=== PATIENT | male | born 1980 | race Caucasian/White ===

== ENCOUNTER 2019-06-22 16:14 | Inpatient (IN) | payer BC ==
[~2019-06-22] VITALS: Ht 185.4 cm; Wt 98.7 kg
[2019-06-22 16:56] LABS: BASO # 0.1 10^3/uL (0.0-0.2); BASO % 0.6 % (0.0-1.0); EOS % 0.1 % (0.0-3.0); HEMATOCRIT 48.5 % (42.0-52.0); HEMOGLOBIN 16.2 g/dl (13.5-17.5); LYMPH # 1.2 10^3/uL (1.5-5.0); MEAN CORPUSCULAR HEMOGLOBIN 33.7 pg (27.0-33.0); MEAN CORPUSCULAR HGB CONC 33.4 g/dl (32.0-36.5); MEAN CORPUSCULAR VOLUME 100.8 fl (80.0-96.0); MONO % 12.3 % (0.0-5.0); NEUTROPHILS # 5.6 10^3/uL (1.5-8.5); NEUTROPHILS % 71.2 % (36.0-66.0); PLATELET COUNT, AUTOMATED 115 10^3/uL (150-450); RED BLOOD COUNT 4.81 10^6/uL (4.30-6.10); WHITE BLOOD COUNT 7.9 10^3/uL (4.0-10.0)
[2019-06-22 17:06] LABS: INR 1.64; PROTHROMBIN TIME 19.2 SECONDS (11.8-14.0)
[2019-06-22 17:29] LABS: ALBUMIN 3.4 GM/DL (3.2-5.2); BILIRUBIN,DIRECT 2.4 MG/DL (0.0-0.2); BILIRUBIN,TOTAL 4.7 MG/DL (0.2-1.0); CALCIUM LEVEL 9.3 MG/DL (8.5-10.1); CK-MB VALUE MASS 3.2 NG/ML (<3.6); CREATININE FOR GFR 1.55 MG/DL (0.70-1.30); GLOMERULAR FILTRATION RATE 53.7 (>60); MB/CK RELATIVE INDEX 0.79 (< OR =4); POTASSIUM SERUM 4.2 MEQ/L (3.5-5.1); THYROID STIMULATING HORMONE 7.22 uIU/ML (0.358-3.740); TOTAL PROTEIN 7.2 GM/DL (6.4-8.2); TROPONIN I 0.36 NG/ML (< 0.10)
[2019-06-22] MEDS ORDERED: FUROSEMIDE 40 MG/4 ML VIAL (J1940) IV ONE (17:45)
[2019-06-22] MEDS ORDERED: LORazepam 2 MG TAB PO PRN (18:45)
--- NOTE | 2019-06-22 19:00 | HPEPDOC ---
General Date of Admission 06/22/18 Date of Service: Jun 22, 2019 Chief Complaint The patient is a 39-year-old male admitted with a reason for visit of Chest Pain. Source: Patient, Family, RN/MD History of Present Illness 39 year old male with no PMH , a heavy alcohol drinker at least a 6 pack of beer daily has been having increased SOB , cough and swelling of his legs for the past 3 weeks. Today he saw some blood in his cough so jigar to the urgent care in [place]. There a CXR was done which was read as cardiomegaly and bibasilar atelectasis so was sent to the ED. He has been having more and more cough when he has been laying down in bed. He denied any abdominal swelling. His last beer was 2 days ago. He quit smoking 3 months ago. Work [place] [address], elevated creatinine to 1.5, elevated AST , ALT, direct hyperbilirubinemia with elevated INR. Patient was admitted for acute CHF and alcoholic liver disease. Home Medications No Active Prescriptions or Reported Meds Allergies Coded Allergies: No Known Allergies (Verified Allergy, Unknown, 06/22/19) Past Medical History Medical History none Surgical History wisdom tooth removal Family History Father alive had stroke Mother alive healthy Social History * Smoker: former Smoker Alcohol: heavy Drugs: denies A-FIB/CHADSVASC A-FIB History Current/History of A-Fib/PAF?: No Review of Systems Constitutional: Reports: Fatigue; Denies: Chills, Fever, Night Sweats Eyes: Denies: Pain, Vision change ENT: Denies: Head Aches, Ear Pain, Dysphagia Skin: Denies: Rash, Lesions, Breakdown Pulmonary: Reports: Dyspnea, Cough Cardiovascular: Reports: Edema; Denies: Chest Pain, Palpitations, Paroxysmal Noc. Dyspnea, Lt Headedness Gastrointestinal: Reports: Diarrhea; Denies: Nausea, Vomiting, Abdominal Pain Genitourinary: Denies: Dysuria, Frequency, Incontinence, Retention Hematologic: Denies: Bruising, Bleeding Excessively Musculoskeletal: Denies: Neck Pain, Back Pain, Joint Pain, Muscle Pain, Spasms Neurological: Denies: Weakness, Numbness, Change in speech, Confusion Physical Examination General Exam: Positive: Alert, Cooperative, No Acute Distress Eye Exam: Positive: PERRLA, Conjunctiva & lids normal, EOMI, Sclera icteric ENT Exam: Positive: Atraumatic, Mucous membr. moist/pink, Pharynx Normal Neck Exam: Positive: Supple, JVD (in sitting position elevated. ) Chest Exam: Positive: Normal air movement, Other (basal crackles) Heart Exam: Positive: Tachycardic, Regular Rhythm, Normal S1, Normal S2, Gallops; Negative: Murmurs, Rubs Telemetry: Positive: Sinus, Tachycardia Abdomen Exam: Positive: Normal bowel sounds, Soft; Negative: Tenderness, Hepatospenomegaly Extremity Exam: Positive: Edema (4+ edema), Normal pulses; Negative: Clubbing, Cyanosis Skin Exam: Positive: Nl turgor and temperature; Negative: Breakdown, Lesion Neuro Exam: Positive: Normal Speech, Strength at 5/5 X4 ext, Normal Tone Psych Exam: Positive: Memory Intact, Oriented x 3 Vital Signs Vital Signs Date Time Temp Pulse Resp B/P (MAP) Pulse Ox O2 Delivery O2 Flow Rate FiO2 06/22/19 16:23 98.7 114 16 141/96 (111) 100 Room Air Laboratory Data Labs 24H Laboratory Tests 2 06/22/19 16:45: Immature Granulocyte % (Auto) 0.8, Neutrophils (%) (Auto) 71.2H, Lymphocytes (%) (Auto) 15.0L, Monocytes (%) (Auto) 12.3H, Eosinophils (%) (Auto) 0.1, Basophils (%) (Auto) 0.6, Neutrophils # (Auto) 5.6, Lymphocytes # (Auto) 1.2L, Monocytes # (Auto) 1.0H, Eosinophils # (Auto) 0.0, Basophils # (Auto) 0.1, Nucleated Red Blood Cells % (auto) 0.0, Prothrombin Time 19.2H, Prothromb Time International Ratio 1.64, Anion Gap 15, Glomerular Filtration Rate 53.7L, Calcium Level 9.3, Magnesium Level 2.0, Total Bilirubin 4.7H, Direct Bilirubin 2.4H, Aspartate Amino Transf (AST/SGOT) 387H, Alanine Aminotransferase (ALT/SGPT) 299H, Alkaline Phosphatase 120H, Total Creatine Kinase 406H, Creatine Kinase MB 3.2, Creatine K inase MB Relative Index 0.79, Troponin I 0.36H, KV-Oet-S-Type Natriuretic Peptide 65884E, Total Protein 7.2, Albumin 3.4, Albumin/Globulin Ratio 0.89L, Thyroid Stimulating Hormone (TSH) 7.220H CBC/BMP Laboratory Tests 06/22/19 16:45 Assessment/Plan 39 year old male with no PMH , a heavy alcohol drinker at least a 6 pack of beer daily has been having increased SOB , cough and swelling of his legs for the past 3 weeks. Today he saw some blood in his cough so jigar to the urgent care in [place]. There a CXR was done which was read as cardiomegaly and bibasilar atel ectasis so was sent to the ED. He has been having more and more cough when he has been laying down in bed. He denied any abdominal swelling. His last beer was 2 days ago. He quit smoking 3 months ago.Work [place] [address], elevated creatinine to 1.5, elevated AST , ALT, direct hyperbilirubinemia with elevated INR. Patient was admitted for acute CHF and alcoholic liver disease. Acute CHF unknown type. 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 Alcohol abuse with probable underlying Chronic Alcoholic liver disease has low platelets and elevated INR elevated bilirubin. MELD score in 25. will get CT abdomen and pelvis to look for any ascites, liver architexture will place on CIWA protocol will give Vitamin K. KRISTIN probably due to CHF will treat with lasix. Mildly Elevated TSH this is sick euthyroid syn will have to be recheched as outpateint. Transaminitis this is probably due to congestive hepatopathy rather than alcoholic hepatitis as pateint does not have any abdominal pain or abdominal complaints. CT abd pelvis ordered. Plan / VTE VTE Prophylaxis Ordered?: Yes JORGE L SHERMAN MD Jun 22, 2019 19:00
[2019-06-22 19:51] VITALS: BP 124/86
[2019-06-22 20:04] VITALS: BP 128/86
--- NOTE | 2019-06-22 20:13 | REPVR ---
PROCEDURE INFORMATION: Exam: CT Abdomen And Pelvis Without Contrast Exam date and time: 06/22/2019 6:49 PM Age: 39 years old Clinical indication: Abnormal findings; Abnormal lab test; Abnormal function test of other organs/systems; Additional info: Abnormal liver functions, alcoholic TECHNIQUE: Imaging protocol: Computed tomography of the abdomen and pelvis without contrast. Radiation optimization: All CT scans at this facility use at least one of these dose optimization techniques: automated exposure control; mA and/or kV adjustment per patient size (includes targeted exams where dose is matched to clinical indication); or iterative reconstruction. COMPARISON: No relevant prior studies available. FINDINGS: Heart: Cardiomegaly. Liver: There are no focal liver lesions present. Gallbladder and bile ducts: The gallbladder is unremarkable. Pancreas: The pancreas is unremarkable. Spleen: The spleen is unremarkable Adrenals: The adrenal glands are unremarkable. Kidneys and ureters: The kidneys are unremarkable. Stomach and bowel: There is no evidence of intestinal obstruction. Appendix: No evidence of appendicitis. Intraperitoneal space: Small volume of ascites. Vasculature: The aorta is unremarkable. Lymph nodes: Unremarkable. No enlarged lymph nodes. Mild anasarca. Bladder: The bladder is unremarkable. Reproductive: The prostate gland and seminal vesicles are unremarkable. Bones/joints: Skeletal degeneration. Soft tissues: Unremarkable. IMPRESSION: 1. Mild ascites and anasarca. 2. Cardiomegaly. 3. Solid organs are poorly evaluated on this noncontrast study. Electronically signed by: Cher Dey On 06/22/2019 20:13:13 PM
--- NOTE | 2019-06-22 20:20 | REPVR ---
PROCEDURE INFORMATION: Exam: CT Chest Without Contrast Exam date and time: 06/22/2019 6:49 PM Age: 39 years old Clinical indication: Shortness of breath; Additional info: SOB, hemoptysis TECHNIQUE: Imaging protocol: Computed tomography of the chest without contrast. Radiation optimization: All CT scans at this facility use at least one of these dose optimization techniques: automated exposure control; mA and/or kV adjustment per patient size (includes targeted exams where dose is matched to clinical indication); or iterative reconstruction. COMPARISON: DX CHEST 2 VIEW 06/22/2019 2:43 PM FINDINGS: Lungs: Groundglass attenuation is seen anteriorly at base of right middle lobe. Pleural space: No pneumothorax. No pleural effusion. Heart: Cardiomegaly with small pericardial effusion. Mediastinum: There is stranding throughout the anterior mediastinal fat. Aorta: No aortic aneurysm. Lymph nodes: No significant mediastinal lymphadenopathy. Lucia are not well assessed. Bones/joints: Prior fractures of the posterior margins of the upper thoracic spinous processes. Schmorl's nodes are seen in vertebral body endplates. Soft tissues: Unremarkable. IMPRESSION: 1. Cardiomegaly without pleural effusions. 2. Mild groundglass attenuation anteriorly at base of right middle lobe most likely due to subsegmental atelectasis. No evidence of pneumonia or congestive heart failure. Electronically signed by: Cher Dey On 06/22/2019 20:20:00 PM
[2019-06-22] MEDS: FUROSEMIDE 40 MG/4 ML VIAL (J1940) IV SCH (21:09)
[2019-06-22] MEDS: THIAMINE 100 MG TAB PO SCH (21:09)
[2019-06-22 22:00] VITALS: BP 124/86
[2019-06-23] VITALS (7 sets, daily range): BP systolic 117–139; BP diastolic 68–94
[2019-06-23] MEDS ORDERED: ACETAMINOPHEN TAB 650MG DOSE (2X325MG) PO ONE (06:30)
[2019-06-23] MEDS: FUROSEMIDE 40 MG/4 ML VIAL (J1940) IV SCH ×3 (06:32→21:22)
[2019-06-23] MEDS: MULTIVITAMINS/MINERALS THERAP 1 TAB PO SCH (08:32)
[2019-06-23] MEDS: FOLIC ACID 1 MG TAB PO SCH (08:32)
[2019-06-23] MEDS: THIAMINE 100 MG TAB PO SCH ×2 (08:32→21:22)
[2019-06-23] MEDS ORDERED: INFLUENZA QUADRIVALENT PF VACCINE 0.5ML SYRINGE (90686) IM ONE (09:00)
--- NOTE | 2019-06-23 11:14 | IPNPDOC ---
Subjective Date Seen The patient was seen on 06/23/19. Subjective Chief Complaint/HPI Mr. Roche is a 39 year old male admitted to the hospital with diagnoses of Alcohol abuse, acute CHF, and ALD. He is seen sitting up in the room this morning. Pt denied any pain or dyspnea. He continues to have a dry cough, there is no longer blood being expectorated. Per nursing TEDs will not fit over the pt legs as they are so edematous; requested sequentials instead. General: Reports: Normal Appetite; Denies: Chills, Night Sweats, Malaise Constitutional: Denies: Chills, Fever Eyes: Denies: Pain ENT: Denies: Head Aches Skin: Denies: Rash Pulmonary: Reports: Cough; Denies: Dyspnea Cardiovascular: Reports: Edema; Denies: Chest Pain, Palpitations, Paroxysmal Noc. Dyspnea, Lt Headedness Gastrointestinal: Denies: Nausea, Vomiting, Abdominal Pain Genitourinary: Denies: Dysuria Musculoskeletal: Denies: Neck Pain, Back Pain, Joint Pain, Muscle Pain, Spasms Neurological: Denies: Change in speech, Confusion Psych: Reports: Mood Normal Objective Physical Examination General Exam: Positive: Alert, Cooperative, No Acute Distress Eye Exam: Positive: PERRLA, Conjunctiva & lids normal, EOMI, Sclera icteric ENT Exam: Positive: Atraumatic, Mucous membr. moist/pink, Pharynx Normal Neck Exam: Positive: Supple; Negative: thyromegaly Chest Exam: Positive: Normal air movement, Other (basal crackles) Heart Exam: Positive: Tachycardic, Regular Rhythm, Normal S1, Normal S2, Gallops (S4); Negative: Murmurs, Rubs Telemetry: Positive: Sinus, Tachycardia Abdomen Exam: Positive: Normal bowel sounds, Soft; Negative: Tenderness, Hepatospenomegaly Extremity Exam: Positive: Edema (4+ edema b/l), Normal pulses; Negative: Clubbing, Cyanosis Skin Exam: Positive: Nl turgor and temperature; Negative: Breakdown, Lesion Neuro Exam: Positive: Normal Speech, Strength at 5/5 X4 ext, Normal Tone Psych Exam: Positive: Mood NL, Memory Intact, Oriented x 3 Assessment /Plan Assessment Mr. Roche is a 39 year old male with no PMH , a heavy alcohol drinker at least a 6 pack of beer daily has been having increased SOB , cough and swelling of his legs for the past 3 weeks. Today he saw some blood in his cough so went to the urgent care in [place]. There a CXR was done which was read as cardiomegaly and bibasilar atelectasis so was sent to the ED. He has been having more and more cough when he has been laying down in bed. He denied any abdominal swelling. His last beer was 2 days ago. He quit smoking 3 months ago. Work [place] [address], elevated creatinine to 1.5, elevated AST , ALT, direct hyperbilirubinemia with elevated INR. Patient was admitted for acute CHF and alcoholic liver disease. Acute CHF unknown type. 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 Chest CT Impression: "1. Cardiomegaly without pleural effusions. 2. Mild ground glass attenuation anteriorly at base of right middle lobe most likely due to subsegmental atelectasis. No evidence of pneumonia or congestive heart failure." Alcohol abuse with probable underlying Chronic Alcoholic liver disease has low platelets and elevated INR elevated bilirubin. MELD score in 25. CT Abd/pelvis Impression: "1. Mild ascites and anasarca. 2. Cardiomegaly. 3. Solid organs are poorly evaluated on this noncontrast study." will place on CIWA protocol - negative per nursing Vitamin K - given KRISTIN probably due to CHF will treat with Lasix Mildly Elevated TSH this is sick euthyroid syn will have to be followed as outpatient Transaminitis this is probably due to congestive hepatopathy rather than alcoholic hepatitis as patient does not have any abdominal pain or abdominal complaints CT abd pelvis done (see above) Dyspnea, chronic cough Strongly encouraged to use spirometer hourly Plan/VTE VTE Prophylaxis Ordered?: Yes VS, I&O, 24H, Fishbone Vital Signs/I&O Vital Signs Date Time Temp Pulse Resp B/P (MAP) Pulse Ox O2 Delivery O2 Flow Rate FiO2 06/23/19 06:00 98.0 106 24 120/94 (103) 98 Room Air I&O- Last 24 Hours up to 6 AM 06/23/19 05:59 Intake Total 180 ml Output Total 3475 ml Balance -3295 ml Laboratory Data 24H LABS Laboratory Tests 2 06/22/19 16:45: Immature Granulocyte % (Auto) 0.8, Neutrophils (%) (Auto) 71.2H, Lymphocytes (%) (Auto) 15.0L, Monocytes (%) (Auto) 12.3H, Eosinophils (%) (Auto) 0.1, Basophils (%) (Auto) 0.6, Neutrophils # (Auto) 5.6, Lymphocytes # (Auto) 1.2L, Monocytes # (Auto) 1.0H, Eosinophils # (Auto) 0.0, Basophils # (Auto) 0.1, Nucleated Red Blood Cells % (auto) 0.0, Prothrombin Time 19.2H, Prothromb Time International Ratio 1.64, Anion Gap 15, Glomerular Filtration Rate 53.7L, Calcium Level 9.3, Magnesium Level 2.0, Total Bilirubin 4.7H, Direct Bilirubin 2.4H, Aspartate Amino Transf (AST/SGOT) 387H, Alanine Aminotransferase (ALT/SGPT) 299H, Alkaline Phosphatase 120H, Total Creatine Kinase 406H, Creatine Kinase MB 3.2, Creatine Kinase MB Relative Index 0.79, Troponin I 0.36H, WK-Qgx-T-Type Natriuretic Peptide 92302D, Total Protein 7.2, Albumin 3.4, Albumin/Globulin Ratio 0.89L, Thyroid Stimulating Hormone (TSH) 7.220H 06/22/19 18:03: Ammonia 28 CBC/BMP Laboratory Tests 06/22/19 16:45 ROMA BETTS PA-C Jun 23, 2019 11:14
[2019-06-23 14:08] LABS: BASO % 0.3 % (0.0-1.0); EOS % 0.3 % (0.0-3.0); HEMATOCRIT 43.9 % (42.0-52.0); HEMOGLOBIN 14.9 g/dl (13.5-17.5); LYMPH # 1.1 10^3/uL (1.5-5.0); LYMPH % 12.3 % (24.0-44.0); MEAN CORPUSCULAR HEMOGLOBIN 33.6 pg (27.0-33.0); MEAN CORPUSCULAR HGB CONC 33.9 g/dl (32.0-36.5); MEAN CORPUSCULAR VOLUME 98.9 fl (80.0-96.0); MONO # 1.1 10^3/uL (0.0-0.8); MONO % 12.6 % (0.0-5.0); NEUTROPHILS # 6.7 10^3/uL (1.5-8.5); NEUTROPHILS % 73.8 % (36.0-66.0); RED BLOOD COUNT 4.44 10^6/uL (4.30-6.10); WHITE BLOOD COUNT 9.1 10^3/uL (4.0-10.0)
[2019-06-23 14:10] LABS: PLATELET COUNT, AUTOMATED 95 10^3/uL (150-450)
[2019-06-23 14:31] LABS: ALT/SGPT 249 U/L (12-78); BILIRUBIN,TOTAL 4.6 MG/DL (0.2-1.0); BLOOD UREA NITROGEN 23 MG/DL (7-18); CALCIUM LEVEL 8.6 MG/DL (8.5-10.1); CARBON DIOXIDE LEVEL 24 MEQ/L (21-32); CHLORIDE LEVEL 99 MEQ/L (98-107); CREATININE FOR GFR 1.39 MG/DL (0.70-1.30); GLOMERULAR FILTRATION RATE > 60.0 (>60); GLUCOSE, FASTING 111 MG/DL (70-100); MAGNESIUM LEVEL 1.6 MG/DL (1.8-2.4); PHOSPHORUS LEVEL 3.2 MG/DL (2.5-4.9); POTASSIUM SERUM 3.4 MEQ/L (3.5-5.1); SODIUM LEVEL 135 MEQ/L (136-145); TOTAL PROTEIN 6.3 GM/DL (6.4-8.2)
--- NOTE | 2019-06-23 14:53 | ECGEPIP ---
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
--- NOTE | 2019-06-23 20:34 | ECHO ---
DATE OF PROCEDURE: 06/23/2019 REFERRING PHYSICIAN: Maria Elena Darnell MD PATIENT LOCATION: Room 4227 REASON FOR ECHOCARDIOGRAM: Heart failure. 2D MEASUREMENTS: IVS: 0.9 cm LV: 6.8 cm LVPW: 1.3 cm LA: 5.0 cm Aorta: 3.3 cm RV: 4.7 cm IVC: 3.5 cm DOPPLER MEASUREMENTS: Peak velocity across the aortic valve: 0.81 m/s Peak velocity across the LVOT: 0.41 m/s Mitral E: 0.7 Maximum tricuspid valve velocity: 2.2 m/s 2D COMMENTS: 1. Moderately increased left ventricular size with normal left ventricular wall thickness but a markedly depressed global left ventricular systolic function. There was severe global hypokinesis. The estimated left ventricular systolic ejection fraction is 20%. 2. Mild to moderately enlarged left atrium. The right atrium appeared to be mildly enlarged. The right ventricle may be minimally enlarged in limited views. The right ventricular free wall seems to be hypokinetic. 3. The atrial septum appeared to be normal without evidence of defect or shunt. 4. Normal aortic root. 5. Trace pericardial effusion noted, no evidence of cardiac tamponade. 6. Normal aortic valve. Normal mitral valve, tricuspid valve, and pulmonic valves. 7. The inferior vena cava is dilated, central venous pressure is most likely elevated. DOPPLER: Doppler detects moderate eccentric mitral regurgitation and moderate eccentric tricuspid regurgitation. The calculated pulmonary artery systolic pressure was normal, but most likely underestimated. Assessment of the left ventricular diastolic function appeared to be restrictive in nature. IMPRESSION 1. Severe global left ventricular systolic dysfunction with a moderately enlarged left ventricle and severe diffuse hypokinesis. There are some features of left ventricular diastolic dysfunction, a restrictive mitral inflow pattern was noted. 2. Mildly to moderately enlarged left atrium with moderate eccentric mitral regurgitation. 3. Moderate tricuspid regurgitation with dilated right heart chambers. The calculated pulmonary artery systolic pressure was normal, most likely underestimated. 4. There are features of elevated central venous pressure, the inferior vena cava was dilated. 5. Trace pericardial effusion,, no evidence of cardiac tamponade. MTDD
[2019-06-23] MEDS ORDERED: MAG SULF 1GM/100ML (MAG RUN) 1 GM in IV 1 EA IV ONE (21:00)
[2019-06-23] MEDS ORDERED: POTASSIUM CHLORIDE 10 MEQ SR TABLET PO ONE (21:00)
[2019-06-24 04:00] VITALS: BP 106/64
[2019-06-24] MEDS: FUROSEMIDE 40 MG/4 ML VIAL (J1940) IV SCH ×3 (05:29→21:48)
[2019-06-24 06:00] VITALS: BP 128/76
[2019-06-24 06:13] LABS: HEMATOCRIT 41.9 % (42.0-52.0); HEMOGLOBIN 14.9 g/dl (13.5-17.5); MEAN CORPUSCULAR HEMOGLOBIN 34.4 pg (27.0-33.0); MEAN CORPUSCULAR HGB CONC 35.6 g/dl (32.0-36.5); MEAN CORPUSCULAR VOLUME 96.8 fl (80.0-96.0); RED BLOOD COUNT 4.33 10^6/uL (4.30-6.10); WHITE BLOOD COUNT 7.9 10^3/uL (4.0-10.0)
[2019-06-24 06:18] LABS: PLATELET COUNT, AUTOMATED 96 10^3/uL (150-450)
[2019-06-24 06:36] LABS: ALBUMIN 2.8 GM/DL (3.2-5.2); ALT/SGPT 214 U/L (12-78); BILIRUBIN,TOTAL 4.3 MG/DL (0.2-1.0); BLOOD UREA NITROGEN 18 MG/DL (7-18); CALCIUM LEVEL 8.2 MG/DL (8.5-10.1); CARBON DIOXIDE LEVEL 26 MEQ/L (21-32); CHLORIDE LEVEL 96 MEQ/L (98-107); GLOMERULAR FILTRATION RATE > 60.0 (>60); GLUCOSE, FASTING 102 MG/DL (70-100); MAGNESIUM LEVEL 1.6 MG/DL (1.8-2.4); PHOSPHORUS LEVEL 2.9 MG/DL (2.5-4.9); POTASSIUM SERUM 2.7 MEQ/L (3.5-5.1); SODIUM LEVEL 135 MEQ/L (136-145); TOTAL PROTEIN 6.6 GM/DL (6.4-8.2)
[2019-06-24] MEDS ORDERED: MAG SULF 1GM/100ML (MAG RUN) 1 GM in IV 1 EA IV ONE (07:00)
[2019-06-24] MEDS ORDERED: KCL 10MEQ/100ML SWI (KRUN) 10 MEQ in IV 1 EA IV SCH (07:00)
[2019-06-24 08:00] VITALS: BP 116/70
[2019-06-24] MEDS ORDERED: POTASSIUM CHLORIDE 10 MEQ SR TABLET PO ONE ×2 (09:00→14:00)
[2019-06-24] MEDS ORDERED: POTASSIUM CHLORIDE 10 MEQ SR TABLET PO SCH (09:00)
[2019-06-24] MEDS: KCL 10MEQ/100ML SWI (KRUN) 10 MEQ in IV 1 EA IV SCH ×2 (09:10→09:17)
[2019-06-24] MEDS: THIAMINE 100 MG TAB PO SCH ×2 (09:28→20:48)
[2019-06-24] MEDS: MAGNESIUM OXIDE 400 MG TAB (MAG-OX) PO SCH ×2 (09:28→20:48)
[2019-06-24] MEDS: FOLIC ACID 1 MG TAB PO SCH (09:28)
[2019-06-24] MEDS: POTASSIUM CHLORIDE 10 MEQ SR TABLET PO SCH ×2 (09:28→20:47)
[2019-06-24] MEDS: MULTIVITAMINS/MINERALS THERAP 1 TAB PO SCH (09:28)
[2019-06-24] MEDS ORDERED: KCL 10MEQ/100ML SWI (KRUN) 10 MEQ in IV 1 EA IV ONE (11:00)
--- NOTE | 2019-06-24 12:38 | IPNPDOC ---
Subjective Date Seen The patient was seen on 06/24/19. Subjective Chief Complaint/HPI Continues to complain of cough, no hemoptysis, No improvement in leg swelling noted yet. Says he is having very good urine output. No signs of alcohol withdrawal. Complains of some right sided chest pain when he lays down possibly due to congestive hepatopathy Objective Physical Examination General Exam: Positive: Alert, Cooperative, No Acute Distress Eye Exam: Positive: PERRLA, Conjunctiva & lids normal, EOMI, Sclera icteric ENT Exam: Positive: Atraumatic, Mucous membr. moist/pink, Pharynx Normal Neck Exam: Positive: Supple, JVD; Negative: thyromegaly Chest Exam: Positive: Normal air movement, Other (basal crackles) Heart Exam: Positive: Tachycardic, Regular Rhythm, Normal S1, Normal S2, Gallops (S4); Negative: Murmurs, Rubs Telemetry: Positive: Sinus, Tachycardia Abdomen Exam: Positive: Normal bowel sounds, Soft; Negative: Tenderness, Hepatospenomegaly Extremity Exam: Positive: Edema (4+ edema b/l), Normal pulses; Negative: Clubbing, Cyanosis Skin Exam: Positive: Nl turgor and temperature; Negative: Breakdown, Lesion Neuro Exam: Positive: Normal Speech, Strength at 5/5 X4 ext, Normal Tone Psych Exam: Positive: Mood NL, Memory Intact, Oriented x 3 Assessment /Plan Assessment Mr. Roche is a 39 year old male with no PMH , a heavy alcohol drinker at least a 6 pack of beer daily has been having increased SOB , cough and swelling of his legs for the past 3 weeks. Today he saw some blood in his cough so went to the urgent care in [place]. There a CXR was done which was read as cardiomegaly and bibasilar atelectasis so was sent to the ED. He has been having more and more cough when he has been laying down in bed. He denied any abdominal swelling. His last beer was 2 days ago. He quit smoking 3 months ago. Work [place] [address], elevated creatinine to 1.5, elevated AST , ALT, direct hyperbilirubinemia with elevated INR. Patient was admitted for acute CHF and alcoholic liver disease. Acute Systolic and diastolic CHF and acute right heart failure Echo shows dialated cardiomyopathy with EF of 20%. Etiology could be viral/ alcohol 1. Severe global left ventricular systolic dysfunction with a moderately enlarged left ventricle and severe diffuse hypokinesis. There are some features of left ventricular diastolic dysfunction, a restrictive mitral inflow pattern was noted. 2. Mildly to moderately enlarged left atrium with moderate eccentric mitral regurgitation. 3. Moderate tricuspid regurgitation with dilated right heart chambers. The calculated pulmonary artery systolic pressure was normal, most likely underestimated. 4. There are features of elevated central venous pressure, the inferior vena cava was dilated. 5. Trace pericardial effusion,, no evidence of cardiac tamponade. NSVTs on tele, electrolyte imbalance being replaced aggressively continue IV lasix. Cardiology consult Hypokalemia and hypomagnesemia replaced aggressively. will recheck in the afternoon. Cardiomegaly in CXR Chest CT Impression: "1. Cardiomegaly without pleural effusions. 2. Mild ground glass attenuation anteriorly at base of right middle lobe most likely due to subsegmental atelectasis. No evidence of pneumonia or congestive heart failure." Alcohol abuse with probable underlying Chronic Alcoholic liver disease has low platelets and elevated INR elevated bilirubin. MELD score in 25. CT Abd/pelvis Impression: "1. Mild ascites and anasarca. 2. Cardiomegaly. 3. Solid organs are poorly evaluated on this noncontrast study." will place on CIWA protocol - negative per nursing Vitamin K - given KRISTIN improving with diuresis. probably due to CHF will treat with Lasix Mildly Elevated TSH this is sick euthyroid syn will have to be followed as outpatient Transaminitis this is probably due to congestive hepatopathy rather than alcoholic hepatitis as patient does not have any abdominal pain or abdominal complaints CT abd pelvis done (see above) will get hepatitis profile. Dyspnea, chronic cough Strongly encouraged to use spirometer hourly Plan/VTE VTE Prophylaxis Ordered?: Yes VS, I&O, 24H, Fishbone Vital Signs/I&O Vital Signs Date Time Temp Pulse Resp B/P (MAP) Pulse Ox O2 Delivery O2 Flow Rate FiO2 06/24/19 08:00 68 116/70 06/24/19 06:00 97.8 19 97 Room Air I&O- Last 24 Hours up to 6 AM 06/24/19 06:00 Intake Total 1275 ml Output Total 3900 ml Balance -2625 ml Laboratory Data 24H LABS Laboratory Tests 2 06/23/19 13:38: 06/23/19 13:43: Immature Granulocyte % (Auto) 0.7, Neutrophils (%) (Auto) 73.8H, Lymphocytes (%) (Auto) 12.3L, Monocytes (%) (Auto) 12.6H, Eosinophils (%) (Auto) 0.3, Basophils (%) (Auto) 0.3, Neutrophils # (Auto) 6.7, Lymphocytes # (Auto) 1.1L, Monocytes # (Auto) 1.1H, Eosinophils # (Auto) 0.0, Basophils # (Auto) 0.0, Nucleated Red Blood Cells % (auto) 0.0, Immature Platelet Fraction 6.8, Anion Gap 12, Glomerular Filtration Rate > 60.0, Calcium Level 8.6, Phosphorus Level 3.2, Magnesium Level 1.6L, Total Bilirubin 4.6H, Aspartate Amino Transf (AST/SGOT) 286H, Alanine Aminotransferase (ALT/SGPT) 249H, Alkaline Phosphatase 108, Total Protein 6.3L, Albumin 3.0L, Albumin/Globulin Ratio 0.91L 06/24/19 05:48: Nucleated Red Blood Cells % (auto) 0.0, Anion Gap 13, Glomerular Filtration Rate > 60.0, Calcium Level 8.2L, Phosphorus Level 2.9, Magnesium Level 1.6L, Total Bilirubin 4.3H, Aspartate Amino Transf (AST/SGOT) 212H, Alanine Aminotransferase (ALT/SGPT) 214H, Alkaline Phosphatase 111, Total Protein 6.6, Albumin 2.8L, Albumin/Globulin Ratio 0.74L CBC/BMP Laboratory Tests 06/23/19 13:43 06/24/19 05:48 JORGE L SHERMAN MD Jun 24, 2019 12:23
[2019-06-24 14:00] VITALS: BP 120/79
[2019-06-24] MEDS ORDERED: SPIRONOLACTONE 12.5MG PER 1/2 TABLET PO SCH (15:00)
[2019-06-24 16:34] LABS: BLOOD UREA NITROGEN 17 MG/DL (7-18); CALCIUM LEVEL 7.9 MG/DL (8.5-10.1); CARBON DIOXIDE LEVEL 27 MEQ/L (21-32); CHLORIDE LEVEL 95 MEQ/L (98-107); CREATININE FOR GFR 1.27 MG/DL (0.70-1.30); GLOMERULAR FILTRATION RATE > 60.0 (>60); GLUCOSE, FASTING 134 MG/DL (70-100); POTASSIUM SERUM 3.4 MEQ/L (3.5-5.1); SODIUM LEVEL 133 MEQ/L (136-145)
[2019-06-24] MEDS: ramipriL 1.25 MG CAP PO SCH (16:46)
[2019-06-24] MEDS: CARVedilol 3.125 MG TAB PO SCH (20:49)
[2019-06-24 22:00] VITALS: BP 135/79
[2019-06-25 00:06] LABS: EBV VIRAL CAPSID AG IgG >600.0 U/mL (0.0-17.9); EBV VIRAL CAPSID AG IgM <36.0 U/mL (0.0-35.9)
[2019-06-25] MEDS ORDERED: ONDANSETRON 4 MG TAB (S0181) PO PRN (00:15)
[2019-06-25] MEDS: RAMELTEON 8 MG TAB (ROZEREM) PO SCH ×2 (00:21→21:03)
[2019-06-25 06:00] LABS: HEMATOCRIT 48.9 % (42.0-52.0); HEMOGLOBIN 16.3 g/dl (13.5-17.5); MEAN CORPUSCULAR HEMOGLOBIN 33.5 pg (27.0-33.0); MEAN CORPUSCULAR HGB CONC 33.3 g/dl (32.0-36.5); MEAN CORPUSCULAR VOLUME 100.6 fl (80.0-96.0); RED BLOOD COUNT 4.86 10^6/uL (4.30-6.10); WHITE BLOOD COUNT 8.8 10^3/uL (4.0-10.0)
[2019-06-25 06:01] LABS: PLATELET COUNT, AUTOMATED 91 10^3/uL (150-450)
[2019-06-25] MEDS: FUROSEMIDE 40 MG/4 ML VIAL (J1940) IV SCH (06:01)
[2019-06-25 06:29] LABS: ALBUMIN 3.1 GM/DL (3.2-5.2); BILIRUBIN,TOTAL 6.9 MG/DL (0.2-1.0); CALCIUM LEVEL 8.2 MG/DL (8.5-10.1); CREATININE FOR GFR 1.69 MG/DL (0.70-1.30); GLOMERULAR FILTRATION RATE 48.6 (>60); MAGNESIUM LEVEL 1.9 MG/DL (1.8-2.4); POTASSIUM SERUM 3.8 MEQ/L (3.5-5.1); TOTAL PROTEIN 7.4 GM/DL (6.4-8.2)
--- NOTE | 2019-06-25 08:21 | CR ---
DATE OF CONSULTATION: 06/24/2019 REFERRING PROVIDER: Dr. Maria Elena Darnell. REASON FOR CONSULTATION: Heart failure. HISTORY OF PRESENT ILLNESS: 39-year-old man with no previous past medical history currently not seeing any physicians prior to his hospitalization. Has been having increasing shortness of breath, pedal edema, orthopnea, cough, which he thinks for about 3 weeks. Because he was not feeling well, he went to the urgent care center in [place], [place] and had a chest x-ray that revealed cardiomegaly and atelectasis. He was sent to the emergency room (ER) for further evaluation and was admitted for further management and monitoring. His labs revealed a markedly elevated serum troponin on admission up to 14,000 with hyponatremia, chronic kidney disease, abnormal LFTs, abnormal TSH and macrocytosis. He had an echocardiogram done yesterday and it revealed a severely depressed left ventricular ejection fraction (LVEF) estimated at 20%. There was moderate eccentric mitral regurgitation as well as moderate tricuspid regurgitation. The inferior vena cava was dilated but only trace pericardial effusion. Cardiology consult was called. When I saw Mr. Michael Roche, he was sitting in chair in no acute distress and family members were at bedside. He denies any chest pain or palpitations. He denies any recent pneumonia or upper respiratory tract infection. He denies any history of hypertension, hyperlipidemia, coronary disease, valvular heart disease, cardiomyopathy, atrial fibrillation/flutter. He stated he had stopped smoking earlier this year and has been drinking; he usually drinks a lot until 2 days prior to his hospitalization. The drinks beers but they are all with high concentration of alcohol about 8%. He denies any bleeding. He was told earlier today by his hospitalist about his underlying cardiac condition and he is concerned. PAST SURGICAL HISTORY: [place] tooth removal, otherwise of markable. MEDICATIONS: Prior coming to the hospital, none. FAMILY HISTORY: Positive for cerebrovascular accident (CVA) his father otherwise unremarkable. SOCIAL HISTORY: The patient is a former smoker, stopped earlier this year. He drinks heavily until this hospitalization. He denies any illicit drugs. CURRENT MEDICATIONS: - potassium supplement 40 mg by mouth twice a day - magnesium oxide 48 mg by mouth twice a day - folic acid 1 mg by mouth daily - multivitamin one tablet by mouth daily - Lasix 40 mg IV every 8 hours - thiamine 100 mg by mouth twice a day. PHYSICAL EXAMINATION: The patient is alert and oriented, in no acute distress at rest and his blood pressure when I saw him was 116/70 with a pulse reported to be 68, respiration 19 and his maximum temperature was 97.8 degrees Fahrenheit with oxygen saturation of 97% on room air. He had a negative fluid balance since hospitalization. It was reported to be 12 liters but I would doubt that. Examination of the head: Atraumatic. Neck is supple and no jugular venous distention (JVD) appreciated while sitting up in the chair. The lungs revealed minimal crackles at the bases. The heart examination revealed a regular heart sound without gallops. The point of maximum impulse (PMI) is displaced inferiorly and laterally. There is no rub. There is systolic murmur grade 1 to 2 over 6 at the lower sternal border and at the apex without any significant radiation. Abdomen is soft. Extremities reveal +1 to +2 bilateral lower leg and ankle edema. Neurological examination is negative for focal deficit. LABS: BMP done this afternoon revealed a sodium of 133, potassium 3.4, chloride 95, CO2 27, BUN 17, creatinine 1.27, GFR more than 60, fasting glucose 134, calcium 7.9 and serum magnesium was 2.0. Liver enzymes done earlier today revealed a total bilirubin of 4.3, AST 212, ALT 249 alkaline phosphatase, total protein 6.6, albumin 2.8. On admission, AST and ALT was 387 and 299 respectively. CBC done today revealed a WBC of 7.9, hemoglobin 14.9, hematocrit 41.9 and platelet 96,000. Chest CT on admission revealed cardiomegaly without pleural effusion. There was a ground-glass appearance mainly on the right middle lobe. Abdomen and pelvis CT revealed mild ascites and anasarca, cardiomegaly. 39-year-old male with history of heavy alcoholism was admitted with heart failure and was found by echocardiogram to be a severely depressed global left ventricular systolic function. He also has abnormal LFTs, thrombocytopenia, macrocytosis. His kidney function seems to have improved since in the hospital. His LFTs are also slightly improving. His diagnosis was discussed with him and he was strongly recommended to stop drinking alcohol and this also was discussed with his family present in the room. He was started on the spirolactone, the angiotensin converting enzyme inhibitors (TOMÁS)/ramipril and the carvedilol. He will be monitored. I doubt he has underlying coronary artery disease. When he is ready for discharge, he will need a LifeVest. He is well aware if he does not stop drinking alcohol, his LVEF most likely will not improved. I will monitor him along with you while in the hospital and he will be seen as outpatient at the office for followup. Case was discussed with his hospitalist. PATRICIA
[2019-06-25] MEDS: MAGNESIUM OXIDE 400 MG TAB (MAG-OX) PO SCH ×2 (08:33→21:03)
[2019-06-25] MEDS: FOLIC ACID 1 MG TAB PO SCH (08:34)
[2019-06-25] MEDS: MULTIVITAMINS/MINERALS THERAP 1 TAB PO SCH (08:34)
[2019-06-25] MEDS: THIAMINE 100 MG TAB PO SCH (08:34)
[2019-06-25] MEDS: POTASSIUM CHLORIDE 10 MEQ SR TABLET PO SCH (08:34)
[2019-06-25] MEDS: ramipriL 1.25 MG CAP PO SCH (08:35)
[2019-06-25] MEDS: CARVedilol 3.125 MG TAB PO SCH ×2 (08:35→21:53)
[2019-06-25] MEDS ORDERED: OXAZEPAM 10 MG CAP PO PRN (09:30)
[2019-06-25 09:39] LABS: BILIRUBIN,DIRECT 3.8 MG/DL (0.0-0.2)
--- NOTE | 2019-06-25 10:57 | IPNPDOC ---
Subjective Date Seen The patient was seen on 06/25/19. Subjective Chief Complaint/HPI As per staff very anxious overnight did not sleep tachycardic, not keeping the telemetry on. He seems to be starting to go into alcohol withdrawal. No fever or chills, denies any SOB, no abdominal pain nausea or vomiting. Objective Physical Examination General Exam: Positive: Alert, Cooperative, No Acute Distress Eye Exam: Positive: PERRLA, Conjunctiva & lids normal, EOMI, Sclera icteric ENT Exam: Positive: Atraumatic, Mucous membr. moist/pink, Pharynx Normal Neck Exam: Positive: Supple, JVD (present in sitting position); Negative: thyromegaly Chest Exam: Positive: Normal air movement, Other (basal crackles) Heart Exam: Positive: Tachycardic, Regular Rhythm, Normal S1, Normal S2, Gallops (S4); Negative: Murmurs, Rubs Telemetry: Positive: Sinus, Tachycardia Abdomen Exam: Positive: Normal bowel sounds, Soft; Negative: Tenderness, Hepatospenomegaly Extremity Exam: Positive: Edema (4+ edema b/l), Normal pulses; Negative: Clubbing, Cyanosis Skin Exam: Positive: Nl turgor and temperature; Negative: Breakdown, Lesion Neuro Exam: Positive: Normal Speech, Strength at 5/5 X4 ext, Normal Tone Psych Exam: Positive: Mood NL, Memory Intact, Oriented x 3 Assessment /Plan Assessment Mr. Roche is a 39 year old male with no PMH , a heavy alcohol drinker at least a 6 pack of beer daily has been having increased SOB , cough and swelling of his legs for the past 3 weeks. Today he saw some blood in his cough so went to the urgent care in [place]. There a CXR was done which was read as cardiomegaly and bibasilar atelectasis so was sent to the ED. He has been having more and more cough when he has been laying down in bed. He denied any abdominal swelling. His last beer was 2 days ago. He quit smoking 3 months ago. [place] [address], elevated creatinine to 1.5, elevated AST , ALT, direct hyperbilirubinemia with elevated INR. Patient was admitted for acute CHF and alcoholic liver disease. Acute Systolic and diastolic CHF and acute right heart failure shows dilated cardiomyopathy with EF of 20%. Etiology could be alcohol or others. strongly urged to refrain from drinking after discharge. need to be evaluated for CAD after discharge. Seen by cardiology, continue lasix iv but will lower dosage as creatinine is on corine rise started on ramipril and spironolactone. Not much urine output overnight. Echo : 1. Severe global left ventricular systolic dysfunction with a moderately enlarged left ventricle and severe diffuse hypokinesis. There are some features of left ventricular diastolic dysfunction, a restrictive mitral inflow pattern was noted. 2. Mildly to moderately enlarged left atrium with moderate eccentric mitral regurgitation. 3. Moderate tricuspid regurgitation with dilated right heart chambers. The calculated pulmonary artery systolic pressure was normal, most likely underestimated. 4. There are features of elevated central venous pressure, the inferior vena cava was dilated. 5. Trace pericardial effusion,, no evidence of cardiac tamponade. Hypokalemia and hypomagnesemia replaced aggressively. better now. Anxiety and tachycardia Patient is probably starting to withdraw from the alcohol will give him serax Alcohol abuse with probable underlying Chronic Alcoholic liver disease has low platelets and elevated INR elevated bilirubin. MELD score in 25. CT Abd/pelvis Impression: "1. Mild ascites and anasarca. 2. Cardiomegaly. 3. Solid organs are poorly evaluated on this noncontrast study." Vitamin K - given thiamine and folate. KRISTIN due to CHF and now due to aggressive diuresis. Will slow down on the diuresis. lasix dosa decreased. Mildly Elevated TSH this is sick euthyroid syn will have to be followed as outpatient Transaminitis this is probably due to congestive hepatopathy rather than alcoholic hepatitis as patient does not have any abdominal pain or abdominal complaints It could be due to chonic liver disease also. CT abd pelvis done (see above) will get hepatitis profile. Plan/VTE VTE Prophylaxis Ordered?: Yes VS, I&O, 24H, Fishbone Vital Signs/I&O Vital Signs Date Time Temp Pulse Resp B/P (MAP) Pulse Ox O2 Delivery O2 Flow Rate FiO2 06/25/19 08:35 126/75 06/25/19 08:35 102 06/24/19 22:00 97.4 19 99 Room Air I&O- Last 24 Hours up to 6 AM 06/25/19 06:00 Intake Total 1410 ml Output Total 2975 ml Balance -1565 ml Laboratory Data 24H LABS Laboratory Tests 2 06/24/19 15:45: Anion Gap 11, Glomerular Filtration Rate > 60.0, Calcium Level 7.9L, Magnesium Level 2.0 06/25/19 05:37: Anion Gap 15, Glomerular Filtration Rate 48.6L, Calcium Level 8.2L, Magnesium Level 1.9, Nucleated Red Blood Cells % (auto) 0.0, Immature Platelet Fraction 8.9, Total Bilirubin 6.9#H, Direct Bilirubin 3.8H, Aspartate Amino Transf (AST/SGOT) 158H, Alanine Aminotransferase (ALT/SGPT) 184H, Alkaline Phosphatase 118H, Total Protein 7.4, Albumin 3.1L, Albumin/Globulin Ratio 0.72L CBC/BMP Laboratory Tests 06/24/19 15:45 06/25/19 05:37 JORGE L SHERMAN MD Jun 25, 2019 10:57
[2019-06-25] MEDS ORDERED: SPIRONOLACTONE 12.5MG PER 1/2 TABLET PO SCH (12:00)
[2019-06-25 14:00] VITALS: BP 114/70
[2019-06-25] MEDS: LORazepam 2 MG TAB PO PRN (15:18)
[2019-06-25 16:30] VITALS: BP 112/68
[2019-06-25] MEDS ORDERED: FUROSEMIDE 40 MG/4 ML VIAL (J1940) IV SCH (17:00)
[2019-06-25 19:11] LABS: CALCIUM LEVEL 7.9 MG/DL (8.5-10.1); CREATININE FOR GFR 2.82 MG/DL (0.70-1.30); GLOMERULAR FILTRATION RATE 26.9 (>60); POTASSIUM SERUM 5.5 MEQ/L (3.5-5.1)
[2019-06-25] MEDS ORDERED: SODIUM CHLORIDE 0.9% 1000ML IV ONE (19:30)
[2019-06-25 20:00] VITALS: BP 108/72
[2019-06-25 21:25] VITALS: BP 108/72
[2019-06-26] VITALS (11 sets, daily range): BP systolic 98–110; BP diastolic 58–73
[2019-06-26 06:56] LABS: HEMATOCRIT 42.5 % (42.0-52.0); HEMOGLOBIN 14.3 g/dl (13.5-17.5); MEAN CORPUSCULAR HGB CONC 33.6 g/dl (32.0-36.5); MEAN CORPUSCULAR VOLUME 98.2 fl (80.0-96.0); RED BLOOD COUNT 4.33 10^6/uL (4.30-6.10); WHITE BLOOD COUNT 8.9 10^3/uL (4.0-10.0)
[2019-06-26 06:59] LABS: PLATELET COUNT, AUTOMATED 91 10^3/uL (150-450)
[2019-06-26 07:07] LABS: INR 1.95
[2019-06-26 07:08] LABS: PARTIAL THROMBOPLASTIN TIME 32.2 SECONDS (25.0-38.4)
[2019-06-26 07:14] LABS: ALBUMIN 2.4 GM/DL (3.2-5.2); BILIRUBIN,TOTAL 7.7 MG/DL (0.2-1.0); CALCIUM LEVEL 7.5 MG/DL (8.5-10.1); CREATININE FOR GFR 2.76 MG/DL (0.70-1.30); GLOMERULAR FILTRATION RATE 27.6 (>60); POTASSIUM SERUM 4.5 MEQ/L (3.5-5.1); TOTAL PROTEIN 5.8 GM/DL (6.4-8.2)
[2019-06-26] MEDS ORDERED: SODIUM CHLORIDE 0.9% 1000ML IV ONE ×2 (07:45→17:30)
[2019-06-26] MEDS: MULTIVITAMINS/MINERALS THERAP 1 TAB PO SCH (08:45)
[2019-06-26] MEDS: MAGNESIUM OXIDE 400 MG TAB (MAG-OX) PO SCH ×2 (08:45→20:21)
[2019-06-26] MEDS: FOLIC ACID 1 MG TAB PO SCH (08:45)
[2019-06-26] MEDS: CARVedilol 3.125 MG TAB PO SCH ×2 (08:51→20:22)
--- NOTE | 2019-06-26 08:53 | IPN ---
DATE: 06/25/2019 Mr. Roche was seen earlier today, he was in supine in bed in no acute distress at rest and a family member was at bedside. He was seen yesterday after his echocardiogram that revealed a severely depressed global left ventricular systolic function. He was started on Levaquin, as well as spirolactone and the beta [place]. He denies any chest pain and when I walk in the room he was laying supine in bed in no acute distress at rest. He denies any palpitations but rapid heart rate. He has been on IV Lasix and had a negative fluid balance of 3.5 liters on 06/24/2019. He does complain of shortness of breath with activities. His cough has improved. He thinks his pedal edema has been stable. His weight today was not entered. PHYSICAL EXAMINATION: The patient is alert and oriented, in no acute distress at rest and his vital signs when I saw him earlier today revealed a blood pressure of 126/75 with pulse of 102, respiration 18-20 and his maximum temperature is 97.4 degrees Fahrenheit with an oxygen saturation of 99% on room air. He had a negative fluid balance of 3.5 liters. HEAD: Atraumatic. NECK: Supple with extended jugular. LUNGS: Revealed no wheezing or crackles. HEART: Revealed regular heart sounds without gallops. The PMI is displaced inferiorly. There is no rub. There is a systolic murmur grade 1-2/6 at the apex with minimal radiation to the axilla. ABDOMEN: Soft. EXTREMITIES: Revealed +2 bilateral lower leg / ankle, and pedal edema. NEUROLOGIC: Negative for focal deficit. LABORATORY DATA: CBC done today revealed a WBC of 8.8, hemoglobin 16.3, hematocrit 48.9 and platelet 91,000. BMP revealed a sodium of 130, potassium 3.8, chloride 90 and CO2 25, BUN 24, creatinine 1.69, GFR of 48.6 and fasting glucose 123 with a calcium of 8.2. Serum magnesium is 1.9. Liver enzymes done today revealed total bilirubin of 6.9, direct bilirubin 3.8, AST 158, ALT 184, total protein is 7.4, albumin 3.1. IMPRESSION: 1. Status post decompensated congestive heart failure (CHF), systolic in nature and most likely related to his history of alcoholism. He was recently started on current cardiac medications and we will continue the same for now. This was discussed with him. We will need to monitor closely his BUN and creatinine and serum potassium. I have noticed some deterioration in his underlying kidney function. We have discussed about a Live Vest upon discharge. I have noticed that his telemetry was discontinued and he will be placed back on telemetry. He will be put back on telemetry in view of his history. His prognosis is guarded if he does not quit using alcohol. This was discussed with him. 2. Probably alcoholic liver disease and his liver function tests are improving. He continues to be thrombocytopenic. His abdominal CT, as mentioned, revealed mild ascites. 3. Electrolyte abnormalities are being addressed. His hypokalemia is now corrected. His serum magnesium is normal. He has hyponatremia, probably related to his underlying history. 4. Acute kidney injury, probably related to the diuretics and he will be monitored. This was decreased today by his hospitalist, the furosemide. It will be reassessed later today and also tomorrow. 5. History of alcoholism, he is being monitored for delirium tremens. This morning he complained of anxiety and he was started on Serax. 6. Abnormal liver function tests, he is being monitored. It was a pleasure to participate in the care of Mr. Roche for his underlying cardiac condition. We will continue to monitor him in the hospital and upon discharge he will be seen in the office. This will be discussed Dr. Lentz, who will be seeing him tomorrow, 06/26/2019. PATRICIA
[2019-06-26] MEDS ORDERED: POTASSIUM CHLORIDE 10 MEQ SR TABLET PO SCH (09:00)
[2019-06-26 10:02] LABS: HEPATITIS B CORE ANTIBODY IGM NEGATIVE (NEGATIVE); HEPATITIS B SURFACE ANTIGEN NEGATIVE (NEGATIVE); HEPATITIS C VIRUS ABY INDEX 0.2 INDEX (<0.8)
--- NOTE | 2019-06-26 10:11 | IPN ---
CARDIOLOGY PROGRESS NOTE DATE: 06/26/2019 Mr. Roche is examined at bedside and reports he feels much improved since his initial admission. Reports feeling less short of breath, and edema is improving. He feels less fatigued overall. Unfortunately, his renal function is still significantly abnormal from his baseline and he is no longer making much urine output, with reported 400 mL overnight, and fluid retention despite aggressive diuresis since admission, with a reported weight of 131 kilograms this morning, up from 123.5 on admission. He was given a 500 mL bolus overnight due to a blood pressure of 108/67. Denies any chest pain, lightheadedness, dizziness. He does admit to feeling tremulous, however states this is normal for him and also his father. PHYSICAL EXAMINATION: Vitals: Temperature 96.5, pulse 85, respirations 18, blood pressure 98/63, mean arterial pressure (MAP) of 75, pulse oximetry 97% on room air. Per his chart, he had an input of 1660 yesterday, output 700 with a net positive of 960. From overnight into this morning, he has only 100 mL input and 200 mL output, net negative 100. Weight up to 131.2 kilograms. He is lying comfortably in bed, no acute distress, fully conversant without any accessory muscle use or respiratory distress. Neck is supple without any jugular venous distention (JVD). Moist mucous membranes. Distant cardiac sounds likely due to his large body habitus. Regular rate and rhythm. Difficult to assess for murmurs or clicks. Lungs are clear throughout without any wheezing, rhonchi or rales. Bilateral chest rise is equal. Abdomen is soft, nontender, nondistended. 2+ lower extremity edema. No focal deficits. LABORATORIES: WBC 8.9, hemoglobin and hematocrit 14.3 and 42.5, platelets 91. Sodium and potassium 129 and 4.5, BUN and creatinine 52 and 2.76. Up from his creatinine of 1.2, which is the best he has had on this admission. Total bilirubin 7.7, AST/ALT 157 and 148, alkaline phosphatase 89, total protein 5.8, albumin 2.4. He has a prolonged prothrombin at 22, INR 1.95, APTT 32. Hepatic panel is pending. ASSESSMENT/PLAN: Mr. Roche is a 39-year-old gentleman with heavy alcohol abuse with recently found decompensated congestive heart failure with a low ejection fraction of 20% and diastolic dysfunction, likely secondary to his chronic alcoholism, and moderate mitral regurgitation and tricuspid regurgitation on echo, and trace pericardial effusion without cardiac tamponade. He had initially come in for orthopnea, paroxysmal nocturnal dyspnea (PND), and gradually worsening dyspnea and edema over the past two months, found in decompensated CHF, has diuresed overall pretty well initially. However, it appears his renal function has significantly worsened with the worst creatinine being 2.82, down to 2.76 today. There is suspicion for possible over diuresis. Would recommend holding off on diuretics today, continue Coreg at the current dose with hold parameters in place. Consider nephrologic imaging to further assess for any renal abnormalities that may be contributing to this. Mr. Roche is overall very ill and can rapidly deteriorate. There is suspicion for alcoholic hepatitis, as well as likely cirrhosis given his abnormal labs and significantly elevated bilirubin and jaundice on exam. He will require close monitoring especially given he is tremulous and showing signs of alcohol withdrawal. Monitor for delirium tremens and continue Ativan and Serax on board. It was discussed in depth with Mr. Roche that his alcoholism if continued will lead to his early and that he is gravely ill currently. He has expressed motivation to completely quit all alcohol and reports that he has family support with parents living close by. He will need close monitoring at this point, especially in light of his worsening renal and hepatic function with a concern for possible hepatorenal syndrome versus cardiorenal. We will continue to followup. Patient seen and examined with , management was discussed. I agree with the plan discussed above. PATRICIA
--- NOTE | 2019-06-26 11:21 | IPNPDOC ---
Subjective Date Seen The patient was seen on 06/26/19. Subjective Chief Complaint/HPI Mr. Roche is a 39 year old male admitted to the hospital with diagnoses of Alcohol abuse, acute CHF and ALD. Pt had been experiencing worsening shortness of breath and pedal edema for several weeks prior to presenting to the hospital. He is seen sitting up in bed this morning. He stated he feels his chronic cough is getting much better than it was prior to admission. The pain on his right side has almost resolved; now he only notes it when he has lay on his R side for too long and move a certain way. Pt stated his legs are also less sw ollen than they were. He has been walking around his room a little bit. Again encouraged to elevate the legs above the level of the heart - as high as he can for as long as he can tolerate it to help with pedal edema. per nursing: pt has done much better overnight with treatment for withdrawal and he is being monitored closely by them today. General: Reports: Normal Appetite; Denies: Chills, Night Sweats, Malaise Constitutional: Denies: Chills, Fever, Night Sweats Eyes: Denies: Pain ENT: Denies: Head Aches Skin: Denies: Rash Pulmonary: Reports: Cough; Denies: Dyspnea Cardiovascular: Reports: Edema; Denies: Chest Pain, Palpitations, Orthopnea, Paroxysmal Noc. Dyspnea, Lt Headedness Gastrointestinal: Denies: Abdominal Pain Genitourinary: Denies: Dysuria Musculoskeletal: Denies: Neck Pain, Back Pain, Joint Pain, Muscle Pain, Spasms Neurological: Denies: Weakness, Numbness Psych: Reports: Mood Normal Objective Physical Examination General Exam: Positive: Alert, Cooperative, No Acute Distress Eye Exam: Positive: PERRLA, Conjunctiva & lids normal, EOMI, Sclera icteric ENT Exam: Positive: Atraumatic, Mucous membr. moist/pink, Pharynx Normal Neck Exam: Positive: Supple, JVD (in sitting position elevated. ); Negative: thyromegaly Chest Exam: Positive: Clear to auscultation, Normal air movement, Other Heart Exam: Positive: Tachycardic, Regular Rhythm, Normal S1, Normal S2, Gallops; Negative: Murmurs, Rubs Telemetry: Positive: Sinus, Tachycardia Abdomen Exam: Positive: Normal bowel sounds, Soft; Negative: Tenderness, Hepatospenomegaly Extremity Exam: Positive: Edema (2+ edema ); Negative: Clubbing, Cyanosis Skin Exam: Positive: Nl turgor and temperature; Negative: Breakdown, Lesion Neuro Exam: Positive: Normal Speech, Strength at 5/5 X4 ext, Cranial Nerves 3- 12 NL Psych Exam: Positive: Mood NL, Oriented x 3 Assessment /Plan Assessment Mr. Roche is a 39 year old male with no PMH , a heavy alcohol drinker at least a 6 pack of beer daily has been having increased SOB , cough and swelling of his legs for the past 3 weeks. Today he saw some blood in his cough so went to the urgent care in [place]. There a CXR was done which was read as cardiomegaly and bibasilar atelectasis so was sent to the ED. He has been having more and more cough when he has been laying down in bed. He denied any abdominal swelling. His last beer was 2 days ago. He quit smoking 3 months ago. [place] [address], elevated creatinine to 1.5, elevated AST , ALT, direct hyperbilirubinemia with elevated INR. Patient was admitted for acute CHF and alcoholic liver disease. Acute Systolic and diastolic CHF and acute right heart failure dilated cardiomyopathy with EF of 20%. Etiology could be alcoholic, viral etc. strongly urged to refrain from drinking after discharge. need to be evaluated for CAD after discharge. Cardiology following Ramipril, Spironolactone (started inpatient) on hold 2/2 KRISTIN and hypotension Carvedilol continued had good urine output overnight Echo : 1. Severe global left ventricular systolic dysfunction with a moderately enlarged left ventricle and severe diffuse hypokinesis. There are some features of left ventricular diastolic dysfunction, a restrictive mitral inflow pattern was noted. 2. Mildly to moderately enlarged left atrium with moderate eccentric mitral regurgitation. 3. Moderate tricuspid regurgitation with dilated right heart chambers. The calculated pulmonary artery systolic pressure was normal, most likely underestimated. 4. There are features of elevated central venous pressure, the inferior vena cava was dilated. 5. Trace pericardial effusion,, no evidence of cardiac tamponade. Cardiomegaly in CXR Chest CT Impression: "1. Cardiomegaly without pleural effusions. 2. Mild ground glass attenuation anteriorly at base of right middle lobe most likely due to subsegmental atelectasis. No evidence of pneumonia or congestive heart failure." Alcohol abuse with probable underlying Chronic Alcoholic liver disease has low platelets and elevated INR, elevated bilirubin. MELD score in 25. CT Abd/pelvis Impression: "1. Mild ascites and anasarca. 2. Cardiomegaly. 3. Solid organs are poorly evaluated on this noncontrast study." will place on [facility] protocol - 4 per nursing Vitamin K, Thiamine, Folic acid supplements given. Started on Lorazepam and Serax per protocol for w/d KRISTIN probably due to CHF and aggressive diuresis Lasix on hold; IV fluid resuscitation started Electrolyte abnormalities monitor daily and replace prn Mildly Elevated TSH this is sick euthyroid syn will have to be followed as outpatient Transaminitis this is probably due to congestive hepatopathy rather than alcoholic hepatitis as patient does not have any abdominal pain or abdominal complaints possibly due to chronic liver disease CT abd pelvis done (see above) Hep - technically negative but due to alcoholic liver dz, alcoholism would advise oupt repeat testing in 2 weeks EBV - past or reactivated infection. supportive Tx prn Dyspnea, chronic cough encouraged to use spirometer hourly Plan/VTE VTE Prophylaxis Ordered?: Yes VS, I&O, 24H, [facility] Vital Signs/I&O Vital Signs Date Time Temp Pulse Resp B/P (MAP) Pulse Ox O2 Delivery O2 Flow Rate FiO2 06/26/19 08:53 85 98/63 06/25/19 21:25 96.5 18 97 Room Air I&O- Last 24 Hours up to 6 AM 06/26/19 06:00 Intake Total 1310 ml Output Total 700 ml Balance 610 ml Laboratory Data 24H LABS Laboratory Tests 2 06/25/19 18:15: Anion Gap 27H, Glomerular Filtration Rate 26.9L, Calcium Level 7.9L 06/26/19 06:19: Anion Gap 15, Glomerular Filtration Rate 27.6L, Calcium Level 7.5L, Nucleated Red Blood Cells % (auto) 0.0, Immature Platelet Fraction 10.5, Prothrombin Time 22.0H, Prothromb Time International Ratio 1.95, Activated Partial Thromboplast Time 32.2, Total Bilirubin 7.7H, Aspartate Amino Transf (AST/SGOT) 157H, Alanine Aminotransferase (ALT/SGPT) 148H, Alkaline Phosphatase 89, Total Protein 5.8#L, Albumin 2.4#L, Albumin/Globulin Ratio 0.71L CBC/BMP Laboratory Tests 06/25/19 18:15 06/26/19 06:19 Attending Note I have personally performed a face to face diagnostic evaluation on this patient. I have reviewed and agree with the care plan documented above. ROMA BETTS PA-C Jun 26, 2019 11:21 JORGE L SHERMAN MD Jul 05, 2019 06:00
[2019-06-26] MEDS ORDERED: NS 250 ML IV ONE (13:00)
[2019-06-26] MEDS: LORazepam 2 MG TAB PO PRN (13:21)
[2019-06-26 18:42] LABS: ALBUMIN 2.6 GM/DL (3.2-5.2); BILIRUBIN,TOTAL 6.1 MG/DL (0.2-1.0); CALCIUM LEVEL 7.5 MG/DL (8.5-10.1); CREATININE FOR GFR 3.09 MG/DL (0.70-1.30); GLOMERULAR FILTRATION RATE 24.2 (>60); POTASSIUM SERUM 4.3 MEQ/L (3.5-5.1); TOTAL PROTEIN 6.2 GM/DL (6.4-8.2)
[2019-06-26] MEDS ORDERED: ONDANSETRON 4 MG TAB (S0181) PO PRN (18:45)
--- NOTE | 2019-06-26 19:11 | IPNPDOC ---
Text Note Date of Service The patient was seen on 06/26/19. NOTE Patient with increasing SOB, decreasing urine output, ongoing alcohol withdraw al, worsening labs , worsening renal failure, with low normal bps will transfer to PCU for closure monitoring. will consult nephrology also. VS,Fishbone, I+O VS, Fishbone, I+O Laboratory Tests 06/26/19 06:19 06/26/19 17:54 Vital Signs Date Time Temp Pulse Resp B/P (MAP) Pulse Ox O2 Delivery O2 Flow Rate FiO2 06/26/19 17:03 94 103/71 06/26/19 14:00 96.8 17 96 Room Air I&O- Last 24 Hours up to 6 AM 06/26/19 06:00 Intake Total 1310 ml Output Total 700 ml Balance 610 ml JORGE L SHERMAN MD Jun 26, 2019 19:11
[2019-06-26] MEDS ORDERED: PHYTONADIONE 5 MG TAB PO ONE (19:15)
[2019-06-26] MEDS: OXAZEPAM 10 MG CAP PO SCH (20:21)
[2019-06-26] MEDS ORDERED: OXAZEPAM 10 MG CAP PO SCH (21:00)
[2019-06-27] VITALS (8 sets, daily range): BP systolic 93–132; BP diastolic 50–94
[2019-06-27 05:21] LABS: HEMATOCRIT 43.4 % (42.0-52.0); HEMOGLOBIN 14.8 g/dl (13.5-17.5); MEAN CORPUSCULAR HEMOGLOBIN 33.3 pg (27.0-33.0); MEAN CORPUSCULAR HGB CONC 34.1 g/dl (32.0-36.5); MEAN CORPUSCULAR VOLUME 97.5 fl (80.0-96.0); PLATELET COUNT, AUTOMATED 102 10^3/uL (150-450); RED BLOOD COUNT 4.45 10^6/uL (4.30-6.10); WHITE BLOOD COUNT 8.1 10^3/uL (4.0-10.0)
[2019-06-27 06:00] LABS: ALBUMIN 2.6 GM/DL (3.2-5.2); BILIRUBIN,TOTAL 5.9 MG/DL (0.2-1.0); CALCIUM LEVEL 7.7 MG/DL (8.5-10.1); CREATININE FOR GFR 3.04 MG/DL (0.70-1.30); GLOMERULAR FILTRATION RATE 24.7 (>60); POTASSIUM SERUM 4.3 MEQ/L (3.5-5.1); TOTAL PROTEIN 6.2 GM/DL (6.4-8.2)
[2019-06-27 08:00] LABS: TROPONIN I 0.14 NG/ML (< 0.10)
[2019-06-27] MEDS: CARVedilol 3.125 MG TAB PO SCH ×2 (09:52→21:13)
[2019-06-27] MEDS: FOLIC ACID 1 MG TAB PO SCH (09:52)
--- NOTE | 2019-06-27 09:52 | IPN ---
CARDIOLOGY PROGRESS NOTE DATE OF SERVICE: 06/27/2019 Mr. Roche is examined at bedside. He was transferred over from [facility] to progressive care unit (PCU) given his multiorgan failure. He has worsening renal function and mildly improved liver function this morning. He reports his shortness of breath and lower extremity edema is improving, and he is experiencing less orthopnea and paroxysmal nocturnal dyspnea but is still requiring at times to sit up to help his breathing. His stepmother is in the room, and the severity of his illness is discussed with both Mr. Roche and the stepmother. He continues to have poor urine output and had episodes of hypotension requiring 750 mL of fluids yesterday. He continues to be mildly tremulous but no other issues overnight as he is being weaned off of Serax and continues on Clinical [place] Withdrawal Assessment (CIWA) protocol and Ativan. He had a very brief episode of atrial fibrillation (AFib) this morning around 7 a.m. He was asymptomatic and has been in normal sinus rhythm otherwise. PHYSICAL EXAMINATION: Vital signs: Temperature 96.1, pulse 83, respirations 18, blood pressure (BP) 93/55, mean arterial pressure (MAP) 68, pulse oximetry 93% on room air. He is resting comfortably in bed, no acute distress, fully alert and oriented, and appropriately conversant. Head is normocephalic, atraumatic with moist mucous membranes and scleral icterus and jaundiced skin. Heart is regular rate and rhythm and distant-sounding without any appreciable murmurs or clicks. Abdomen is soft, nontender, nondistended. He still has 2-3+ lower extremity edema. Lungs are clear throughout without any wheezing, crackles, or rales. No appreciable jugular venous distention (JVD). LABORATORIES: WBC 8.1, hemoglobin and hematocrit 14 and 43, platelets 102. Sodium and potassium 127 and 4.3, BUN and creatinine 69 and 3.04 up from 2.76 yesterday and his best creatinine being 1.2 which was on 06/24/2019, total bilirubin (T Bili) is improved from 7.7 yesterday to 5.9 today, AST and ALT 129 and 138, with alkaline phosphatase 89 also improving, repeat troponin is 0.14 which is down from 0.36 from admission. ASSESSMENT AND PLAN: Mr. Roche is a 39-year-old heavy alcoholic with newly-diagnosed decompensated systolic and diastolic congestive heart failure (CHF) with an ejection fraction (EF) 20%, likely secondary to his chronic alcoholism. Also found to have moderate mitral regurgitation and tricuspid regurgitation and trace pericardial effusion without tamponade. 1. Alcohol-induced cardiomyopathy. Diuretics continue to be on hold, given his worsening renal function. He still has significant lower extremity edema. However, his lungs are clear, and there is no appreciable JVD. Dobutamine remains an option. However, at this point, given his brief episode of AFib this morning, as well as no signs of pulmonary congestion, we will hold off on dobutamine. Unfortunately, he is making very little urine, and we are unable to further diurese. It appears the primary team has consulted nephrology, as well, to further assist with his renal function. Continue avoiding nephrotoxins. He is otherwise tolerating Coreg well, which should be continued. 2. Very brief episode of atrial fibrillation this morning. He is asymptomatic and at this point will hold off on any anticoagulation. His brief arrhythmia is likely secondary to his severely ill state and decompensated CHF. At this point, will hold off on any antiarrhythmics that may further provoke additional arrhythmias. 3. Hypertroponinemia. It was 0.36 on admission down to 0.14 on recheck today. He does not have any cardiac complaints, and this troponin leak is likely secondary to his very ill state and decompensated CHF and alcoholism. 4. Severe alcoholism. He has been drinking heavily for nearly over a decade and is motivated to now quit. However, he has done significant damage to his heart, liver, and kidneys at this point. He is less tremulous today and continues on CIWA protocol and Ativan and Serax taper. It was again emphasized with Mr. Roche and his stepmother that he needs to quit all alcohol and that he is gravely ill due to his alcoholism. 5. Multiorgan failure. Given his decompensated CHF and worsening chronic kidney disease (CKD) and mildly improved hepatic function, this all predicts poor long-term outcome. He may likely also have some underlying cirrhosis given his imaging and laboratories. The primary team has consulted GI and nephrology, and Mr. Roche will likely be in the hospital for quite some time. There is a possibility of hepatorenal syndrome versus cardiorenal. Will continue close monitoring. Patient seen and examined with , management was discussed. I agree with the plan discussed above. MTDD
[2019-06-27] MEDS: MULTIVITAMINS/MINERALS THERAP 1 TAB PO SCH (09:53)
[2019-06-27] MEDS: MAGNESIUM OXIDE 400 MG TAB (MAG-OX) PO SCH ×2 (09:53→21:13)
[2019-06-27] MEDS: OXAZEPAM 10 MG CAP PO SCH ×2 (09:53→21:13)
[2019-06-27] MEDS ORDERED: SLF 3 ML SYR IV PRN (10:00)
--- NOTE | 2019-06-27 11:45 | REP ---
Four-quadrant abdominal sonographic survey. History: Evaluate for ascites. Findings: Four-quadrant scanning demonstrates minimal ascitic fluid inferior to the liver and along the right paracolic gutter. Trace of fluid is seen in the paracolic gutter on the left and at the inferior edge of the spleen. Impression: Trace to minimal ascites. Electronically Signed by Monty Preciado MD 06/27/2019 11:36 A
--- NOTE | 2019-06-27 12:01 | REP ---
URINARY TRACT SONOGRAPHY: HISTORY: Acute kidney injury. Comparison CT study June 22, 2019. SONOGRAPHIC FINDINGS: Scanning at the level of the urinary bladder demonstrates that it is essentially empty. Renal cortical echogenicity pattern is isoechoic with liver consistent with some degree of medical renal disease. No hydronephrosis seen on either side. No cyst or mass is observed. Right renal dimensions are 10.9 x 6.5 x 4.8 cm. Left kidney measures 13.3 x 6.4 x 6.2 cm. IMPRESSION: Slightly increased renal cortical echogenicity pattern. No hydronephrosis seen. Otherwise negative. Electronically Signed by Monty Preciado MD 06/27/2019 01:10 P
[2019-06-27] MEDS: SLF 3 ML SYR IV SCH ×2 (12:03→21:13)
[2019-06-27 14:55] LABS: MAGNESIUM LEVEL 2.4 MG/DL (1.8-2.4)
--- NOTE | 2019-06-27 15:04 | IPNPDOC ---
Text Note Date of Service The patient was seen on 06/27/19. NOTE Subjective: -Feels ok this morning, no abdominal pain, nausea, emesis Brief hospital course: -Was admitted with "alcoholic liver disease", HFrEF 2/2 alcoholic dilated cardiomyopathy, and mild KRISTIN and initiallly treatment focused on volume overload with diuresis -Cardiology was consulted and started cardiac optimization with addition of BB, ACEi and aldactone, in addition to ongoing diuresis -Initially responded to diuresis, then KRISTIN worsened, so diuresis was held -Was given back some IV fluids, nephrology and GI were consulted -Nephrology ordered abdominal US and renal US that showed mild ascites and no hydronephrosis respectively Objective: General: Well nourished, ill appearing, obese, jaundiced young man Skin: Diffuse jaundice, no spider nevi, has some nail onychomycoses HEENT: NCAT, icteric sclerae, clear oropharnyx Pulm: CTAB Cardiac: RRR, no murmurs or rubs Abd: Obese, no caput or distended veins, no palpable hepatosplenomegaly, no shifting dullness, non tender to palpation Ext: 2+ LE edema to midshins, WWP Neuro: AOx3, CN2-12 grossly intact, 5/5 strength in all extremities, no asterixis, not tremulous this morning Psych: Aox3 Labs: Cr 3.04, Hgb 14.8, Hct 43.4, WBC 8.1, K 4.3, AST 129, ALT 138, Total bili 5.9, Alk phos 89 Imaging: TTE: 1. Severe global left ventricular systolic dysfunction with a moderately enlarged left ventricle and severe diffuse hypokinesis. There are some features of left ventricular diastolic dysfunction, a restrictive mitral inflow pattern was noted. 2. Mildly to moderately enlarged left atrium with moderate eccentric mitral regurgitation. 3. Moderate tricuspid regurgitation with dilated right heart chambers. The calculated pulmonary artery systolic pressure was normal, most likely underestimated. 4. There are features of elevated central venous pressure, the inferior vena cava was dilated. 5. Trace pericardial effusion,, no evidence of cardiac tamponade. CXR: Cardiomegaly Chest CT: 1. Cardiomegaly without pleural effusions. 2. Mild ground glass attenuation anteriorly at base of right middle lobe most likely due to subsegmental atelectasis. No evidence of pneumonia or congestive heart failure." CT A/P: Liver: There are no focal liver lesions present. Gallbladder and bile ducts: The gallbladder is unremarkable. Pancreas: The pancreas is unremarkable. Spleen: The spleen is unremarkable Adrenals: The adrenal glands are unremarkable. Kidneys and ureters: The kidneys are unremarkable. Stomach and bowel: There is no evidence of intestinal obstruction. Appendix: No evidence of appendicitis. Intraperitoneal space: Small volume of ascites. Vasculature: The aorta is unremarkable. Lymph nodes: Unremarkable. No enlarged lymph nodes. Mild anasarca. Bladder: The bladder is unremarkable. Reproductive: The prostate gland and seminal vesicles are unremarkable. Bones/joints: Skeletal degeneration. Soft tissues: Unremarkable. IMPRESSION: 1. Mild ascites and anasarca. 2. Cardiomegaly. 3. Solid organs are poorly evaluated on this noncontrast study. Abdominal US: Trace to minimal ascited. No comments on liver. Renal US: Scanning at the level of the urinary bladder demonstrates that it is essentially empty. Renal cortical echogenicity pattern is isoechoic with liver consistent with some degree of medical renal disease. No hydronephrosis seen on either side. No cyst or mass is observed. Right renal dimensions are 10.9 x 6.5 x 4.8 cm. Left kidney measures 13.3 x 6.4 x 6.2 cm. IMPRESSION: Slightly increased renal cortical echogenicity pattern. No hydronephrosis seen.Otherwise negative. Assessment: 39 yo M with a history of heavy alcohol consumption who presented with worsening SOB , cough and swelling of his legs for 3 weeks and found to have decompensated dilated HFrEF with an EF of 20%, what appears to be acute liver injury most c/w probable alcoholic hepatitis, s/p trial of aggressive diuresis and cardiac optimization c/b worsening KRISTIN c/f hepatorenal physiology now with cardiology, GI and nephrology on board. Acute systolic and diastolic CHF : dilated cardiomyopathy with EF of 20%. Etiology most likely 2/2 alcohol vs. viral -Counselled on refraining from alcohol going forward -need to be evaluated for CAD after discharge. -Cardiology following, appreciate recs --> Ramipril, Spironolactone and lasix on hold 2/2 KRISTIN and hypotension -continue coreg -monitor urine output KRISTIN: Initially presumed to be congestive cardiorenal KRISTIN that improved with diuresis but then shortly after improvement, worsened likely in the setting of intravascular depletion. Was given some IV fluids back without much improvement and diuresis held. At this point there is likely some element of prerenal vs. hepatorenal syndrome. Will consider albumin for volume repletion instead of IV fluids. -Nephrology consulted --> Renal US without evidence of postobstructive nephropathy without hydronephrosis, urine lytes and protein pending, pending recs. -GI consulted, pending recs -Continue hold lasix, ACEi and aldactone -replete lytes PRN Acute liver injury: Frankly acuity is unclear given no history of consistent medical care prior, but given sudden onset jaundice and edema there is an acuity to this presentation on likely chronic alcoholic liver injury. -With transaminitis, elevated INR, hypoalbuminemia and hyperbilirubinemia -Imaging with unremarkable liver with noted mild ascites and volume overload on exam -MELD score 34, 52.6% 3 month mortality -s/p Vit K -Hep A, B, C were negative -EBV IgG was positive for past infection, unlikely re-activation -GI consulted, pending recs Thrombocytopenia: -Likely 2/2 to alcoholic liver disease, monitor Alcohol use disorder with ongoing withdrawal: -CIWA protocol with serax and PRN ativan -Thiamine, Folic acid supplementation Mildly Elevated TSH -sick euthyroid, to follow outpatient Dispo: PCU with worsening KRISTIN, ongoing liver injury and decompensated HFrEF VS,Fishbone, I+O VS, Fishbone, I+O Laboratory Tests 06/26/19 17:54 06/27/19 04:58 Vital Signs Date Time Temp Pulse Resp B/P (MAP) Pulse Ox O2 Delivery O2 Flow Rate FiO2 06/27/19 09:52 85 121/89 06/27/19 08:00 96.2 16 98 Room Air I&O- Last 24 Hours up to 6 AM 06/27/19 06:00 Intake Total 1350 ml Output Total 675 ml Balance 675 ml CASIMIRO GREWAL MD Jun 27, 2019 14:27
[2019-06-27 15:18] LABS: INR 1.92; PROTHROMBIN TIME 21.7 SECONDS (11.8-14.0)
[2019-06-27 16:35] LABS: APPEARANCE, URINE HAZY (CLEAR); BACTERIA, URINE AUTO 1+ (NEGATIVE); BILIRUBIN, URINE AUTO NEGATIVE (NEGATIVE); BLOOD, URINE BLOOD NEGATIVE (NEGATIVE); COLOR, URINE AMBER (YELLOW); GLUCOSE, URINE (UA) AUTO NEGATIVE (NEGATIVE); KETONE, URINE AUTO NEGATIVE (NEGATIVE); LEUKOCYTE ESTERASE, URINE AUTO NEGATIVE (NEGATIVE); MUCUS, URINE SMALL (NEGATIVE); NITRITE, URINE AUTO NEGATIVE (NEGATIVE); PROTEIN, URINE AUTO 1+ mg/dL (NEGATIVE); RBC, URINE AUTO 1 /HPF (0-3); SPECIFIC GRAVITY URINE AUTO 1.015 (1.002-1.035); SQUAMOUS EPITHELIAL CELL UR AU 0 /HPF (0-6); WBC, URINE AUTO 2 /HPF (0-3)
[2019-06-27 16:53] LABS: CHLORIDE,RANDOM URINE < 10 MEQ/L; SODIUM,RANDOM URINE < 10 MEQ/L
--- NOTE | 2019-06-27 22:54 | CR ---
DATE OF CONSULTATION: 06/27/2019 REQUESTING PHYSICIAN: Dr. Maria Elena Darnell CONSULTING PHYSICIAN: Dr. Elizabeth REASON FOR CONSULTATION: Nonoliguric acute renal failure on chronic kidney disease stage III. HISTORY OF PRESENT ILLNESS: Mr. Roche is a 39-year-old male with no previous past medical history as he reports that he had not seen any physicians for at least a decade prior to this hospitalization. He does have a history of heavy alcohol use and also significant smoking history. He states that over the past 3 weeks, he was noticing increasing and progressive dyspnea on exertion and orthopnea, cough and lower extremity edema. He went to the urgent care center and had a chest x-ray, which revealed cardiomegaly and atelectasis. He was subsequently sent to the emergency room for further evaluation. He was found to have thrombocytopenia, admission creatinine of 1.5, coagulopathy, transaminitis. Subsequent echocardiogram revealed combined systolic and diastolic heart failure with a left ventricular ejection fraction of 20%, along with right heart failure. Abdominal imaging revealed mild ascites, anasarca, and the patient was found to have an elevated Model for End-Stage Liver Disease (MELD) score as well. He was admitted for newly diagnosed decompensated heart failure and alcoholic liver disease. He was started on IV Lasix, beta-savannah and angiotensin-converting enzyme (TOMÁS) inhibitor, and he subsequently had worsening of his renal function over the course of this admission. Today his creatinine is up to 3.0 from 1.5 on admission and nephrology evaluation was requested. The patient denies a history of nonsteroidal anti-inflammatory drug (NSAID) use or nephrolithiasis. His family tells me that he used Coricidin heavily, but they are not aware of any other alternatives, herbal or supplemental use. The patient is seen and examined this morning at the bedside. He complains of dyspnea on exertion and reports that his leg edema is considerably better since he was admitted. PAST MEDICAL HISTORY: Previously no past medical history, but the patient was not seeing a physician for at least the past decade. HOME MEDICATIONS: Coricidin. ALLERGIES: No known drug allergies. PAST SURGICAL HISTORY: [place] tooth removal. FAMILY HISTORY: Father with a history of stroke. SOCIAL HISTORY: Quit smoking 3 months ago. Has heavy alcohol use. No reported illicit drug use. REVIEW OF SYSTEMS: Constitutional: He denies fevers or chills. Eyes: Denies visual changes or blurring. Ear, Nose and Throat (ENT): Denies rhinorrhea or odynophagia. Skin: Denies rash or ulcers. Pulmonary: Reports dyspnea with exertion and cough. Cardiac: Newly diagnosed heart failure and reports edema. Denies chest pain. Gastrointestinal: Denies nausea or vomiting. Genitourinary: Denies dysuria or hematuria or foamy urine. Hematologic: Has thrombocytopenia. Denies easy bruising or bleeding. Musculoskeletal: Denies any new arthralgias or myalgias. Endocrine: Denies history of diabetes or thyroid disorders. Neurologic: Denies syncope or seizure. Remainder review of systems is negative or as per history of the present illness. PHYSICAL EXAMINATION Vital signs: Temperature 96.8, pulse 89, respiratory rate 18, blood pressure 127/57, saturating 97% on room air. Intake yesterday was 1450, urine output yesterday was 750, net positive 700. Weight in bed scale today is 117.8 kg. General: The patient is seen sitting up in bed, middle-aged, obese male, awake, alert, oriented, in no distress, conversational and interactive. Extraocular muscles are intact. Pupils are round and reactive to light. The oral mucosa is moist. Neck is supple. Jugular veins do not appear elevated. Heart sounds are regular without any appreciable murmur. There is 2+ edema present in the legs. Lungs show symmetric air entry without wheeze or rhonchi. Abdomen is soft and nontender. There is no appreciable ascites. Extremities are negative for clubbing or cyanosis. There is 2+ edema. Neurologic: He is oriented, interactive and conversational. No focal deficit. LABORATORY: Sodium 127, potassium 4.3, BUN 69, creatinine 3.0, AST 129, ALT 138, BNP 4700 down from 14,000 on admission, hemoglobin 14.8, platelets 102. Urinalysis: Negative for blood. There is 1+ protein, urine sodium less than 10, urine chloride less than 10 IMAGING: Renal ultrasound shows increased renal cortical echogenicity. Abdominal ultrasound showed trace ascites. INPATIENT MEDICATIONS: His ramipril and Lasix were discontinued. He is receiving carvedilol 3.125 mg twice daily, folic acid 1 mg by mouth daily, magnesium 400 mg by mouth daily, midodrine 5 mg by mouth three times a day. PROBLEMS: 1. Nonoliguric acute on chronic renal failure, suspect underlying chronic kidney disease, probably stage III given admission creatinine of 1.5 and also increased renal cortical echogenicity on renal ultrasound. The patient had worsening renal function on the course of this admission with diuresis for his decompensated heart failure (IV Lasix plus spironolactone), TOMÁS inhibitor dysautoregulation (ramipril), tight control of his blood pressure (renal hypoperfusion), decompensated cirrhosis. His urinalysis is fairly unremarkable; negative for blood and only 1+ protein. His urine electrolytes show severely low urine sodium and urine chloride, both less than 10, which shows that his acute kidney injury is secondary to renal hypoperfusion. This could be either due to hepatorenal or cardiorenal syndrome. I agree with withdrawal of diuretics at present time. He needs augmented renal perfusion. I am starting him on albumin and midodrine. Given that there is no significant ascites, I do not see any need for octreotide. Please keep him off of TOMÁS/ARB. 2. Newly diagnosed decompensated systolic/diastolic congestive heart failure with ejection fraction of 20% and also dilated right heart chambers (right heart failure). 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 His daily weights have decreased. He has had worsening renal function with initiation of combination diuretics and TOMÁS inhibitor. There is renal hypoperfusion as evidenced by urine electrolytes. Please keep him off of diuretic at present due to risk of further worsening of his renal function. 3. Alcoholic liver disease. MELD score is up 31 today. He has low platelets, elevated INR, elevated bilirubin, transaminitis and renal failure. Typically in patient's with hepatorenal syndrome, there is decompensated cirrhosis with ascites. However, Mr. Roche has trace to minimal ascites; hence, we are not using octreotide. 4. Hypomagnesemia. His magnesium level has risen significantly. I cut the magnesium dose down to once daily. 5. Hyponatremia. It is secondary to renal failure, decompensated heart failure and also alcoholic liver disease. There is no need for IV fluid administration. I would expect his sodium level should improve as his renal function improves. 6. Ectopic activity likely related to his comorbid conditions. He is on a low-dose beta savannah. I have not discontinued that. Although he does have low blood pressures the past day with systolic mostly in the 90s to 100, which is not helping his renal function. I note cardiology input regarding holding off inotropic support in view of ectopy. Thank you for involving me in the care of Mr. Roche. I will be happy to follow him along with you. PATRICIA
--- NOTE | 2019-06-27 23:28 | CR ---
DATE OF CONSULTATION: 06/26/2019 This is a 39-year-old white male who was admitted with a longstanding history of heavy alcohol intake, at least a six-pack of beer day or more. The patient has increasing shortness of breath, peripheral edema, and chronic cough with hemoptysis and swelling of his legs for approximately 3 weeks prior to admission. The patient had a chest x-ray, which showed severe cardiomegaly. 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 The patient has an ejection fraction of 20%. The patient presents with liver function elevations and a BNP of 14,000. The patient is being seen by gastroenterology for abnormal liver functions. MEDICATIONS: Above. ALLERGIES: No known declared allergies. PAST MEDICAL HISTORY: As above. FAMILY HISTORY: Noncontributory. SOCIAL HISTORY: Positive for heavy alcohol abuse and a former smoker. 12-point review of systems is noncontributory to the history of the present illness. General: He is a well-developed, well-nourished white male, in no obvious acute distress. Appears stated age. Chest: Clear to auscultation. Cardiovascular Exam: Shows a regular rhythm, 2/6 systolic ejection murmur left lower sternal border. Abdomen: Soft, nontender. No masses, guarding, rebound, hepatosplenomegaly. Bowel sounds positive. IMAGING STUDIES: On this admission include an ultrasound of the abdomen, which showed minimal ascites. The patient had an abdominal CT on 06/22/2019 with an impression of mild ascites and anasarca, cardiomegaly, and no other significant pathology was seen. CT of the chest shows cardiomegaly without pleural effusions, mild ground-glass attenuation at the right middle lobe, probable subsegmental atelectasis. No evidence of pneumonia or heart failure. LABORATORY STUDIES: Showed a white count on admission of 7900, hemoglobin and hematocrit was 16.2 and 48.5, platelets were, on admission, a little bit low at 115. CBC on 06/26/2019, was 8900, hemoglobin and hematocrit was 14.3 and 42.5, platelets have fallen to 91,000 on 06/26/2019. The patient's INR on 06/26/2019 was 1.95. Other laboratory parameters, including the patient's chemistry profile on admission, show a total bilirubin of 4.7, AST of 387, ALT 299, alkaline phosphatase 120. TSH was high at 7.2. BNP was 14,821. Laboratory studies on 06/26/2019, showed a total bilirubin of 7.7, AST was 157, ALT was 148, which is somewhat lower, albumin was 2.4. ANALYSIS: 1. Abnormal liver functions of unknown etiology, at present time, the patient has multiple factors. He has cardiomegaly, probably secondary to alcohol abuse or alcoholic cardiomyopathy. 2. Congestive heart failure (CHF). There is peripheral edema and anasarca. The patient's CHF has to be optimized with diuretics. The patient also probably has some component of passive congestion. 3. I cannot rule out alcoholic hepatitis since the patient has a strong history of alcohol abuse. At this point in time, this is of academic interest. PLAN: 1. Recommend optimization of his failure. 2. The patient has been advised to stop alcohol abuse. If he stops his alcohol, there is a small possibility that he could have some reversal of his cardiomyopathy. However, if the patient continues as he is doing, then the alcoholic hepatitis is not going to cause any major problems before his heart gives out. But strongly recommended to the patient to stop, again, alcohol intake and see what kind of improvement we can get from his heart.
[2019-06-28] VITALS (33 sets, daily range): BP systolic 105–139; BP diastolic 60–94; O2SAT 83–100
[2019-06-28 01:33] LABS: ABG BASE EXCESS -3.4 (-2.0-2.0); ABG HCO3 19.1 MEQ/L (22.0-26.0); ABG O2 SATURATION 98.9 % (95.0-99.0); ABG PARTIAL PRESSURE CO2 28.8 mmHg (35.0-45.0); ABG PARTIAL PRESSURE O2 139.8 mmHg (75.0-100.0); ABG STANDARD HCO3 21.7 MEQ/L (22.0-26.0)
[2019-06-28] MEDS: SLF 3 ML SYR IV SCH ×3 (05:03→21:03)
[2019-06-28 05:58] LABS: HEMATOCRIT 43.2 % (42.0-52.0); HEMOGLOBIN 14.9 g/dl (13.5-17.5); MEAN CORPUSCULAR HEMOGLOBIN 33.1 pg (27.0-33.0); MEAN CORPUSCULAR HGB CONC 34.5 g/dl (32.0-36.5); WHITE BLOOD COUNT 6.8 10^3/uL (4.0-10.0)
[2019-06-28 05:59] LABS: PLATELET COUNT, AUTOMATED 84 10^3/uL (150-450)
[2019-06-28] MEDS ORDERED: **hydrALAZINE** 10 MG TAB PO SCH (06:00)
[2019-06-28 06:25] LABS: ALBUMIN 2.4 GM/DL (3.2-5.2); BILIRUBIN,TOTAL 5.3 MG/DL (0.2-1.0); CALCIUM LEVEL 7.9 MG/DL (8.5-10.1); CREATININE FOR GFR 2.47 MG/DL (0.70-1.30); GLOMERULAR FILTRATION RATE 31.4 (>60); POTASSIUM SERUM 4.2 MEQ/L (3.5-5.1); TOTAL PROTEIN 5.9 GM/DL (6.4-8.2)
[2019-06-28] MEDS: MIDODRINE 5 MG TAB PO SCH ×3 (09:09→16:31)
[2019-06-28] MEDS: CARVedilol 3.125 MG TAB PO SCH ×2 (09:09→20:38)
[2019-06-28] MEDS: MULTIVITAMINS/MINERALS THERAP 1 TAB PO SCH (09:09)
[2019-06-28] MEDS: FOLIC ACID 1 MG TAB PO SCH (09:09)
[2019-06-28] MEDS: MAGNESIUM OXIDE 400 MG TAB (MAG-OX) PO SCH (09:10)
[2019-06-28] MEDS: OXAZEPAM 10 MG CAP PO SCH ×2 (09:10→20:38)
--- NOTE | 2019-06-28 11:23 | IPNPDOC ---
Text Note Date of Service The patient was seen on 06/28/19. NOTE Subjective: -Feels ok this morning, however does subjective feel SOB. -Was hypoxemic overnight after albumin to mid 70s, so was started on supplemental O2 -had a brief run of Afib on tele -No abdominal pain, nausea, emesis Objective: General: Well nourished, ill appearing, obese, jaundiced young man Skin: Diffuse jaundice, no spider nevi, has some nail onychomycoses HEENT: NCAT, icteric sclerae, clear oropharnyx Pulm: remains CTAB, however now on 2L NC Cardiac: RRR, no murmurs or rubs Abd: Obese, no caput or distended veins, no palpable hepatosplenomegaly, no shifting dullness, non tender to palpation Ext: 2+ LE edema to midshins, WWP Neuro: AOx3, CN2-12 grossly intact, 5/5 strength in all extremities, no asterixis, not tremulous this morning Psych: Aox3 Labs: Cr downtrended to 2.47, Hgb 14.9, Hct 43.2, WBC 6.8, K 4.2, AST 112, ALT 120, Total bili 5.3, INR 1.92 Imaging: TTE: 1. Severe global left ventricular systolic dysfunction with a moderately enlarged left ventricle and severe diffuse hypokinesis. There are some features of left ventricular diastolic dysfunction, a restrictive mitral inflow pattern was noted. 2. Mildly to moderately enlarged left atrium with moderate eccentric mitral regurgitation. 3. Moderate tricuspid regurgitation with dilated right heart chambers. The calculated pulmonary artery systolic pressure was normal, most likely underestimated. 4. There are features of elevated central venous pressure, the inferior vena cava was dilated. 5. Trace pericardial effusion,, no evidence of cardiac tamponade. CXR: Cardiomegaly Chest CT: 1. Cardiomegaly without pleural effusions. 2. Mild ground glass attenuation anteriorly at base of right middle lobe most likely due to subsegmental atelectasis. No evidence of pneumonia or congestive heart failure." CT A/P: Liver: There are no focal liver lesions present. Gallbladder and bile ducts: The gallbladder is unremarkable. Pancreas: The pancreas is unremarkable. Spleen: The spleen is unremarkable Adrenals: The adrenal glands are unremarkable. Kidneys and ureters: The kidneys are unremarkable. Stomach and bowel: There is no evidence of intestinal obstruction. Appendix: No evidence of appendicitis. Intraperitoneal space: Small volume of ascites. Vasculature: The aorta is unremarkable. Lymph nodes: Unremarkable. No enlarged lymph nodes. Mild anasarca. Bladder: The bladder is unremarkable. Reproductive: The prostate gland and seminal vesicles are unremarkable. Bones/joints: Skeletal degeneration. Soft tissues: Unremarkable. IMPRESSION: 1. Mild ascites and anasarca. 2. Cardiomegaly. 3. Solid organs are poorly evaluated on this noncontrast study. Abdominal US: Trace to minimal ascited. No comments on liver. Renal US: Scanning at the level of the urinary bladder demonstrates that it is essentially empty. Renal cortical echogenicity pattern is isoechoic with liver consistent with some degree of medical renal disease. No hydronephrosis seen on either side. No cyst or mass is observed. Right renal dimensions are 10.9 x 6.5 x 4.8 cm. Left kidney measures 13.3 x 6.4 x 6.2 cm. IMPRESSION: Slightly increased renal cortical echogenicity pattern. No hydronephrosis seen.Otherwise negative. Assessment: 39 yo M with a history of heavy alcohol consumption who presented with worsening SOB , cough and swelling of his legs for 3 weeks and found to have decompensated dilated HFrEF with an EF of 20%, what appears to be acute liver injury most c/w probable alcoholic hepatitis, s/p trial of aggressive diuresis and cardiac optimization c/b worsening KRISTIN c/f hepatorenal physiology now with cardiology, GI and nephrology on board. Hypoxemic respiratory failure: 2/2 decompensated HFrEF with volume overload -Clearly overloaded on exam but diuresis was c/b by worsening KRISTIN with development of HRS physiology -supplemental O2 Acute systolic and diastolic CHF : dilated cardiomyopathy with EF of 20%. Etiology most likely 2/2 alcohol vs. viral -Counselled on refraining from alcohol going forward -need to be evaluated for CAD after discharge. -Cardiology following, appreciate recs --> Ramipril, Spironolactone and lasix on hold 2/2 KRISTIN and hypotension -continue coreg -monitor urine output -Cardiology had started hydral and isordil this AM, presume for afterload reduction, but given brief run of Afib and potential reflex tach and concurrent midodrine per nephrology will hold off until we discuss overall plan. KRISTIN: Initially presumed to be congestive cardiorenal KRISTIN that improved with diuresis but then shortly after improvement, worsened likely in the setting of intravascular depletion. Was given some IV fluids back without much improvement and diuresis held. At this point there is likely some element of prerenal 2/2 intravascular depletion given urine Na<10, and possible hepatorenal syndrome though he has no courtney ascites. Nephrology was consulted and agreed with albumin and also added midodrine and held off octreotide without significant ascites. -Nephrology consulted --> Renal US without evidence of postobstructive nephrop athy without hydronephrosis, given albumin yesterday c/b hypoxemia, however with improvement in Cr this AM. Was also started on midodrine TID. -GI consulted, recommending alcohol cessation at this time -Continue hold lasix, ACEi and aldactone -replete lytes PRN Acute liver injury: Frankly acuity is unclear given no history of consistent medical care prior, but given sudden onset jaundice and edema there is an acuity to this presentation on likely chronic alcoholic liver injury and cannot rule o ut alcoholic hepatitis, -With transaminitis, elevated INR, hypoalbuminemia and hyperbilirubinemia -Imaging with unremarkable liver with noted mild ascites and volume overload on exam -MELD score 34, 52.6% 3 month mortality -s/p Vit K -Hep A, B, C were negative -EBV IgG was positive for past infection, unlikely re-activation -GI consulted, recommending stopping alcohol consumption Thrombocytopenia: -Likely 2/2 to alcoholic liver disease, monitor Alcohol use disorder with ongoing withdrawal: -CIWA protocol with serax and PRN ativan -Thiamine, Folic acid supplementation Mildly Elevated TSH -sick euthyroid, to follow outpatient Dispo: PCU with ongoing KRISTIN, ongoing liver injury and decompensated HFrEF VS,Fishbone, I+O VS, Fishbone, I+O Laboratory Tests 06/28/19 05:15 Vital Signs Date Time Temp Pulse Resp B/P (MAP) Pulse Ox O2 Delivery O2 Flow Rate FiO2 06/28/19 08:00 96.4 81 18 108/67 (81) 94 Nasal Cannula 2.0 I&O- Last 24 Hours up to 6 AM 06/28/19 06:00 Intake Total 1130.0 ml Output Total 1000 ml Balance 130.0 ml CASIMIRO GREWAL MD Jun 28, 2019 09:20
--- NOTE | 2019-06-28 11:45 | IPN ---
CARDIOLOGY PROGRESS NOTE DATE OF SERVICE: 06/28/2019 Mr. Roche is seen and examined at bedside in progressive care unit (PCU). States he is gradually improving and has no complaints today. Overnight noted to have continued intermittent beats of ventricular tachycardia (V-tach) on telemetry asymptomatic, otherwise is remaining normal sinus. Fortunately he is making slightly more urine now, and renal and hepatic function are improving. He admits to some anxiety due to not drinking alcohol currently but no other signs of withdrawal. Denies chest pain or palpitations. States his cough and dyspnea and lower extremity edema are improving. Denies lightheadedness, dizziness, nausea or vomiting. PHYSICAL EXAM: Vital Signs: Temperature 96.4, pulse 81, respirations 18, blood pressure (BP) 108/67, mean arterial pressure (MAP) 81, pulse oximetry 94% 2 liters nasal cannula. Intake and Output: 780 in, 1075 out with net negative 295. He has had 400 mL out as of this morning. His weight is down to 117.9 kg from 124.5 on admission. He is resting comfortably in bed, no acute distress, sitting up, fully conversant, alert and oriented times three. Neck is supple without any appreciable jugular venous distention (JVD). Moist mucous membranes. Cardiac: Regular rate and rhythm. Distant heart sounds. Unable to appreciable any murmur, clicks or gallops. Lungs are clear throughout without any wheezing, rhonchi or rales or accessory muscle use. Abdomen: Soft, nontender, nondistended. No hepatomegaly. Lower extremity edema is much improved from prior days, 1-2+ today. Neurologically intact without any focal deficits. LABS: WBC 6.8, hemoglobin/hematocrit (H/H) 14.9 and 42.2, platelets 84. Sodium and potassium 129 and 4.2. BUN and creatinine 70 and 2.47. Total bilirubin (T Bili) down from 5.9 yesterday to 5.3 today. AST, ALT 112 and 120, also improved. Alkaline phosphatase 102. Total protein 5.9. Albumin 2.4. ABG today pH 7.4, pCO2 28, and bicarbonate 19. Renal and abdominal ultrasound noted no significant abnormality. There is trace to minimal ascites. ASSESSMENT AND PLAN: Mr. Roche is a 39-year-old heavy alcoholic with newly-diagnosed systolic and diastolic congestive heart failure (CHF) with an ejection fraction (EF) of 20% likely induced by his heavy long-term alcoholism. Diuresis limited due to his worsening renal function, also with worsening hepatic function. 1. Alcohol-induced cardiomyopathy. Continuing with holding diuretics given his kidney injury. Fortunately his renal function is improving compared to prior days, and he is making slightly more urine currently. His lower extremity edema is also improving. At this point, we will continue Coreg at the current dose and will have to avoid any nephrotoxins, but he will require vasodilators. We will add on hydralazine and isosorbide dinitrate three times a day with hold parameters if his blood pressure allows. Continue monitoring on telemetry. 2. Brief episodes of ventricular tachycardia and atrial fibrillation (AFib). During his hospitalization is asymptomatic. He is likely going to continue to have these short bursts of arrhythmias given his decompensated CHF and heavy alcoholism. Continue avoiding antiarrhythmics. 3. Severe alcoholism. He appears to look better today and with minimal signs of withdrawal. He is on clinical institute withdrawal assessment for alcohol (CIWA) protocol and Serax taper and will require continued close monitoring. 4. Likely cardiorenal syndrome. Fortunately, his renal function is improving. Currently will have to continue avoiding any further diuretics given his creatinine of 2.47. His volume status is improved currently from admission but he still has quite a good amount of extra fluid that will need to be removed. He will require a repeat echo and outpatient followup currently given his significantly reduced EF of 20%. Dobutamine does remain an option, which we will hold off on especially in light of his arrhythmias. Hopefully the addition of vasodilators will further assist with this. Addendum MD Lyndon: Patient seen and examined. Management plan was discussed with . Agree with the note above. [facility]
[2019-06-28] MEDS ORDERED: ISOSORBIDE DIN. (ISORDIL) 5 MG TAB PO SCH (12:00)
--- NOTE | 2019-06-28 15:15 | IPN ---
DATE: 06/28/2019 Mr. Roche is seen and examined this morning at the bedside. He complains of episodic sensation of shortness of breath, might be related to anxiety. He had a satisfactory blood gas today. Continues to have intermittent ectopy on telemetry. Denies shortness of breath at rest. Laboratories show mild improvement in renal function. His blood pressures this morning are less than systolic 110. Vital signs: Temperature 96.4, pulse 81, respiratory rate 18, blood pressure 108/67, saturating 94% on 2 liters nasal cannula. Intake yesterday was 780, urine output yesterday was 1075. Weight on the bed scale today is 117.9 kg. General: The patient is seen sitting up in bed. Head of the bed is elevated. Young man appears somewhat anxious but in no distress. Oriented times three, interactive and conversational. Neck is supple. Jugular veins are not elevated. Mucous membranes are moist. Cardiac: Regular rate and rhythm. 1+ leg edema. Lungs show symmetric air entry. No crackles, rales or rhonchus. He is on nasal cannula. Abdomen is soft and nontender. There are bowel sounds. Extremities are negative for clubbing, cyanosis. There is 1+ edema, which is all distal to the knee. Neurologic: No focal deficit. Interactive and conversational. LABORATORIES: White count 6.8, hemoglobin 14.9, platelet 84, sodium 129, potassium 4.2, BUN 70, creatinine 2.4. IMAGING STUDIES: No new imaging. INPATIENT MEDICATIONS: Medications reviewed by myself and as compared to yesterday there are no changes. PROBLEMS: 1. Nonoliguric acute on chronic renal failure, suspect acute component is secondary to type 1 cardiorenal syndrome (less likely to be hepatorenal given absence of significant ascites). The patient likely has underlying chronic kidney disease, suspect stage III given increased renal cortical echogenicity on ultrasound and admission creatinine of 1.5. He had worsening renal function with optimization of his heart failure with diuresis and initiation of TOMÁS inhibitors and tight blood pressure control. His urine electrolytes were indicative of renal hypoperfusion with urine sodium and urine chloride both less than 10 and I feel that we need to augment renal perfusion to help with urine output and management of his volume status. Please avoid tight blood pressure control. I do think that he would benefit from inotropic support. However, given that he is already having some arrhythmias, we are instead opting to midodrine and albumin for augmented renal perfusion. 2. Alcohol induced cardiomyopathy, decompensated systolic / diastolic heart failure with ejection fraction 20% and dilated right heart chambers / right heart failure. He is significantly negative on this admission. His BNP has trended considerably. His renal function worsened with combination of diuresis, relative hypotension and TOMÁS inhibitor initiation. There is renal hypoperfusion as evidenced by urine electrolytes. Please keep him off of TOMÁS and ARB and hold off on further diuretics for now as well. There is absolutely no need for IV fluids. Continue with midodrine and albumin and if renal function does not continue to improve, then he would need ionotropic therapy. 3. Alcoholic liver disease, MELD score of around 30 but no significant ascites. His AST, ALT and bilirubin are all slowly improving. There is no new INR today. 4. Hyponatremia, hypervolemic. It is secondary to renal failure, decompensated heart failure and alcoholic liver disease, sodium level should improve as renal function improves. Continue fluid restriction. No need for IV fluids. 5. Arrhythmia. The patient is having NSVT and brief episodes of atrial fibrillation. He is on beta savannah. His potassium and magnesium levels are optimized. If his function does not improve with current treatment then we may need to consider ionotropic therapy. We will see how he fares.
[2019-06-29] VITALS (27 sets, daily range): BP systolic 107–135; BP diastolic 65–99; O2SAT 86–100
[2019-06-29] MEDS: SLF 3 ML SYR IV SCH ×3 (06:00→20:49)
[2019-06-29 06:21] LABS: HEMATOCRIT 43.1 % (42.0-52.0); MEAN CORPUSCULAR HEMOGLOBIN 33.1 pg (27.0-33.0); MEAN CORPUSCULAR HGB CONC 34.8 g/dl (32.0-36.5); MEAN CORPUSCULAR VOLUME 95.1 fl (80.0-96.0); RED BLOOD COUNT 4.53 10^6/uL (4.30-6.10); WHITE BLOOD COUNT 8.1 10^3/uL (4.0-10.0)
[2019-06-29 06:29] LABS: PLATELET COUNT, AUTOMATED 83 10^3/uL (150-450)
[2019-06-29 06:55] LABS: ALBUMIN 2.7 GM/DL (3.2-5.2); BILIRUBIN,TOTAL 5.5 MG/DL (0.2-1.0); CALCIUM LEVEL 8.4 MG/DL (8.5-10.1); CREATININE FOR GFR 2.14 MG/DL (0.70-1.30); POTASSIUM SERUM 4.3 MEQ/L (3.5-5.1); TOTAL PROTEIN 6.2 GM/DL (6.4-8.2)
[2019-06-29] MEDS: MIDODRINE 5 MG TAB PO SCH ×2 (08:00→12:23)
--- NOTE | 2019-06-29 08:53 | IPN ---
DATE OF SERVICE: 06/29/2019 Mr. Roche is feeling about the same as yesterday. He feels tired and he had at times feels a little short of breath but did not have any courtney paroxysmal nocturnal dyspnea (PND). He does not have any chest pain, abdominal pain, nausea, or vomiting. His oral intake has been acceptable. Vital signs this morning: Blood pressure 127/57, and systolic blood pressure has been consistently in 100 and teens and 120s, and heart rate has been in 80s, sinus rhythm. He has occasional ventricular ectopy with single run of nonsustained ventricular tachycardia last night, and he had also single run of brief nonsustained VT the night before. Saturation is 97% on room air. His fluid balance yesterday was recorded as about 900 mL positive. The weight is recorded as 119.7 kg. Urine output yesterday was recorded as about 900 mL, but he already put out 700 mL today. He is alert and oriented, somewhat somnolent because we just woke him up, but he is appropriate. His jugular venous pressure (JVP) does not look high or if so only mildly elevated. Lungs are reasonably clear. No wheezing, no apparent crackles, or rhonchi. His heart examination is somewhat muffled due to his body habitus, but I do not appreciate any distinct rub or murmur or gallop. Abdomen is soft. No obvious hepatosplenomegaly. No shifting dullness. Extremities: Still about 2+ edema. Neurologically, he is somewhat delayed in his responses but otherwise intact. LABORATORY WORK: His complete blood count (CBC) is normal with the exception of platelet count 83,000, and basic metabolic panel reveals sodium 129, potassium 4.3, BUN 72, creatinine 2.1, and glucose 117, bilirubin is 5.5, AST 108, ALT 114, and albumin 2.7 ASSESSMENT AND PLAN: Mr. Roche is a 39-year-old man who presented with congestive heart failure. He does have a simultaneous probably acute alcoholic hepatitis with quite significant bilirubin elevation and transaminase elevation. He initially was very aggressively diuresed and started on angiotensin-converting enzyme (TOMÁS) inhibitors but then developed progressively worsening renal function, and both diuretics as well as TOMÁS inhibitors were discontinued. His blood pressure was relatively soft but has not been a problem since. The last documented systolic blood pressure below 100 was on 06/27/2019. At this point, I believe that it is likely that there will be further recovery of renal function. I am also hoping that there will be a recovery of hepatic function, even though there has not been appreciable improvement since yesterday. It is very likely that the both conditions are due to alcohol, meaning both alcoholic hepatitis and cardiomyopathy. I am unhappy that our orders for vasodilators were discontinued. I am also not keen on administration of midodrine. It is an alpha-1 agonist that increases peripheral vascular resistance, which certainly is not desirable in the setting of cardiomyopathy and heart failure. The patient has never been symptomatic from his relative hypotension, and the decision to increase cardiac output is certainly a difficult one. I think that it is possible to give him dobutamine, but because he already has runs of nonsustained ventricular tachycardia, it has been my judgment that it is more likely to cause harm than good; and consequently, I would prefer just to wait until there is recovery of renal function. I think it is likely that as he continues to abstain from alcohol that the cardiac function will gradually recover. At this point, I am going to sign off his care, as our recommendations have been neglected and even opposed, but if further assistance is desired, we are certainly available. I will still be happy to see him on outpatient basis if so desired.
[2019-06-29] MEDS: TORSEMIDE 20 MG TAB PO SCH ×2 (09:13→17:10)
[2019-06-29] MEDS: MAGNESIUM OXIDE 400 MG TAB (MAG-OX) PO SCH (09:13)
[2019-06-29] MEDS: OXAZEPAM 10 MG CAP PO SCH ×2 (09:13→20:48)
[2019-06-29] MEDS: MULTIVITAMINS/MINERALS THERAP 1 TAB PO SCH (09:13)
[2019-06-29] MEDS: FOLIC ACID 1 MG TAB PO SCH (09:13)
[2019-06-29] MEDS: CARVedilol 3.125 MG TAB PO SCH ×2 (09:13→20:49)
[2019-06-29 11:03] LABS: INR 1.62
--- NOTE | 2019-06-29 11:45 | IPNPDOC ---
Text Note Date of Service The patient was seen on 06/29/19. NOTE Subjective: -Feels ok this morning, remains on 2L NC. -No abdominal pain, nausea, emesis Interim events: -Cardiology wanted to start him on isordil and hydralazine yesterday morning, while nephrology was suggesting midodrine for relative hypotension with albumin. In the end, he received 5mg of midodrine per nephrology, who wanted to wait on vasodilating agents yesterday though she agreed that he would eventually benefit from agents that reduce peripheral vascular resistance for this gentleman with an EF of 20%. -Cr did improve, and this morning nephrology ordered more albumin with 20 torsemide BID -In the meantime cardiology signed off for now, but stressed that he will require cardiac optimization for his DCM and HFrEF. Objective: General: Well nourished, ill appearing, obese, jaundiced young man Skin: Diffuse jaundice, no spider nevi, has some nail onychomycoses HEENT: NCAT, icteric sclerae, clear oropharnyx Pulm: remains CTAB, however now on 2L NC Cardiac: RRR, no murmurs or rubs Abd: Obese, no caput or distended veins, no palpable hepatosplenomegaly, no s hifting dullness, non tender to palpation Ext: Improving LE edema to midshins, WWP Neuro: AOx3, CN2-12 grossly intact, 5/5 strength in all extremities, no asterixis, not tremulous this morning Psych: Aox3 Labs: Cr downtrended to 2.14, Hgb 15, Hct 43.1, WBC 8.1, K 4.3, AST 108, ALT 114, Total bili 5.5, INR pending Imaging: TTE: 1. Severe global left ventricular systolic dysfunction with a moderately enlarged left ventricle and severe diffuse hypokinesis. There are some features of left ventricular diastolic dysfunction, a restrictive mitral inflow pattern was noted. 2. Mildly to moderately enlarged left atrium with moderate eccentric mitral regurgitation. 3. Moderate tricuspid regurgitation with dilated right heart chambers. The calculated pulmonary artery systolic pressure was normal, most likely underestimated. 4. There are features of elevated central venous pressure, the inferior vena cava was dilated. 5. Trace pericardial effusion,, no evidence of cardiac tamponade. CXR: Cardiomegaly Chest CT: 1. Cardiomegaly without pleural effusions. 2. Mild ground glass attenuation anteriorly at base of right middle lobe most likely due to subsegmental atelectasis. No evidence of pneumonia or congestive heart failure." CT A/P: Liver: There are no focal liver lesions present. Gallbladder and bile ducts: The gallbladder is unremarkable. Pancreas: The pancreas is unremarkable. Spleen: The spleen is unremarkable Adrenals: The adrenal glands are unremarkable. Kidneys and ureters: The kidneys are unremarkable. Stomach and bowel: There is no evidence of intestinal obstruction. Appendix: No evidence of appendicitis. Intraperitoneal space: Small volume of ascites. Vasculature: The aorta is unremarkable. Lymph nodes: Unremarkable. No enlarged lymph nodes. Mild anasarca. Bladder: The bladder is unremarkable. Reproductive: The prostate gland and seminal vesicles are unremarkable. Bones/joints: Skeletal degeneration. Soft tissues: Unremarkable. IMPRESSION: 1. Mild ascites and anasarca. 2. Cardiomegaly. 3. Solid organs are poorly evaluated on this noncontrast study. Abdominal US: Trace to minimal ascited. No comments on liver. Renal US: Scanning at the level of the urinary bladder demonstrates that it is essentially empty. Renal cortical echogenicity pattern is isoechoic with liver consistent with some degree of medical renal disease. No hydronephrosis seen on either side. No cyst or mass is observed. Right renal dimensions are 10.9 x 6.5 x 4.8 cm. Left kidney measures 13.3 x 6.4 x 6.2 cm. IMPRESSION: Slightly increased renal cortical echogenicity pattern. No hydronephrosis seen.Otherwise negative. Assessment: 39 yo M with a history of heavy alcohol consumption who presented with worsening SOB , cough and swelling of his legs for 3 weeks and found to have decompensated dilated HFrEF with an EF of 20%, what appears to be acute liver injury c/w probable alcoholic hepatitis, s/p trial of aggressive diuresis and cardiac optimization c/b worsening KRISTIN. Hypoxemic respiratory failure: 2/2 decompensated HFrEF with volume overload -Clearly overloaded on exam but diuresis was c/b by worsening KRISTIN with urine lytes suggesting a prerenal picture with likely intravascular depletion -supplemental O2 -getting torsemide 20 BID today per nephrology Acute systolic and diastolic CHF : dilated cardiomyopathy with EF of 20%. Etiology most likely 2/2 alcohol vs. viral -Counseled on refraining from alcohol going forward -need to be evaluated for CAD after discharge. -Cardiology was following, appreciate recs --> Ramipril, Spironolactone on hold 2/2 worsening KRISTIN. Had recommended hydral and isordil yesterday that were delayed due to nephrology suggesting midodrine/albumin at this time. -continue coreg -monitor urine output -Will call Dr. Smith today to discuss the way forward from a cardiac optimization standpoint (called his office, pending call back, otherwise Dr. Hewitt takes over today) KRISTIN: Initially presumed to be congestive cardiorenal KRISTIN that improved with diuresis but then shortly after improvement, worsened likely in the setting of intravascular depletion. Was given some IV fluids back without much improvement and diuresis held. At this point there is likely some element of prerenal 2/2 intravascular depletion given urine Na<10, and possible hepatorenal syndrome though he has no courtney ascites. Nephrology was consulted and agreed with albumin and also added midodrine yesterday and held off octreotide without significant ascites. -Nephrology consulted --> Renal US without evidence of postobstructive nephropathy without hydronephrosis, given albumin yesterday c/b hypoxemia, however with improvement in Cr this AM. Was also given midodrine yesterday. This morning, getting albumin and torsemide. -Continue holding ACEi and aldactone -replete lytes PRN Acute liver injury: Frankly acuity is unclear given no history of consistent medical care prior, but given sudden onset jaundice and edema there is an acuity to this presentation on likely chronic alcoholic liver injury and cannot rule out alcoholic hepatitis, -With transaminitis, elevated INR, hypoalbuminemia and hyperbilirubinemia -Imaging with unremarkable liver with noted mild ascites and volume overload on exam -s/p Vit K -Hep A, B, C were negative -EBV IgG was positive for past infection, unlikely re-activation -GI consulted, recommending stopping alcohol consumption Thrombocytopenia: -Likely 2/2 to alcoholic liver disease, monitor Alcohol use disorder with ongoing withdrawal: -CIWA protocol with serax and PRN ativan -Thiamine, Folic acid supplementation Mildly Elevated TSH -sick euthyroid, to follow outpatient Dispo: PCU with ongoing KRISTIN, ongoing liver injury and decompensated HFrEF VS,Fishbone, I+O VS, Fishbone, I+O Laboratory Tests 06/29/19 05:57 Vital Signs Date Time Temp Pulse Resp B/P (MAP) Pulse Ox O2 Delivery O2 Flow Rate FiO2 06/29/19 09:13 75 122/80 06/29/19 07:29 96.1 20 99 Nasal Cannula 2.0 I&O- Last 24 Hours up to 6 AM 06/29/19 06:00 Intake Total 1520.0 ml Output Total 1525 ml Balance -5.0 ml CASIMIRO GREWAL MD Jun 29, 2019 09:56
[2019-06-29] MEDS: LORazepam 2 MG TAB PO PRN (16:00)
--- NOTE | 2019-06-29 20:46 | IPN ---
DATE: 06/29/2019 SUBJECTIVE: Michael is seen and examined this morning at the bedside. He denies any acute overnight events or complaints. Patient reports his leg edema is improving. He denies shortness of breath or dyspnea with exertion but has not really been up or moving around all too much. He is saturating well on nasal cannula, and I feel that this can likely start to be weaned. Vital signs: Temperature 97.8, pulse 83, respiratory rate 18, blood pressure 110/65, saturating 99% on two liters nasal cannula. Intake yesterday was 1820, urine output yesterday was 875. Urine output thus far today is 1300. Weight in the bed scale today is 119.7 kg. General: The patient is seen awake, alert, oriented, lying in bed, head of bed elevated, in no distress. Extraocular muscles are intact. Tongue is moist. Neck is supple. Jugular veins do not appear elevated. Heart sounds are regular, S1, S2. I would say there is at most 1+ edema in his legs now. Respiratory sounds are clear to auscultation. No rales or rhonchus. Abdomen is obese, soft and nontender. There is no fluid wave. Extremities are negative for clubbing or cyanosis, show only ankle edema and now. He is oriented, interactive and conversational. No asterixis. LABS: Sodium 129, potassium 4.3, bicarbonate 26, BUN 72, creatinine 2.1, AST 108, ALT 114, albumin 2.7, hemoglobin 16. INPATIENT MEDICATIONS: I started the patient on torsemide 20 mg by mouth twice daily, and I discontinued his midodrine. Remainder of medications are unchanged from prior. PROBLEMS: 1. Nonoliguric acute kidney injury superimposed on chronic kidney disease. Suspect acute component is secondary to type 1 cardiorenal syndrome (less likely to be hepatorenal given absence of significant ascites). The patient likely has underlying chronic kidney disease, suspect stage II to stage III given increased renal cortical echogenicity on ultrasound. Had worsening renal function with optimization of heart failure with diuresis and initiation of angiotensin-converting enzyme (TOMÁS) inhibitor and aldactone and tight blood pressure control. Ideally, would have benefited from inotropic therapy; however was felt to be a poor candidate given nonsustained ventricular tachycardia (V-tach). Thus, was treated instead with albumin and midodrine for augmentation of renal perfusion, given urine sodium and chloride were both less than 10. His renal function is improving. He has been off of diuretics for a couple of days and already his volume status is much better as compared to admission. I am starting him now on oral torsemide, and I am continuing him on Lasix but I have stopped the midodrine given his improving renal function. 2. Alcohol-induced cardiomyopathy, decompensated systolic/diastolic heart failure, ejection fraction 20%, dilated right heart chambers/right heart failure. Volume status has significantly improved over the course of this admission, down trended daily weights, down trended BNP. Not suitable for TOMÁS, ARB/Entresto due to acute on chronic renal failure, now started on oral diuretic torsemide 20 mg twice a day, and I am continuing him on albumin right now as it would help with his intravascular volume and renal perfusion. If his renal function does not continue to improve, then I feel he is going to need inotropic therapy. 3. Alcoholic liver disease, Model for End-Stage Liver Disease (MELD) score of around 30, but now improving with improvement in bilirubin, creatinine and liver function enzymes. 4. Hypervolemic hyponatremia secondary to renal failure, decompensated heart failure, and alcoholic liver disease. Sodium level should improve as renal function improves. Continue fluid restriction. 5. Arrhythmia. He is having some ectopy. He is on beta savannah. His potassium and magnesium levels are optimized. If renal function does not continue to improve with the current management, then he will probably need inotropic therapy. We will see how he fares.
[2019-06-30] VITALS (32 sets, daily range): BP systolic 98–166; BP diastolic 58–98; O2SAT 86–99
[2019-06-30 05:39] LABS: HEMATOCRIT 45.7 % (42.0-52.0); HEMOGLOBIN 15.8 g/dl (13.5-17.5); MEAN CORPUSCULAR HEMOGLOBIN 33.1 pg (27.0-33.0); MEAN CORPUSCULAR HGB CONC 34.6 g/dl (32.0-36.5); MEAN CORPUSCULAR VOLUME 95.6 fl (80.0-96.0); RED BLOOD COUNT 4.78 10^6/uL (4.30-6.10); WHITE BLOOD COUNT 10.1 10^3/uL (4.0-10.0)
[2019-06-30 05:50] LABS: PLATELET COUNT, AUTOMATED 97 10^3/uL (150-450)
[2019-06-30] MEDS: SLF 3 ML SYR IV SCH ×3 (05:54→21:15)
[2019-06-30 06:00] LABS: ALBUMIN 3.7 GM/DL (3.2-5.2); BILIRUBIN,TOTAL 6.9 MG/DL (0.2-1.0); CALCIUM LEVEL 8.6 MG/DL (8.5-10.1); CREATININE FOR GFR 2.35 MG/DL (0.70-1.30); GLOMERULAR FILTRATION RATE 33.2 (>60); POTASSIUM SERUM 4.5 MEQ/L (3.5-5.1); TOTAL PROTEIN 7.5 GM/DL (6.4-8.2)
[2019-06-30] MEDS: ISOSORBIDE DIN. (ISORDIL) 5 MG TAB PO SCH ×3 (07:00→16:48)
[2019-06-30] MEDS: MAGNESIUM OXIDE 400 MG TAB (MAG-OX) PO SCH (08:56)
[2019-06-30] MEDS: OXAZEPAM 10 MG CAP PO SCH (08:56)
[2019-06-30] MEDS: CARVedilol 3.125 MG TAB PO SCH (08:56)
[2019-06-30] MEDS: FOLIC ACID 1 MG TAB PO SCH (08:56)
[2019-06-30] MEDS: MULTIVITAMINS/MINERALS THERAP 1 TAB PO SCH (08:56)
[2019-06-30] MEDS: **hydrALAZINE** 10 MG TAB PO SCH ×3 (08:57→21:16)
--- NOTE | 2019-06-30 11:20 | IPN ---
CARDIOLOGY PROGRESS NOTE DATE OF SERVICE: 06/30/2019 Mr. Roche is seen and examined at bedside. He appears to be lethargic, however he was awoken this morning for the exam and answers appropriated. Continues to have mild shortness of breath, but no orthopnea or paroxysmal nocturnal dyspnea (PND). Still requiring supplemental oxygen mostly throughout the night. Continues to have brief episodes of nonsustained ventricular tachycardia (V- tach) on telemetry, this being his third night. Unfortunately, his renal and hepatic function are now worsening again, although otherwise he is hemodynamically stable. Continues to have poor by mouth intake. PHYSICAL EXAM: Vital Signs: Temperature 97, pulse 75, respirations 22, blood pressure 119/77, mean arterial pressure (MAP) 91, 98% 02 on 2 liters nasal cannula. Intake and Output: Intake 560, output 1300, net negative 740 with a documented weight this morning of 119 kilograms, down from 124 on admission. He has put out 650 mL this morning. He is resting comfortably in bed, in no acute distress, appears lethargic and fatigued, but does awaken on command and answers appropriately. Neck is supple. No appreciable jugular venous distention (JVD). Moist mucous membranes. Cardiac: Distant sounds due to his body habitus. No appreciable murmur, clicks or gallops. Regular rate and rhythm. Lungs distant sounds, however clear without any wheezing, rhonchi or rales. Abdomen: Soft, nontender. 2+ radial pulses bilaterally. 2-3+ lower extremity edema. LABS: WBC 10.1, hemoglobin/hematocrit 15.8/45.7, platelets 97. Sodium and potassium 128 and 4.5. BUN and creatinine 71 and 2.35. Creatinine up from 2.14 yesterday. GFR down from 37 yesterday to 33.2 today. Total bilirubin up from 5.5 yesterday to 6.9 today. Transaminases all have increased slightly. Albumin is up to 3.7 after receiving a total of 10 units of albumin thus far. ASSESSMENT/PLAN: Mr. Roche is a 39-year-old heavy alcoholic found to be in newly-diagnosed decompensated congestive heart failure (CHF) on admission with ejection fraction (EF) significantly reduced, likely secondary to long-term alcoholism. Also noted to have multiorgan failure with severely injured renal and hepatic functions. Initially he was improving with aggressive diuresis on admission, however had worsening renal function and decreased urine output. Diuretics have been hold thus far. 1. Alcohol-induced cardiomyopathy. Upon reassessment of his echo, his EF actually appears to be even worse than suspected, roughly 10-15%. Given his worsening renal and hepatic failure, he is at risk for this leading to a catastrophic event. We will touch base with heart failure specialists in [place] given his ill state, likely requiring further intervention. Will discontinue his Coreg given his severely low EF and also reintroduce Isordil and hydralazine with hold parameters in place. Recommend holding off on diuretics currently and avoid midodrine. Dobutamine remains an option as well, however he continues to have ventricular ectopy with nonsustained runs of V-tach three nights in a row. 2. Severe alcoholism. He seems to be doing well without any signs of withdrawal. Continues on CIWA protocol and scheduled Serax, which can hopefully be tapered down. 3. Multiorgan failure. He has not shown significant improvement in his heart, kidneys or liver. The question remains why his bilirubin and transaminitis is worsening. CT of the abdomen and pelvis and abdominal ultrasound did not reveal any clear source for this and he has been now 8 days out since his last drink, so there may be another cause for this. At this point, hepatitis testing has been negative. Consider full cirrhosis workup. 4. Acute respiratory hypoxia He initially required supplemental oxygen only throughout the night, however now is desaturating, even during the day, requiring 2-3 liters of nasal cannula. This may very well be from his decompensated state, along with some underlying undiagnosed sleep apnea, however, need to rule out other causes, for which a chest x-ray is ordered. Addendum MD Lyndon: Patient seen and examined. Management plan was discussed with . Agree with the note above. PATRICIA
--- NOTE | 2019-06-30 11:45 | REP ---
CHEST, TWO VIEWS: Two views of the chest are performed. There is mild cardiomegaly. Patchy infiltrate and/or atelectasis are seen in the right lung base apparently involving the right middle and lower lobes. Mild elevation of the right hemidiaphragm. Left lung appears clear. Mediastinal silhouette appears unremarkable. IMPRESSION: Mild cardiomegaly. Patchy infiltrates and/or atelectasis right middle and lower lobes. Electronically Signed by Benjamín Gale MD 07/01/2019 03:14 P
[2019-06-30 15:39] LABS: ABG BASE EXCESS -3.7 (-2.0-2.0); ABG HCO3 18.8 MEQ/L (22.0-26.0); ABG O2 SATURATION 98.1 % (95.0-99.0); ABG STANDARD HCO3 21.4 MEQ/L (22.0-26.0); ABG TOTAL CO2 19.6 MEQ/L (22.0-29.0); ABG pH (ARTERIAL) 7.444 UNITS (7.350-7.450)
[2019-06-30 15:49] LABS: INR 1.64; PROTHROMBIN TIME 19.1 SECONDS (11.8-14.0)
--- NOTE | 2019-06-30 16:58 | IPNPDOC ---
Text Note Date of Service The patient was seen on 06/30/19. NOTE Subjective: -Feels poorly today, tired, lethargic, remains on 2L NC. -No abdominal pain, nausea, emesis Objective: Telemetry: a few episodes of NSVT, otherwise sinus rhythm General: Ill appearing, lethargic, obese, jaundiced young man Skin: Diffuse jaundice, no spider nevi, has some nail onychomycoses HEENT: NCAT, icteric sclerae, clear oropharnyx Pulm: remains CTAB but visibly tachypneic and SOB, however now on 2L NC Cardiac: RRR, no murmurs or rubs Abd: Obese, no caput or distended veins, no palpable hepatosplenomegaly, no shifting dullness, non tender to palpation Ext: LE edema to midshins, WWP Neuro: AOx3, CN2-12 grossly intact, unsteady gait today reporting feeling weak, lethargic Psych: AOx3, lethargic Labs: Cr uptrended to 2.35, Hgb 15.8, Hct 45.7, WBC 10.1, K 4.5, AST 114, ALT 117, Total bili 6.9, Albumin now 3.7, NH3 <10, ABG 7.44/28/106, INR 1.64 Imaging: TTE: 1. Severe global left ventricular systolic dysfunction with a moderately enlarged left ventricle and severe diffuse hypokinesis. There are some features of left ventricular diastolic dysfunction, a restrictive mitral inflow pattern was noted. 2. Mildly to moderately enlarged left atrium with moderate eccentric mitral regurgitation. 3. Moderate tricuspid regurgitation with dilated right heart chambers. The calculated pulmonary artery systolic pressure was normal, most likely underestimated. 4. There are features of elevated central venous pressure, the inferior vena cava was dilated. 5. Trace pericardial effusion,, no evidence of cardiac tamponade. CXR: Cardiomegaly Chest CT: 1. Cardiomegaly without pleural effusions. 2. Mild ground glass attenuation anteriorly at base of right middle lobe most likely due to subsegmental atelectasis. No evidence of pneumonia or congestive heart failure." CT A/P: Liver: There are no focal liver lesions present. Gallbladder and bile ducts: The gallbladder is unremarkable. Pancreas: The pancreas is unremarkable. Spleen: The spleen is unremarkable Adrenals: The adrenal glands are unremarkable. Kidneys and ureters: The kidneys are unremarkable. Stomach and bowel: There is no evidence of intestinal obstruction. Appendix: No evidence of appendicitis. Intraperitoneal space: Small volume of ascites. Vasculature: The aorta is unremarkable. Lymph nodes: Unremarkable. No enlarged lymph nodes. Mild anasarca. Bladder: The bladder is unremarkable. Reproductive: The prostate gland and seminal vesicles are unremarkable. Bones/joints: Skeletal degeneration. Soft tissues: Unremarkable. IMPRESSION: 1. Mild ascites and anasarca. 2. Cardiomegaly. 3. Solid organs are poorly evaluated on this noncontrast study. Abdominal US: Trace to minimal ascited. No comments on liver. Renal US: Scanning at the level of the urinary bladder demonstrates that it is essentially empty. Renal cortical echogenicity pattern is isoechoic with liver consistent with some degree of medical renal disease. No hydronephrosis seen on either side. No cyst or mass is observed. Right renal dimensions are 10.9 x 6.5 x 4.8 cm. Left kidney measures 13.3 x 6.4 x 6.2 cm. IMPRESSION: Slightly increased renal cortical echogenicity pattern. No hydronephrosis seen.Otherwise negative. Assessment: 39 yo M with a history of heavy alcohol consumption who presented jaundiced, with worsening SOB , cough and swelling of his legs for 3 weeks and found to have decompensated dilated HFrEF with an EF of 20%, what appears to be acute liver injury c/w probable alcoholic hepatitis, s/p trial of aggressive diuresis and cardiac optimization c/b worsening KRISTIN and now AMS. AMS: Lethargic, but remains AOx3 at this time -ammonia level is normal -ABG did not reveal hypercarbia or severe hypoxemia -Neuro exam is grossly nonfocal without noted new deficits -Monitor for now Hypoxemic respiratory failure: 2/2 decompensated HFrEF -Diuresis was c/b by worsening KRISTIN with urine lytes suggesting a prerenal picture with likely intravascular depletion in the setting of hypoalbuminemia -supplemental O2 -reassuring ABG, without hypercarbia and adequate oxygenation on 2L NC that he remains on Acute systolic and diastolic CHF : dilated cardiomyopathy with EF of 10-15%, per cardiology reassessment of his TTE. Etiology most likely 2/2 alcohol. -Counseled on refraining from alcohol going forward -need to be evaluated for CAD after discharge. -Cardiology following, initially placed on lasix, ACEi, BB and aldactone that were c/b worsening KRISTIN and thus held. BB was discontinued today given being in decompensated HFrEF with significant cardiorenal failure. -Today was started on hydral and isordil with hold parameters in place -Cardiology contemplating inotropic assistance but cautious given recent ectopy with NSVT noted, discussing his case with [facility] heart failure specialists? KRISTIN: Initially improved with diuresis but then shortly after improvement, worsened likely in the setting of intravascular depletion, while ACEi and aldactone were added. Diuresis, ACEi and aldactone were subsequently held and IV fluids were given without much improvement in the setting of hypoalbuminemic state with third spacing. Nephrology was consulted and gave albumin, brief midodrine and low dose diuretic with slight nonsustained improvement in Cr with improvement in LE edema. Urine lytes showed Yohana < 10 and was c/w cardiorenal and unlikely hepatorenal syndrome without courtney ascites. The approach at this time, is therefore to treat the decompensated HFrEF starting with peripheral vascular resistance reduction and considering inotropy to improve his hypoperfusion. -Cardiology onboard, appreciate recs -Nephrology onboard, renal US was without evidence of postobstructive nephropathy without hydronephrosis, albumin repleted. -Continue holding ACEi and aldactone -replete lytes PRN Acute liver injury: Frankly acuity is unclear given no history of consistent medical care prior, but given sudden onset jaundice and edema there is an acute process to this presentation and cannot rule out alcoholic hepatitis. -Persistent transaminitis, coagulopathy and hyperbilirubinemia -MELD score on 06/30/2019 - 31 points, 52.6% estimated 3 month mortality -Imaging with unremarkable liver with noted mild ascites and volume overload on exam -s/p Vit K, INR 1.64 -Hep A, B, C were negative -EBV IgG was positive for past infection, unlikely re-activation -GI consulted, recommending stopping alcohol consumption Thrombocytopenia: -Likely 2/2 to alcoholic liver disease, monitor Alcohol use disorder with ongoing withdrawal: -DC/ Serax, DC CIWA protocol, will maintain PRN ativan -Thiamine, Folic acid supplementation Mildly Elevated TSH -sick euthyroid, to follow outpatient Dispo: PCU with ongoing multiorgan failure at this time. VS,Fishbone, I+O VS, Fishbone, I+O Laboratory Tests 06/30/19 05:12 Vital Signs Date Time Temp Pulse Resp B/P (MAP) Pulse Ox O2 Delivery O2 Flow Rate FiO2 06/30/19 14:00 102/60 06/30/19 12:00 96 Nasal Cannula 3.0 06/30/19 12:00 97.9 75 24 I&O- Last 24 Hours up to 6 AM 06/30/19 06:00 Intake Total 1360.0 ml Output Total 1250 ml Balance 110.0 ml CASIMIRO GREWAL MD Jun 30, 2019 16:58
[2019-06-30] MEDS ORDERED: LIDOCAINE 1% MDV 20ML VIAL As Ordered ONE (17:24)
[2019-07-01] VITALS (29 sets, daily range): BP systolic 80–139; BP diastolic 88–92; O2SAT 92–100
[2019-07-01 00:15] LABS: ABG BASE EXCESS -0.5 (-2.0-2.0); ABG HCO3 20.9 MEQ/L (22.0-26.0); ABG O2 SATURATION 99.7 % (95.0-99.0); ABG PARTIAL PRESSURE CO2 26.8 mmHg (35.0-45.0); ABG STANDARD HCO3 24.1 MEQ/L (22.0-26.0); ABG TOTAL CO2 21.7 MEQ/L (22.0-29.0)
[2019-07-01] MEDS ORDERED: HYDROCORTISONE 100 MG/2 ML VIAL (J1720 PER 1) IV ONE (03:00)
[2019-07-01 05:43] LABS: HEMATOCRIT 41.1 % (42.0-52.0); HEMOGLOBIN 14.2 g/dl (13.5-17.5); MEAN CORPUSCULAR HEMOGLOBIN 32.9 pg (27.0-33.0); MEAN CORPUSCULAR HGB CONC 34.5 g/dl (32.0-36.5); MEAN CORPUSCULAR VOLUME 95.1 fl (80.0-96.0); RED BLOOD COUNT 4.32 10^6/uL (4.30-6.10); WHITE BLOOD COUNT 10.8 10^3/uL (4.0-10.0)
[2019-07-01 05:48] LABS: PLATELET COUNT, AUTOMATED 86 10^3/uL (150-450)
[2019-07-01] MEDS: **hydrALAZINE** 10 MG TAB PO SCH ×3 (06:00→21:01)
[2019-07-01] MEDS: SLF 3 ML SYR IV SCH (06:00)
[2019-07-01 06:06] LABS: ALBUMIN 3.4 GM/DL (3.2-5.2); BILIRUBIN,TOTAL 7.6 MG/DL (0.2-1.0); CALCIUM LEVEL 8.7 MG/DL (8.5-10.1); CREATININE FOR GFR 1.98 MG/DL (0.70-1.30); GLOMERULAR FILTRATION RATE 40.5 (>60); MAGNESIUM LEVEL 2.6 MG/DL (1.8-2.4); PHOSPHORUS LEVEL 3.2 MG/DL (2.5-4.9); POTASSIUM SERUM 4.3 MEQ/L (3.5-5.1); TOTAL PROTEIN 6.6 GM/DL (6.4-8.2)
[2019-07-01] MEDS: SODIUM CHLORIDE 0.9% INJ 10 ML SYR IV SCH ×2 (06:11→17:19)
[2019-07-01] MEDS: ISOSORBIDE DIN. (ISORDIL) 5 MG TAB PO SCH ×3 (06:18→17:19)
[2019-07-01] MEDS: MAGNESIUM OXIDE 400 MG TAB (MAG-OX) PO SCH (09:00)
[2019-07-01] MEDS: FOLIC ACID 1 MG TAB PO SCH (09:22)
[2019-07-01] MEDS: MULTIVITAMINS/MINERALS THERAP 1 TAB PO SCH (09:22)
[2019-07-01] MEDS: DOBUTamine HCL 500,000 MCG in IV 1 EA IV SCH (11:54)
--- NOTE | 2019-07-01 12:49 | IPN ---
DATE: 07/01/2019 Mr. Roche's condition did not change appreciably since yesterday. He continues to be very somnolent and sleeps most of the day, even though he has not received any sedation for approximately 48 hours. There are certainly no signs of alcohol withdrawal. He denies any chest pain. He denies any shortness of breath. There are no palpitations. Besides feeling tired and exhausted, he has no additional complaints. Blood pressure this morning was recorded 127/92, but that is the exception. The majority of his readings yesterday where in the 80s and 90s. His heart rate is in the 70s to 90s, sinus rhythm. He did not have any ectopy yesterday. He is afebrile. Saturation is 97% on 4 liters of oxygen. Fluid balance yesterday was recorded about positive 180. He made about 600 mL of urine today so far. Weight has not been recorded this morning as yet. He is alert and oriented when awoken, but is somnolent to start with. Jugular venous pulse (JVP) is difficult to assess with his body habitus, but appears high. Lungs are clear. Good air movement. I do not appreciate any evidence for effusions. His heart rate reveals a regular rhythm. I do not appreciate any S3, but there are somewhat diminished heart sounds corresponding to his body habitus. Abdomen is soft. No tenderness. I do not appreciate any obvious hepatosplenomegaly. Extremities still have about 3+ edema. Neurologically, he appears sedated but when awoken he is appropriate. I do not appreciate any focal deficit. He has multiple ecchymosis on his skin throughout his extremities and torso. Laboratory: CBC revealed WBC count 10.8, hemoglobin 14.2, hematocrit 41, platelet count 86,000. Basic metabolic panel - sodium 132, potassium 4.3, BUN 64, creatinine 2.0, GFR 40, glucose 118, bilirubin is 7.6, AST 89, ALT 95, alkaline phosphatase 145, ammonia level yesterday was normal, albumin is 3.4 ASSESSMENT/PLAN: Mr. Roche is a 39-year-old man who had no prior history of medical problems and reports a longstanding history of heavy beer consumption who presented with congestive heart failure. He was found to have severe cardiomyopathy with really low ejection fraction. I reviewed the echocardiogram yesterday and indeed there is not only severely dilated hypokinetic left ventricle, but also right ventricle. My estimate of ejection fraction would be between 10 and 15% and I think that the reported 20% is slightly optimistic. He initially responded well to diuretics, but then developed renal failure, possibly due to too rapid of a diuresis and introduction of TOMÁS inhibitor in the setting of low cardiac output. What is more perplexing to me is the etiology of his hepatic dysfunction. To my astonishment, he continues to have rising bilirubin even though he has not had any alcohol for over 10 days. Fortunately, the rest of his liver function tests tend to improve, but I am not sure how to explain this situation. Also, his renal function is improving. Unfortunately, his blood pressure now starts to be quite hypotensive and consequently the vasodilator therapies are being held most of the time. He did not have any arrhythmias on telemetry now for over 24 hours. Consequently, I decided to proceed with dobutamine infusion even though it is somewhat controversial. But in low concentration, it can help improve cardiac output. I will first see how he tolerates it and if the tolerance is acceptable will give him diuretics on top of it. I am hoping that it will lead to improvement of renal function and hopefully also hepatic function should the liver function test abnormalities in part be related to hepatic congestion. Unfortunately, considering his longstanding alcohol use he is not a candidate for advanced heart failure therapies. Specifically, to be a candidate for LVAD or even heart transplantation, he would have to be sober for a minimum of 6 months, but I am still hopeful that we will be able to stabilize him and he will gradually improve, even though there is certainly a long way ahead of him and he remains severely ill. PATRICIA
--- NOTE | 2019-07-01 14:20 | IPNPDOC ---
Text Note Date of Service The patient was seen on 07/01/19. NOTE Subjective: -Continues to feel poorly, lethargic, on 4L NC. -No abdominal pain, nausea, emesis Objective: Vitals: Mild hypotension to SBP 90s over the last 24h, otherwise afebrile, see below Telemetry:Sinus rhythm, no noted NSVT General: Ill appearing, lethargic, obese, jaundiced young man Skin: Diffuse jaundice, no spider nevi, has some nail onychomycoses HEENT: NCAT, icteric sclerae, clear oropharnyx Pulm: remains CTAB but visibly tachypneic and SOB, on 4L NC Cardiac: RRR, no murmurs or rubs Abd: Obese, no caput or distended veins, no palpable hepatosplenomegaly, no shifting dullness, non tender to palpation Ext: LE edema to midshins, WWP Neuro: AOx3, CN2-12 grossly intact, lethargic, otherwise 5/5 strength on exam throughout Psych: AOx3, lethargic Labs: Cr downtrended to 1.98, Hgb 14.2, Hct 41.1, WBC 10.8, Na 132, K 4.3, AST 89, ALT 95, Total bili 7.6, Albumin now 3.4 Imaging: TTE: 1. Severe global left ventricular systolic dysfunction with a moderately enlarged left ventricle and severe diffuse hypokinesis. There are some features of left ventricular diastolic dysfunction, a restrictive mitral inflow pattern was noted. 2. Mildly to moderately enlarged left atrium with moderate eccentric mitral regurgitation. 3. Moderate tricuspid regurgitation with dilated right heart chambers. The calculated pulmonary artery systolic pressure was normal, most likely underestimated. 4. There are features of elevated central venous pressure, the inferior vena cava was dilated. 5. Trace pericardial effusion,, no evidence of cardiac tamponade. CXR: Cardiomegaly Chest CT: 1. Cardiomegaly without pleural effusions. 2. Mild ground glass attenuation ante riorly at base of right middle lobe most likely due to subsegmental atelectasis. No evidence of pneumonia or congestive heart failure." CT A/P: Liver: There are no focal liver lesions present. Gallbladder and bile ducts: The gallbladder is unremarkable. Pancreas: The pancreas is unremarkable. Spleen: The spleen is unremarkable Adrenals: The adrenal glands are unremarkable. Kidneys and ureters: The kidneys are unremarkable. Stomach and bowel: There is no evidence of intestinal obstruction. Appendix: No evidence of appendicitis. Intraperitoneal space: Small volume of ascites. Vasculature: The aorta is unremarkable. Lymph nodes: Unremarkable. No enlarged lymph nodes. Mild anasarca. Bladder: The bladder is unremarkable. Reproductive: The prostate gland and seminal vesicles are unremarkable. Bones/joints: Skeletal degeneration. Soft tissues: Unremarkable. IMPRESSION: 1. Mild ascites and anasarca. 2. Cardiomegaly. 3. Solid organs are poorly evaluated on this noncontrast study. Abdominal US: Trace to minimal ascited. No comments on liver. Renal US: Scanning at the level of the urinary bladder demonstrates that it is essentially empty. Renal cortical echogenicity pattern is isoechoic with liver consistent with some degree of medical renal disease. No hydronephrosis seen on either side. No cyst or mass is observed. Right renal dimensions are 10.9 x 6.5 x 4.8 cm. Left kidney measures 13.3 x 6.4 x 6.2 cm. IMPRESSION: Slightly increased renal cortical echogenicity pattern. No hydronephrosis seen.Otherwise negative. Assessment: 39 yo M with a history of heavy alcohol consumption who presented jaundiced, with worsening SOB , cough and swelling of his legs for 3 weeks and found to have decompensated dilated HFrEF with an EF of 20%, what appears to be acute l iver injury c/w probable alcoholic hepatitis without evidence of cirrhosis, s/p trial of aggressive diuresis and cardiac optimization c/b worsening KRISTIN and now AMS. AMS: Lethargic, but remains AOx3 at this time -ammonia level was normal -ABG did not reveal hypercarbia or severe hypoxemia -Neuro exam is grossly nonfocal without noted new deficits -Monitor for now Hypoxemic respiratory failure: 2/2 decompensated HFrEF -Diuresis was c/b by worsening KRISTIN with urine lytes suggesting a prerenal pict ure with likely intravascular depletion in the setting of hypoalbuminemia -supplemental O2 -reassuring ABG, without hypercarbia and adequate oxygenation on 4L NC that he remains on Acute systolic and diastolic CHF : dilated cardiomyopathy with EF of 10-15%, per cardiology reassessment of his TTE. Etiology most likely 2/2 alcohol. -Counseled on refraining from alcohol going forward -need to be evaluated for CAD after discharge. -Cardiology following, initially placed on lasix, ACEi, BB and aldactone that were c/b worsening KRISTIN and thus held with significant cardiorenal failure. -Was placed on hydral and isordil with hold parameters in place and unfortunately has had borderline hypotension and thus not received the therapies -Cardiology started low dose inotropic assistance with dobutamine this AM, and unfortunately per is not a candidate for advanced therapies given recent alcohol and would have to be sober for 6m, as noted in Dr. Carlos's note. KRISTIN: Initially improved with diuresis but then shortly after improvement, worsened likely in the setting of intravascular depletion, while ACEi and aldactone were added. Diuresis, ACEi and aldactone were subsequently held and IV fluids were given without much improvement in the setting of hypoalbuminemic state with third spacing. Nephrology was consulted and gave albumin, brief midodrine and low dose diuretic with slight nonsustained improvement in Cr with improvement in LE edema. Urine lytes showed Yohana < 10 and was c/w cardiorenal and unlikely hepatorenal syndrome without courtney ascites. -Consensus has been to treat the decompensated HFrEF starting with peripheral vascular resistance reduction that was c/b hypotension such that he did not tolerate the afterload reduction, and this morning was started on low dose inotropic assistance with dobutamine by cardiology. -Cardiology onboard, appreciate recs -Nephrology onboard, appreciate recs, renal US was without evidence of postobstructive nephropathy without hydronephrosis, albumin repleted. -Continue holding ACEi and aldactone -replete lytes PRN Acute liver injury: Frankly acuity is unclear given no history of consistent medical care prior, but given sudden onset jaundice and edema there is an acute process to this presentation and cannot rule out alcoholic hepatitis and imaging does not suggest cirrhosis. -Persistent transaminitis, coagulopathy and hyperbilirubinemia -MELD score on 06/30/2019 - 31 points, 52.6% estimated 3 month mortality -Imaging with unremarkable liver with noted mild ascites and volume overload on exam -s/p Vit K, INR 1.64 on 06/30 -Hep A, B, C were negative -EBV IgG was positive for past infection, unlikely re-activation -GI consulted, recommending stopping alcohol consumption Thrombocytopenia: -Likely 2/2 to alcoholic liver disease, monitor Alcohol use disorder with ongoing withdrawal: -DC/ Serax, DC CIWA protocol, will maintain PRN ativan -Thiamine, Folic acid supplementation Mildly Elevated TSH -sick euthyroid, to follow outpatient Dispo: PCU with ongoing multiorgan failure at this time. VS,[place], I+O VS, Fishbone, I+O Laboratory Tests 07/01/19 05:12 Vital Signs Date Time Temp Pulse Resp B/P (MAP) Pulse Ox O2 Delivery O2 Flow Rate FiO2 07/01/19 12:49 139/92 07/01/19 12:32 96.9 81 22 97 Nasal Cannula 4.0 I&O- Last 24 Hours up to 6 AM 07/01/19 06:00 Intake Total 630.0 ml Output Total 600 ml Balance 30.0 ml CASIMIRO GREWAL MD Jul 01, 2019 14:20
--- NOTE | 2019-07-01 20:26 | IPN ---
DATE: 07/01/2019 Mr. Roche is seen this morning on his bedside. Nursing staff reports that he was quite confused this morning. He was sleeping at the time of my visit and why I woke him up. He was able to tell me the day and month correctly and was also able to tell me about his medical problems. He did not seem to be significantly confused. The patient remains weak and short of breath. He denies any fever or chills. He has noticed to have cardiorenal syndrome and cardiology is following him. His blood pressure remains low. PHYSICAL EXAMINATION: Temperature 97.2 degrees Fahrenheit, heart rate 86 per minute and respiratory rate 20 per minute. Blood pressure 130/89 mmHg and oxygen saturation 99% on 4 liters oxygen. Intake and output records from yesterday showed total intake 1430 and output 1250 mL. His head is atraumatic. Neck is supple and jugular venous distension (JVD) difficult to be assessed. Heart sounds are without a pericardial friction rub. Lungs have diminished breath sounds bilaterally. Abdomen: Soft and nontender. Bowel sounds normal. Extremities: Without any cyanosis or clubbing. Neurologically, he seems to be able to answer questions appropriately and reasonably well oriented. Today's labs show sodium level 132, potassium 4.3, CO2 26, BUN 64 and creatinine 1.98. Calcium level is 8.7 and total bilirubin is 7.6. AST 89, ALT 95 and alkaline phosphatase 145. Yesterday his ammonia level was less than 10. PROBLEMS: 1. Acute renal failure. Kidney function is slightly improved. The patient has no uremic symptoms and no significant electrolyte or metabolic problems. There is no emergent indication for dialysis. 2. Congestive heart failure. He has severe cardiomyopathy and cardiorenal syndrome. The patient is being followed by cardiology. We will hold off on any intervention from a renal standpoint. As his kidney function is improvin, I am optimistic that he will not require dialysis. 3. Hyponatremia. Sodium level is slightly improved. We will need to monitor his electrolytes on daily basis.
[2019-07-02] VITALS (25 sets, daily range): BP systolic 111–133; BP diastolic 71–98; O2SAT 90–100
[2019-07-02] MEDS: **hydrALAZINE** 10 MG TAB PO SCH ×3 (05:46→21:04)
[2019-07-02] MEDS: SODIUM CHLORIDE 0.9% INJ 10 ML SYR IV SCH ×2 (05:47→17:43)
[2019-07-02] MEDS: ISOSORBIDE DIN. (ISORDIL) 5 MG TAB PO SCH ×3 (06:22→17:43)
[2019-07-02 06:34] LABS: HEMOGLOBIN 14.2 g/dl (13.5-17.5); MEAN CORPUSCULAR HEMOGLOBIN 32.9 pg (27.0-33.0); MEAN CORPUSCULAR HGB CONC 34.6 g/dl (32.0-36.5); MEAN CORPUSCULAR VOLUME 94.9 fl (80.0-96.0); RED BLOOD COUNT 4.32 10^6/uL (4.30-6.10)
[2019-07-02 06:35] LABS: PLATELET COUNT, AUTOMATED 87 10^3/uL (150-450)
[2019-07-02 07:02] LABS: ALBUMIN 3.1 GM/DL (3.2-5.2); BILIRUBIN,TOTAL 8.4 MG/DL (0.2-1.0); CALCIUM LEVEL 8.7 MG/DL (8.5-10.1); CREATININE FOR GFR 1.69 MG/DL (0.70-1.30); GLOMERULAR FILTRATION RATE 48.6 (>60); POTASSIUM SERUM 4.6 MEQ/L (3.5-5.1); TOTAL PROTEIN 6.6 GM/DL (6.4-8.2)
[2019-07-02 09:36] LABS: INR 1.45; PROTHROMBIN TIME 17.4 SECONDS (11.8-14.0)
[2019-07-02] MEDS: MAGNESIUM OXIDE 400 MG TAB (MAG-OX) PO SCH (09:46)
[2019-07-02] MEDS: FOLIC ACID 1 MG TAB PO SCH (09:46)
[2019-07-02] MEDS: MULTIVITAMINS/MINERALS THERAP 1 TAB PO SCH (09:46)
--- NOTE | 2019-07-02 10:40 | IPNPDOC ---
Text Note Date of Service The patient was seen on 07/02/19. NOTE Subjective: -Looks and feels better today -Overnight he had an episode of confusion and looked lethargic that resolved after some sleep -Ate all his breakfast this morning Interim events: -Was started on dobutamine Objective: Vitals: see below, hemodynamically stable, afebrile Telemetry:Sinus rhythm, no significant ectopy, a few PACs and 1 PVC General: Ill appearing, lethargic, obese, jaundiced young man Skin: Diffuse jaundice, no spider nevi, has some nail onychomycoses HEENT: NCAT, icteric sclerae, clear oropharnyx Pulm: remains CTAB but visibly tachypneic and SOB, on 2L NC Cardiac: RRR, no murmurs or rubs Abd: Obese, no caput or distended veins, no palpable hepatosplenomegaly, no shifting dullness, non tender to palpation Ext: LE edema to midshins, WWP Neuro: AOx3, CN2-12 grossly intact, lethargic, otherwise 5/5 strength on exam throughout Psych: AOx3, lethargic Labs: Cr downtrended to 1.69, Hgb 14.2, Hct 41, WBC 1uptrended to 12, Na 133, K 4.6, AST 96, ALT 83, Total bili 8.4, Albumin now 3.1 Imaging: TTE: 1. Severe global left ventricular systolic dysfunction with a moderately enlarged left ventricle and severe diffuse hypokinesis. There are some features of left ventricular diastolic dysfunction, a restrictive mitral inflow pattern was noted. 2. Mildly to moderately enlarged left atrium with moderate eccentric mitral regurgitation. 3. Moderate tricuspid regurgitation with dilated right heart chambers. The calculated pulmonary artery systolic pressure was normal, most likely underestimated. 4. There are features of elevated central venous pressure, the inferior vena cava was dilated. 5. Trace pericardial effusion,, no evidence of cardiac tamponade. CXR: Cardiomegaly Chest CT: 1. Cardiomegaly without pleural effusions. 2. Mild ground glass attenuation anteriorly at base of right middle lobe most likely due to subsegmental atel ectasis. No evidence of pneumonia or congestive heart failure." CT A/P: Liver: There are no focal liver lesions present. Gallbladder and bile ducts: The gallbladder is unremarkable. Pancreas: The pancreas is unremarkable. Spleen: The spleen is unremarkable Adrenals: The adrenal glands are unremarkable. Kidneys and ureters: The kidneys are unremarkable. Stomach and bowel: There is no evidence of intestinal obstruction. Appendix: No evidence of appendicitis. Intraperitoneal space: Small volume of ascites. Vasculature: The aorta is unremarkable. Lymph nodes: Unremarkable. No enlarged lymph nodes. Mild anasarca. Bladder: The bladder is unremarkable. Reproductive: The prostate gland and seminal vesicles are unremarkable. Bones/joints: Skeletal degeneration. Soft tissues: Unremarkable. IMPRESSION: 1. Mild ascites and anasarca. 2. Cardiomegaly. 3. Solid organs are poorly evaluated on this noncontrast study. Abdominal US: Trace to minimal ascited. No comments on liver. Renal US: Scanning at the level of the urinary bladder demonstrates that it is essentially empty. Renal cortical echogenicity pattern is isoechoic with liver consistent with some degree of medical renal disease. No hydronephrosis seen on either side. No cyst or mass is observed. Right renal dimensions are 10.9 x 6.5 x 4.8 cm. Left kidney measures 13.3 x 6.4 x 6.2 cm. IMPRESSION: Slightly increased renal cortical echogenicity pattern. No hydronephrosis seen.Otherwise negative. Assessment: 39 yo M with a history of heavy alcohol consumption who presented jaundiced, with worsening SOB , cough and swelling of his legs for 3 weeks and found to have decompensated dilated HFrEF with an EF of 20%, what appears to be acute liver injury c/w probable alcoholic hepatitis without evidence of cirrhosis, s/p trial of aggressive diuresis and cardiac optimization c/b worsening KRISTIN, now on dobutamine. Lethargy: Feels poorly but remains AOx3 at this time -ammonia level was normal -ABG did not reveal hypercarbia or severe hypoxemia -Neuro exam is grossly nonfocal without noted new deficits -Monitor for now Hypoxemic respiratory failure: 2/2 decompensated HFrEF -Diuresis was c/b by worsening KRISTIN with urine lytes suggesting a prerenal picture with likely intravascular depletion in the setting of hypoalbuminemia -supplemental O2 -reassuring ABG, without hypercarbia and adequate oxygenation on 2L NC Acute systolic and diastolic CHF : dilated cardiomyopathy with EF of 10-15%, per cardiology reassessment of his TTE. Etiology most likely 2/2 alcohol. -Counseled on refraining from alcohol going forward -need to be evaluated for CAD after discharge. -Cardiology following, initially placed on lasix, ACEi, BB and aldactone that were c/b worsening KRISTIN and thus held with significant cardiorenal failure. -Was placed on hydral and isordil with hold parameters in place and unfortunately c/b borderline hypotension and thus not received the therapies and now started on low dose inotropic assistance with dobutamine with improvement in renal function. -Unfortunately per cardiology is not a candidate for advanced therapies given recent alcohol and would have to be sober for 6m, as noted in Dr. Carlos's note. KRISTIN: Initially improved with diuresis but then shortly after improvement, worsen ed likely in the setting of intravascular depletion, while ACEi and aldactone were added. Diuresis, ACEi and aldactone were subsequently held and IV fluids were given without much improvement in the setting of hypoalbuminemic state. Nephrology was consulted and gave albumin, brief midodrine and low dose diuretic with some improvement in Cr and LE edema. Urine lytes showed Yohana < 10 c/w cardiorenal and unlikely hepatorenal syndrome without courtney ascites. -Consensus has been to treat the decompensated HFrEF starting with peripheral vascular resistance reduction that was c/b hypotension such that he did not tolerate the afterload reduction, and yesterday AM was started on low dose inotropic assistance with dobutamine by cardiology that he is tolerating at this time. -Cardiology onboard, appreciate recs -Nephrology onboard, appreciate recs, renal US was without evidence of postobstructive nephropathy without hydronephrosis, albumin repleted. -Continue holding ACEi and aldactone -replete lytes PRN Acute liver injury: Frankly acuity is unclear given no history of consistent medical care prior, but given sudden onset jaundice and edema there is an acute process to this presentation and cannot rule out alcoholic hepatitis and imaging does not suggest cirrhosis. -Persistent transaminitis, coagulopathy and hyperbilirubinemia -MELD score on 06/30/2019 - 31 points, 52.6% estimated 3 month mortality -Imaging with unremarkable liver with noted mild ascites and volume overload on exam -s/p Vit K, INR 1.64 on 06/30 -Hep A, B, C were negative -EBV IgG was positive for past infection, unlikely re-activation -GI consulted, recommending stopping alcohol consumption Thrombocytopenia: -Likely 2/2 to alcoholic liver disease, monitor Alcohol use disorder with ongoing withdrawal: -DC/ Serax, DC CIWA protocol, will maintain PRN ativan -Thiamine, Folic acid supplementation Mildly Elevated TSH -sick euthyroid, to follow outpatient Dispo: PCU with ongoing multiorgan failure at this time. VS,Fishbone, I+O VS, Fishbone, I+O Laboratory Tests 07/02/19 06:10 Vital Signs Date Time Temp Pulse Resp B/P (MAP) Pulse Ox O2 Delivery O2 Flow Rate FiO2 07/02/19 06:22 112/80 07/02/19 05:00 99 Nasal Cannula 2.0 07/02/19 04:00 97.0 97 18 I&O- Last 24 Hours up to 6 AM 07/02/19 06:00 Intake Total 975 ml Output Total 2025 ml Balance -1050 ml CASIMIRO GREWAL MD Jul 02, 2019 09:01
--- NOTE | 2019-07-02 12:24 | IPN ---
DATE: 07/02/2019 Mr. Roche looks a little better today. He is certainly more alert. He seemed to be more oriented and also claims to feel a little bit better, not as tired and also denies significant dyspnea, but he still admits that it is difficult for him to get out of bed and even walking to the bathroom he will get short of breath. PHYSICAL EXAMINATION: Vital signs reveal blood pressure 131/98, heart rate has been in 90s and 100. He is afebrile. Saturation 98% on room air. Fluid balance yesterday was recorded about negative 650. He made about 1600 mL of urine if the recording is accurate. Weight is 117 kg. He is alert, oriented and appropriate. 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 Lungs are clear though with good air movement. Heart exam reveals regular rhythm. I could do not appreciate distinct gallop, murmur or rub. Somewhat muffled consistent with his body habitus. Abdomen is soft, I do not appreciate any hepatosplenomegaly. Extremities still have prominent edema. Neurologically, there is generalized weakness but no focal signs. There are still signs of ecchymosis on his torso and extremities. LABORATORY: CBC reveals hemoglobin of 14.2, hematocrit 41, platelet count 87,000, which is similar to yesterday. Basic metabolic panel: Sodium 133, potassium 4.6, BUN 48, creatinine 1.7 for calculated GFR 50 and glucose 111, bilirubin is 8.4, AST 96, ALT 83, alkaline phosphatase 135 and albumin is 3.1. ASSESSMENT/PLAN: Mr. 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 His echocardiogram reveals severely reduced left ventricular and right ventricular systolic function. He initially was treated aggressively with diuresis and TOMÁS inhibitors but developed acute on chronic renal failure. It is now slowly improving. I eventually decided to give him low-dose dobutamine yesterday, which seemed to have had some benefit. I am going to add furosemide 40 twice a day in an attempt to accomplish some diuresis. He is getting some of his isosorbide and vasodilators but often they are held on account of low blood pressure, but I am slightly more optimistic, he seems to be little bit better today than he was yesterday. The only major concern at this point is the fact that the bilirubin is still climbing. I am not quite sure how to explain that, I wonder whether that could be a component of hemolysis, but in absence of anemia it seems rather unlikely. I will leave further evaluation of hepatic dysfunction to his primary team. PATRICIA
[2019-07-02] MEDS: FUROSEMIDE 40 MG/4 ML VIAL (J1940) IV SCH (12:41)
[2019-07-02] MEDS: DOBUTamine HCL 500,000 MCG in IV 1 EA IV SCH (14:14)
[2019-07-02] MEDS: SODIUM CHLORIDE 0.9% INJ 10 ML SYR IV PRN (22:36)
[2019-07-03] VITALS (15 sets, daily range): BP systolic 131–144; BP diastolic 88–93; O2SAT 94–98
[2019-07-03] MEDS: FUROSEMIDE 40 MG/4 ML VIAL (J1940) IV SCH ×2 (00:13→11:59)
[2019-07-03] MEDS: SODIUM CHLORIDE 0.9% INJ 10 ML SYR IV PRN (00:14)
[2019-07-03] MEDS: SODIUM CHLORIDE 0.9% INJ 10 ML SYR IV SCH ×2 (05:57→17:30)
[2019-07-03] MEDS: **hydrALAZINE** 10 MG TAB PO SCH ×3 (05:58→20:46)
[2019-07-03] MEDS: ISOSORBIDE DIN. (ISORDIL) 5 MG TAB PO SCH (06:00)
[2019-07-03 06:12] LABS: BILIRUBIN,DIRECT 6.3 MG/DL (0.0-0.2); CALCIUM LEVEL 8.4 MG/DL (8.5-10.1); CREATININE FOR GFR 1.63 MG/DL (0.70-1.30); GLOMERULAR FILTRATION RATE 50.7 (>60); POTASSIUM SERUM 3.4 MEQ/L (3.5-5.1)
--- NOTE | 2019-07-03 06:39 | IPN ---
DATE OF VISIT: 07/02/2019 Mr. Roche is seen this morning on his bedside. He is sitting at the edge of bed eating breakfast. He seems very well oriented today. He denies any nausea or vomiting and feels that his dyspnea is improving. He still has significant peripheral edema. He is now on dobutamine drip. PHYSICAL EXAMINATION: Temperature 97.8 degrees Fahrenheit, heart rate 98 per minute and respiratory rate 18 per minute. Blood pressure 133/90 mmHg and oxygen saturation 100% on room air. Intake and output records from last 24 hours show total intake 970 and output 1625 with a negative fluid balance of 654 mL. His head is atraumatic. There is no oral thrush or ulcers. Neck is supple and JVD is elevated. Heart sounds are tachycardic, but without a pericardial friction rub. Lungs with diminished breath sounds at bases. Abdomen soft and nontender and bowel sounds are normal. Extremities without any cyanosis or clubbing. Edema of his right upper and bilateral lower extremities is at least two to 3+. Neurologically, he seems more oriented and alert today. Today's labs show WBC count 12.0, hemoglobin 14.2 and hematocrit 41. Platelets 87,000. Sodium 133, potassium 4.6, CO2 27, BUN 48 and creatinine 1.69. Calcium level is 8.7 and total bilirubin up to 8.4. Albumin is 3.1 and total protein 6.6. AST 96, ALT 83 and alkaline phosphatase 135. PROBLEMS: 1. Acute renal failure. Kidney function is gradually improving and the patient seems to have good urine output now as he is on dobutamine drip. 2. Congestive heart failure. The patient is now on dobutamine drip and seems to be tolerating with good urine output. He is being followed by cardiology. He also remains on low-dose hydralazine and isosorbide. 3. Altered mentation. Seems to be much improved and he seems very well oriented now.
--- NOTE | 2019-07-03 07:24 | IPN ---
DATE: 07/03/2019 Mr. Roche looks a lot better today. He was sitting playing a video game when I entered the room. He said he was able to sleep reasonably well. Denies any paroxysmal nocturnal dyspnea (PND) or orthopnea, but obviously gets quite short of breath with minimal activity. No abdominal pain. No nausea. No vomiting. He does complain about swelling of the right upper extremity when he woke up this morning, but acknowledges that he was probably laying on it. Vital Signs: Blood pressure 130/80. Heart rate has been in the 90s and low 100s. He had episodes of nonsustained ventricular tachycardia (VT) yesterday evening which prompted discontinuation of dobutamine. Saturation is 97% on room air. Fluid balance yesterday was recorded about negative 800. Weight is 115.5 kg and he already made about 1100 mL of urine today. He is alert, oriented and appropriate. There is no tremor or other signs of alcohol withdrawal. Jugular venous pulse (JVP) continues to be difficult to assess with his body habitus, but still appears high. Lungs are reasonably clear though. Heart exam reveals somewhat muffled heart sounds, but regular rhythm without obvious murmur. I do not appreciate gallop either. Abdomen is soft without tenderness. I cannot appreciate signs of hepatosplenomegaly. Extremities have prominent edema. There are multiple ecchymoses on his skin. Laboratories: No CBC was drawn this morning. Basic metabolic panel - sodium 133, potassium 3.4, BUN 37 and creatinine 1.6 for a calculated of GFR 51, and glucose 126. Bilirubin total is 9 and direct bilirubin is 6.3. LDH 294. ASSESSMENT/PLAN: Mr. Roche is a 39-year-old man who presented with congestive heart failure and developed acute on chronic renal failure and also has evidence for very strong abnormalities of transaminases and bilirubin. It is probable that alcohol is behind both liver and heart issues, but I am still somewhat perplexed why his bilirubin continues to climb even though he has been alcohol free now for close to 12 or 13 days. As far as the heart is concerned, I had to discontinue even low-dose dobutamine due to very frequent ventricular ectopy, including runs of nonsustained VT. I do not believe that use of amiodarone is appropriate in this setting and consequently I discontinued the dobutamine. His blood pressure seems to be actually better, so I will continue diuretics and I will try to advance the dose of isosorbide and hydralazine. Overall, I am starting to feel slightly more optimistic. He seems to be improving, but there is still a long way to go.
[2019-07-03] MEDS ORDERED: POTASSIUM CHLORIDE 10 MEQ SR TABLET PO ONE ×2 (08:00→14:00)
[2019-07-03] MEDS: MAGNESIUM OXIDE 400 MG TAB (MAG-OX) PO SCH ×2 (09:00→14:36)
[2019-07-03] MEDS: MULTIVITAMINS/MINERALS THERAP 1 TAB PO SCH (09:13)
[2019-07-03] MEDS: FOLIC ACID 1 MG TAB PO SCH (09:13)
[2019-07-03 09:37] LABS: MAGNESIUM LEVEL 1.9 MG/DL (1.8-2.4)
--- NOTE | 2019-07-03 10:39 | IPNPDOC ---
Text Note Date of Service The patient was seen on 07/03/19. NOTE Subjective: -Continues to feel ok today, however has generalized aches and was lying down before he tries to take a shower Interim events: -Dobutamine was dc'd due to increased ectopy on telemetry -BP improved so started on hydral, isordil and also started on lasix 40 IV BID Objective: Vitals: see below, hemodynamically stable, afebrile Telemetry: Sinus rhythm General: Ill appearing, lethargic, obese, jaundiced young man Skin: Diffuse jaundice, no spider nevi, has some nail onychomycoses HEENT: NCAT, icteric sclerae, clear oropharnyx Pulm: remains CTAB but visibly tachypneic and SOB, on 2L NC Cardiac: RRR, no murmurs or rubs Abd: Obese, no caput or distended veins, no palpable hepatosplenomegaly, no shifting dullness, non tender to palpation Ext: LE edema to midshins, WWP Neuro: AOx3, CN2-12 grossly intact, lethargic, otherwise 5/5 strength on exam throughout Psych: AOx3, lethargic Labs: Cr downtrended to 1.63, CBC pending, Na 133, K 3.4 (repleted), Total bili now 9 Imaging: TTE: 1. Severe global left ventricular systolic dysfunction with a moderately en larged left ventricle and severe diffuse hypokinesis. There are some features of left ventricular diastolic dysfunction, a restrictive mitral inflow pattern was noted. 2. Mildly to moderately enlarged left atrium with moderate eccentric mitral regurgitation. 3. Moderate tricuspid regurgitation with dilated right heart chambers. The calculated pulmonary artery systolic pressure was normal, most likely underestimated. 4. There are features of elevated central venous pressure, the inferior vena cava was dilated. 5. Trace pericardial effusion,, no evidence of cardiac tamponade. CXR: Cardiomegaly Chest CT: 1. Cardiomegaly without pleural effusions. 2. Mild ground glass attenuation anteriorly at base of right middle lobe most likely due to subsegmental atelectasis. No evidence of pneumonia or congestive heart failure." CT A/P: Liver: There are no focal liver lesions present. Gallbladder and bile ducts: The gallbladder is unremarkable. Pancreas: The pancreas is unremarkable. Spleen: The spleen is unremarkable Adrenals: The adrenal glands are unremarkable. Kidneys and ureters: The kidneys are unremarkable. Stomach and bowel: There is no evidence of intestinal obstruction. Appendix: No evidence of appendicitis. Intraperitoneal space: Small volume of ascites. Vasculature: The aorta is unremarkable. Lymph nodes: Unremarkable. No enlarged lymph nodes. Mild anasarca. Bladder: The bladder is unremarkable. Reproductive: The prostate gland and seminal vesicles are unremarkable. Bones/joints: Skeletal degeneration. Soft tissues: Unremarkable. IMPRESSION: 1. Mild ascites and anasarca. 2. Cardiomegaly. 3. Solid organs are poorly evaluated on this noncontrast study. Abdominal US: Trace to minimal ascited. No comments on liver. Renal US: Scanning at the level of the urinary bladder demonstrates that it is essentially empty. Renal cortical echogenicity pattern is isoechoic with liver consistent with some degree of medical renal disease. No hydronephrosis seen on either side. No cyst or mass is observed. Right renal dimensions are 10.9 x 6.5 x 4.8 cm. Left kidney measures 13.3 x 6.4 x 6.2 cm. IMPRESSION: Slightly increased renal cortical echogenicity pattern. No hydronephrosis seen.Otherwise negative. Assessment: 39 yo M with a history of heavy alcohol consumption who presented jaundiced, with worsening SOB , cough and swelling of his legs for 3 weeks and found to have decompensated dilated HFrEF with an EF of 20%, what appears to be acute qasim er injury c/w probable alcoholic hepatitis without evidence of cirrhosis, s/p trial of aggressive diuresis and cardiac optimization c/b worsening KRISTIN, s/p dobutamine trial c/b NSVT however with improved BP and slowly improving Cr, now placed on afterload reduction with isordil and hydral as well as loop diuretic 40 IV BID. Hypoxemic respiratory failure: resolved, now back on room air. 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 Etiology most likely 2/2 alcohol. -Counseled on refraining from alcohol going forward -need to be evaluated for CAD after discharge. -Cardiology following, initially placed on lasix, ACEi, BB and aldactone that were c/b worsening KRISTIN and thus held with significant cardiorenal failure. -Was placed on hydral and isordil with hold parameters in place and unfortunately c/b borderline hypotension and thus not received the therapies was briefly started on low dose inotropic assistance with dobutamine with improvement in renal function but increased ectopy so dobutamine was stopped. -BP improved however, so was started on isordil/hydral thus far given isordil 5, hydral 10 and doses now scheduled to be increased to isordil 10 and hydral 20. Was also started on lasix 40 IV BID, thus far received 1 dose. -Unfortunately per cardiology, he is not a candidate for advanced therapies given recent alcohol and would have to be sober for 6m, as noted in Dr. Carlos's note. KRISTIN: Initially improved with diuresis but then shortly after improvement, worsened likely in the setting of intravascular depletion, while ACEi and aldactone were added. Diuresis, ACEi and aldactone were subsequently held and IV fluids were given without much improvement in the setting of hypoalbuminemic state. Nephrology was consulted and gave albumin, brief midodrine and low dose diuretic with some improvement in Cr and LE edema. Urine lytes showed Yohana < 10 c/w cardiorenal and unlikely hepatorenal syndrome without courtney ascites. -Consensus has been to treat the decompensated HFrEF starting with peripheral vascular resistance reduction that was c/b hypotension such that he did not tolerate the afterload reduction, and was briefly placed on inotropic assistance with dobutamine c/b increased ectopy and thus stopped, however with BP improvement, so now back on isordil/hydral and started on lasix as noted above -Cardiology onboard, appreciate recs -Nephrology onboard, appreciate recs, renal US was without evidence of postobstructive nephropathy without hydronephrosis, albumin repleted. -Continue holding ACEi and aldactone -replete lytes PRN Acute liver injury: Frankly acuity is unclear given no history of consistent medical care prior, but given sudden onset jaundice and edema there is an acute process to this presentation and cannot rule out alcoholic hepatitis and imaging does not suggest cirrhosis. -Persistent transaminitis, coagulopathy and hyperbilirubinemia. Recent labs show improving transaminitis and coagulopathy, with bilis still rising, as would be expected as bilis tend to lag. -MELD score on 06/30/2019 - 31 points, 52.6% estimated 3 month mortality -Imaging with unremarkable liver with noted mild ascites and volume overload on exam -s/p Vit K, INR 1.64 on 06/30 -Hep A, B, C were negative -EBV IgG was positive for past infection, unlikely re-activation -GI consulted, recommending stopping alcohol consumption Thrombocytopenia: -Likely 2/2 to alcoholic liver disease, monitor Alcohol use disorder with ongoing withdrawal: -s/p CIWA protocol -Thiamine, Folic acid supplementation Lethargy: Much improved. Remains AOx3 -ammonia level was normal -ABG did not reveal hypercarbia or severe hypoxemia -Neuro exam is grossly nonfocal without noted new deficits -Monitor for now Mildly Elevated TSH -sick euthyroid, to follow outpatient Dispo: PCU with ongoing multiorgan failure at this time. VS,Fishbone, I+O VS, Fishbone, I+O Laboratory Tests 07/03/19 05:13 Vital Signs Date Time Temp Pulse Resp B/P (MAP) Pulse Ox O2 Delivery O2 Flow Rate FiO2 07/03/19 08:25 97.9 106 22 144/90 (108) 97 Nasal Cannula 2.0 I&O- Last 24 Hours up to 6 AM 07/03/19 06:00 Intake Total 1774 ml Output Total 3375 ml Balance -1601 ml CASIMIRO GREWAL MD Jul 03, 2019 09:06
[2019-07-03] MEDS: ISOSORBIDE DIN (ISORDIL) 10 MG TAB PO SCH ×2 (12:00→17:30)
--- NOTE | 2019-07-03 19:52 | IPN ---
DATE: 07/03/2019 Mr. Roche is seen this morning on his bedside. He is feeling about the same and denies any chest pain or fever. He does get short of breath on exertion. His dobutamine was stopped due to nonsustained ventricular tachycardia and he continues to be followed by Dr. Lentz. He has been on hydralazine and isosorbide and now Lasix has also been started at 40 mg twice a day. The patient has been in a negative fluid balance over the last couple of days. PHYSICAL EXAMINATION: Temperature 98.2 degrees Fahrenheit, heart rate 107 per minute and respiratory rate 20 per minute. Blood pressure 137/90 mmHg and oxygen saturation 98% on two liters of oxygen. His head is atraumatic. No oral thrush or ulcers noted. Neck is supple and jugular venous distention (JVD) is probably elevated but not very clear. Heart sounds are tachycardiac and somewhat distant. No pericardial friction rub audible. Lungs with slightly diminished breath sounds at the bases but no rales or wheezing noted. Abdomen is soft and nontender and bowel sounds are normal. Extremities without any cyanosis or clubbing. Edema of right upper and bilateral lower extremities is unchanged. Neurologically, he seems to be grossly intact. LABORATORY DATA: Today's laboratories show sodium 133, potassium 3.4, CO2 28, BUN 37 and creatinine 1.63. Magnesium is 1.9, bilirubin 9.0 and LDH is 294. PROBLEMS: 1. Acute renal failure superimposed on chronic kidney disease. Slight improvement in kidney function is noticed despite a negative fluid balance for the last couple of days. His kidney dysfunction is most likely related to cardiac dysfunction and improving as his cardiac output is now slightly improved. 2. Hypokalemia, most likely related to diuresis and the patient has already received one dose of potassium chloride 40 mEq this morning. I will give him another dose of potassium chloride 40 mEq this afternoon and recheck his electrolytes tomorrow morning. 3. Hyponatremia. Mild hyponatremia remains unchanged and no urgent intervention is indicated. This is most likely related to congestive heart failure, hepatic dysfunction and acute renal failure. 4. Congestive heart failure and cardiac arrhythmias. The patient was tried on dobutamine. However, he developed nonsustained ventricular tachycardia due to which it has been stopped. He remains on hydralazine and isosorbide along with diuretic now and is being followed by cardiology.
[2019-07-04] VITALS (24 sets, daily range): BP systolic 125–138; BP diastolic 72–93; O2SAT 92–98
[2019-07-04] MEDS: FUROSEMIDE 40 MG/4 ML VIAL (J1940) IV SCH ×3 (00:01→23:53)
[2019-07-04] MEDS: SODIUM CHLORIDE 0.9% INJ 10 ML SYR IV SCH ×2 (06:31→17:56)
[2019-07-04] MEDS: ISOSORBIDE DIN (ISORDIL) 10 MG TAB PO SCH ×3 (06:31→16:41)
[2019-07-04 06:49] LABS: HEMATOCRIT 37.6 % (42.0-52.0); HEMOGLOBIN 13.1 g/dl (13.5-17.5); MEAN CORPUSCULAR HEMOGLOBIN 32.9 pg (27.0-33.0); MEAN CORPUSCULAR HGB CONC 34.8 g/dl (32.0-36.5); MEAN CORPUSCULAR VOLUME 94.5 fl (80.0-96.0); RED BLOOD COUNT 3.98 10^6/uL (4.30-6.10); WHITE BLOOD COUNT 11.4 10^3/uL (4.0-10.0)
[2019-07-04 06:50] LABS: PLATELET COUNT, AUTOMATED 92 10^3/uL (150-450)
[2019-07-04 07:24] LABS: ALBUMIN 2.7 GM/DL (3.2-5.2); BILIRUBIN,TOTAL 10.2 MG/DL (0.2-1.0); CALCIUM LEVEL 8.4 MG/DL (8.5-10.1); CREATININE FOR GFR 1.48 MG/DL (0.70-1.30); GLOMERULAR FILTRATION RATE 56.6 (>60); POTASSIUM SERUM 3.6 MEQ/L (3.5-5.1); TOTAL PROTEIN 6.1 GM/DL (6.4-8.2)
--- NOTE | 2019-07-04 08:44 | IPN ---
DATE OF SERVICE: 07/04/2019 Mr. Roche is feeling better. He is a little more energetic. He was able to walk around his room a little yesterday. He has been eating. There has been no paroxysmal nocturnal dyspnea (PND). Telemetry monitoring had one ventricular triplet but no other arrhythmias. Overall, though, clinically he seems to be clearly improving. On the physical examination, blood pressure 135/89, heart rate has been in low 100s, saturation 95% on room air. His fluid balance yesterday was recorded about negative 1500. Weight is 114.6 kg. He is alert and oriented and appropriate. His jugular venous pressure (JVP) is still difficult to patient access associate with his body habitus, but I still believe it is elevated. Lungs are reasonably clear without crackles, wheezing, or rhonchi. Heart examination: Reveals somewhat muffled heart sound but I do not appreciate gallop, rub, or murmur. Abdomen is soft without tenderness. There is still at least 2-3+ edema to his knees, and there is also swelling on his upper extremities, and there are multiple ecchymoses corresponding to his low platelet count an elevated international normalized ratio (INR). LABORATORIES: Basic metabolic panel: Sodium 134, potassium 3.6, BUN 31, creatinine 1.5, glucose 91, bilirubin is 10.2, AST 79, ALT 71, and alkaline phosphatase 121, albumin is 2.7. Complete blood count (CBC): Hemoglobin 13.1, hematocrit 37, platelet count 92,000. ASSESSMENT AND PLAN: Mr. Roche is a 39-year-old man who presented with heart failure who was found to have severe cardiomyopathy with left ventricle ejection fraction less than 20%. He has been treated accordingly, but initially it was hampered by development of acute on chronic renal failure and also hepatic failure. His renal function is steadily improving, and he is making good results with diuresis. I am going to advance the dose of hydralazine and will add a very small dose of spironolactone. I do not believe that it is yet time to introduce beta blockers, even though within day or two, I think it should be possible. As far as renal function is concerned, I see good progress, and I believe his initial renal failure was probably consequence of low cardiac output; and finally, as far as the liver function tests are concerned, I am still not sure why his bilirubin continues to climb. I spoke with Dr. Darnell. I suspect that we should get another opinion from GI. I do not expect that they will do anything, but I would like to know whether this is to be expected or whether this is out of what would be expected for this clinical situation. He is still not ready to go home, and I do not think he will be for several more days. MTDD
[2019-07-04] MEDS: MULTIVITAMINS/MINERALS THERAP 1 TAB PO SCH (09:23)
[2019-07-04] MEDS: MAGNESIUM OXIDE 400 MG TAB (MAG-OX) PO SCH (09:23)
[2019-07-04] MEDS: FOLIC ACID 1 MG TAB PO SCH (09:23)
[2019-07-04] MEDS: **hydrALAZINE** 10 MG TAB PO SCH ×3 (09:23→20:57)
[2019-07-04] MEDS: SPIRONOLACTONE 12.5MG PER 1/2 TABLET PO SCH (09:24)
--- NOTE | 2019-07-04 12:03 | IPNPDOC ---
Text Note Date of Service The patient was seen on 07/04/19. NOTE Subjective: Continues to feel ok today,Said walked a little around the room and not getting as sob or fatigued as he was getting before. Objective: Vitals: see below, hemodynamically stable, afebrile Telemetry: Sinus rhythm General: Ill appearing, obese, jaundiced young man Skin: Diffuse jaundice, no spider nevi, has some nail onychomycoses HEENT: NCAT, icteric sclerae, clear oropharnyx Pulm: right lasal crackles otherwise clear to auscultation with bilateral vesicular breath sounds. Cardiac: RRR, no murmurs or rubs or gallop Abd: Obese, no caput or distended veins, no palpable hepatosplenomegaly, no shifting dullness, non tender to palpation Ext: LE edema to midshins, WWP Neuro: AOx3, CN2-12 grossly intact, lethargic, otherwise 5/5 strength on exam throughout Psych: AOx3 Labs: Reviewed as below. Imaging: TTE: 1. Severe global left ventricular systolic dysfunction with a moderately enlarged left ventricle and severe diffuse hypokinesis. There are some features of left ventricular diastolic dysfunction, a restrictive mitral inflow pattern was noted. EF 20%. Second look by Dr Lentz. estimated to 10% to 15% 2. Mildly to moderately enlarged left atrium with moderate eccentric mitral regurgitation. 3. Moderate tricuspid regurgitation with dilated right heart chambers. The calculated pulmonary artery systolic pressure was normal, most likely underestimated. 4. There are features of elevated central venous pressure, the inferior vena cava was dilated. 5. Trace pericardial effusion,, no evidence of cardiac tamponade. CXR: Cardiomegaly Chest CT: 1. Cardiomegaly without pleural effusions. 2. Mild ground glass attenuation anteriorly at base of right middle lobe most likely due to subsegmental atelectasis. No evidence of pneumonia or congestive heart failure." CT A/P: Liver: There are no focal liver lesions present. Gallbladder and bile ducts: The gallbladder is unremarkable. Pancreas: The pancreas is unremarkable. Spleen: The spleen is unremarkable Adrenals: The adrenal glands are unremarkable. Kidneys and ureters: The kidneys are unremarkable. Stomach and bowel: There is no evidence of intestinal obstruction. Appendix: No evidence of appendicitis. Intraperitoneal space: Small volume of ascites. Vasculature: The aorta is unremarkable. Lymph nodes: Unremarkable. No enlarged lymph nodes. Mild anasarca. Bladder: The bladder is unremarkable. Reproductive: The prostate gland and seminal vesicles are unremarkable. Bones/joints: Skeletal degeneration. Soft tissues: Unremarkable. IMPRESSION: 1. Mild ascites and anasarca. 2. Cardiomegaly. 3. Solid organs are poorly evaluated on this noncontrast study. Abdominal US: Trace to minimal ascited. No comments on liver. Renal US: Scanning at the level of the urinary bladder demonstrates that it is essentially empty. Renal cortical echogenicity pattern is isoechoic with liver consistent with some degree of medical renal disease. No hydronephrosis seen on either side. No cyst or mass is observed. Right renal dimensions are 10.9 x 6.5 x 4.8 cm. Left kidney measures 13.3 x 6.4 x 6.2 cm. IMPRESSION: Slightly increased renal cortical echogenicity pattern. No hydronephrosis seen.Otherwise negative. Assessment: 39 yo M with a history of heavy alcohol consumption who presented jaundiced, with worsening SOB , cough and swelling of his legs for 3 weeks and found to have dilated cardiomyopathy wit decompensated HFrEF with an EF of 20%, what appears to be acute liver injury c/w probable alcoholic hepatitis without evidence of cirrhosis, s/p trial of aggressive diuresis and cardiac optimization c/b worsening KRISTIN, s/p dobutamine trial c/b NSVT however with improved BP and slowly improving Cr, now placed on afterload reduction with isordil and hydral as well as loop diuretic 40 IV BID. Hypoxemic respiratory failure: resolved, now back on room air. -2/2 decompensated Systolic and diastolic CHF. -reassuring ABG, without hypercarbia -Now resolved Acute systolic and diastolic CHF : dilated cardiomyopathy with EF of 10-15%, per cardiology reassessment of his TTE. Etiology most likely 2/2 alcohol. -need to be evaluated for CAD after discharge. -Cardiology following, initially placed on lasix, ACEi, BB and aldactone thatworsened renal function so ACEI , aldactone and lasix was stopped. KRISTIN improved with albumin and midodrine. -Was placed on hydral and isordil with hold parameters in place , blood pressure improved -Restarted on IV lasix. -Unfortunately per cardiology, he is not a candidate for advanced therapies given recent alcohol and would have to be sober for 6m, as noted in Dr. Carlos's note. KRISTIN -May have some underlying CKD too from cardiorenal. -Initially improved a little with diuresis but then shortly after improvement, worsened likely in the setting of intravascular depletion, while ACEi and aldactone were added. Diuresis, ACEi and aldactone were subsequently held and IV fluids were given without much improvement in the setting of hypoalbuminemic state. Nephrology was consulted and gave albumin, brief midodrine and low dose diuretic with improvement in Cr and LE edema. Urine lytes showed Yohana < 10 c/w cardiorenal with intravascular volume depletion and unlikely hepatorenal syndrome without courtney ascites. -Consensus has been to treat the decompensated HFrEF starting with peripheral vascular resistance reduction that was c/b hypotension such that he did not tolerate the afterload reduction, and was briefly placed on inotropic assistance with dobutamine c/b increased ectopy and thus stopped, however with BP improvement, so now back on isordil/hydral and started on lasix as noted above -Cardiology onboard, appreciate recs -Nephrology onboard, appreciate recs, renal US was without evidence of postobstructive nephropathy without hydronephrosis, albumin repleted. -Continue holding ACEi and aldactone -replete lytes PRN Acute liver injury: Frankly acuity is unclear given no history of consistent medical care prior, but given sudden onset jaundice and edema there is an acute process to this presentation - Possibly alcoholic hepatitis, fatty liver and congestive hepatopathy . Imaging does not suggest cirrhosis. -Persistent transaminitis, coagulopathy and hyperbilirubinemia. Recent labs show improving transaminitis and coagulopathy, with bilis still rising, as would be expected as bilis tend to lag. -MELD score on 06/30/2019 - 31 points, 52.6% estimated 3 month mortality -Imaging with unremarkable liver with noted mild ascites and volume overload on exam -s/p Vit K, INR 1.64 on 06/30 -Hep A, B, C were negative -EBV IgG was positive for past infection, unlikely re-activation -GI consulted, recommended stopping alcohol consumption Thrombocytopenia: -Likely 2/2 to alcoholic liver disease, monitor Alcohol use disorder s/p withdrawal -s/p CIWA protocol -Thiamine, Folic acid supplementation Mildly Elevated TSH -sick euthyroid, to follow outpatient Dispo: PCU with ongoing multiorgan failure at this time. VS,Fishbone, I+O VS, Fishbone, I+O Laboratory Tests 07/04/19 06:06 Vital Signs Date Time Temp Pulse Resp B/P (MAP) Pulse Ox O2 Delivery O2 Flow Rate FiO2 07/04/19 11:28 118/82 07/04/19 08:00 98.7 101 16 94 Room Air 07/04/19 04:00 2.0 I&O- Last 24 Hours up to 6 AM 07/04/19 06:00 Intake Total 1680 ml Output Total 2450 ml Balance -770 ml JORGE L SHERMAN MD Jul 04, 2019 12:03
--- NOTE | 2019-07-04 13:14 | REP ---
Procedure: PICC line insertion with Renato The procedure was performed under the direct supervision of Dr. Preciado. The risks and benefits of the procedure were explained to the patient and informed consent was obtained. The right basilic vein was localized using ultrasound guidance. The skin was prepped and draped in a sterile fashion. 2% lidocaine was used as a local anesthetic. Using ultrasound guidance the basilic vein was cannulated and a 0.018 guidewire was inserted and advanced to the SVC using fluoroscopic guidance. The needle was removed and a 5.5 Israeli dilator and peel-away sheath was inserted over the guide wire. A 5.5 Israeli dual lumen catheter was cut to length of 46 cm. The dilator was removed and the catheter was inserted over the guide wire with the tip ending in the SVC. The peel-away sheath was removed and the catheter was flushed with heparinized saline as per Hospital protocol. The catheter was affixed to the skin and a sterile dressing was applied. The patient tolerated the procedure well and there were no immediate complications. 0.2 minutes of fluoro time was utilized for this procedure. Electronically Signed by ROSA Szymanski 06/30/2019 05:58 P Electronically Signed by Monty Preciado MD 07/04/2019 01:05 P
--- NOTE | 2019-07-04 17:55 | IPN ---
DATE: 07/04/2019 Mr. Rohce is seen this morning on his bedside. He remains short of breath. He did not tolerate dobutamine due to runs of ventricular tachycardia. The patient is still quite weak and mostly he is just laying in the bed. He denies any nausea or vomiting. PHYSICAL EXAMINATION: Temperature 98.7 degrees Fahrenheit, heart rate about 100 per minute and respiratory rate 16 per minute. Blood pressure 128/84 mmHg and oxygen saturation 94% on room air. His head is atraumatic. Neck is supple and jugular venous distention (JVD) at least 12-13 cm above sternal angle. There is no oral thrush or ulcers. Heart sounds are tachycardiac but without a pericardial friction rub. Lungs have diminished breath sounds at the bases with a few basilar rales. Abdomen is soft and nontender and bowel sounds are normal. Extremities without cyanosis or clubbing. Lower extremity edema is still 3+. Right upper extremity edema is only slightly improved. LABORATORY DATA: Today's laboratories show WBC count 11.4, hemoglobin 13.1 and hematocrit 37.6. Sodium 134, potassium 3.6, CO2 28, BUN 31 and creatinine 1.48. Bilirubin is up to 10.2 while AST is slightly better at 79, ALT 71 and alkaline phosphatase 121. PROBLEMS: 1. Acute renal failure. Kidney function gradually improving as his congestive heart failure is improving. He is making good urine at this point and we will continue to watch closely. 2. Congestive heart failure. Volume status remains decompensated but he is diuresing and responding to current treatment. There is no emergent indication for dialysis at present. 3. Hypokalemia, slightly improved and the patient should continue with potassium supplement as he is being diuresed. I am going to put him on twice a day potassium chloride 20 mEq and he is also on spironolactone 12.5 mg daily.
[2019-07-04] MEDS: POTASSIUM CHLORIDE 10 MEQ SR TABLET PO SCH (20:57)
[2019-07-05] VITALS (21 sets, daily range): BP systolic 116–134; BP diastolic 71–88; O2SAT 92–96
[2019-07-05 06:06] LABS: HEMOGLOBIN 12.5 g/dl (13.5-17.5); MEAN CORPUSCULAR HEMOGLOBIN 32.5 pg (27.0-33.0); MEAN CORPUSCULAR HGB CONC 34.7 g/dl (32.0-36.5); MEAN CORPUSCULAR VOLUME 93.5 fl (80.0-96.0); RED BLOOD COUNT 3.85 10^6/uL (4.30-6.10); WHITE BLOOD COUNT 11.8 10^3/uL (4.0-10.0)
[2019-07-05 06:11] LABS: PLATELET COUNT, AUTOMATED 95 10^3/uL (150-450)
[2019-07-05] MEDS: ISOSORBIDE DIN (ISORDIL) 10 MG TAB PO SCH (06:19)
[2019-07-05] MEDS: SODIUM CHLORIDE 0.9% INJ 10 ML SYR IV SCH ×2 (06:20→17:06)
[2019-07-05 06:27] LABS: ALBUMIN 2.7 GM/DL (3.2-5.2); BILIRUBIN,TOTAL 10.8 MG/DL (0.2-1.0); CALCIUM LEVEL 8.1 MG/DL (8.5-10.1); CREATININE FOR GFR 1.48 MG/DL (0.70-1.30); GLOMERULAR FILTRATION RATE 56.6 (>60); POTASSIUM SERUM 3.4 MEQ/L (3.5-5.1); TOTAL PROTEIN 6.1 GM/DL (6.4-8.2)
[2019-07-05] MEDS: ACETAMINOPHEN TAB 650MG DOSE (2X325MG) PO PRN (06:41)
--- NOTE | 2019-07-05 08:14 | IPN ---
DATE: 07/05/2019 Mr. Roche continues to improve. He feels a little more energetic. He did not have any paroxysmal nocturnal dyspnea (PND), orthopnea yesterday even though he was not able to sleep. Denies any chest pain. Telemetry monitoring reveals single run of nonsustained VT that was only three beats in a row. Vital signs: Blood pressure 137/88, heart rate has been around 100-118 in sinus rhythm. He is afebrile. Saturation 96% on room air. Fluid balance yesterday was recorded negative 1200. He october 2699 mL of urine. Weight is 113.5 kg, which he is a modest weight loss since yesterday. 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 Lungs are clear especially on the left. Slightly diminished breath sounds over right, especially over the lower third. Heart exam reveals regular rhythm. I do not appreciate distinct S3 or murmur. It is difficult to auscultate with his body habitus. Abdomen is soft. There is still diffuse edema apparent on both lower and upper extremities. The swelling of right upper extremity is improving. LABORATORY: Hemoglobin 12.5, hematocrit 36, platelet count 95,000. Basic metabolic panel: Sodium 135, potassium 3.4, BUN 29, creatinine 1.5 and glucose 97. Total bilirubin is 10.8, AST 78, ALT 65 alkaline phosphatase 112. Haptoglobin level of 07/03/2019 is within normal range. ASSESSMENT/PLAN: Mr. 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 He presented with heart failure and rapidly developed acute on chronic renal failure and he also has indices of hepatic dysfunction. Over last few days, we have been seeing fairly consistent improvement because he initially developed rapidly rising creatinine when he received angiotensin converting enzyme inhibitors (TOMÁS) I am going to stick with vasodilators at this point. He is on combination of hydralazine and isosorbide. I am going to advance the dose again a little today. I will keep him on the same dose of furosemide and will provide potassium replacement. Unfortunately, he is still very volume overloaded and I foresee that it is going to be several more days that he will have to stay in the hospital. I still think it is a little too early to introduce beta blockers, but hopefully tomorrow will start giving a tiny dose of Coreg. I am starting to be more optimistic about his prognosis.
[2019-07-05] MEDS: POTASSIUM CHLORIDE 10 MEQ SR TABLET PO SCH ×2 (08:23→20:54)
[2019-07-05] MEDS: MAGNESIUM OXIDE 400 MG TAB (MAG-OX) PO SCH (08:25)
[2019-07-05] MEDS: MULTIVITAMINS/MINERALS THERAP 1 TAB PO SCH (08:25)
[2019-07-05] MEDS: FOLIC ACID 1 MG TAB PO SCH (08:25)
[2019-07-05] MEDS: **hydrALAZINE** 10 MG TAB PO SCH ×3 (08:25→20:54)
[2019-07-05] MEDS: SPIRONOLACTONE 12.5MG PER 1/2 TABLET PO SCH (08:26)
[2019-07-05] MEDS ORDERED: POTASSIUM CHLORIDE 10 MEQ SR TABLET PO ONE (11:00)
[2019-07-05] MEDS: FUROSEMIDE 40 MG/4 ML VIAL (J1940) IV SCH (11:45)
[2019-07-05] MEDS: ISOSORBIDE DIN. (ISORDIL) 20 MG TAB PO SCH ×2 (11:46→16:31)
--- NOTE | 2019-07-05 13:16 | IPNPDOC ---
Text Note Date of Service The patient was seen on 07/05/19. NOTE Subjective: Says feels better daily. Said walked in the corridor twice half [place] and did well without needing to stop and did not get winded which he says really surprised him because before admission he had to stop and take deep breaths after walking 15 to 20 ft. Good diuresis with negative balance. Loosing weight appropriately Objective: Vitals: see below, hemodynamically stable, afebrile Telemetry: Sinus rhythm General: Ill appearing, obese, jaundiced young man Skin: Diffuse jaundice, no spider nevi, has some nail onychomycoses HEENT: NCAT, icteric sclerae, clear oropharnyx Pulm: right lasal crackles otherwise clear to auscultation with bilateral vesicular breath sounds. Cardiac: RRR, no murmurs or rubs or gallop Abd: Obese, no caput or distended veins, no palpable hepatosplenomegaly, no shifting dullness, non tender to palpation Ext: LE edema to midshins, WWP Neuro: AOx3, CN2-12 grossly intact, lethargic, otherwise 5/5 strength on exam throughout Psych: AOx3 Labs: Reviewed as below. Imaging: TTE: 1. Severe global left ventricular systolic dysfunction with a moderately enlarged left ventricle and severe diffuse hypokinesis. There are some features of left ventricular diastolic dysfunction, a restrictive mitral inflow pattern was noted. EF 20%. Second look by Dr Lentz. estimated to 10% to 15% 2. Mildly to moderately enlarged left atrium with moderate eccentric mitral regurgitation. 3. Moderate tricuspid regurgitation with dilated right heart chambers. The calculated pulmonary artery systolic pressure was normal, most likely underestimated. 4. There are features of elevated central venous pressure, the inferior vena cava was dilated. 5. Trace pericardial effusion,, no evidence of cardiac tamponade. CXR: Cardiomegaly Chest CT: 1. Cardiomegaly without pleural effusions. 2. Mild ground glass attenuation anteriorly at base of right middle lobe most likely due to subsegmental atelectasis. No evidence of pneumonia or congestive heart failure." CT A/P: Liver: There are no focal liver lesions present. Gallbladder and bile ducts: The gallbladder is unremarkable. Pancreas: The pancreas is unremarkable. Spleen: The spleen is unremarkable Adrenals: The adrenal glands are unremarkable. Kidneys and ureters: The kidneys are unremarkable. Stomach and bowel: There is no evidence of intestinal obstruction. Appendix: No evidence of appendicitis. Intraperitoneal space: Small volume of ascites. Vasculature: The aorta is unremarkable. Lymph nodes: Unremarkable. No enlarged lymph nodes. Mild anasarca. Bladder: The bladder is unremarkable. Reproductive: The prostate gland and seminal vesicles are unremarkable. Bones/joints: Skeletal degeneration. Soft tissues: Unremarkable. IMPRESSION: 1. Mild ascites and anasarca. 2. Cardiomegaly. 3. Solid organs are poorly evaluated on this noncontrast study. Abdominal US: Trace to minimal ascited. No comments on liver. Renal US: Scanning at the level of the urinary bladder demonstrates that it is essentially empty. Renal cortical echogenicity pattern is isoechoic with liver consistent with some degree of medical renal disease. No hydronephrosis seen on either side. No cyst or mass is observed. Right renal dimensions are 10.9 x 6.5 x 4.8 cm. Left kidney measures 13.3 x 6.4 x 6.2 cm. IMPRESSION: Slightly increased renal cortical echogenicity pattern. No hydronephrosis seen.Otherwise negative. Assessment: 39 yo M with a history of heavy alcohol consumption who presented jaundiced, with worsening SOB , cough and swelling of his legs for 3 weeks and found to have dilated cardiomyopathy wit decompensated HFrEF with an EF of 20%, what appears to be acute liver injury c/w probable alcoholic hepatitis without evidence of cirrhosis, s/p trial of aggressive diuresis and cardiac optimization c/b worsening KRISTIN, s/p dobutamine trial c/b NSVT however with improved BP and slowly improving Cr, now placed on afterload reduction with isordil and hydral as well as loop diuretic 40 IV BID. Hypoxemic respiratory failure: resolved, now back on room air. 2/2 decompensated Systolic and diastolic CHF. Acute systolic and diastolic CHF : dilated cardiomyopathy with EF of 10-15%, per cardiology reassessment of his TTE. Etiology most likely 2/2 alcohol. need to be evaluated for CAD after discharge. Cardiology following, on hydral and isordil with hold parameters in place , blood pressure improved Could not tolerate ACEI and spironolactone earlier went into KRISTIN. Will probably need to be retried after he reaches euvolemic status to see if he can tolerate it. Restarted on IV lasix which he is tolerating with improvement of renal functions and good negative balance and loss of weight. Unfortunately per cardiology, he is not a candidate for advanced therapies given recent alcohol and would have to be sober for 6m, as noted in Dr. Carlos's note. Will need Life vest on discharge. KRISTIN May have some underlying CKD too from cardiorenal. Initially improved a little with diuresis but then shortly after improvement, worsened likely in the setting of intravascular depletion, while ACEi and aldactone were added with aggressive diuresis. Diuretics, ACEi and aldactone were subsequently held and IV fluids were given without much improvement in the setting of hypoalbuminemic state. Nephrology was consulted and gave albumin, brief midodrine and low dose diuretic with improvement in Cr and LE edema. Urine lytes showed Yohana < 10 c/w cardiorenal with intravascular volume depletion and unlikely hepatorenal syndrome without courtney ascites. Consensus has been to treat the decompensated HFrEF starting with peripheral vascular resistance reduction that was c/b hypotension such that he did not tolerate the afterload reduction, and was briefly placed on inotropic assistance with dobutamine c/b increased ectopy and thus stopped, however with BP improve ment, so now back on isordil/hydral and started on lasix as noted above Cardiology onboard, appreciate recs Nephrology onboard, appreciate recs, renal US was without evidence of postobstructive nephropathy without hydronephrosis, albumin repleted. Continue holding ACEi and aldactone replete lytes PRN Acute liver injury: Frankly acuity is unclear given no history of consistent medical care prior, but given sudden onset jaundice and edema there is an acute process to this presentation Possibly alcoholic hepatitis, fatty liver and congestive hepatopathy . Imaging does not suggest cirrhosis. Persistent transaminitis, coagulopathy and hyperbilirubinemia. Recent labs show improving transaminitis and coagulopathy, with bilis still rising, as would be expected as bilis tend to lag. It seems o be plateauing now. MELD score on 06/30/2019 - 31 points, 52.6% estimated 3 month mortality Imaging with unremarkable liver with noted mild ascites and volume overload on exam s/p Vit K, INR improved Hep A, B, C were negative EBV IgG was positive for past infection, unlikely re-activation GI consulted, recommended stopping alcohol consumption Thrombocytopenia: Likely 2/2 to alcoholic liver disease, monitor Alcohol use disorder s/p withdrawal s/p CIWA protocol Thiamine, Folic acid supplementation Mildly Elevated TSH sick euthyroid, to follow outpatient Dispo: Home when medically improved. VS,[place], I+O VS, Fishbone, I+O Laboratory Tests 07/05/19 05:49 Vital Signs Date Time Temp Pulse Resp B/P (MAP) Pulse Ox O2 Delivery O2 Flow Rate FiO2 07/05/19 08:25 137/88 07/05/19 08:00 98.6 110 18 94 Room Air 07/04/19 04:00 2.0 I&O- Last 24 Hours up to 6 AM 07/05/19 06:00 Intake Total 1200 ml Output Total 2850 ml Balance -1650 ml JORGE L SHERMAN MD Jul 05, 2019 10:54
--- NOTE | 2019-07-05 15:49 | IPN ---
DATE OF VISIT: 07/05/2019 Mr. Cox is seen this morning on his bedside. He is lying in the bed supine without any discomfort. He denies any dyspnea or chest pain at rest. He has been diuresing and peripheral edema is also improving. The patient denies any nausea, vomiting, fever or chills. His temperature is 98.6 degrees Fahrenheit, heart rate 110 per minute and respiratory rate 18 per minute. Blood pressure 116/88 mmHg and oxygen saturation 94% on room air. Intake and output records show a negative fluid balance of 1200 yesterday. His weight is down to 113.5 kg. Head is atraumatic. Neck veins are still markedly distended. Heart sounds are tachycardiac and lungs clear to auscultation. Abdomen soft and nontender and bowel sounds are normal. Extremities without any cyanosis or clubbing. Peripheral edema is improving. Today's labs show sodium 135, potassium 3.4, BUN 29 and creatinine 1.48. Calcium level is 8.1 and bilirubin is up to 10.8. PROBLEMS: 1. Acute kidney injury superimposed on chronic kidney disease. No change in kidney function over last 24 hours. He continues to diurese nicely. No emergent need for dialysis at present. 2. Hypokalemia related to diuresis and the patient has already been started on potassium chloride 20 mEq twice a day. He is also receiving low-dose spironolactone. Electrolytes will be checked again tomorrow. 3. Congestive heart failure. Patient has severe systolic congestive heart failure and volume status remains decompensated, but he is responding to diuretic which is very encouraging. 4. Hepatic dysfunction. His bilirubin continues to increase though his transaminases have improved.
[2019-07-06] VITALS (18 sets, daily range): BP systolic 110–140; BP diastolic 80–94; O2SAT 95–98
[2019-07-06] MEDS: SODIUM CHLORIDE 0.9% INJ 10 ML SYR IV PRN (00:24)
[2019-07-06] MEDS: FUROSEMIDE 40 MG/4 ML VIAL (J1940) IV SCH ×3 (00:24→23:50)
[2019-07-06] MEDS: ACETAMINOPHEN TAB 650MG DOSE (2X325MG) PO PRN (04:17)
[2019-07-06 05:52] LABS: HEMATOCRIT 35.6 % (42.0-52.0); HEMOGLOBIN 12.4 g/dl (13.5-17.5); MEAN CORPUSCULAR HEMOGLOBIN 32.5 pg (27.0-33.0); MEAN CORPUSCULAR HGB CONC 34.8 g/dl (32.0-36.5); MEAN CORPUSCULAR VOLUME 93.4 fl (80.0-96.0); PLATELET COUNT, AUTOMATED 101 10^3/uL (150-450); RED BLOOD COUNT 3.81 10^6/uL (4.30-6.10); WHITE BLOOD COUNT 11.7 10^3/uL (4.0-10.0)
[2019-07-06] MEDS: SODIUM CHLORIDE 0.9% INJ 10 ML SYR IV SCH ×2 (05:53→16:59)
[2019-07-06] MEDS: ISOSORBIDE DIN. (ISORDIL) 20 MG TAB PO SCH ×3 (05:53→16:59)
[2019-07-06 06:02] LABS: INR 1.43; PROTHROMBIN TIME 17.2 SECONDS (11.8-14.0)
[2019-07-06 06:03] LABS: PARTIAL THROMBOPLASTIN TIME 32.5 SECONDS (25.0-38.4)
[2019-07-06 06:30] LABS: ALBUMIN 2.8 GM/DL (3.2-5.2); BILIRUBIN,TOTAL 12.3 MG/DL (0.2-1.0); CREATININE FOR GFR 1.59 MG/DL (0.70-1.30); GLOMERULAR FILTRATION RATE 52.1 (>60); POTASSIUM SERUM 3.7 MEQ/L (3.5-5.1); TOTAL PROTEIN 6.1 GM/DL (6.4-8.2)
--- NOTE | 2019-07-06 09:07 | IPN ---
DATE: 07/06/2019 Mr. Roche continues to improve on his own account. He believes that he is more energetic, less short of breath. He was able to ambulate around progressive care unit (PCU) yesterday. He got easily short of breath but he said he would have never been able to do anything like that before his admission. Telemetry monitoring reveals mostly sinus rhythm but he has brief episodes of nonsustained ventricular tachycardia. Vital signs: Blood pressure is from 110-140, heart rate in 110s, afebrile. Saturation 96% on room air. Fluid balance yesterday was recorded negative 1600. He made about 2400 mL of urine. Weight is 112.7 kg. He is alert and oriented, appropriate. The jugular venous pulse (JVP) is still high though. Lungs are clear. Heart exam reveals regular tachycardia with positive S3. Positive S4. This is first time I can appreciate a fine gallop even though his heart sounds remain quite muffled. Abdomen is soft, not tender. Extremities have prominent edema but it is improving. Neurologically, he is intact. LABORATORY: CBC: Hemoglobin 12.4, hematocrit 35, platelet count 101,000. Basic metabolic panel: Sodium 135, potassium 3.7, BUN 26, creatinine 1.6 for GFR 52, and glucose 96. Total bilirubin continues to climb, it is now 12. AST 87, ALT 72. Alkaline phosphatase 110. End-terminal proBNP is extremely high at 27,000. Albumin is 2.8. INR is 1.4. ASSESSMENT AND PLAN: Mr. 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 He developed as a complication acute renal failure and also hepatic failure that had been improving. His cardiac function also continues to improve even though he is still remains in heart failure. He is on hydralazine and isosorbide dinitrate because administration of angiotensin-converting enzyme (TOMÁS) inhibitors led to acute renal failure initially. He is also on low-dose spironolactone and continued diuretics. I will try to restart a very low-dose carvedilol as a trial. We will give him the first dose tonight, but if he does not tolerate that well I will remove the medication again. Again, my hope is that if this is indeed alcohol-induced cardiomyopathy that if we remove the offending toxin that there will be potential for gradual improvement, but he remains quite ill. I had a long discussion with the patient today about his lifestyle and the dangers of alcohol that absolutely has to be completely stopped. I also talked to him about defibrillators and LifeVest. He is nowhere ready to go home but hopefully early next week we will be able to get him close.
[2019-07-06] MEDS: FOLIC ACID 1 MG TAB PO SCH (09:27)
[2019-07-06] MEDS: MAGNESIUM OXIDE 400 MG TAB (MAG-OX) PO SCH (09:27)
[2019-07-06] MEDS: MULTIVITAMINS/MINERALS THERAP 1 TAB PO SCH (09:27)
[2019-07-06] MEDS: SPIRONOLACTONE 12.5MG PER 1/2 TABLET PO SCH (09:27)
[2019-07-06] MEDS: **hydrALAZINE** 10 MG TAB PO SCH ×3 (09:28→20:03)
[2019-07-06] MEDS: POTASSIUM CHLORIDE 10 MEQ SR TABLET PO SCH ×2 (09:28→20:03)
--- NOTE | 2019-07-06 11:58 | IPNPDOC ---
Text Note Date of Service The patient was seen on 07/06/19. NOTE Subjective: Says feels better daily. Said walked in the corridor twice half [place] and did well without needing to stop and did not get winded which he says really surprised him because before admission he had to stop and take deep breaths after walking 15 to 20 ft. Good diuresis with negative balance. Loosing weight appropriately Objective: Vitals: see below, hemodynamically stable, afebrile Telemetry: Sinus rhythm General: Ill appearing, obese, jaundiced young man Skin: Diffuse jaundice, no spider nevi, has some nail onychomycoses HEENT: NCAT, icteric sclerae, clear oropharnyx Pulm: right lasal crackles otherwise clear to auscultation with bilateral vesicular breath sounds. Cardiac: RRR, no murmurs or rubs or gallop Abd: Obese, no caput or distended veins, no palpable hepatosplenomegaly, no shifting dullness, non tender to palpation Ext: LE edema to mid shins, WWP Neuro: AOx3, CN2-12 grossly intact, lethargic, otherwise 5/5 strength on exam throughout Psych: AOx3 Labs: Reviewed as below. Imaging: TTE: 1. Severe global left ventricular systolic dysfunction with a moderately enlarged left ventricle and severe diffuse hypokinesis. There are some features of left ventricular diastolic dysfunction, a restrictive mitral inflow pattern was noted. EF 20%. Second look by Dr Lentz. estimated to 10% to 15% 2. Mildly to moderately enlarged left atrium with moderate eccentric mitral regurgitation. 3. Moderate tricuspid regurgitation with dilated right heart chambers. The calculated pulmonary artery systolic pressure was normal, most likely underestimated. 4. There are features of elevated central venous pressure, the inferior vena cava was dilated. 5. Trace pericardial effusion,, no evidence of cardiac tamponade. CXR: Cardiomegaly Chest CT: 1. Cardiomegaly without pleural effusions. 2. Mild ground glass attenuation anteriorly at base of right middle lobe most likely due to subsegmental atelectasis. No evidence of pneumonia or congestive heart failure." CT A/P: Liver: There are no focal liver lesions present. Gallbladder and bile ducts: The gallbladder is unremarkable. Pancreas: The pancreas is unremarkable. Spleen: The spleen is unremarkable Adrenals: The adrenal glands are unremarkable. Kidneys and ureters: The kidneys are unremarkable. Stomach and bowel: There is no evidence of intestinal obstruction. Appendix: No evidence of appendicitis. Intraperitoneal space: Small volume of ascites. Vasculature: The aorta is unremarkable. Lymph nodes: Unremarkable. No enlarged lymph nodes. Mild anasarca. Bladder: The bladder is unremarkable. Reproductive: The prostate gland and seminal vesicles are unremarkable. Bones/joints: Skeletal degeneration. Soft tissues: Unremarkable. IMPRESSION: 1. Mild ascites and anasarca. 2. Cardiomegaly. 3. Solid organs are poorly evaluated on this noncontrast study. Abdominal US: Trace to minimal ascited. No comments on liver. Renal US: Scanning at the level of the urinary bladder demonstrates that it is essentially empty. Renal cortical echogenicity pattern is isoechoic with liver consistent with some degree of medical renal disease. No hydronephrosis seen on either side. No cyst or mass is observed. Right renal dimensions are 10.9 x 6.5 x 4.8 cm. Left kidney measures 13.3 x 6.4 x 6.2 cm. IMPRESSION: Slightly increased renal cortical echogenicity pattern. No hydronephrosis seen.Otherwise negative. Assessment: 39 yo M with a history of heavy alcohol consumption who presented jaundiced, with worsening SOB , cough and swelling of his legs for 3 weeks and found to have dilated cardiomyopathy wit decompensated HFrEF with an EF of 20%, what appears to be acute liver injury c/w probable alcoholic hepatitis without evidence of cirrhosis, s/p trial of aggressive diuresis and cardiac optimization c/b worsening KRISTIN, s/p dobutamine trial c/b NSVT however with improved BP and slowly improving Cr, now placed on afterload reduction with isordil and hydral as well as loop diuretic 40 IV BID. Hypoxemic respiratory failure: resolved, now back on room air. 2/2 decompensated Systolic and diastolic CHF. Acute systolic and diastolic CHF : dilated cardiomyopathy with EF of 10-15%, per cardiology reassessment of his TTE. Etiology most likely 2/2 alcohol. need to be evaluated for CAD after discharge. Cardiology following, on hydralazine and isordil with hold parameters in place , blood pressure improved Could not tolerate ACEI and spironolactone earlier went into KRISTIN. Will probably need to be retried after he reaches euvolemic status to see if he can tolerate it. Restarted on IV lasix which he is tolerating with improvement of renal functions and good negative balance and loss of weight. Unfortunately per cardiology, he is not a candidate for advanced therapies given recent alcohol and would have to be sober for 6m, as noted in Dr. Carlos's note. Will need Life vest on discharge. KRISTIN May have some underlying CKD too from cardiorenal. Initially improved a little with diuresis but then shortly after improvement, worsened likely in the setting of intravascular depletion, while ACEi and aldactone were added with aggressive diuresis. Diuretics, ACEI and aldactone were subsequently held and IV fluids were given without much improvement in the setting of hypoalbuminemic state. Nephrology was consulted and gave albumin, brief midodrine and low dose diuretic with improvement in Cr and LE edema. Urine lytes showed Yohana < 10 c/w cardiorenal with intravascular volume depletion and unlikely hepatorenal syndrome without courtney ascites. Consensus has been to treat the decompensated HFrEF starting with peripheral vascular resistance reduction that was c/b hypotension such that he did not tolerate the afterload reduction, and was briefly placed on inotropic assistance with dobutamine c/b increased ectopy and thus stopped, however with BP i mprovement, so now back on isordil/hydralazine and started on lasix as noted above Cardiology onboard, appreciate recs Nephrology onboard, appreciate recs, renal US was without evidence of postobstru ctive nephropathy without hydronephrosis, albumin repleted. Continue holding ACEI and aldactone replete lytes PRN Acute liver injury Bilirubin continues to rise. Frankly acuity is unclear given no history of consistent medical care prior, but given sudden onset jaundice and edema there is an acute process to this presentation Possibly alcoholic hepatitis, fatty liver and congestive hepatopathy . Imaging does not suggest cirrhosis. Persistent transaminitis, coagulopathy and hyperbilirubinemia. Recent labs show improving transaminitis and coagulopathy, with bilis still rising, as would be expected as bilis tend to lag. Imaging with unremarkable liver with noted mild ascites and volume overload on exam s/p Vit K, INR improved Hep A, B, C were negative EBV IgG was positive for past infection, unlikely re-activation GI consulted, recommended stopping alcohol consumption Thrombocytopenia: Likely 2/2 to alcoholic liver disease, monitor Alcohol use disorder s/p withdrawal s/p CIWA protocol Thiamine, Folic acid supplementation Mildly Elevated TSH sick euthyroid, to follow outpatient Dispo: Home when medically improved. VS,Fishbone, I+O VS, Fishbone, I+O Laboratory Tests 07/06/19 05:14 Vital Signs Date Time Temp Pulse Resp B/P (MAP) Pulse Ox O2 Delivery O2 Flow Rate FiO2 07/06/19 09:28 124/82 07/06/19 08:00 97.6 110 19 98 Room Air 07/04/19 04:00 2.0 I&O- Last 24 Hours up to 6 AM 07/06/19 06:00 Intake Total 480 ml Output Total 2050 ml Balance -1570 ml JORGE L SHERMAN MD Jul 06, 2019 11:57
--- NOTE | 2019-07-06 14:38 | IPN ---
DATE: 07/06/2019 Mr. Roche was seen this morning on his bedside. He is sitting in the chair after taking a shower. He is feeling better but still has dyspnea on exertion and lower extremity edema. His right upper extremity edema has improved. He denies any nausea or vomiting. He has been diuresing very well. PHYSICAL EXAMINATION: Temperature 97.6 degrees Fahrenheit, heart rate 110 per minute and respiratory rate 18 per minute. Blood pressure 124/82 mmHg and oxygen saturation 98% on room air. Intake and output records from yesterday show a negative fluid balance of 1.6 liters. His weight is down to 112.7 kg. His head is atraumatic. Neck is supple and jugular venous distention (JVD) is moderately elevated, at least up to the angle of jaw while he is sitting upright. There is no oral thrush or ulcers. Heart sounds are tachycardiac and lungs with slightly diminished breath sounds at bases. Abdomen is soft and nontender and bowel sounds are normal. Extremities are without any cyanosis or clubbing. Lower extremity edema is gradually improving. Today's labs show WBC count 11.7, hemoglobin 12.4 and hematocrit 35.6. Platelets 101. Sodium 135, potassium 3.7, BUN 26 and creatinine 1.59. Bilirubin is up to 12.3. His pro BNP level is 26,963. PROBLEMS: 1. Acute congestive heart failure. Volume status remains decompensated though he is diuresing very well. Cardiology is managing and would recommend to continue with diuresis at this point even though he has an increase in the serum creatinine level. Cardiology also plans to start low-dose beta [place]. 2. Hypokalemia, slightly improved and normal now. The patient will continue with oral potassium supplement, and he is also on low-dose potassium-sparing diuretic. 3. Acute on chronic kidney disease. I am not sure what his baseline kidney function is. He has slight increase in the serum creatinine today compared with yesterday and this could be related to negative fluid balance. We will need to continue monitoring his kidney function while he is being diuresed. 4. Hepatic dysfunction. The patient continues with gradual increase in bilirubin, however, his transaminases are stable at present and he remains alcohol-free.
[2019-07-06] MEDS: CARVedilol 3.125 MG TAB PO SCH (20:03)
[2019-07-07] VITALS (23 sets, daily range): BP systolic 118–141; BP diastolic 68–88; O2SAT 92–98
[2019-07-07 05:30] LABS: HEMATOCRIT 35.2 % (42.0-52.0); HEMOGLOBIN 12.2 g/dl (13.5-17.5); MEAN CORPUSCULAR HEMOGLOBIN 32.3 pg (27.0-33.0); MEAN CORPUSCULAR HGB CONC 34.7 g/dl (32.0-36.5); MEAN CORPUSCULAR VOLUME 93.1 fl (80.0-96.0); PLATELET COUNT, AUTOMATED 114 10^3/uL (150-450); RED BLOOD COUNT 3.78 10^6/uL (4.30-6.10); WHITE BLOOD COUNT 10.8 10^3/uL (4.0-10.0)
[2019-07-07 05:59] LABS: ALBUMIN 2.7 GM/DL (3.2-5.2); BILIRUBIN,TOTAL 11.6 MG/DL (0.2-1.0); CALCIUM LEVEL 8.3 MG/DL (8.5-10.1); CREATININE FOR GFR 1.59 MG/DL (0.70-1.30); GLOMERULAR FILTRATION RATE 52.1 (>60); POTASSIUM SERUM 3.7 MEQ/L (3.5-5.1); TOTAL PROTEIN 6.6 GM/DL (6.4-8.2)
[2019-07-07] MEDS: ISOSORBIDE DIN. (ISORDIL) 20 MG TAB PO SCH ×3 (06:12→16:24)
[2019-07-07] MEDS: SODIUM CHLORIDE 0.9% INJ 10 ML SYR IV SCH ×2 (06:12→17:47)
[2019-07-07] MEDS: **hydrALAZINE** 10 MG TAB PO SCH ×3 (08:49→21:18)
[2019-07-07] MEDS: POTASSIUM CHLORIDE 10 MEQ SR TABLET PO SCH ×2 (08:49→21:19)
[2019-07-07] MEDS: MAGNESIUM OXIDE 400 MG TAB (MAG-OX) PO SCH (08:49)
[2019-07-07] MEDS: FOLIC ACID 1 MG TAB PO SCH (08:49)
[2019-07-07] MEDS: CARVedilol 3.125 MG TAB PO SCH ×2 (08:50→21:18)
[2019-07-07] MEDS: MULTIVITAMINS/MINERALS THERAP 1 TAB PO SCH (08:50)
[2019-07-07] MEDS: SPIRONOLACTONE 12.5MG PER 1/2 TABLET PO SCH (08:51)
--- NOTE | 2019-07-07 09:13 | IPN ---
DATE: 07/07/2019 Mr. Roche has been feeling relatively well. He did not have any paroxysmal nocturnal dyspnea (PND) or orthopnea, but again with fairly minimal activity gets rapidly short of breath and he feels profoundly exhausted. No chest pain. Vital signs this morning, blood pressure 120/84. Heart rate has been around 100. Telemetry monitoring did not reveal any episodes of ventricular tachycardia yesterday. He is afebrile. Saturation is 95% on room air. Fluid balance yesterday was recorded about negative 400. He made about 1700 mL of urine, but weight was recorded as 113, which is slightly up from yesterday. He is alert, oriented and appropriate. 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 Lungs without crackles. He has some diminished breath sounds more in the right base than left. Heart exam reveals regular tachycardia with positive gallop, I do not appreciate any murmurs. His heart sounds remain fairly muffled, likely due to body habitus. Abdomen is soft without obvious tenderness. Extremities still have 2+ edema to above the knees. Neurologically, he is grossly intact. Laboratories: CBC - hemoglobin 12.2, hematocrit 35 and platelet count 114,000, which is slowly going up. Basic metabolic panel - sodium 132, potassium 3.7, BUN 30, creatinine 1.6, glucose 95. Bilirubin is 11.6 which is the first day when it is actually lower than the day before. Albumin 2.7. ASSESSMENT/PLAN: Mr. 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 He also had acute renal and hepatic failure, both of which have stabilized and improved. As far as the management of heart failure is concerned, he initially developed worsening renal function after administration of TOMÁS inhibitors and consequently he is managed with principally vasodilators, a combination of isosorbide and hydralazine. He is also being diuresed and a small dose of spironolactone is on board. He still needs to diurese considerably more before he can be discharged home. His renal function holds approximately steady and I started him on tiny dose of Coreg last night. So far, he seems to be tolerating it well. I am going to increase the dose of loop diuretics a little so we can accomplish a little more dramatic diuresis. I am hoping that he will be able to go home sometimes early next week. I will sign him off to cardiology coverage for the weekend.
--- NOTE | 2019-07-07 11:20 | IPNPDOC ---
Text Note Date of Service The patient was seen on 07/07/19. NOTE Subjective: Says feels better daily. Said walked in the corridor twice half [place] and did well without needing to stop and did not get winded which he says really surprised him because before admission he had to stop and take deep breaths after walking 15 to 20 ft. Good diuresis with negative balance. Loosing weight appropriately Objective: Vitals: see below, hemodynamically stable, afebrile Telemetry: Sinus rhythm General: Ill appearing, obese, jaundiced young man Skin: Diffuse jaundice, no spider nevi, has some nail onychomycoses HEENT: NCAT, icteric sclerae, clear oropharnyx Pulm: right lasal crackles otherwise clear to auscultation with bilateral vesicular breath sounds. Cardiac: RRR, no murmurs or rubs or gallop Abd: Obese, no caput or distended veins, no palpable hepatosplenomegaly, no shifting dullness, non tender to palpation Ext: LE edema to mid shins, WWP Neuro: AOx3, CN2-12 grossly intact, lethargic, otherwise 5/5 strength on exam throughout Psych: AOx3 Labs: Reviewed as below. Imaging: TTE: 1. Severe global left ventricular systolic dysfunction with a moderately enlarged left ventricle and severe diffuse hypokinesis. There are some features of left ventricular diastolic dysfunction, a restrictive mitral inflow pattern was noted. EF 20%. Second look by Dr Lentz. estimated to 10% to 15% 2. Mildly to moderately enlarged left atrium with moderate eccentric mitral regurgitation. 3. Moderate tricuspid regurgitation with dilated right heart chambers. The calculated pulmonary artery systolic pressure was normal, most likely underestimated. 4. There are features of elevated central venous pressure, the inferior vena cava was dilated. 5. Trace pericardial effusion,, no evidence of cardiac tamponade. CXR: Cardiomegaly Chest CT: 1. Cardiomegaly without pleural effusions. 2. Mild ground glass attenuation anteriorly at base of right middle lobe most likely due to subsegmental atelectasis. No evidence of pneumonia or congestive heart failure." CT A/P: Liver: There are no focal liver lesions present. Gallbladder and bile ducts: The gallbladder is unremarkable. Pancreas: The pancreas is unremarkable. Spleen: The spleen is unremarkable Adrenals: The adrenal glands are unremarkable. Kidneys and ureters: The kidneys are unremarkable. Stomach and bowel: There is no evidence of intestinal obstruction. Appendix: No evidence of appendicitis. Intraperitoneal space: Small volume of ascites. Vasculature: The aorta is unremarkable. Lymph nodes: Unremarkable. No enlarged lymph nodes. Mild anasarca. Bladder: The bladder is unremarkable. Reproductive: The prostate gland and seminal vesicles are unremarkable. Bones/joints: Skeletal degeneration. Soft tissues: Unremarkable. IMPRESSION: 1. Mild ascites and anasarca. 2. Cardiomegaly. 3. Solid organs are poorly evaluated on this noncontrast study. Abdominal US: Trace to minimal ascited. No comments on liver. Renal US: Scanning at the level of the urinary bladder demonstrates that it is essentially empty. Renal cortical echogenicity pattern is isoechoic with liver consistent with some degree of medical renal disease. No hydronephrosis seen on either side. No cyst or mass is observed. Right renal dimensions are 10.9 x 6.5 x 4.8 cm. Left kidney measures 13.3 x 6.4 x 6.2 cm. IMPRESSION: Slightly increased renal cortical echogenicity pattern. No hydronephrosis seen.Otherwise negative. Assessment: 39 yo M with a history of heavy alcohol consumption who presented jaundiced, with worsening SOB , cough and swelling of his legs for 3 weeks and found to have dilated cardiomyopathy wit decompensated HFrEF with an EF of 20%, what appears to be acute liver injury c/w probable alcoholic hepatitis without evidence of cirrhosis, s/p trial of aggressive diuresis and cardiac optimization c/b worsening KRISTIN, s/p dobutamine trial c/b NSVT however with improved BP and slowly improving Cr, now placed on afterload reduction with isordil and hydral as well as loop diuretic 40 IV BID. Hypoxemic respiratory failure: resolved, now back on room air. 2/2 decompensated Systolic and diastolic CHF. Acute systolic and diastolic CHF : dilated cardiomyopathy with EF of 10-15%, per cardiology reassessment of his TTE. Etiology most likely 2/2 alcohol. need to be evaluated for CAD after discharge. Cardiology following, on hydralazine and isordil with hold parameters in place , blood pressure improved Could not tolerate ACEI and spironolactone earlier went into KRISTIN. Will probably need to be retried after he reaches euvolemic status to see if he can tolerate it. Restarted on lasix which he is tolerating with improvement of renal functions and good negative balance and loss of weight. Unfortunately per cardiology, he is not a candidate for advanced therapies given recent alcohol and would have to be sober for 6m, as noted in Dr. Carlos's note. Will need Life vest on discharge. KRISTIN May have some underlying CKD too from cardiorenal. Initially improved a little with diuresis but then shortly after improvement, worsened likely in the setting of intravascular depletion, while ACEi and aldactone were added with aggressive diuresis. Diuretics, ACEI and aldactone were subsequently held and IV fluids were given without much improvement in the setting of hypoalbuminemic state. Nephrology was consulted and gave albumin, brief midodrine and low dose diuretic with improvement in Cr and LE edema. Urine lytes showed Yohana < 10 c/w cardiorenal with intravascular volume depletion and unlikely hepatorenal syndrome without courtney ascites. Consensus has been to treat the decompensated HFrEF starting with peripheral vascular resistance reduction that was c/b hypotension such that he did not tolerate the afterload reduction, and was briefly placed on inotropic assistance with dobutamine c/b increased ectopy and thus stopped, however with BP impr ovement, so now back on isordil/hydralazine and started on lasix as noted above Cardiology onboard, appreciate recs Nephrology onboard, appreciate recs, renal US was without evidence of postobstructive nephropathy without hydronephrosis, albumin repleted. Continue holding ACEI and aldactone replete lytes PRN Acute liver injury Bilirubin seems to be turning around Possibly alcoholic hepatitis, fatty liver and congestive hepatopathy . Imaging does not suggest cirrhosis however probably till has underlying chronic liver disease. Imaging with unremarkable liver with noted mild ascites and generalized anasarca. s/p Vit K, INR improved Hep A, B, C were negative EBV IgG was positive for past infection, unlikely re-activation GI consulted, recommended stopping alcohol consumption Thrombocytopenia: improving. Likely 2/2 to alcoholic liver disease, monitor Alcohol use disorder s/p withdrawal s/p CIWA protocol Thiamine, Folic acid supplementation Mildly Elevated TSH sick euthyroid, to follow outpatient Dispo: Home when medically improved. VS,Fishbone, I+O VS, Fishbone, I+O Laboratory Tests 07/07/19 05:11 Vital Signs Date Time Temp Pulse Resp B/P (MAP) Pulse Ox O2 Delivery O2 Flow Rate FiO2 07/07/19 08:50 106 120/68 07/07/19 08:00 98.9 18 99 Room Air 07/04/19 04:00 2.0 I&O- Last 24 Hours up to 6 AM 07/07/19 06:00 Intake Total 1260 ml Output Total 1325 ml Balance -65 ml JORGE L SHERMAN MD Jul 07, 2019 11:20
[2019-07-07] MEDS: FUROSEMIDE 100 MG/10 ML VIAL (J1940) IV SCH (12:00)
--- NOTE | 2019-07-07 15:26 | IPN ---
DATE: 07/07/2019 Mr. Roche is seen this morning on his bedside. He seems to be more short of breath today but denies any chest pain, nausea or vomiting. He reports that he did not feel well after taking his morning pills. PHYSICAL EXAMINATION: Temperature 98.9 degrees Fahrenheit, heart rate 106 per minute and respiratory rate 18 per minute. Blood pressure 120/68 mmHg and oxygen saturation 99% on room air. Intake and output records from yesterday show a negative fluid balance of only 415 mL. His head is atraumatic. Neck is supple and jugular venous distention (JVD) is still markedly elevated. Heart sounds are tachycardiac and lungs with diminished breath sounds and few basilar rales. Abdomen is soft and nontender and bowel sounds are normal. Extremities are without any cyanosis or clubbing. Lower extremity edema is 3+. Neurologically, he is awake, alert and oriented times three. Today's labs show WBC count 10.8, hemoglobin 12.2 and hematocrit 35.2. Platelets 114. Sodium 132, potassium 3.7, BUN 30 and creatinine 1.59. His bilirubin is 11.6 and rest of chemistry is essentially unchanged. PROBLEMS: 1. Acute kidney injury superimposed on chronic kidney disease. No change in kidney function since yesterday. He remains on low-dose diuretics with furosemide 80 mg every 12 hours intravenously and spironolactone 12.5 mg daily. He is not diuresing too good for now; however, with his liver and kidney problems it is probably appropriate to continue with current diuretic dose as his blood pressure also has been running low. 2. Acute systolic congestive heart failure. Volume status gradually improving. He remains on hydralazine, nitroglycerin and now low-dose beta [place] has been added along with diuretics. The patient is being followed by cardiology. Diuretic dose has been increased from yesterday to today. 3. Hypokalemia. Potassium level is stable at present and he will continue with potassium chloride twice a day. 4. Hepatic dysfunction. His bilirubin is only slightly better and transaminases have been stable. Probably this is multifactorial and passive hepatic congestion is also contributing to it. MTDD
[2019-07-07] MEDS ORDERED: DIGOXIN 0.25 MG TAB PO ONE (20:00)
[2019-07-07] MEDS: ENTRESTO 24-26MG TABLET (SACUBITRIL/VALSARTAN) PO SCH (21:18)
[2019-07-08] VITALS (18 sets, daily range): BP systolic 112–132; BP diastolic 59–77; O2SAT 91–97
[2019-07-08] MEDS: FUROSEMIDE 100 MG/10 ML VIAL (J1940) IV SCH (00:21)
[2019-07-08] MEDS: ISOSORBIDE DIN. (ISORDIL) 20 MG TAB PO SCH ×3 (06:34→17:49)
[2019-07-08] MEDS: SODIUM CHLORIDE 0.9% INJ 10 ML SYR IV SCH ×2 (06:35→17:50)
[2019-07-08 07:18] LABS: HEMATOCRIT 37.8 % (42.0-52.0); HEMOGLOBIN 12.8 g/dl (13.5-17.5); MEAN CORPUSCULAR HEMOGLOBIN 32.2 pg (27.0-33.0); MEAN CORPUSCULAR HGB CONC 33.9 g/dl (32.0-36.5); MEAN CORPUSCULAR VOLUME 95.2 fl (80.0-96.0); PLATELET COUNT, AUTOMATED 147 10^3/uL (150-450); RED BLOOD COUNT 3.97 10^6/uL (4.30-6.10); WHITE BLOOD COUNT 10.7 10^3/uL (4.0-10.0)
[2019-07-08 07:56] LABS: ALBUMIN 2.6 GM/DL (3.2-5.2); BILIRUBIN,TOTAL 9.4 MG/DL (0.2-1.0); CALCIUM LEVEL 8.4 MG/DL (8.5-10.1); CREATININE FOR GFR 1.49 MG/DL (0.70-1.30); GLOMERULAR FILTRATION RATE 56.2 (>60); POTASSIUM SERUM 3.6 MEQ/L (3.5-5.1); TOTAL PROTEIN 5.9 GM/DL (6.4-8.2)
[2019-07-08] MEDS: CARVedilol 6.25 MG TAB PO SCH ×2 (09:00→21:15)
[2019-07-08] MEDS: CARVedilol 3.125 MG TAB PO SCH (09:45)
[2019-07-08] MEDS: POTASSIUM CHLORIDE 10 MEQ SR TABLET PO SCH ×2 (09:48→21:16)
[2019-07-08] MEDS: ENTRESTO 24-26MG TABLET (SACUBITRIL/VALSARTAN) PO SCH ×2 (09:49→23:38)
[2019-07-08] MEDS: FOLIC ACID 1 MG TAB PO SCH (09:49)
[2019-07-08] MEDS: MULTIVITAMINS/MINERALS THERAP 1 TAB PO SCH (09:49)
[2019-07-08] MEDS: **hydrALAZINE** 10 MG TAB PO SCH ×3 (09:49→21:16)
[2019-07-08] MEDS: MAGNESIUM OXIDE 400 MG TAB (MAG-OX) PO SCH (09:49)
[2019-07-08] MEDS: SPIRONOLACTONE 12.5MG PER 1/2 TABLET PO SCH (09:51)
--- NOTE | 2019-07-08 10:34 | IPN ---
DATE: 07/08/2019 TIME: 9:50 a.m. SUBJECTIVE: Dyspnea: Patient reports external shortness of breath (SOB) when he attempts to walk briskly or walk excessively far ambulating in he hallways of the progressive care unit. No orthopnea or paroxysmal nocturnal dyspnea (PND). No chest pain or chest discomfort. No abdominal discomfort. He reports that the bilateral leg and ankle edema although present, is becoming progressively less. PHYSICAL EXAMINATION: Obese, BMI 32.0, not in respiratory or psychologic distress. Temperature 98.3, pulse 97 (regular), respiratory rate 17, blood pressure 132/76, oxygen saturation 97% on room air. Mood and affect was normal. Speech was normal. Jugular venous pulsations were to the angle of the jaw with the patient sitting up at 90 degrees. First heart sound normal. Second heart sound normal. No S3 or S4 appreciated. No murmurs appreciated. Respiratory expansion effort was good. No crackles or wheezes. Abdomen was soft, nontender with normal bowel sounds. No hepatosplenomegaly or other organomegaly though difficult to assess due to abdominal obesity. Liver span difficult to assess due to abdominal obesity. 1.2 cm of pitting edema is present at mid and distal tibial levels bilaterally. Intake and output for 24 hours of 07/07/2019 showed the patient to be net fluid positive 15 mL. Thus far today the patient is net negative 2010 mL. Weight today is recorded as 110.1 kg, which is down 2.9 kg over the weight recorded yesterday. Laboratory work 07/08/2019: Sodium 135, potassium 3.6, CO2 29, BUN 30, creatinine 1.49, estimated GFR 56.2 (improved), glucose 89, total bilirubin 9.4, ALT 73 (elevated), AST 60 (normal), alkaline phosphatase 95 (normal), albumin 2.6, total protein 5.9. ASSESSMENT/PLAN: 1. Heart failure (systolic and diastolic, acute on chronic). 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 Differential diagnosis would include idiopathic dilated cardiomyopathy, genetic dilated cardiomyopathy, post viral dilated cardiomyopathy, and other categories. Currently, NYHA function class III. He remains decompensated on examination, but is improving. There has been a small improvement in his estimated GFR. Systolic blood pressure remains above target. Heart rate remains above target. I have increased carvedilol to 6.25 mg twice a day. I added Entresto 24-26 mg twice a day. I will switch him from furosemide IV to torsemide 20 mg twice a day since he is diuresing so well. He received one dose of digoxin 0.25 mg by mouth last evening that I ordered. Continue hydralazine 40 mg three times a day and isosorbide dinitrate 20 mg three times a day. I will increase spironolactone to 25 mg daily. He has been placed on a 2 gram sodium diet with 1500 mL per day oral fluid restriction. 2. Dilated cardiomyopathy. As per heart failure category above. 3. Nonrheumatic mitral valve disease with moderate mitral regurgitation. Secondary to dilated cardiomyopathy. Hopefully this will improve as the heart failure becomes compensated. 4. Obesity. Patient has been placed on a DASH diet.
[2019-07-08] MEDS ORDERED: metOLazone 2.5 MG TAB PO ONE (12:00)
[2019-07-08] MEDS: TORSEMIDE 20 MG TAB PO SCH ×2 (12:37→17:49)
--- NOTE | 2019-07-08 13:10 | IPNPDOC ---
Text Note Date of Service The patient was seen on 07/08/19. NOTE Subjective: Says feels better daily. Said walked in the corridor several times yesterday without any SOB. Good diuresis with negative balance. Loosing weight appropriately. Jaundice decreasing. Objective: Vitals: see below, hemodynamically stable, afebrile Telemetry: Sinus rhythm General: Ill appearing, obese, jaundiced young man Skin: Diffuse jaundice, no spider nevi, has some nail onychomycoses HEENT: NCAT, icteric sclerae, clear oropharnyx Pulm: right lasal crackles otherwise clear to auscultation with bilateral vesicular breath sounds. Cardiac: RRR, no murmurs or rubs or gallop Abd: Obese, no caput or distended veins, no palpable hepatosplenomegaly, no shifting dullness, non tender to palpation Ext: LE edema to mid shins, WWP Neuro: AOx3, CN2-12 grossly intact, lethargic, otherwise 5/5 strength on exam throughout Psych: AOx3 Labs: Reviewed as below. Imaging: TTE: 1. Severe global left ventricular systolic dysfunction with a moderately enlarged left ventricle and severe diffuse hypokinesis. There are some features of left ventricular diastolic dysfunction, a restrictive mitral inflow pattern was noted. EF 20%. Second look by Dr Lentz. estimated to 10% to 15% 2. Mildly to moderately enlarged left atrium with moderate eccentric mitral regurgitation. 3. Moderate tricuspid regurgitation with dilated right heart chambers. The calculated pulmonary artery systolic pressure was normal, most likely underestimated. 4. There are features of elevated central venous pressure, the inferior vena cava was dilated. 5. Trace pericardial effusion,, no evidence of cardiac tamponade. CXR: Cardiomegaly Chest CT: 1. Cardiomegaly without pleural effusions. 2. Mild ground glass attenuation anteriorly at base of right middle lobe most likely due to subsegmental atelectasis. No evidence of pneumonia or congestive heart failure." CT A/P: Liver: There are no focal liver lesions present. Gallbladder and bile ducts: The gallbladder is unremarkable. Pancreas: The pancreas is unremarkable. Spleen: The spleen is unremarkable Adrenals: The adrenal glands are unremarkable. Kidneys and ureters: The kidneys are unremarkable. Stomach and bowel: There is no evidence of intestinal obstruction. Appendix: No evidence of appendicitis. Intraperitoneal space: Small volume of ascites. Vasculature: The aorta is unremarkable. Lymph nodes: Unremarkable. No enlarged lymph nodes. Mild anasarca. Bladder: The bladder is unremarkable. Reproductive: The prostate gland and seminal vesicles are unremarkable. Bones/joints: Skeletal degeneration. Soft tissues: Unremarkable. IMPRESSION: 1. Mild ascites and anasarca. 2. Cardiomegaly. 3. Solid organs are poorly evaluated on this noncontrast study. Abdominal US: Trace to minimal ascited. No comments on liver. Renal US: Scanning at the level of the urinary bladder demonstrates that it is essentially empty. Renal cortical echogenicity pattern is isoechoic with liver consistent with some degree of medical renal disease. No hydronephrosis seen on either side. No cyst or mass is observed. Right renal dimensions are 10.9 x 6.5 x 4.8 cm. Left kidney measures 13.3 x 6.4 x 6.2 cm. IMPRESSION: Slightly increased renal cortical echogenicity pattern. No hydronephrosis seen.Otherwise negative. Assessment: 39 yo M with a history of heavy alcohol consumption who presented jaundiced, with worsening SOB , cough and swelling of his legs for 3 weeks and found to have dilated cardiomyopathy wit decompensated HFrEF with an EF of 20%, what appears to be acute liver injury c/w probable alcoholic hepatitis without evidence of cirrhosis, s/p trial of aggressive diuresis and cardiac optimization c/b worsening KRISTIN, s/p dobutamine trial c/b NSVT however with improved BP and slowly improving Cr, now placed on afterload reduction with isordil and hydral as well as loop diuretic 40 IV BID. Hypoxemic respiratory failure: resolved, now back on room air. 2/2 decompensated Systolic and diastolic CHF. Acute systolic and diastolic CHF : dilated cardiomyopathy with EF of 10-15%, per cardiology reassessment of his TTE. Etiology most likely 2/2 alcohol. need to be evaluated for CAD after discharge. Cardiology following, on hydralazine and isordil and betablocker. Started on Entresto with very good diuresis, Iv lasix changed to torsemide. Aldactone dose increased, Got one dose of metolazone today. Will need Life vest on discharge. KRISTIN May have some underlying CKD too from cardiorenal. Initially improved a little with diuresis but then shortly after improvement, worsened likely in the setting of intravascular depletion, while ACEi and aldactone were added with aggressive diuresis. Diuretics, ACEI and aldactone were subsequently held and IV fluids were given without much improvement in the setting of hypoalbuminemic state. Nephrology was consulted and gave albumin, brief midodrine and low dose diuretic with improvement in Cr and LE edema. Urine lytes showed Yohana < 10 c/w cardiorenal with intravascular volume depletion and unlikely hepatorenal syndrome without courtney ascites. Consensus has been to treat the decompensated HFrEF starting with peripheral vascular resistance reduction that was c/b hypotension such that he did not tolerate the afterload reduction, and was briefly placed on inotropic assistance with dobutamine c/b increased ectopy and thus stopped, however with BP improvement, so now back on isordil/hydralazine and started on lasix as noted above Cardiology onboard, appreciate recs Nephrology onboard, appreciate recs, renal US was without evidence of postob structive nephropathy without hydronephrosis, albumin repleted. replete lytes PRN Acute liver injury Bilirubin now coming down. Possibly alcoholic hepatitis, fatty liver and congestive hepatopathy . Imaging does not suggest cirrhosis however probably till has underlying chronic liver disease. Imaging with unremarkable liver with noted mild ascites and generalized anasarca. Hep A, B, C were negative EBV IgG was positive for past infection, unlikely re-activation GI consulted, recommended stopping alcohol consumption Thrombocytopenia: improving. Likely 2/2 to alcoholic liver disease, monitor Alcohol use disorder s/p withdrawal Thiamine, Folic acid supplementation Mildly Elevated TSH sick euthyroid, to follow outpatient Dispo: Home when medically improved. VS,Fishbone, I+O VS, Fishbone, I+O Laboratory Tests 07/08/19 07:07 Vital Signs Date Time Temp Pulse Resp B/P (MAP) Pulse Ox O2 Delivery O2 Flow Rate FiO2 07/08/19 12:37 119/67 07/08/19 12:00 98.9 77 18 93 Room Air 07/04/19 04:00 2.0 I&O- Last 24 Hours up to 6 AM 07/08/19 06:00 Intake Total 1725 ml Output Total 3320 ml Balance -1595 ml JORGE L SHERMAN MD Jul 08, 2019 13:10
--- NOTE | 2019-07-08 14:29 | IPN ---
DATE OF SERVICE: 07/08/2019 SUBJECTIVE: The patient was seen and examined the bedside today morning. He was just coming back after walking in the hallway. He reports that his shortness of breath is getting better. He is slowly improving. His renal function is also stable. Creatinine is 1.4 today. His diuretics and antihypertensives are being adjusted by cardiology service, and I am appreciate their help, and his blood pressures are also improving now. OBJECTIVE: Vital signs: Temperature is 98.3 degrees Fahrenheit, blood pressure 132/76, pulse is 97, respiratory rate of 70, saturating 97% on room air. Intake and output: Urine output recorded as 1.4 liters yesterday, 2.2 liters so far today since overnight. Weight in the bed scale is 110 kg. PHYSICAL EXAM: General: The patient is awake, alert, oriented times three, laying in bed in no apparent distress. Head and neck exam: Extraocular muscles intact. Pupils equally round and reactive to light. Mucous membranes are moist. Neck is supple. There is moderately elevated jugular venous distention (JVD). Cardiovascular: S1, S2, regular rate, 3+ edema of the bilateral lower extremities up to the knees. Respiratory: Chest is clear to auscultation bilaterally. Bilateral equal air entry. No rales or rhonchi. Abdomen: Soft, obese, positive bowel sounds. No ascites and no organomegaly was noted. Musculoskeletal: No clubbing or cyanosis. Edema of the lower extremities, as mentioned above. VEGETABLE TESTER: No focal deficit. Power is 5/5 in all extremities. LAB REVIEW: CBC showed WBC 10.7, hemoglobin 12.8, platelets of 147. BMP showed sodium 135, potassium 3.6, chloride 96, bicarb 29, BUN 30, creatinine is 1.4, calcium 8.4, total bilirubin 9.4, AST 73, ALT 60, alk phos is 95, albumin is 2.6. CURRENT INPATIENT MEDICATIONS: The patient's medications were all reviewed by me. He continues to be on Entresto 24/26 mg one tablet by mouth twice a day. His Coreg dose has been increased to 6.25 mg by mouth twice a day today by cardiology. His intravenous (IV) Lasix has been stopped, and he has been started on torsemide 20 mg by mouth twice a day. He continues to be on hydralazine 40 mg by mouth three times a day along with isosorbide 20 mg by mouth three times a day. I gave him one dose of metolazone 2.5 mg by mouth today morning. His spironolactone dose has been increased to 25 mg by mouth daily. ASSESSMENT AND PLAN: 1. Acute kidney injury superimposed on chronic kidney disease. It was cardiorenal in nature. The patient is being diuresed well. Renal function is stable and improving. 2. 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 The patient has dilated cardiomyopathy, most likely is alcohol induced. Cardiology is adjusting the antihypertensives and diuretics. I have added a dose of metolazone 2.5 mg by mouth today for sequential nephron blockade to augment the diuretic effect of spironolactone and torsemide. Rest of the adjustment of Entresto, carvedilol, hydralazine, isosorbide is as per cardiology service. 3. Hyponatremia. The patient has hypervolemic hyponatremia. Sodium level is improving with improvement in the volume status. 4. Congestive hepatopathy. Patient has elevated total bilirubin and elevated liver enzymes. With improvement in the heart failure, his liver function tests are improving. The patient also has history of heavy alcohol abuse.
[2019-07-08] MEDS ORDERED: CARVedilol 3.125 MG TAB PO ONE (16:00)
[2019-07-09] VITALS (7 sets, daily range): BP systolic 111–147; BP diastolic 56–72
[2019-07-09] MEDS: ISOSORBIDE DIN. (ISORDIL) 20 MG TAB PO SCH (06:11)
[2019-07-09] MEDS: SODIUM CHLORIDE 0.9% INJ 10 ML SYR IV SCH ×2 (06:11→17:33)
[2019-07-09] MEDS: SODIUM CHLORIDE 0.9% INJ 10 ML SYR IV PRN (06:11)
[2019-07-09 08:58] LABS: BASO # 0.1 10^3/uL (0.0-0.2); BASO % 0.7 % (0.0-1.0); EOS % 0.5 % (0.0-3.0); HEMOGLOBIN 14.5 g/dl (13.5-17.5); LYMPH # 1.3 10^3/uL (1.5-5.0); LYMPH % 17.3 % (24.0-44.0); MEAN CORPUSCULAR HEMOGLOBIN 33.4 pg (27.0-33.0); MEAN CORPUSCULAR HGB CONC 36.3 g/dl (32.0-36.5); MEAN CORPUSCULAR VOLUME 92.2 fl (80.0-96.0); MONO # 0.6 10^3/uL (0.0-0.8); MONO % 8.3 % (0.0-5.0); NEUTROPHILS # 5.4 10^3/uL (1.5-8.5); NEUTROPHILS % 70.6 % (36.0-66.0); PLATELET COUNT, AUTOMATED 164 10^3/uL (150-450); RED BLOOD COUNT 4.34 10^6/uL (4.30-6.10); WHITE BLOOD COUNT 7.6 10^3/uL (4.0-10.0)
[2019-07-09] MEDS: **hydrALAZINE** 10 MG TAB PO SCH (09:00)
[2019-07-09 09:23] LABS: ALBUMIN 2.4 GM/DL (3.2-5.2); ALT/SGPT 63 U/L (12-78); BILIRUBIN,TOTAL 7.5 MG/DL (0.2-1.0); BLOOD UREA NITROGEN 24 MG/DL (7-18); CALCIUM LEVEL 8.3 MG/DL (8.5-10.1); CARBON DIOXIDE LEVEL 31 MEQ/L (21-32); CHLORIDE LEVEL 98 MEQ/L (98-107); CREATININE FOR GFR 1.25 MG/DL (0.70-1.30); GLOMERULAR FILTRATION RATE > 60.0 (>60); GLUCOSE, FASTING 92 MG/DL (70-100); POTASSIUM SERUM 3.3 MEQ/L (3.5-5.1); SODIUM LEVEL 137 MEQ/L (136-145); TOTAL PROTEIN 6.3 GM/DL (6.4-8.2)
[2019-07-09 09:26] LABS: INR 1.25; PROTHROMBIN TIME 15.4 SECONDS (11.8-14.0)
[2019-07-09 09:27] LABS: PARTIAL THROMBOPLASTIN TIME 28.4 SECONDS (25.0-38.4)
[2019-07-09] MEDS: FOLIC ACID 1 MG TAB PO SCH (09:46)
[2019-07-09] MEDS: MULTIVITAMINS/MINERALS THERAP 1 TAB PO SCH (09:46)
[2019-07-09] MEDS: MAGNESIUM OXIDE 400 MG TAB (MAG-OX) PO SCH (09:47)
[2019-07-09] MEDS: POTASSIUM CHLORIDE 10 MEQ SR TABLET PO SCH ×2 (09:47→20:29)
[2019-07-09] MEDS: CARVedilol 6.25 MG TAB PO SCH (09:48)
[2019-07-09] MEDS: ENTRESTO 24-26MG TABLET (SACUBITRIL/VALSARTAN) PO SCH ×2 (09:48→20:29)
[2019-07-09] MEDS: TORSEMIDE 20 MG TAB PO SCH (09:49)
[2019-07-09] MEDS: SPIRONOLACTONE 25 MG TAB PO SCH (09:49)
--- NOTE | 2019-07-09 11:43 | IPN ---
DATE: 07/09/2019 TIME: 11:09 a.m. SUBJECTIVE: Patient reports he is not having any dyspnea ambulating in the hallways of the progressive care unit. He is aware he has bilateral leg edema, which he notices continues to become less. No orthopnea or paroxysmal nocturnal dyspnea (PND). No chest pain or chest discomfort. Overall, he reports feeling well. No dizziness or lightheadedness with standing. No palpitations. PHYSICAL EXAMINATION: Not in respiratory or psychologic distress. Obese. Temperature 96.9, pulse 91 (regular), respiratory rate 17, blood pressure 105/62, oxygen saturation 95% on room air. Jugular venous pulsations were at 8 cm. First and second heart sound were mildly reduced. Respiratory expansion effort was good. No crackles or wheezes. No S3 or S4. No murmurs appreciated. Abdomen was soft, nontender with normal bowel sounds. Abdominal obesity. 2 mm of pitting edema was present at mid tibial level and 8 mm of pitting edema was present at distal tibial level bilaterally. Intake and output for 24 hours of 07/08/2019 shows net negative of 5270 mL. So far today, he is running a net negative fluid balance of 1050 mL. Weight of 105.1 kg represents a 5 kg decrease in comparison to the weight recorded 07/08. Laboratory work 07/09/2019: Sodium 137, potassium 3.3, chloride 108, CO2 31, BUN 24, creatinine 1.25, estimated GFR greater than 60, glucose 92, calcium 8.3, bilirubin 7.5 (elevated but improving), AST 80 (elevated), ALT 63, alkaline phosphatase 96, NT-proBNP 6465, total protein 6.3 (low but improved), albumin 2.4. ASSESSMENT/PLAN: 1. Heart failure (systolic and diastolic, acute on chronic). The patient remains decompensated but has generated an excellent net negative fluid balance and his renal function has returned to the normal range. Blood pressure of 105 systolic this morning is mildly low, but asymptomatic. Currently NYHA functional class II. I will decrease the dose of torsemide to 20 mg once daily. Continue Entresto 24-26 mg twice a day. I will discontinue hydralazine and isosorbide dinitrate so as to be able to have a better likelihood of being able to increase the dose of Entresto and to avoid undue hypotension. Continue carvedilol 6.25 mg twice a day. The plan will be to progressively increase the dosage of carvedilol and sacubitril and spironolactone over time to maximize other dosages. Continue potassium chloride at the current dosage. 2. Dilated cardiomyopathy. Most likely alcohol dilated cardiomyopathy. Other etiologies could include: Genetic dilated cardiomyopathy, idiopathic dilated cardiomyopathy, post viral dilated cardiomyopathy, other. Evaluation and management as per heart failure category above. 3. Nonrheumatic mitral valve regurgitation (moderate). Secondary to dilated cardiomyopathy. Hopefully this will lessen as the patient becomes less congested. 4. Obesity. Continue DASH diet. Dr. Medhat Lentz returns tomorrow to resume cardiac care of this patient.
[2019-07-09] MEDS ORDERED: POTASSIUM CHLORIDE 10 MEQ SR TABLET PO ONE (13:00)
--- NOTE | 2019-07-09 15:02 | IPNPDOC ---
Text Note Date of Service The patient was seen on 07/09/19. NOTE Subjective: Says feels better daily. Said walked in the corridor several times yesterday without any SOB. Good diuresis with negative balance. Loosing weight appropriately. Jaundice decreasing. Objective: Vitals: see below, hemodynamically stable, afebrile Telemetry: Sinus rhythm General: Ill appearing, obese, jaundiced young man Skin: Diffuse jaundice, no spider nevi, has some nail onychomycoses HEENT: NCAT, icteric sclerae, clear oropharnyx Pulm: right lasal crackles otherwise clear to auscultation with bilateral vesicular breath sounds. Cardiac: RRR, no murmurs or rubs or gallop Abd: Obese, no caput or distended veins, no palpable hepatosplenomegaly, no shifting dullness, non tender to palpation Ext: LE edema to mid shins, WWP Neuro: AOx3, CN2-12 grossly intact, lethargic, otherwise 5/5 strength on exam throughout Psych: AOx3 Labs: Reviewed as below. Imaging: TTE: 1. Severe global left ventricular systolic dysfunction with a moderately enlarged left ventricle and severe diffuse hypokinesis. There are some features of left ventricular diastolic dysfunction, a restrictive mitral inflow pattern was noted. EF 20%. Second look by Dr Lentz. estimated to 10% to 15% 2. Mildly to moderately enlarged left atrium with moderate eccentric mitral regurgitation. 3. Moderate tricuspid regurgitation with dilated right heart chambers. The calculated pulmonary artery systolic pressure was normal, most likely underestimated. 4. There are features of elevated central venous pressure, the inferior vena cava was dilated. 5. Trace pericardial effusion,, no evidence of cardiac tamponade. CXR: Cardiomegaly Chest CT: 1. Cardiomegaly without pleural effusions. 2. Mild ground glass attenuation anteriorly at base of right middle lobe most likely due to subsegmental atelectasis. No evidence of pneumonia or congestive heart failure." CT A/P: Liver: There are no focal liver lesions present. Gallbladder and bile ducts: The gallbladder is unremarkable. Pancreas: The pancreas is unremarkable. Spleen: The spleen is unremarkable Adrenals: The adrenal glands are unremarkable. Kidneys and ureters: The kidneys are unremarkable. Stomach and bowel: There is no evidence of intestinal obstruction. Appendix: No evidence of appendicitis. Intraperitoneal space: Small volume of ascites. Vasculature: The aorta is unremarkable. Lymph nodes: Unremarkable. No enlarged lymph nodes. Mild anasarca. Bladder: The bladder is unremarkable. Reproductive: The prostate gland and seminal vesicles are unremarkable. Bones/joints: Skeletal degeneration. Soft tissues: Unremarkable. IMPRESSION: 1. Mild ascites and anasarca. 2. Cardiomegaly. 3. Solid organs are poorly evaluated on this noncontrast study. Abdominal US: Trace to minimal ascited. No comments on liver. Renal US: Scanning at the level of the urinary bladder demonstrates that it is essentially empty. Renal cortical echogenicity pattern is isoechoic with liver consistent with some degree of medical renal disease. No hydronephrosis seen on either side. No cyst or mass is observed. Right renal dimensions are 10.9 x 6.5 x 4.8 cm. Left kidney measures 13.3 x 6.4 x 6.2 cm. IMPRESSION: Slightly increased renal cortical echogenicity pattern. No hydronephrosis seen.Otherwise negative. Assessment: 39 yo M with a history of heavy alcohol consumption who presented jaundiced, with worsening SOB , cough and swelling of his legs for 3 weeks and found to have dilated cardiomyopathy wit decompensated HFrEF with an EF of 20%, what appears to be acute liver injury c/w probable alcoholic hepatitis without evidence of cirrhosis, s/p trial of aggressive diuresis and cardiac optimization c/b worsening KRISTIN, s/p dobutamine trial c/b NSVT however with improved BP and slowly improving Cr, now placed on afterload reduction with isordil and hydral as well as loop diuretic 40 IV BID. Hypoxemic respiratory failure: resolved, now back on room air. 2/2 decompensated Systolic and diastolic CHF. Acute systolic and diastolic CHF : dilated cardiomyopathy with EF of 10-15%, per cardiology reassessment of his TTE. Etiology most likely 2/2 alcohol. need to be evaluated for CAD after discharge. Cardiology following, on hydralazine and isordil and betablocker. Started on Entresto with very good diuresis, Iv lasix changed to torsemide. Aldactone dose increased Will need Life vest on discharge. KRISTIN May have some underlying CKD too from cardiorenal. Initially improved a little with diuresis but then shortly after improvement, worsened likely in the setting of intravascular depletion, while ACEi and aldactone were added with aggressive diuresis. Diuretics, ACEI and aldactone were subsequently held and IV fluids were given without much improvement in the setting of hypoalbuminemic state. Nephrology was consulted and gave albumin, brief midodrine and low dose diuretic with improvement in Cr and LE edema. Urine lytes showed Yohana < 10 c/w cardiorenal with intravascular volume depletion and unlikely hepatorenal syndrome without courtney ascites. Consensus has been to treat the decompensated HFrEF starting with peripheral vascular resistance reduction that was c/b hypotension such that he did not tolerate the afterload reduction, and was briefly placed on inotropic assistance with dobutamine c/b increased ectopy and thus stopped, however with BP improvement, so now back on isordil/hydralazine and started on lasix as noted above Cardiology onboard, appreciate recs Nephrology onboard, appreciate recs, renal US was without evidence of postobstructive nephropathy without hydronephrosis, albumin repleted. replete lytes PRN Acute liver injury Bilirubin now coming down. Possibly alcoholic hepatitis, fatty liver and congestive hepatopathy . Imaging does not suggest cirrhosis however probably till has underlying chronic liver disease. Imaging with unremarkable liver with noted mild ascites and generalized anasarca. Hep A, B, C were negative EBV IgG was positive for past infection, unlikely re-activation GI consulted, recommended stopping alcohol consumption Thrombocytopenia: improving. Likely 2/2 to alcoholic liver disease, monitor Alcohol use disorder s/p withdrawal Thiamine, Folic acid supplementation Mildly Elevated TSH sick euthyroid, to follow outpatient Dispo: Home when medically improved. VS,Fishbone, I+O VS, Fishbone, I+O Laboratory Tests 07/09/19 08:31 Vital Signs Date Time Temp Pulse Resp B/P (MAP) Pulse Ox O2 Delivery O2 Flow Rate FiO2 07/09/19 12:00 96.8 72 17 117/69 (85) 96 Room Air 07/04/19 04:00 2.0 I&O- Last 24 Hours up to 6 AM 07/09/19 06:00 Intake Total 540 ml Output Total 5000 ml Balance -4460 ml JORGE L SHERMAN MD Jul 09, 2019 15:02
--- NOTE | 2019-07-09 19:20 | IPN ---
DATE: 07/09/2019 SUBJECTIVE: The patient was seen and examined at the bedside today morning. He was given one dose of metolazone along with torsemide and spironolactone that he was already taking yesterday and metolazone really helps with diuresis. He has made more than 6 liters of urine yesterday. The patient reports that his lower extremity edema is improving. His blood pressure was soft in the morning. Cardiology service has already titrated down his antihypertensive regimen. Renal function is improving and his hyponatremia is also improving today. OBJECTIVE: Vital signs: Temperature is 96.8 degrees Fahrenheit, blood pressure 117/69, pulse is 72, respiratory of 17, saturating 96% on room air. Intake and output: Urine output recorded as 6050 mL yesterday and 1200 mL so far today since overnight. Weight in the bed scale is 105 kg, which is 5 kg below the weight yesterday. PHYSICAL EXAMINATION: General: The patient is awake, alert, oriented x3, laying in bed in no apparent distress. Head and neck exam: Extraocular muscles intact. Pupils equally round and reactive to light. Mucous membranes are moist. Neck is supple. Moderately elevated jugular venous distension (JVD). Cardiovascular: S1, S2 regular rate, 2+ edema of the bilateral lower extremities up to the mid shins. Respiratory: Chest is clear to auscultation bilaterally. Bilateral equal air entry. No rales or rhonchi. Abdomen: Soft with positive bowel sounds. Nontender. No organomegaly. Musculoskeletal: No clubbing or cyanosis. Pulses are 2+. 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 Power is 5/5 in all extremities. LABORATORY REVIEW: Complete blood count (CBC) showed white blood count (WBC) of 7.6, hemoglobin 14.5, platelets of 164, INR is 1.25. Basic metabolic panel (BMP) showed sodium 137, potassium 3.3, chloride 98, bicarb 31, BUN 24, creatinine is 1.25, it was 1.4 yesterday, calcium at 8.3, total bilirubin is 7.5, it was 9.4 yesterday, AST is 80, ALT 63, alkaline phosphatase is 96, Pro-BNP is 6465 which is significantly better than the BMP done 3 days ago, albumin is 2.4. CURRENT INPATIENT MEDICATIONS: The patient's medications were all reviewed by me. He continues to be on Entresto mg one tablet twice a day, Tylenol has been stopped. He continues to be on Coreg 6.25 mg by mouth twice a day, hydralazine has been stopped, isosorbide has been stopped. He continues on spironolactone 25 mg by mouth daily. Torsemide dose has been decreased to 20 mg by mouth daily by cardiology service. I ordered an extra dose of potassium chloride 20 mEq to be given in the afternoon. ASSESSMENT/PLAN: 1. Acute kidney injury superimposed on chronic kidney disease. The patient came in with cardiorenal syndrome. He has been extensively diuresed. Renal function continues to improve with improvement in the volume status. Continue current dose of diuretics. 2. 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 I gave the patient a dose of metolazone yesterday. The patient diuresed very well with that. So far he has made about 2.5 liters of urine and blood pressures are soft. I would hold further metolazone today and I would assess him tomorrow if he needs any extra dose. Cardiology service has already decreased his torsemide to 20 mg daily along with spironolactone 25 mg. I will continue the current dose at this time. He is already on Coreg and Entresto. Hydralazine and isosorbide have been stopped by cardiology because of soft blood pressures. 3. Hyponatremia. The patient had hypovolemic hyponatremia with aggressive diuresis done yesterday. His sodium level has improved to 137. 4. Congestive hepatopathy. The patient's liver function tests along with total bilirubin is also getting better with improvement in congestive heart failure. 5. Hypokalemia. The patient is already on potassium 20 mEq twice a day and I have given him an extra dose in the afternoon as well.
[2019-07-09] MEDS ORDERED: CARVedilol 3.125 MG TAB PO SCH (21:00)
[2019-07-10 04:45] VITALS: BP_SYST 115; BP_SYST 138; BP_DIAS 64; BP_DIAS 70
[2019-07-10] MEDS: SODIUM CHLORIDE 0.9% INJ 10 ML SYR IV SCH ×2 (04:56→18:22)
[2019-07-10 05:39] LABS: BASO % 0.5 % (0.0-1.0); EOS % 0.5 % (0.0-3.0); HEMATOCRIT 41.9 % (42.0-52.0); HEMOGLOBIN 14.9 g/dl (13.5-17.5); LYMPH # 1.5 10^3/uL (1.5-5.0); LYMPH % 18.4 % (24.0-44.0); MEAN CORPUSCULAR HGB CONC 35.6 g/dl (32.0-36.5); MEAN CORPUSCULAR VOLUME 92.7 fl (80.0-96.0); MONO # 0.6 10^3/uL (0.0-0.8); MONO % 7.6 % (0.0-5.0); NEUTROPHILS # 5.9 10^3/uL (1.5-8.5); NEUTROPHILS % 71.4 % (36.0-66.0); PLATELET COUNT, AUTOMATED 175 10^3/uL (150-450); RED BLOOD COUNT 4.52 10^6/uL (4.30-6.10); WHITE BLOOD COUNT 8.3 10^3/uL (4.0-10.0)
[2019-07-10 06:20] LABS: ALBUMIN 2.7 GM/DL (3.2-5.2); ALT/SGPT 72 U/L (12-78); BILIRUBIN,TOTAL 6.9 MG/DL (0.2-1.0); BLOOD UREA NITROGEN 23 MG/DL (7-18); CARBON DIOXIDE LEVEL 28 MEQ/L (21-32); CHLORIDE LEVEL 98 MEQ/L (98-107); CREATININE FOR GFR 1.26 MG/DL (0.70-1.30); GLOMERULAR FILTRATION RATE > 60.0 (>60); GLUCOSE, FASTING 85 MG/DL (70-100); MAGNESIUM LEVEL 1.8 MG/DL (1.8-2.4); POTASSIUM SERUM 3.8 MEQ/L (3.5-5.1); SODIUM LEVEL 135 MEQ/L (136-145); TOTAL PROTEIN 6.7 GM/DL (6.4-8.2)
[2019-07-10] MEDS ORDERED: ENTR1TAB PO (06:57)
[2019-07-10 08:00] VITALS: BP 118/69
[2019-07-10] MEDS: FOLIC ACID 1 MG TAB PO SCH (08:00)
[2019-07-10] MEDS: ENTRESTO 24-26MG TABLET (SACUBITRIL/VALSARTAN) PO SCH ×2 (08:00→20:19)
[2019-07-10] MEDS: TORSEMIDE 20 MG TAB PO SCH (08:01)
[2019-07-10] MEDS: POTASSIUM CHLORIDE 10 MEQ SR TABLET PO SCH ×2 (08:01→20:19)
[2019-07-10] MEDS: MAGNESIUM OXIDE 400 MG TAB (MAG-OX) PO SCH (08:02)
[2019-07-10] MEDS: SPIRONOLACTONE 25 MG TAB PO SCH (08:02)
[2019-07-10] MEDS: MULTIVITAMINS/MINERALS THERAP 1 TAB PO SCH (08:02)
[2019-07-10] MEDS: CARVedilol 12.5 MG TAB PO SCH ×2 (08:18→20:19)
--- NOTE | 2019-07-10 08:25 | IPN ---
DATE OF SERVICE: 07/10/2019 Mr. Roche is feeling much better. Dr. Coe made a transition from combination of hydralazine and isosorbide to ENTRESTO over the weekend. The patient tolerated it very well and actually diuresed very nicely afterwards after we increased the dose of diuretics on Wednesday and he continued diuresing even with oral torsemide. He is feeling much better today. Telemetry monitoring reveals ongoing episodes of nonsustained ventricular tachycardia, asymptomatic. Vital signs this morning reveal blood pressure 115/64. Heart rate has been from 80s to 90s. He is afebrile. Saturation is 92% on room air. Weight is 99.2 kg. His admission weight was 124 kg. His jugular venous pulse (JVP) is no longer elevated and it is fairly convincing today. Lungs are reasonably clear with only occasional crackle over the right base. Heart exam reveals regular rhythm. I do not appreciate distinct gallop or rub. Abdomen is soft, nontender. There is still peripheral edema, but not more than about 1+. Laboratory-cade, CBC is normal. Basic metabolic panel and reveals a sodium of 135, potassium 3.8, BUN 23, creatinine 1.3, glucose 85. Bilirubin is down to 6.9. Yesterday terminal pro BNP was 6,400, which is an improvement from 27,000 just few days ago and admission one of 15,000. ASSESSMENT/PLAN: Mr. Roche is a 39-year-old man who presented with acute systolic heart failure most likely due to alcoholic cardiomyopathy that was associated with acute renal failure and also hepatic failure. He has been slowly recovering and in the last few days made huge progress. I am going to advance the dose of Coreg to 12.5 twice a day. I believe the patient will be able to tolerate it and I think that he is approaching discharge. I will contact the [facility] trying to arrange for fitting of the LifeVest today. If it cannot be done today, then hopefully tomorrow after which he can be discharged home. Otherwise, I think the medications are already in the target doses. The blood pressure is too low to advance the dose of ENTRESTO, but I will eventually do it on an outpatient basis. I already spoke to the patient that he can stop by in our office for samples because the drug usually takes some time to get covered by insurance. Finally, I stressed again the importance of complete alcohol abstinence for his prognosis.
[2019-07-10 12:00] VITALS: BP 107/56
[2019-07-10 16:00] VITALS: BP 95/54
--- NOTE | 2019-07-10 18:14 | IPNPDOC ---
Text Note Date of Service The patient was seen on 07/10/19. NOTE Subjective: Says feels better daily. Said walked in the corridor several times yesterday without any SOB. Good diuresis with negative balance. Loosing weight appropriately. Jaundice decreasing. Has a Cumulative negative balance of 31 liters. has lost about 25 kgs. Objective: Vitals: see below, hemodynamically stable, afebrile General: sitting up in chair, no distress, jaundiced. HEENT: NCAT, icteric sclerae, clear oropharnyx Pulm: clear to auscultation with bilateral vesicular breath sounds. Cardiac: RRR, no murmurs or rubs or gallop Abd: Obese, no caput or distended veins, no palpable hepatosplenomegaly, no shifting dullness, non tender to palpation Ext: Edema much improved now to the ankles only. Neuro: AOx3, CN2-12 intact, otherwise 5/5 strength on exam throughout Psych: AOx3 Labs: Reviewed as below. Imaging: TTE: 1. Severe global left ventricular systolic dysfunction with a moderately enlarged left ventricle and severe diffuse hypokinesis. There are some features of left ventricular diastolic dysfunction, a restrictive mitral inflow pattern was noted. EF 20%. Second look by Dr Lentz. estimated to 10% to 15% 2. Mildly to moderately enlarged left atrium with moderate eccentric mitral regurgitation. 3. Moderate tricuspid regurgitation with dilated right heart chambers. The calculated pulmonary artery systolic pressure was normal, most likely underestimated. 4. There are features of elevated central venous pressure, the inferior vena cava was dilated. 5. Trace pericardial effusion,, no evidence of cardiac tamponade. CXR: Cardiomegaly Chest CT: 1. Cardiomegaly without pleural effusions. 2. Mild ground glass attenuation anteriorly at base of right middle lobe most likely due to subsegmental atelectasis. No evidence of pneumonia or congestive heart failure." CT A/P: Liver: There are no focal liver lesions present. Gallbladder and bile ducts: The gallbladder is unremarkable. Pancreas: The pancreas is unremarkable. Spleen: The spleen is unremarkable Adrenals: The adrenal glands are unremarkable. Kidneys and ureters: The kidneys are unremarkable. Stomach and bowel: There is no evidence of intestinal obstruction. Appendix: No evidence of appendicitis. Intraperitoneal space: Small volume of ascites. Vasculature: The aorta is unremarkable. Lymph nodes: Unremarkable. No enlarged lymph nodes. Mild anasarca. Bladder: The bladder is unremarkable. Reproductive: The prostate gland and seminal vesicles are unremarkable. Bones/joints: Skeletal degeneration. Soft tissues: Unremarkable. IMPRESSION: 1. Mild ascites and anasarca. 2. Cardiomegaly. 3. Solid organs are poorly evaluated on this noncontrast study. Abdominal US: Trace to minimal ascited. No comments on liver. Renal US: Scanning at the level of the urinary bladder demonstrates that it is essentially empty. Renal cortical echogenicity pattern is isoechoic with liver consistent with some degree of medical renal disease. No hydronephrosis seen on either side. No cyst or mass is observed. Right renal dimensions are 10.9 x 6.5 x 4.8 cm. Left kidney measures 13.3 x 6.4 x 6.2 cm. IMPRESSION: Slightly increased renal cortical echogenicity pattern. No hydronephrosis seen.Otherwise negative. Assessment: 39 yo M with a history of heavy alcohol consumption who presented jaundiced, with worsening SOB , cough and swelling of his legs for 3 weeks and found to have dilated cardiomyopathy wit decompensated HFrEF with an EF of 20%, what tanika ears to be acute liver injury c/w probable alcoholic hepatitis without evidence of cirrhosis, s/p trial of aggressive diuresis and cardiac optimization c/b worsening KRISTIN, s/p dobutamine trial c/b NSVT however with improved BP and slowly improving Cr, now placed on afterload reduction with isordil and hydral as well as loop diuretic 40 IV BID. Hypoxemic respiratory failure: resolved, now back on room air. 2/2 decompensated Systolic and diastolic CHF. Acute systolic and diastolic CHF : dilated cardiomyopathy with EF of 10-15%, per cardiology reassessment of his TTE. Etiology most likely 2/2 alcohol. need to be evaluated for CAD after discharge. Cardiology following, Hydralazine and isosorbide stopped on Entresto , torsemide, spironolactone and betablocker dosage is being adjusted by cardiology Life vest has been denied by his insuarance. KRISTIN Due to cardiorenal syndrome. continues to improve with diuresis Cardiology onboard, appreciate recs Nephrology onboard, appreciate recs, renal US was without evidence of postobstructive nephropathy without hydronephrosis replete lytes PRN Acute liver injury Bilirubin now coming down. Possibly alcoholic hepatitis, fatty liver and congestive hepatopathy . Imaging does not suggest cirrhosis Imaging with unremarkable liver with noted mild ascites and generalized anasarca. Hep A, B, C were negative EBV IgG was positive for past infection, unlikely re-activation Thrombocytopenia: improved Likely 2/2 to alcohol mediated bone marrow suppresion, may have alcoholic chronic liver disease also. Alcohol use disorder s/p withdrawal Thiamine, Folic acid supplementation Mildly Elevated TSH sick euthyroid, to follow outpatient Dispo: Home in 24 hours. VS,Fishbone, I+O VS, Fishbone, I+O Laboratory Tests 07/10/19 05:02 Vital Signs Date Time Temp Pulse Resp B/P (MAP) Pulse Ox O2 Delivery O2 Flow Rate FiO2 07/10/19 16:00 97.7 86 18 95/54 (68) 96 Room Air 07/04/19 04:00 2.0 I&O- Last 24 Hours up to 6 AM 07/10/19 06:00 Intake Total 1150 ml Output Total 4300 ml Balance -3150 ml JORGE L SHERMAN MD Jul 10, 2019 18:14
[2019-07-10 20:00] VITALS: BP 110/62
[2019-07-10 23:59] VITALS: BP 109/59
[2019-07-11 04:00] VITALS: BP 125/64
[2019-07-11] MEDS: SODIUM CHLORIDE 0.9% INJ 10 ML SYR IV SCH ×2 (05:04→19:00)
[2019-07-11 05:23] LABS: BASO % 0.5 % (0.0-1.0); EOS # 0.1 10^3/uL (0.0-0.5); LYMPH # 1.4 10^3/uL (1.5-5.0); MEAN CORPUSCULAR HEMOGLOBIN 33.7 pg (27.0-33.0); MEAN CORPUSCULAR HGB CONC 35.9 g/dl (32.0-36.5); MEAN CORPUSCULAR VOLUME 93.8 fl (80.0-96.0); MONO # 0.8 10^3/uL (0.0-0.8); MONO % 9.4 % (0.0-5.0); NEUTROPHILS # 5.7 10^3/uL (1.5-8.5); NEUTROPHILS % 70.1 % (36.0-66.0); PLATELET COUNT, AUTOMATED 168 10^3/uL (150-450); RED BLOOD COUNT 4.16 10^6/uL (4.30-6.10); WHITE BLOOD COUNT 8.1 10^3/uL (4.0-10.0)
--- NOTE | 2019-07-11 05:26 | IPN ---
DATE OF VISIT: 07/10/2019 SUBJECTIVE: The patient was seen and examined at the bedside today morning. He is afebrile, hemodynamically stable. His renal function continues to improve, creatinine is 1.2. He has a very good urine output. He made almost 5 liters of urine yesterday. He reports lower extremity edema is improving, blood pressures are within the acceptable range. OBJECTIVE: VITAL SIGNS: Temperature is 96.9 degrees Fahrenheit, blood pressure 107/56, pulses 88, respiratory of 18, saturating 98% on room air. Intake and output: Urine output recorded as 4.7 liters yesterday and was 800 mL in the morning when I saw him, weight in the bed scale is 99.2 kg. PHYSICAL EXAMINATION GENERAL: The patient is awake, alert, oriented times three, sitting up in the sofa in no apparent distress. HEAD/NECK: Extraocular muscles intact. Pupils equally round and reactive to light. Mucous membranes are moist. Neck is supple. There is mildly elevated jugular venous distention (JVD) . CARDIOVASCULAR: S1, S2, regular rate, 1+ edema of the bilateral lower extremities. RESPIRATORY: Chest is clear to auscultation bilaterally. Bilateral equal air entry. No rales or rhonchi. ABDOMEN: Soft, positive bowel sounds. Nontender. No organomegaly. MUSCULOSKELETAL: No clubbing or cyanosis. 1+ edema of the extremities as mentioned above. CENTRAL NERVOUS SYSTEM ([employer]): No focal deficit. Power is 5/5 in all extremities. LAB REVIEW: CBC showed WBC 8.3, hemoglobin 14.9, platelets of 175. BMP showed sodium 135, potassium 3.8, chloride 98, bicarb 28, BUN 23, creatinine is 1.26, total bilirubin is 6.9, AST is 89, ALT is 72, albumin is 2.7. CURRENT INPATIENT MEDICATIONS: The patient's medications were all reviewed by myself. - Coreg dose has been increased to 12.5 mg by mouth twice a day - Entresto dose is the same - he continues to be on torsemide 20 mg daily - spironolactone 25 mg oral daily ASSESSMENT/PLAN: 1. Acute kidney injury. It was cardiorenal in nature. Renal function has improved close to baseline. Creatinine has been fluctuating at 1.2, glomerular filtration rate (GFR) is more than 60. Okay to continue the diuretics at this time. 2. Acute decompensated combined systolic and diastolic congestive heart failure. The patient was aggressively diuresed with IV diuretics. He received a dose of metolazone two days ago. He is responding very well to a combination of Entresto, torsemide and spironolactone, the dose is adequate at this time. The rest of the management is as per the cardiology service and they are adjusting his Coreg and Entresto dosages. 3. Hyponatremia. It is hypovolemic hyponatremia. Sodium level would stay stable with the diuretics. 4. Congestive hepatopathy. This is secondary to heart failure and the patient also is admitting to heavy alcohol use. Liver function tests are slowly improving with improvement in the heart failure. The patient was advised to abstain from alcohol. 5. Hypokalemia. Potassium level is improved with use of spironolactone and potassium supplements. DISPOSITION: The patient's renal function has improved close to his baseline. He will need to follow up with the nephrology service two weeks after discharge from the hospital. At this point the nephrology service is going to sign off from the case. The patient is awaiting arrangement of a LifeVest before he gets discharged from the hospital.
[2019-07-11 05:47] LABS: ALBUMIN 2.4 GM/DL (3.2-5.2); ALT/SGPT 71 U/L (12-78); BILIRUBIN,TOTAL 5.7 MG/DL (0.2-1.0); BLOOD UREA NITROGEN 24 MG/DL (7-18); CALCIUM LEVEL 8.2 MG/DL (8.5-10.1); CARBON DIOXIDE LEVEL 31 MEQ/L (21-32); CHLORIDE LEVEL 101 MEQ/L (98-107); CREATININE FOR GFR 1.14 MG/DL (0.70-1.30); GLOMERULAR FILTRATION RATE > 60.0 (>60); GLUCOSE, FASTING 82 MG/DL (70-100); MAGNESIUM LEVEL 1.7 MG/DL (1.8-2.4); POTASSIUM SERUM 3.7 MEQ/L (3.5-5.1); SODIUM LEVEL 137 MEQ/L (136-145); TOTAL PROTEIN 6.4 GM/DL (6.4-8.2)
[2019-07-11] MEDS ORDERED: MAG SULF 1GM/100ML (MAG RUN) 1 GM in IV 1 EA IV ONE (06:00)
[2019-07-11 08:00] VITALS: BP 133/76
--- NOTE | 2019-07-11 08:03 | IPN ---
DATE: 07/11/2019 Mr. Roche continues to do reasonably well. He believes that he has come a long way since admission. He was able to ambulate on the progressive care unit (PCU) without difficulty. There has not been any nonsustained ventricular tachycardia (VT) yesterday. Vital Signs: Blood pressure 125/64, heart rate from 60s to 80s - mostly sinus rhythm with rare ectopy, saturation 95% on room air. Fluid balance yesterday was recorded as negative liter. Weight is 101 kg. He is alert, oriented and appropriate. His jugular venous pulse (JVP) is not up. Lungs are clear. Heart exam reveals somewhat muffled heart sounds, but nevertheless I do not appreciate any distinct gallop, rub or murmur. Extremities are by now essentially free of edema. Laboratories: CBC - hemoglobin 14, hematocrit 39, platelet count 168,000. Basic metabolic panel - sodium 137, potassium 3.7, BUN 24, creatinine 1.4, glucose 82, and albumin unfortunately is only 2.4. His current medications from the perspective of heart failure include torsemide 20 mg daily, Coreg 12.5 twice a day, spironolactone 25 mg daily and ENTRESTO 24/26 at twice a day. He also has been receiving a total 40 mEq of potassium daily. At this point, I believe he can be discharged home. Unfortunately, the request for coverage of LifeVest was denied by his insurance. I tried to call the insurance and appeal it, but unfortunately we were not able to get through. I will attempt it today. If we can get this reversed, then I think he could be fitted today. Otherwise, I will continue trying and we will fit him on an outpatient basis. I will see him in followup next week, but from my perspective he can be discharged home.
[2019-07-11] MEDS: MULTIVITAMINS/MINERALS THERAP 1 TAB PO SCH (08:30)
[2019-07-11] MEDS: TORSEMIDE 20 MG TAB PO SCH (08:30)
[2019-07-11] MEDS: POTASSIUM CHLORIDE 10 MEQ SR TABLET PO SCH ×2 (08:30→20:32)
[2019-07-11] MEDS: ENTRESTO 24-26MG TABLET (SACUBITRIL/VALSARTAN) PO SCH ×2 (08:30→20:32)
[2019-07-11] MEDS: SPIRONOLACTONE 25 MG TAB PO SCH (08:32)
[2019-07-11] MEDS: CARVedilol 12.5 MG TAB PO SCH ×2 (08:32→20:33)
[2019-07-11] MEDS: FOLIC ACID 1 MG TAB PO SCH (08:32)
[2019-07-11] MEDS: MAGNESIUM OXIDE 400 MG TAB (MAG-OX) PO SCH ×2 (08:33→20:32)
[2019-07-11 12:00] VITALS: BP 123/76
--- NOTE | 2019-07-11 15:08 | IPNPDOC ---
Text Note Date of Service The patient was seen on 07/11/19. NOTE Subjective: TOday he had an episode of dizziness in the morning and Telemetry showed a short run 6.2 sec of SVT. Has been walking in the corridor several times without any SOB. Good diuresis with negative balance. Loosing weight appropriately. Jaundice decreasing. Has a Cumulative negative balance of 31 liters. Has lost about 25 kgs. He is close to Euvolemia now. has trace swelling only of his feet. Objective: Vitals: see below, hemodynamically stable, afebrile General: sitting up in chair, no distress, jaundiced. HEENT: NCAT, icteric sclerae, clear oropharnyx Pulm: clear to auscultation with bilateral vesicular breath sounds. Cardiac: RRR, no murmurs or rubs or gallop Abd: Obese, no caput or distended veins, no palpable hepatosplenomegaly, no shifting dullness, non tender to palpation Ext: Edema much improved now only of th ankles. Neuro: AOx3, CN2-12 intact, otherwise 5/5 strength on exam throughout Psych: AOx3 Labs: Reviewed as below. Imaging: TTE: 1. Severe global left ventricular systolic dysfunction with a moderately enlarged left ventricle and severe diffuse hypokinesis. There are some features of left ventricular diastolic dysfunction, a restrictive mitral inflow pattern was noted. EF 20%. Second look by Dr Lentz. estimated to 10% to 15% 2. Mildly to moderately enlarged left atrium with moderate eccentric mitral regurgitation. 3. Moderate tricuspid regurgitation with dilated right heart chambers. The calculated pulmonary artery systolic pressure was normal, most likely underestimated. 4. There are features of elevated central venous pressure, the inferior vena cava was dilated. 5. Trace pericardial effusion,, no evidence of cardiac tamponade. CXR: Cardiomegaly Chest CT: 1. Cardiomegaly without pleural effusions. 2. Mild ground glass attenuation anteriorly at base of right middle lobe most likely due to subsegmental atelectasis. No evidence of pneumonia or congestive heart failure." CT A/P: Liver: There are no focal liver lesions present. Gallbladder and bile ducts: The gallbladder is unremarkable. Pancreas: The pancreas is unremarkable. Spleen: The spleen is unremarkable Adrenals: The adrenal glands are unremarkable. Kidneys and ureters: The kidneys are unremarkable. Stomach and bowel: There is no evidence of intestinal obstruction. Appendix: No evidence of appendicitis. Intraperitoneal space: Small volume of ascites. Vasculature: The aorta is unremarkable. Lymph nodes: Unremarkable. No enlarged lymph nodes. Mild anasarca. Bladder: The bladder is unremarkable. Reproductive: The prostate gland and seminal vesicles are unremarkable. Bones/joints: Skeletal degeneration. Soft tissues: Unremarkable. IMPRESSION: 1. Mild ascites and anasarca. 2. Cardiomegaly. 3. Solid organs are poorly evaluated on this noncontrast study. Abdominal US: Trace to minimal ascited. No comments on liver. Renal US: Scanning at the level of the urinary bladder demonstrates that it is essentially empty. Renal cortical echogenicity pattern is isoechoic with liver consistent with some degree of medical renal disease. No hydronephrosis seen on either side. No cyst or mass is observed. Right renal dimensions are 10.9 x 6.5 x 4.8 cm. Left kidney measures 13.3 x 6.4 x 6.2 cm. IMPRESSION: Slightly increased renal cortical echogenicity pattern. No hydronephrosis seen.Otherwise negative. Assessment: 39 yo M with a history of heavy alcohol consumption who presented jaundiced, with worsening SOB , cough and swelling of his legs for 3 weeks and found to have dilated cardiomyopathy wit decompensated HFrEF with an EF of 20%, what appears to be acute liver injury c/w probable alcoholic hepatitis without evidence of cirrhosis, s/p trial of aggressive diuresis and cardiac optimization c/b worsening KRISTIN, s/p dobutamine trial c/b NSVT however with improved BP and slowly improved creatinine. Hypoxemic respiratory failure: resolved, now back on room air. 2/2 decompensated Systolic and diastolic CHF. Acute systolic and diastolic CHF : dilated cardiomyopathy with EF of 10-15%, per cardiology reassessment of his TTE. Etiology most likely 2/2 alcohol. need to be evaluated for CAD after discharge. Cardiology following, Hydralazine and isosorbide stopped on Entresto , torsemide, spironolactone and betablocker dosage is being adjusted by cardiology Trying to arrange fro life with patient finanacial aid program. If it looks like it will be several days then will discharge him tomorrow while this is being addressed as outpateint. KRISTIN Due to cardiorenal syndrome. continues to improve with diuresis Cardiology onboard, appreciate recs Nephrology onboard, appreciate recs, renal US was without evidence of postobstructive nephropathy without hydronephrosis replete lytes PRN Acute liver injury Bilirubin now coming down. Possibly alcoholic hepatitis, fatty liver and congestive hepatopathy . Imaging does not suggest cirrhosis Imaging with unremarkable liver with noted mild ascites and generalized anasarca. Hep A, B, C were negative EBV IgG was positive for past infection, unlikely re-activation Thrombocytopenia: improved Likely 2/2 to alcohol mediated bone marrow suppresion, may have alcoholic chronic liver disease also. Alcohol use disorder s/p withdrawal Thiamine, Folic acid supplementation Mildly Elevated TSH sick euthyroid, to follow outpatient Dispo: Home in 24 hours. Pending life vest fitting. VS,Fishbone, I+O VS, Fishbone, I+O Laboratory Tests 07/11/19 04:57 Vital Signs Date Time Temp Pulse Resp B/P (MAP) Pulse Ox O2 Delivery O2 Flow Rate FiO2 07/11/19 12:00 96.9 77 16 123/76 (92) 97 Room Air l I&O- Last 24 Hours up to 6 AM 07/11/19 06:00 Intake Total 1350 ml Output Total 2190 ml Balance -840 ml JORGE L SHERMAN MD Jul 11, 2019 15:08
[2019-07-11 16:00] VITALS: BP 130/71
[2019-07-11] MEDS ORDERED: MAG400TA PO (18:07)
[2019-07-11] MEDS ORDERED: ALDA25TA2 PO (18:07)
[2019-07-11] MEDS ORDERED: CARV12.5 PO (18:07)
[2019-07-11] MEDS ORDERED: KLOR10TA76 PO (18:07)
[2019-07-11] MEDS ORDERED: FOLI1TAB11 PO (18:07)
[2019-07-11] MEDS ORDERED: TORS20TA2 PO (18:07)
[2019-07-11] MEDS ORDERED: VITMTA PO (18:07)
[2019-07-11 20:00] VITALS: BP 119/62
[2019-07-12] VITALS: BP 108/63
[2019-07-12 04:00] VITALS: BP 109/65
[2019-07-12 05:13] LABS: BASO # 0.1 10^3/uL (0.0-0.2); BASO % 0.7 % (0.0-1.0); EOS # 0.1 10^3/uL (0.0-0.5); EOS % 1.4 % (0.0-3.0); HEMATOCRIT 42.7 % (42.0-52.0); LYMPH # 1.4 10^3/uL (1.5-5.0); LYMPH % 19.3 % (24.0-44.0); MEAN CORPUSCULAR HEMOGLOBIN 33.2 pg (27.0-33.0); MEAN CORPUSCULAR HGB CONC 35.1 g/dl (32.0-36.5); MEAN CORPUSCULAR VOLUME 94.5 fl (80.0-96.0); MONO # 0.6 10^3/uL (0.0-0.8); MONO % 8.7 % (0.0-5.0); NEUTROPHILS % 68.1 % (36.0-66.0); PLATELET COUNT, AUTOMATED 190 10^3/uL (150-450); RED BLOOD COUNT 4.52 10^6/uL (4.30-6.10); WHITE BLOOD COUNT 7.3 10^3/uL (4.0-10.0)
[2019-07-12 05:34] LABS: ALBUMIN 2.8 GM/DL (3.2-5.2); ALT/SGPT 77 U/L (12-78); BILIRUBIN,TOTAL 5.3 MG/DL (0.2-1.0); BLOOD UREA NITROGEN 21 MG/DL (7-18); CALCIUM LEVEL 8.6 MG/DL (8.5-10.1); CARBON DIOXIDE LEVEL 26 MEQ/L (21-32); CHLORIDE LEVEL 103 MEQ/L (98-107); CREATININE FOR GFR 1.06 MG/DL (0.70-1.30); GLOMERULAR FILTRATION RATE > 60.0 (>60); GLUCOSE, FASTING 87 MG/DL (70-100); MAGNESIUM LEVEL 2.1 MG/DL (1.8-2.4); POTASSIUM SERUM 3.9 MEQ/L (3.5-5.1); SODIUM LEVEL 136 MEQ/L (136-145); TOTAL PROTEIN 7.4 GM/DL (6.4-8.2)
[2019-07-12 08:00] VITALS: BP 127/65
[2019-07-12 09:00] VITALS: BP 127/65
[2019-07-12] MEDS: MAGNESIUM OXIDE 400 MG TAB (MAG-OX) PO SCH (09:00)
[2019-07-12] MEDS: POTASSIUM CHLORIDE 10 MEQ SR TABLET PO SCH (09:00)
[2019-07-12] MEDS: MULTIVITAMINS/MINERALS THERAP 1 TAB PO SCH (09:00)
[2019-07-12] MEDS: TORSEMIDE 20 MG TAB PO SCH (09:00)
[2019-07-12] MEDS: CARVedilol 12.5 MG TAB PO SCH (09:00)
[2019-07-12] MEDS: ENTRESTO 24-26MG TABLET (SACUBITRIL/VALSARTAN) PO SCH (09:01)
[2019-07-12] MEDS: FOLIC ACID 1 MG TAB PO SCH (09:01)
[2019-07-12] MEDS: SPIRONOLACTONE 25 MG TAB PO SCH (09:01)
--- NOTE | 2019-07-23 10:50 | DS.PDOC ---
Discharge Summary General Date of Admission Jun 22, 2019 at 18:30 Date of Discharge 07/12/19 Discharge Summary PROCEDURES PERFORMED DURING STAY: ECHO: 1. Severe global left ventricular systolic dysfunction with a moderately enlarged left ventricle and severe diffuse hypokinesis. There are some features of left ventricular diastolic dysfunction, a restrictive mitral inflow pattern was noted. EF 20%. Second look by Dr Lentz. estimated to 10% to 15% 2. Mildly to moderately enlarged left atrium with moderate eccentric mitral regurgitation. 3. Moderate tricuspid regurgitation with dilated right heart chambers. The calculated pulmonary artery systolic pressure was normal, most likely underestimated. 4. There are features of elevated central venous pressure, the inferior vena cava was dilated. 5. Trace pericardial effusion,, no evidence of cardiac tamponade. 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 COMPLICATIONS/CHIEF COMPLAINT: Alcoholic Liver Disease Chf. HISTORY OF PRESENT ILLNESS: See history and physical HOSPITAL COURSE: 39 yo M with a history of heavy alcohol consumption who presented jaundiced, with worsening SOB , cough and swelling of his legs for 3 weeks and found to have dilated cardiomyopathy wit decompensated HFrEF with an EF of 20%, what appears to be acute liver injury c/w probable alcoholic hepatitis without evidence of cirrhosis, s/p trial of aggressive diuresis and cardiac optimization c/b worsening KRISTIN, s/p dobutamine trial c/b NSVT however with improved BP and slowly improved creatinine. Hypoxemic respiratory failure: resolved, now back on room air. 2/2 decompensated Systolic and diastolic CHF. Acute systolic and diastolic CHF : dilated cardiomyopathy with EF of 10-15%, per cardiology reassessment of his TTE. Etiology most likely 2/2 alcohol. need to be evaluated for CAD after discharge. Continue Entresto , torsemide, spironolactone and betablocker Had Life vest on discharge KRISTIN Due to cardiorenal syndrome. continues to improve with diuresis Renal US was without evidence of postobstructive nephropathy without hydronephrosis Acute liver injury Bilirubin now coming down. Possibly alcoholic hepatitis, fatty liver and congestive hepatopathy . Imaging does not suggest cirrhosis Imaging with unremarkable liver with noted mild ascites and generalized anasarca. Hep A, B, C were negative EBV IgG was positive for past infection, unlikely re-activation Thrombocytopenia: improved Likely 2/2 to alcohol mediated bone marrow suppresion, may have alcoholic ch ronic liver disease also. Alcohol use disorder s/p withdrawal Thiamine, Folic acid supplementation Discussed about absolutely no use of alcohol upon discharge for his heart function to improve. Mildly Elevated TSH sick euthyroid, to follow outpatient DISCHARGE MEDICATIONS: Please see below. ALLERGIES: Please see below. PHYSICAL EXAMINATION ON DISCHARGE: VITAL SIGNS: Please see below. General: sitting up in chair, no distress, jaundiced. HEENT: NCAT, icteric sclerae, clear oropharnyx Pulm: clear to auscultation with bilateral vesicular breath sounds. Cardiac: RRR, no murmurs or rubs or gallop Abd: Obese, no caput or distended veins, no palpable hepatosplenomegaly, no shifting dullness, non tender to palpation Ext: Edema much improved now only at the ankles. Neuro: AOx3, CN2-12 intact, otherwise 5/5 strength on exam throughout Psych: AOx3 LABORATORY DATA: Please see below. IMAGING: CXR: Cardiomegaly Chest CT: 1. Cardiomegaly without pleural effusions. 2. Mild ground glass attenuation anteriorly at base of right middle lobe most likely due to subsegmental atelectasis. No evidence of pneumonia or congestive heart failure." CT A/P: Liver: There are no focal liver lesions present. Gallbladder and bile ducts: The gallbladder is unremarkable. Pancreas: The pancreas is unremarkable. Spleen: The spleen is unremarkable Adrenals: The adrenal glands are unremarkable. Kidneys and ureters: The kidneys are unremarkable. Stomach and bowel: There is no evidence of intestinal obstruction. Appendix: No evidence of appendicitis. Intraperitoneal space: Small volume of ascites. Vasculature: The aorta is unremarkable. Lymph nodes: Unremarkable. No enlarged lymph nodes. Mild anasarca. Bladder: The bladder is unremarkable. Reproductive: The prostate gland and seminal vesicles are unremarkable. Bones/joints: Skeletal degeneration. Soft tissues: Unremarkable. IMPRESSION: 1. Mild ascites and anasarca. 2. Cardiomegaly. 3. Solid organs are poorly evaluated on this noncontrast study. Abdominal US: Trace to minimal ascites. No comments on liver. Renal US: Scanning at the level of the urinary bladder demonstrates that it is essentially empty. Renal cortical echogenicity pattern is isoechoic with liver consistent with some degree of medical renal disease. No hydronephrosis seen on either side. No cyst or mass is observed. Right renal dimensions are 10.9 x 6.5 x 4.8 cm. Left kidney measures 13.3 x 6.4 x 6.2 cm. IMPRESSION: Slightly increased renal cortical echogenicity pattern. No hydronephrosis seen.Otherwise negative. PROGNOSIS: Fair ACTIVITY: [As tolerated]. DIET: 1500mL/d oral f/r, 2g sodium. No eggs, velasquez, butter, lard. DISPOSITION: 01 Home, Self-Care. DISCHARGE INSTRUCTIONS: Follow up Dr Mabry in 1 week PMD in 2 weeks set up with [facility] in 2 weeks. DISCHARGE CONDITION: [Stable]. TIME SPENT ON DISCHARGE: 40 minutes. Vital Signs/I&Os Vital Signs Label Value Date Time Patient Temperature 97.1 degrees F 07/12/19 0800 Temperature Source Temporal 07/12/19 0800 Pulse 83 07/12/19 0900 Respiratory Rate 16 bpm 07/12/19 0800 Blood Pressure Assessment 127/65 (85) 07/12/19 0800 Bedside Pulse Oximetry 94 % 07/12/19 0800 Laboratory Data CBC/BMP Item Value Date Time White Blood Count 7.3 10^3/uL 07/12/19 0433 Red Blood Count 4.52 10^6/uL 07/12/19 0433 Hemoglobin 15.0 g/dl 07/12/19 0433 Hematocrit 42.7 % 07/12/19 0433 Mean Corpuscular Volume 94.5 fl 07/12/19 0433 Mean Corpuscular Hemoglobin 33.2 pg H 07/12/19 0433 Mean Corpuscular Hemoglobin Concent 35.1 g/dl 07/12/19 0433 Red Cell Distribution Width 18.2 % H 07/12/19 0433 Platelet Count 190 10^3/uL 07/12/19 0433 Immature Granulocyte % (Auto) 1.8 % 07/12/19 0433 Neutrophils (%) (Auto) 68.1 % H 07/12/19 0433 Lymphocytes (%) (Auto) 19.3 % L 07/12/19 0433 Monocytes (%) (Auto) 8.7 % H 07/12/19 0433 Eosinophils (%) (Auto) 1.4 % 1/22/20 0433 Basophils (%) (Auto) 0.7 % 07/12/19432 Neutrophils # (Auto) 5.0 10^3/uL 07/12/19432 Lymphocytes # (Auto) 1.4 10^3/uL L 07/12/19432 Monocytes # (Auto) 0.6 10^3/uL 07/12/19432 Eosinophils # (Auto) 0.1 10^3/uL 07/12/19432 Basophils # (Auto) 0.1 10^3/uL 07/12/19432 Nucleated Red Blood Cells % (auto) 0.0 % 07/12/19432 Sodium Level 136 MEQ/L 07/12/19432 Potassium Level 3.9 MEQ/L 07/12/19432 Chloride Level 103 MEQ/L 07/12/19432 Carbon Dioxide Level 26 MEQ/L 07/12/19432 Anion Gap 7 MEQ/L L 07/12/19432 Blood Urea Nitrogen 21 MG/DL H 07/12/19432 Creatinine 1.06 MG/DL 07/12/19432 Glomerular Filtration Rate > 60.0 07/12/19432 Fasting Glucose 87 MG/DL 07/12/19432 Calcium Level 8.6 MG/DL 07/12/19432 Magnesium Level 2.1 MG/DL 07/12/19432 Total Bilirubin 5.3 MG/DL H 07/12/19432 Aspartate Amino Transf (AST/SGOT) 83 U/L H 07/12/19432 Alanine Aminotransferase (ALT/SGPT) 77 U/L 07/12/19432 Alkaline Phosphatase 119 U/L H 07/12/19432 Total Protein 7.4 GM/DL 07/12/19432 Albumin 2.8 GM/DL L 07/12/19432 Albumin/Globulin Ratio 0.61 L 07/12/19432 Discharge Medications Scheduled Carvedilol (Carvedilol) 12.5 Mg Tablet, 12.5 MG PO BID Folic Acid (Folic Acid) 1 Mg Tablet, 1 MG PO DAILY Magnesium Oxide (Magnesium Oxide) 400 Mg Tablet, 400 MG PO DAILY Multivitamins (Thera M Plus Tablet) 1 Each Tablet, 1 TAB PO DAILY Potassium Chloride (Klor-Con M10) 10 Meq Tab.er.prt, 20 MEQ PO DAILY Sacubitril/Valsartan (Entresto 24 mg-26 mg Tablet) 1 Each Tablet, 1 TAB PO BID Spironolactone (Aldactone) 25 Mg Tablet, 25 MG PO QAM Torsemide (Torsemide) 20 Mg Tablet, 20 MG PO DAILY Allergies Coded Allergies: No Known Allergies (Verified Allergy, Unknown, 06/22/19) JORGE L SHERMAN MD Jul 22, 2019 11:07
== END 2019-07-12 15:10 | disposition home or self-care (01) | DRG 194 ==
LOC: EDBD 16:14 → M ED 16:14 → M ED INP 18:30 → ENRESERV 18:50 → M MSPAV 19:50 → M PCU 06-26 19:57
PROVIDERS: ADMIT Internal Medicine Nephrology; ATTEND Internal Medicine Nephrology
PROC: 02HV33Z Insertion of Infusion Device into Superior Vena Cava, Percutaneous Approach (ICD-10-PCS; principal; 2019-06-30 17:00)
DX: I13.0 Hypertensive heart and chronic kidney disease with heart failure and stage 1 through stage 4 chronic kidney disease, or unspecified chronic kidney disease (principal); J96.01 Acute respiratory failure with hypoxia; K76.7 Hepatorenal syndrome; I50.43 Acute on chronic combined systolic (congestive) and diastolic (congestive) heart failure; D69.6 Thrombocytopenia, unspecified; I42.6 Alcoholic cardiomyopathy; N17.9 Acute kidney failure, unspecified; E87.1 Hypo-osmolality and hyponatremia; N18.3 Chronic kidney disease, stage 3 (moderate); K70.31 Alcoholic cirrhosis of liver with ascites; I08.1 Rheumatic disorders of both mitral and tricuspid valves; E83.42 Hypomagnesemia; K70.11 Alcoholic hepatitis with ascites; Z87.891 Personal history of nicotine dependence; E87.6 Hypokalemia; Z79.899 Other long term (current) drug therapy; I48.91 Unspecified atrial fibrillation; F10.239 Alcohol dependence with withdrawal, unspecified; E07.81 Sick-euthyroid syndrome

== ENCOUNTER → 2019-06-22 | Outpatient (CLI) | payer BC ==
--- NOTE | 2019-06-22 15:25 | REP ---
Clinical: Cough. Technique: PA and lateral. Comparison: 01/04/2010. Findings: Cardiomegaly is suggested and requires correlation. Coarsened markings suggest chronic reactive airway disease and/or bronchitis. Subtle right basilar atelectasis cannot be excluded. No effusion. No pneumothorax. Skeletal structures intact. Impression: 1. Cardiomegaly suspected. 2. Coarsened markings may reflect bronchitis with possible subtle right basilar atelectasis. Electronically Signed by Shad Saxena MD 06/22/2019 03:17 P
== END ==
LOC: M ADAMS 14:56
PROVIDERS: ATTEND Physician Assistant
DX: R91.8 Other nonspecific abnormal finding of lung field (principal); R05 Cough; R50.9 Fever, unspecified

== ENCOUNTER → 2019-07-25 | Outpatient (REF) | payer BC ==
[~2019-07-25] MED LIST: ALDA25TA2 PO; CARV12.5 PO; ENTR1TAB PO; FOLI1TAB11 PO; KLOR10TA76 PO; MAG400TA PO; TORS20TA2 PO; VITMTA PO
[2019-07-25 14:48] LABS: HEMATOCRIT 47.4 % (42.0-52.0); HEMOGLOBIN 15.3 g/dl (13.5-17.5); MEAN CORPUSCULAR HEMOGLOBIN 32.4 pg (27.0-33.0); MEAN CORPUSCULAR HGB CONC 32.3 g/dl (32.0-36.5); MEAN CORPUSCULAR VOLUME 100.4 fl (80.0-96.0); PLATELET COUNT, AUTOMATED 263 10^3/uL (150-450); RED BLOOD COUNT 4.72 10^6/uL (4.30-6.10); WHITE BLOOD COUNT 6.6 10^3/uL (4.0-10.0)
[2019-07-25 14:54] LABS: ALBUMIN 3.7 GM/DL (3.2-5.2); ALT/SGPT 41 U/L (12-78); BILIRUBIN,TOTAL 1.5 MG/DL (0.2-1.0); BLOOD UREA NITROGEN 14 MG/DL (7-18); CALCIUM LEVEL 9.7 MG/DL (8.5-10.1); CARBON DIOXIDE LEVEL 29 MEQ/L (21-32); CHLORIDE LEVEL 104 MEQ/L (98-107); CREATININE FOR GFR 1.04 MG/DL (0.70-1.30); GLOMERULAR FILTRATION RATE > 60.0 (>60); GLUCOSE, FASTING 91 MG/DL (70-100); MAGNESIUM LEVEL 1.9 MG/DL (1.8-2.4); POTASSIUM SERUM 4.8 MEQ/L (3.5-5.1); SODIUM LEVEL 139 MEQ/L (136-145); TOTAL PROTEIN 8.2 GM/DL (6.4-8.2)
== END ==
LOC: M SFHCADAM 12:14
PROVIDERS: ATTEND Physician Assistant
DX: I42.6 Alcoholic cardiomyopathy (principal); I50.22 Chronic systolic (congestive) heart failure; F10.11 Alcohol abuse, in remission

== ENCOUNTER → 2019-08-08 | Outpatient (REF) | payer BC ==
[2019-08-08 19:14] LABS: ALBUMIN 3.8 GM/DL (3.2-5.2); ALT/SGPT 26 U/L (12-78); BILIRUBIN,TOTAL 0.9 MG/DL (0.2-1.0); BLOOD UREA NITROGEN 15 MG/DL (7-18); C REACTIVE PROTEIN QUANTITATIV 1.89 MG/DL (0.00-0.30); CALCIUM LEVEL 9.4 MG/DL (8.5-10.1); CARBON DIOXIDE LEVEL 31 MEQ/L (21-32); CHLORIDE LEVEL 102 MEQ/L (98-107); CREATININE FOR GFR 0.91 MG/DL (0.70-1.30); GLOMERULAR FILTRATION RATE > 60.0 (>60); GLUCOSE, FASTING 81 MG/DL (70-100); POTASSIUM SERUM 4.5 MEQ/L (3.5-5.1); RHEUMATOID FACTOR QUANT < 10.0 IU/ML (<15.0); SODIUM LEVEL 136 MEQ/L (136-145); TOTAL PROTEIN 8.2 GM/DL (6.4-8.2); URIC ACID 9.1 MG/DL (3.5-7.2)
== END ==
LOC: M SFHCADAM 15:20
PROVIDERS: ATTEND Physician Assistant
DX: M10.9 Gout, unspecified (principal)

== ENCOUNTER → 2019-12-13 | Outpatient (REF) | payer BC ==
[2019-12-13 19:10] LABS: APPEARANCE, URINE CLEAR (CLEAR); BACTERIA, URINE AUTO NEGATIVE (NEGATIVE); BILIRUBIN, URINE AUTO NEGATIVE (NEGATIVE); BLOOD, URINE BLOOD NEGATIVE (NEGATIVE); COLOR, URINE YELLOW (YELLOW); GLUCOSE, URINE (UA) AUTO NEGATIVE (NEGATIVE); KETONE, URINE AUTO NEGATIVE (NEGATIVE); LEUKOCYTE ESTERASE, URINE AUTO NEGATIVE (NEGATIVE); NITRITE, URINE AUTO NEGATIVE (NEGATIVE); PROTEIN, URINE AUTO NEGATIVE (NEGATIVE); RBC, URINE AUTO 0 /HPF (0-3); SPECIFIC GRAVITY URINE AUTO 1.019 (1.002-1.035); SQUAMOUS EPITHELIAL CELL UR AU 0 /HPF (0-6); UROBILINOGEN, URINE AUTO 0.2 mg/dL (0.0-2.0); WBC, URINE AUTO 0 /HPF (0-3)
[2019-12-15 18:08] LABS: Lyme Disease IgG/IgM Antibodie <0.91 ISR (0.00-0.90); Lyme Disease IgM Ab Quantitati <0.80 index (0.00-0.79)
== END ==
LOC: M SFHCADAM 15:25
PROVIDERS: ATTEND Physician Assistant
DX: M54.6 Pain in thoracic spine (principal)

== ENCOUNTER → 2019-12-13 | Outpatient (CLI) | payer BC ==
--- NOTE | 2019-12-14 00:21 | REP ---
THORACIC SPINE: Three AP and lateral views of thoracic spine performed. No compression fracture or malalignment is visualized. There is normal thoracic kyphosis. There is mild diffuse spurring. There is slight disc space narrowing and subchondral sclerosis at all levels. Posterior elements appear intact. IMPRESSION: Mild diffuse degenerative changes with no fracture or dislocation. Electronically Signed by Benjamín Gale MD 12/14/2019 09:19 A
--- NOTE | 2019-12-14 00:30 | REP ---
LUMBOSACRAL SPINE SERIES: Five views of lumbosacral spine are performed. No compression fracture or malalignment is seen. There is normal lumbar lordosis. There is mild diffuse spurring. There is mild disc space narrowing and subchondral sclerosis at L1-2, L2-3, and L5-S1. There is sclerosis and spurring at the posterior facets of L5-S1. The posterior elements are intact. IMPRESSION: Mild degenerative changes without fracture or dislocation. Electronically Signed by Benjamín Gale MD 12/14/2019 09:21 A
== END ==
LOC: M ADAMS 15:35
PROVIDERS: ATTEND Physician Assistant
DX: M51.37 Other intervertebral disc degeneration, lumbosacral region (principal)

== ENCOUNTER → 2023-01-12 | Outpatient (REF) | payer BC ==
[~2023-01-12] MED LIST changes: -KLOR10TA76 PO; -MAG400TA PO; +MAGN400T35 PO; +POTA-136 PO
[2023-01-12 17:02] LABS: ALBUMIN 3.6 G/DL (3.2-5.2); ALKALINE PHOSPHATASE 75 U/L (46-116); ALT/SGPT 116 U/L (7.0-40); AST/SGOT 211 U/L (<34); BILIRUBIN,TOTAL 0.8 MG/DL (0.3-1.2); BLOOD UREA NITROGEN 12 MG/DL (9-23); CALCIUM LEVEL 8.6 MG/DL (8.5-10.1); CARBON DIOXIDE LEVEL 21 MMOL/L (20-31); CHLORIDE LEVEL 98 MMOL/L (98-107); CREATININE FOR GFR 1.09 MG/DL (0.70-1.30); GLOMERULAR FILTRATION RATE > 60.0 (>60); GLUCOSE, FASTING 92 MG/DL (60-100); POTASSIUM SERUM 4.7 MMOL/L (3.5-5.1); SODIUM LEVEL 133 MMOL/L (136-145); TOTAL PROTEIN 7.1 G/DL (5.7-8.2)
== END ==
LOC: M LABDRWAD 15:56
PROVIDERS: ATTEND Nurse Practitioner Family
DX: I42.0 Dilated cardiomyopathy (principal)

== ENCOUNTER 2023-12-29 16:38 | Inpatient (IN) | payer BC, MEDICAID, SELFPAY ==
[~2023-12-29] VITALS: Ht 185.4 cm; Wt 127.1 kg
[2023-12-29 18:17] LABS: VENOUS BASE EXCESS -6.3 (-2.0-2.0); VENOUS HCO3 17.4 MMOL/L (23.0-27.0); VENOUS PARTIAL PRESSURE CO2 30.1 mmHg (38.0-50.0); VENOUS PARTIAL PRESSURE O2 41.1 mmHg (30.0-50.0); VENOUS PH 7.381 UNITS (7.330-7.430); VENOUS STANDARD HCO3 18.7 MMOL/L; VENOUS TOTAL CO2 18.4 MMOL/L (24.0-28.0)
[2023-12-29 18:29] LABS: BASO # 0.1 10^3/uL (0.0-0.2); EOS % 0.2 % (0.0-3.0); HEMATOCRIT 38.2 % (42.0-52.0); HEMOGLOBIN 13.5 g/dl (13.5-17.5); LYMPH # 1.2 10^3/uL (1.5-5.0); LYMPH % 22.5 % (24.0-44.0); MEAN CORPUSCULAR HEMOGLOBIN 36.4 pg (27.0-33.0); MEAN CORPUSCULAR HGB CONC 35.3 g/dl (32.0-36.5); MONO # 0.7 10^3/uL (0.0-0.8); MONO % 12.8 % (2.0-8.0); NEUTROPHILS # 3.2 10^3/uL (1.5-8.5); NEUTROPHILS % 61.6 % (36.0-66.0); PLATELET COUNT, AUTOMATED 123 10^3/uL (150-450); RED BLOOD COUNT 3.71 10^6/uL (4.30-6.10); WHITE BLOOD COUNT 5.3 10^3/uL (4.0-10.0)
[2023-12-29 19:50] LABS: CK-MB VALUE MASS 2.7 NG/ML (<3.6)
[2023-12-29 19:52] LABS: CPK CREATINE PHOSPHOKINASE 129 U/L (46-171); MB/CK RELATIVE INDEX 2.09 (< OR =4)
[2023-12-29 19:55] LABS: THYROID STIMULATING HORMONE 7.352 uIU/ML (0.55-4.78)
[2023-12-29 19:58] LABS: ALBUMIN 2.8 G/DL (3.2-5.2); ALKALINE PHOSPHATASE 196 U/L (46-116); ALT/SGPT 165 U/L (7.0-40); AST/SGOT 352 U/L (<34); BILIRUBIN,DIRECT 1.3 MG/DL (<0.4); BILIRUBIN,TOTAL 2.1 MG/DL (0.3-1.2); BLOOD UREA NITROGEN 11 MG/DL (9-23); CALCIUM LEVEL 8.4 MG/DL (8.5-10.1); CARBON DIOXIDE LEVEL 21 MMOL/L (20-31); CHLORIDE LEVEL 101 MMOL/L (98-107); CREATININE FOR GFR 0.92 MG/DL (0.70-1.30); GLOMERULAR FILTRATION RATE > 60.0 (>60); GLUCOSE, FASTING 112 MG/DL (60-100); POTASSIUM SERUM 4.3 MMOL/L (3.5-5.1); SODIUM LEVEL 131 MMOL/L (136-145); TOTAL PROTEIN 6.3 G/DL (5.7-8.2)
[2023-12-29] MEDS: NS 500 ML IV ONE (20:12)
[2023-12-29] MEDS ORDERED: ISOVUE-370 76% 100ML VIAL As Ordered ONE (20:34)
[2023-12-29 21:53] LABS: CK-MB VALUE MASS 2.6 NG/ML (<3.6); MB/CK RELATIVE INDEX 1.85 (< OR =4)
[2023-12-29] MEDS ORDERED: HOME MED LIST COMPLETE! XX SCH (23:00)
[2023-12-29] MEDS ORDERED: ACETAMINOPHEN TAB 650MG DOSE (2X325MG) PO PRN (23:35)
[2023-12-29] MEDS: FUROSEMIDE 100MG/10ML VIAL IV ONE (23:45)
[2023-12-30] VITALS (12 sets, daily range): BP systolic 132–157; BP diastolic 78–95; PULSE 107; TEMP 97–98.4; O2SAT 96–98
[2023-12-30 01:01] LABS: INR 1.27; PROTHROMBIN TIME 15.5 SECONDS (12.5-14.5)
[2023-12-30] MEDS: LORazepam 2 MG TAB PO PRN (04:25)
[2023-12-30] MEDS: FUROSEMIDE 100MG/10ML VIAL IV SCH (05:50)
[2023-12-30] MEDS: OXAZEPAM 15MG CAP PO ONE (05:51)
[2023-12-30 08:34] LABS: ALBUMIN 3.1 G/DL (3.2-5.2); ALKALINE PHOSPHATASE 204 U/L (46-116); ALT/SGPT 164 U/L (7.0-40); AST/SGOT 303 U/L (<34); BILIRUBIN,DIRECT 1.8 MG/DL (<0.4); BILIRUBIN,TOTAL 3.6 MG/DL (0.3-1.2); BLOOD UREA NITROGEN 9 MG/DL (9-23); CALCIUM LEVEL 8.7 MG/DL (8.5-10.1); CARBON DIOXIDE LEVEL 25 MMOL/L (20-31); CHLORIDE LEVEL 99 MMOL/L (98-107); CREATININE FOR GFR 0.82 MG/DL (0.70-1.30); GLOMERULAR FILTRATION RATE > 60.0 (>60); GLUCOSE, FASTING 108 MG/DL (60-100); MAGNESIUM LEVEL 1.4 MG/DL (1.8-2.4); POTASSIUM SERUM 3.4 MMOL/L (3.5-5.1); SODIUM LEVEL 138 MMOL/L (136-145); TOTAL PROTEIN 6.8 G/DL (5.7-8.2)
[2023-12-30] MEDS: FOLIC ACID 1MG TAB PO SCH (09:32)
[2023-12-30] MEDS: MULTIVITAMINS/MINERALS THERAP 1 TAB PO SCH (09:32)
[2023-12-30] MEDS: ENOXAPARIN 40MG/0.4ML SYRINGE (J1650 PER 10MG) SC SCH (09:32)
[2023-12-30 11:37] LABS: IRON (FE) 207 UG/DL (65-175)
[2023-12-30 11:38] LABS: PERCENT SATURATION 67.4 % (19.7-50.0); TOTAL IRON BINDING CAPACITY 307 UG/DL (250-425)
[2023-12-30 11:39] LABS: FOLATE 8.47 NG/ML (>5.4); VITAMIN B12 LEVEL 597 PG/ML (211-911)
[2023-12-30 11:40] LABS: FERRITIN 341.5 NG/ML (10.5-307.3)
[2023-12-30 11:46] LABS: HEPATITIS B SURFACE ANTIGEN NEGATIVE (NEGATIVE)
[2023-12-30 12:07] LABS: HEPATITIS C VIRUS ABY INDEX < 0.02 INDEX (<0.8)
[2023-12-30 12:08] LABS: HEPATITIS B CORE ANTIBODY IGM NEGATIVE (NEGATIVE)
[2023-12-30] MEDS: POTASSIUM CHLORIDE 10MEQ SR TABLET PO ONE (12:40)
[2023-12-30] MEDS: MAG SULF 1GM/100ML (MAG RUN) 1 GM in IV 1 EA IV SCH (12:41)
[2023-12-30] MEDS: GABAPENTIN 300 MG CAP PO SCH (14:55)
[2023-12-30] MEDS: MAGNESIUM OXIDE 400MG TAB (MAG-OX) PO SCH (14:55)
[2023-12-30] MEDS: OXAZEPAM 15MG CAP PO SCH (14:58)
[2023-12-30] MEDS: THIAMINE 100 MG TAB PO SCH (20:23)
[2023-12-31] VITALS (11 sets, daily range): BP systolic 102–146; BP diastolic 70–90; TEMP 97.2–99.2; O2SAT 93–97
[2023-12-31 06:37] LABS: HEMATOCRIT 41.4 % (42.0-52.0); HEMOGLOBIN 14.2 g/dl (13.5-17.5); MEAN CORPUSCULAR HEMOGLOBIN 35.9 pg (27.0-33.0); MEAN CORPUSCULAR HGB CONC 34.3 g/dl (32.0-36.5); MEAN CORPUSCULAR VOLUME 104.8 fl (80.0-96.0); PLATELET COUNT, AUTOMATED 117 10^3/uL (150-450); RED BLOOD COUNT 3.95 10^6/uL (4.30-6.10); WHITE BLOOD COUNT 5.2 10^3/uL (4.0-10.0)
[2023-12-31 06:46] LABS: INR 1.24; PROTHROMBIN TIME 15.3 SECONDS (12.5-14.5)
[2023-12-31 06:47] LABS: ALBUMIN 2.7 G/DL (3.2-5.2); ALKALINE PHOSPHATASE 175 U/L (46-116); ALT/SGPT 122 U/L (7.0-40); AST/SGOT 186 U/L (<34); BILIRUBIN,DIRECT 1.8 MG/DL (<0.4); BILIRUBIN,TOTAL 3.5 MG/DL (0.3-1.2); BLOOD UREA NITROGEN 11 MG/DL (9-23); CALCIUM LEVEL 7.9 MG/DL (8.5-10.1); CARBON DIOXIDE LEVEL 32 MMOL/L (20-31); CHLORIDE LEVEL 95 MMOL/L (98-107); CREATININE FOR GFR 0.89 MG/DL (0.70-1.30); GLOMERULAR FILTRATION RATE > 60.0 (>60); GLUCOSE, FASTING 112 MG/DL (60-100); MAGNESIUM LEVEL 1.4 MG/DL (1.8-2.4); SODIUM LEVEL 137 MMOL/L (136-145); TOTAL PROTEIN 6.1 G/DL (5.7-8.2)
[2023-12-31] MEDS: MAG SULF 1GM/100ML (MAG RUN) 1 GM in IV 1 EA IV SCH (08:34)
[2023-12-31] MEDS: POTASSIUM CHLORIDE 10MEQ SR TABLET PO SCH (08:34)
[2023-12-31] MEDS: ENTRESTO 24-26MG TABLET (SACUBITRIL/VALSARTAN) PO SCH (15:28)
[2023-12-31] MEDS: SPIRONOLACTONE 25 MG TAB PO SCH (15:28)
[2023-12-31] MEDS: ASPIRIN 81MG CHEW TABLET PO SCH (15:28)
[2023-12-31] MEDS: FUROSEMIDE 100MG/10ML VIAL IV SCH (16:53)
[2023-12-31 19:24] LABS: BLOOD UREA NITROGEN 15 MG/DL (9-23); CALCIUM LEVEL 8.4 MG/DL (8.5-10.1); CARBON DIOXIDE LEVEL 29 MMOL/L (20-31); CHLORIDE LEVEL 98 MMOL/L (98-107); CREATININE FOR GFR 1.05 MG/DL (0.70-1.30); GLOMERULAR FILTRATION RATE > 60.0 (>60); GLUCOSE, FASTING 142 MG/DL (60-100); POTASSIUM SERUM 3.1 MMOL/L (3.5-5.1); SODIUM LEVEL 136 MMOL/L (136-145)
[2024-01-01] MEDS: POTASSIUM CHLORIDE 10MEQ SR TABLET PO ONE (00:50)
[2024-01-01 03:57] VITALS: BP 107/71; TEMP 97.6; O2SAT 98
[2024-01-01 07:02] LABS: HEMATOCRIT 44.5 % (42.0-52.0); MEAN CORPUSCULAR HEMOGLOBIN 35.4 pg (27.0-33.0); MEAN CORPUSCULAR HGB CONC 33.7 g/dl (32.0-36.5); PLATELET COUNT, AUTOMATED 125 10^3/uL (150-450); RED BLOOD COUNT 4.24 10^6/uL (4.30-6.10); WHITE BLOOD COUNT 5.5 10^3/uL (4.0-10.0)
[2024-01-01 07:19] LABS: ALBUMIN 2.5 G/DL (3.2-5.2); ALKALINE PHOSPHATASE 160 U/L (46-116); ALT/SGPT 93 U/L (7.0-40); AST/SGOT 113 U/L (<34); BILIRUBIN,DIRECT 1.3 MG/DL (<0.4); BILIRUBIN,TOTAL 2.4 MG/DL (0.3-1.2); BLOOD UREA NITROGEN 13 MG/DL (9-23); CALCIUM LEVEL 8.2 MG/DL (8.5-10.1); CARBON DIOXIDE LEVEL 25 MMOL/L (20-31); CHLORIDE LEVEL 101 MMOL/L (98-107); CREATININE FOR GFR 0.97 MG/DL (0.70-1.30); GLOMERULAR FILTRATION RATE > 60.0 (>60); GLUCOSE, FASTING 110 MG/DL (60-100); POTASSIUM SERUM 3.5 MMOL/L (3.5-5.1); SODIUM LEVEL 137 MMOL/L (136-145); TOTAL PROTEIN 5.8 G/DL (5.7-8.2)
[2024-01-01 07:24] VITALS: BP 108/70; TEMP 97; O2SAT 94
[2024-01-01] MEDS ORDERED: METO1TAB32 PO (08:10)
[2024-01-01] MEDS ORDERED: ALDA25TA2 PO (08:10)
[2024-01-01] MEDS ORDERED: FURO40TA2 PO (08:10)
[2024-01-01] MEDS ORDERED: ENTR1TAB PO (08:10)
[2024-01-01] MEDS ORDERED: METOPROLOL SUCC *XL* 12.5MG PER 1/2 TAB (TopROL *XL*) PO SCH (09:00)
[2024-01-01] MEDS: METOPROLOL SUCC *XL* 25MG TAB (TopROL *XL*) PO SCH (10:12)
[2024-01-01 11:24] VITALS: BP 103/68; TEMP 96.3; O2SAT 95
[2024-01-01 11:32] LABS: CHOLESTEROL LEVEL 156 MG/DL (<200); CHOLESTEROL RISK RATIO 5.61 (<5); HDL CHOLESTEROL 27.8 MG/DL (>40); LDL CHOLESTEROL 100.2 MG/DL (<100); NON-HDL-C 128.2 MG/DL; TRIGLYCERIDES LEVEL 140 MG/DL (<150)
[2024-01-01] MEDS ORDERED: PILL CUTTER 1 EACH XX PRN (15:20)
[2024-01-01 19:55] VITALS: BP 111/72; TEMP 97.5; O2SAT 97
[2024-01-01 20:21] VITALS: BP 111/72
[2024-01-01] MEDS: VALSARTAN 40MG TABLET (DIOVAN) PO SCH (20:21)
[2024-01-02 03:43] VITALS: BP 102/67; TEMP 97.3; O2SAT 96
[2024-01-02 06:34] LABS: HEMATOCRIT 42.4 % (42.0-52.0); HEMOGLOBIN 14.5 g/dl (13.5-17.5); MEAN CORPUSCULAR HEMOGLOBIN 36.1 pg (27.0-33.0); MEAN CORPUSCULAR HGB CONC 34.2 g/dl (32.0-36.5); MEAN CORPUSCULAR VOLUME 105.5 fl (80.0-96.0); PLATELET COUNT, AUTOMATED 125 10^3/uL (150-450); RED BLOOD COUNT 4.02 10^6/uL (4.30-6.10); WHITE BLOOD COUNT 5.8 10^3/uL (4.0-10.0)
[2024-01-02 06:56] LABS: ALBUMIN 2.5 G/DL (3.2-5.2); ALKALINE PHOSPHATASE 150 U/L (46-116); ALT/SGPT 80 U/L (7.0-40); AST/SGOT 86 U/L (<34); BILIRUBIN,DIRECT 0.9 MG/DL (<0.4); BILIRUBIN,TOTAL 1.6 MG/DL (0.3-1.2); BLOOD UREA NITROGEN 18 MG/DL (9-23); CALCIUM LEVEL 8.8 MG/DL (8.5-10.1); CARBON DIOXIDE LEVEL 24 MMOL/L (20-31); CHLORIDE LEVEL 103 MMOL/L (98-107); CREATININE FOR GFR 1.04 MG/DL (0.70-1.30); GLOMERULAR FILTRATION RATE > 60.0 (>60); GLUCOSE, FASTING 104 MG/DL (60-100); POTASSIUM SERUM 3.9 MMOL/L (3.5-5.1); SODIUM LEVEL 135 MMOL/L (136-145); TOTAL PROTEIN 5.8 G/DL (5.7-8.2)
[2024-01-02 07:32] VITALS: BP 115/82; TEMP 97.4; O2SAT 95
[2024-01-02] MEDS ORDERED: POTA-136 PO (09:44)
[2024-01-02] MEDS ORDERED: METO1TAB7 PO (09:44)
[2024-01-02] MEDS ORDERED: MAGN400T2 PO (09:44)
[2024-01-02] MEDS ORDERED: ASPI81CH8 PO (09:44)
[2024-01-02] MEDS ORDERED: ACAM0.05 PO (09:44)
[2024-01-02] MEDS ORDERED: ATOR40TA75 PO (09:44)
[2024-01-02] MEDS ORDERED: DIOV40TA PO (09:44)
== END 2024-01-02 11:30 | disposition home or self-care (01) | DRG 194 ==
LOC: M ED 16:38 → M ED INP 23:32 → M PCU 12-30 04:05
PROVIDERS: ADMIT Internal Medicine; ATTEND Student in an Organized Health Care Education/Training Program
DX: I50.23 Acute on chronic systolic (congestive) heart failure (principal); I21.A1 Myocardial infarction type 2; I47.20 Ventricular tachycardia, unspecified; E87.20 Acidosis, unspecified; K70.30 Alcoholic cirrhosis of liver without ascites; K70.10 Alcoholic hepatitis without ascites; E87.6 Hypokalemia; E02 Subclinical iodine-deficiency hypothyroidism; I25.10 Atherosclerotic heart disease of native coronary artery without angina pectoris; L40.8 Other psoriasis; Z91.148 Patient's other noncompliance with medication regimen for other reason; D75.89 Other specified diseases of blood and blood-forming organs; N62 Hypertrophy of breast; Z79.899 Other long term (current) drug therapy; Z79.82 Long term (current) use of aspirin; F17.210 Nicotine dependence, cigarettes, uncomplicated

== ENCOUNTER → 2024-01-05 | Outpatient (REF) | payer OTHER ==
[~2024-01-05] MED LIST changes: +ACAM0.05 PO; +ASPI81CH8 PO; +ATOR40TA75 PO; +DIOV40TA PO; +FURO40TA2 PO; +MAGN400T2 PO; +METO1TAB32 PO; +METO1TAB7 PO
== END ==
LOC: M SFHCPLAZ 10:27
PROVIDERS: ATTEND Family Medicine
DX: I50.9 Heart failure, unspecified (principal)

== ENCOUNTER → 2024-01-12 | Outpatient (REF) | payer MEDICAID, OTHER, SELFPAY ==
[2024-01-12 18:40] LABS: ALBUMIN 3.3 G/DL (3.2-5.2); ALKALINE PHOSPHATASE 127 U/L (46-116); ALT/SGPT 55 U/L (7.0-40); AST/SGOT 74 U/L (<34); BILIRUBIN,TOTAL 0.8 MG/DL (0.3-1.2); BLOOD UREA NITROGEN 11 MG/DL (9-23); CALCIUM LEVEL 9.3 MG/DL (8.5-10.1); CARBON DIOXIDE LEVEL 28 MMOL/L (20-31); CHLORIDE LEVEL 104 MMOL/L (98-107); CREATININE FOR GFR 1.06 MG/DL (0.70-1.30); GLOMERULAR FILTRATION RATE > 60.0 (>60); GLUCOSE, FASTING 112 MG/DL (60-100); POTASSIUM SERUM 4.2 MMOL/L (3.5-5.1); SODIUM LEVEL 138 MMOL/L (136-145)
== END ==
LOC: M SFHCPLAZ 10:58
PROVIDERS: ATTEND Family Medicine
DX: I50.9 Heart failure, unspecified (principal)

== ENCOUNTER → 2024-01-17 | Outpatient (REF) | payer MEDICAID | LOC: M SFHCPLAZ 16:45 | DX: F10.11 Alcohol abuse, in remission (principal); Z13.220 Encounter for screening for lipoid disorders ==

== ENCOUNTER 2024-07-10 19:32 | Inpatient (IN) | payer MEDICAID, OTHER ==
[~2024-07-10] VITALS: Ht 185.4 cm; Wt 113.4 kg
[2024-07-10 20:05] LABS: BASO % 0.5 % (0.0-1.0); EOS % 0.3 % (0.0-3.0); HEMATOCRIT 42.2 % (42.0-52.0); HEMOGLOBIN 14.8 g/dl (13.5-17.5); LYMPH # 1.6 10^3/uL (1.5-5.0); MEAN CORPUSCULAR HEMOGLOBIN 34.7 pg (27.0-33.0); MEAN CORPUSCULAR HGB CONC 35.1 g/dl (32.0-36.5); MEAN CORPUSCULAR VOLUME 99.1 fl (80.0-96.0); MONO # 0.7 10^3/uL (0.0-0.8); NEUTROPHILS # 3.5 10^3/uL (1.5-8.5); NEUTROPHILS % 59.9 % (36.0-66.0); PLATELET COUNT, AUTOMATED 145 10^3/uL (150-450); RED BLOOD COUNT 4.26 10^6/uL (4.30-6.10); WHITE BLOOD COUNT 5.9 10^3/uL (4.0-10.0)
[2024-07-10] MEDS: FUROSEMIDE 40MG/4ML VIAL IV ONE (20:30)
[2024-07-10] MEDS: NITROGLYCERIN 2% OINT 1 GM *U/D* PKT TOP ONE (20:32)
[2024-07-10 20:39] LABS: CK-MB VALUE MASS 3.9 NG/ML (<3.6)
[2024-07-10 20:46] LABS: ALBUMIN 3.4 G/DL (3.2-5.2); ALKALINE PHOSPHATASE 150 U/L (40-129); ALT/SGPT 63 U/L (7.0-40); AST/SGOT 106 U/L (<34); BILIRUBIN,DIRECT 0.9 MG/DL (<0.4); BILIRUBIN,TOTAL 1.9 MG/DL (0.3-1.2); BLOOD UREA NITROGEN 18 MG/DL (9-23); CALCIUM LEVEL 8.2 MG/DL (8.5-10.1); CARBON DIOXIDE LEVEL 19 MMOL/L (20-31); CHLORIDE LEVEL 95 MMOL/L (98-107); CREATININE FOR GFR 1.28 MG/DL (0.70-1.30); GLOMERULAR FILTRATION RATE > 60.0 (>60); GLUCOSE, FASTING 119 MG/DL (60-100); MAGNESIUM LEVEL 1.5 MG/DL (1.8-2.4); SODIUM LEVEL 131 MMOL/L (136-145); TOTAL PROTEIN 7.1 G/DL (5.7-8.2)
[2024-07-10 20:55] LABS: ETHYL ALCOHOL (ETHANOL) 0.292 % (0.000-0.010)
[2024-07-10 20:57] LABS: CPK CREATINE PHOSPHOKINASE 188 U/L (46-171); MB/CK RELATIVE INDEX 2.07 (< OR =4)
[2024-07-10] MEDS: METOPROLOL TART 25 MG TABLET PO ONE (21:26)
[2024-07-10] MEDS: MAG SULF 1GM/100ML (MAG RUN) 1 GM in IV 1 EA IV ONE (21:26)
[2024-07-10 21:43] LABS: CK-MB VALUE MASS 3.3 NG/ML (<3.6)
[2024-07-10 21:44] LABS: MB/CK RELATIVE INDEX 1.95 (< OR =4)
[2024-07-10] MEDS ORDERED: LORazepam 2 MG TAB PO PRN (22:00)
[2024-07-10] MEDS ORDERED: ASPI81CH33 PO (22:47)
[2024-07-10] MEDS ORDERED: FURO20TA2 PO (22:49)
[2024-07-10] MEDS ORDERED: ATOR40TA75 PO (22:49)
[2024-07-10] MEDS ORDERED: MAGN400T2 PO (22:51)
[2024-07-10] MEDS ORDERED: METO1TAB7 PO (22:51)
[2024-07-10] MEDS ORDERED: POTA-136 PO (22:52)
[2024-07-10] MEDS ORDERED: SPIR-10 PO (22:53)
[2024-07-10] MEDS ORDERED: HOME MED LIST COMPLETE! XX SCH (22:55)
[2024-07-10] MEDS ORDERED: ENTR1TAB PO (22:55)
[2024-07-10] MEDS ORDERED: THERTAB52 PO (22:55)
[2024-07-10] MEDS: THIAMINE 100 MG TAB PO SCH (23:02)
[2024-07-10] MEDS ORDERED: MOM 30ML SUSPENSION UDC PO PRN (23:30)
[2024-07-11] MEDS: FUROSEMIDE 40MG/4ML VIAL IV SCH (08:48)
[2024-07-11] MEDS: ENOXAPARIN 40MG/0.4ML SYRINGE (J1650 PER 10MG) SC SCH (08:49)
[2024-07-11] MEDS: MAGNESIUM OXIDE 400MG TAB (MAG-OX) PO SCH (08:50)
[2024-07-11] MEDS: POTASSIUM CHLORIDE 10MEQ SR TABLET PO SCH (08:50)
[2024-07-11] MEDS: THIAMINE 100 MG TAB PO SCH (08:51)
[2024-07-11] MEDS: ATORVASTATIN 20 MG TAB PO SCH (08:51)
[2024-07-11] MEDS: ASPIRIN 81MG CHEW TABLET PO SCH (08:51)
[2024-07-11] MEDS: ENTRESTO 24-26MG TABLET (SACUBITRIL/VALSARTAN) PO SCH (08:51)
[2024-07-11] MEDS: MULTIVITAMINS/MINERALS THERAP 1 TAB PO SCH (08:51)
[2024-07-11] MEDS: FOLIC ACID 1MG TAB PO SCH (08:51)
[2024-07-11] MEDS ORDERED: FOLIC ACID 1MG TAB PO SCH (09:00)
[2024-07-11] MEDS ORDERED: MULTIVITAMINS/MINERALS THERAP 1 TAB PO SCH (09:00)
[2024-07-11 09:31] LABS: HEMATOCRIT 36.9 % (42.0-52.0); HEMOGLOBIN 12.9 g/dl (13.5-17.5); MEAN CORPUSCULAR HEMOGLOBIN 33.8 pg (27.0-33.0); MEAN CORPUSCULAR VOLUME 96.6 fl (80.0-96.0); PLATELET COUNT, AUTOMATED 116 10^3/uL (150-450); RED BLOOD COUNT 3.82 10^6/uL (4.30-6.10); WHITE BLOOD COUNT 4.8 10^3/uL (4.0-10.0)
[2024-07-11 09:49] LABS: CK-MB VALUE MASS 2.8 NG/ML (<3.6)
[2024-07-11 09:50] LABS: CPK CREATINE PHOSPHOKINASE 142 U/L (46-171); MB/CK RELATIVE INDEX 1.97 (< OR =4)
[2024-07-11 10:08] LABS: ALBUMIN 3.1 G/DL (3.2-5.2); ALKALINE PHOSPHATASE 131 U/L (40-129); ALT/SGPT 58 U/L (7.0-40); AST/SGOT 94 U/L (<34); BLOOD UREA NITROGEN 16 MG/DL (9-23); CARBON DIOXIDE LEVEL 26 MMOL/L (20-31); CHLORIDE LEVEL 102 MMOL/L (98-107); CREATININE FOR GFR 1.05 MG/DL (0.70-1.30); GLOMERULAR FILTRATION RATE > 60.0 (>60); GLUCOSE, FASTING 90 MG/DL (60-100); POTASSIUM SERUM 3.9 MMOL/L (3.5-5.1); SODIUM LEVEL 139 MMOL/L (136-145); TOTAL PROTEIN 6.4 G/DL (5.7-8.2)
[2024-07-11 15:35] VITALS: BP 142/78; TEMP 97.5; O2SAT 96
[2024-07-11 15:51] LABS: THYROID STIMULATING HORMONE 3.296 uIU/ML (0.55-4.78)
[2024-07-11 16:19] VITALS: BP 142/78
[2024-07-11] MEDS: METOPROLOL SUCC (TopROL XL) 50MG **XL** TAB PO SCH (17:17)
[2024-07-11 19:44] VITALS: BP 128/81; TEMP 97.5; O2SAT 93
[2024-07-11 22:00] VITALS: BP 128/81
[2024-07-11 23:34] VITALS: BP 143/91; TEMP 97.5; O2SAT 96
[2024-07-12] VITALS (10 sets, daily range): BP systolic 117–141; BP diastolic 80–98; TEMP 97.3–98.1; O2SAT 94–99
[2024-07-12 06:56] LABS: HEMATOCRIT 39.3 % (42.0-52.0); HEMOGLOBIN 13.4 g/dl (13.5-17.5); MEAN CORPUSCULAR HGB CONC 34.1 g/dl (32.0-36.5); MEAN CORPUSCULAR VOLUME 99.7 fl (80.0-96.0); PLATELET COUNT, AUTOMATED 102 10^3/uL (150-450); RED BLOOD COUNT 3.94 10^6/uL (4.30-6.10); WHITE BLOOD COUNT 4.6 10^3/uL (4.0-10.0)
[2024-07-12 07:22] LABS: ALBUMIN 2.8 G/DL (3.2-5.2); ALKALINE PHOSPHATASE 125 U/L (40-129); ALT/SGPT 49 U/L (7.0-40); AST/SGOT 74 U/L (<34); BILIRUBIN,TOTAL 2.7 MG/DL (0.3-1.2); BLOOD UREA NITROGEN 16 MG/DL (9-23); CALCIUM LEVEL 7.9 MG/DL (8.5-10.1); CARBON DIOXIDE LEVEL 31 MMOL/L (20-31); CHLORIDE LEVEL 102 MMOL/L (98-107); GLOMERULAR FILTRATION RATE > 60.0 (>60); GLUCOSE, FASTING 100 MG/DL (60-100); POTASSIUM SERUM 3.6 MMOL/L (3.5-5.1); SODIUM LEVEL 142 MMOL/L (136-145); TOTAL PROTEIN 6.1 G/DL (5.7-8.2)
[2024-07-12] MEDS: FUROSEMIDE 40MG/4ML VIAL IV SCH ×2 (10:13→17:05)
[2024-07-12] MEDS: LORazepam 2 MG TAB PO PRN (11:58)
[2024-07-12] MEDS ORDERED: PILL CUTTER 1 EACH XX PRN (14:00)
[2024-07-12] MEDS ORDERED: MAGN400T2 PO (14:22)
[2024-07-12] MEDS ORDERED: ATOR40TA75 PO (14:22)
[2024-07-12] MEDS ORDERED: ASPI81CH33 PO (14:22)
[2024-07-12] MEDS ORDERED: ENTR1TAB PO (14:22)
[2024-07-12] MEDS ORDERED: FARX1TAB3 PO (14:22)
[2024-07-12] MEDS ORDERED: SPIR-10 PO (14:23)
[2024-07-12 15:30] LABS: CK-MB VALUE MASS < 1.0 NG/ML (<3.6)
[2024-07-12 15:31] LABS: CPK CREATINE PHOSPHOKINASE 96 U/L (46-171); MB/CK RELATIVE INDEX 1.04 (< OR =4)
[2024-07-12] MEDS: DAPAGLIFLOZIN PROPANEDIOL 10MG TABLET (FARXIGA) PO SCH (17:05)
[2024-07-13 04:03] VITALS: BP 148/90; TEMP 98.6; O2SAT 96
[2024-07-13 04:15] VITALS: BP 148/90
[2024-07-13 07:20] LABS: HEMATOCRIT 39.7 % (42.0-52.0); HEMOGLOBIN 13.5 g/dl (13.5-17.5); MEAN CORPUSCULAR HEMOGLOBIN 33.8 pg (27.0-33.0); MEAN CORPUSCULAR VOLUME 99.3 fl (80.0-96.0); PLATELET COUNT, AUTOMATED 117 10^3/uL (150-450); WHITE BLOOD COUNT 4.8 10^3/uL (4.0-10.0)
[2024-07-13] MEDS ORDERED: LASI40TA9 PO (07:20)
[2024-07-13] MEDS ORDERED: METO1TAB7 PO (07:20)
[2024-07-13 07:21] VITALS: BP 129/96; TEMP 98.1; O2SAT 92
[2024-07-13 07:57] LABS: ALKALINE PHOSPHATASE 125 U/L (40-129); ALT/SGPT 44 U/L (7.0-40); AST/SGOT 59 U/L (<34); BILIRUBIN,TOTAL 1.8 MG/DL (0.3-1.2); BLOOD UREA NITROGEN 17 MG/DL (9-23); CALCIUM LEVEL 8.1 MG/DL (8.5-10.1); CARBON DIOXIDE LEVEL 30 MMOL/L (20-31); CHLORIDE LEVEL 102 MMOL/L (98-107); CREATININE FOR GFR 1.02 MG/DL (0.70-1.30); GLOMERULAR FILTRATION RATE > 60.0 (>60); GLUCOSE, FASTING 100 MG/DL (60-100); POTASSIUM SERUM 3.5 MMOL/L (3.5-5.1); SODIUM LEVEL 143 MMOL/L (136-145); TOTAL PROTEIN 6.6 G/DL (5.7-8.2)
[2024-07-13 08:00] VITALS: BP 129/96
[2024-07-13 08:43] VITALS: BP 129/96
[2024-07-13] MEDS: FLUZONE VACCINE TRIVALENT PF(2024-25) 0.5ML SYRINGE IM.IMMUN ONE (09:26)
== END 2024-07-13 12:30 | disposition home or self-care (01) | DRG 194 ==
LOC: EDBD 19:32 → M ED 19:32 → M ED INP 23:28 → M PCU 07-11 15:26
PROVIDERS: ADMIT Family Medicine; ATTEND Internal Medicine
DX: I50.43 Acute on chronic combined systolic (congestive) and diastolic (congestive) heart failure (principal); I21.A1 Myocardial infarction type 2; E87.20 Acidosis, unspecified; E66.01 Morbid (severe) obesity due to excess calories; I42.6 Alcoholic cardiomyopathy; K70.10 Alcoholic hepatitis without ascites; E02 Subclinical iodine-deficiency hypothyroidism; F10.20 Alcohol dependence, uncomplicated; F17.210 Nicotine dependence, cigarettes, uncomplicated; I25.10 Atherosclerotic heart disease of native coronary artery without angina pectoris; Z68.36 Body mass index [BMI] 36.0-36.9, adult; Z91.148 Patient's other noncompliance with medication regimen for other reason; Z79.82 Long term (current) use of aspirin; Z79.899 Other long term (current) drug therapy

== ENCOUNTER → 2024-07-28 | Outpatient (CLI) | payer BC ==
[~2024-07-28] MED LIST changes: +ASPI81CH33 PO; +FARX1TAB3 PO; +FURO20TA2 PO; +LASI40TA9 PO; +SPIR-10 PO; +THERTAB52 PO
[2024-07-28 15:52] LABS: TOTAL IRON BINDING CAPACITY 364 UG/DL (250-425)
[2024-07-28 15:53] LABS: ALBUMIN 3.6 G/DL (3.2-5.2); ALKALINE PHOSPHATASE 197 U/L (40-129); ALT/SGPT 27 U/L (7.0-40); AST/SGOT 41 U/L (<34); BILIRUBIN,TOTAL 1.9 MG/DL (0.3-1.2); BLOOD UREA NITROGEN 18 MG/DL (9-23); CALCIUM LEVEL 9.1 MG/DL (8.5-10.1); CARBON DIOXIDE LEVEL 28 MMOL/L (20-31); CHLORIDE LEVEL 98 MMOL/L (98-107); CREATININE FOR GFR 1.33 MG/DL (0.70-1.30); GLOMERULAR FILTRATION RATE > 60.0 (>60); GLUCOSE, FASTING 79 MG/DL (60-100); IRON (FE) 34 UG/DL (65-175); MAGNESIUM LEVEL 1.7 MG/DL (1.8-2.4); PERCENT SATURATION 9.3 % (19.7-50.0); POTASSIUM SERUM 4.5 MMOL/L (3.5-5.1); SODIUM LEVEL 138 MMOL/L (136-145); TOTAL PROTEIN 7.5 G/DL (5.7-8.2)
[2024-07-28 16:00] LABS: FERRITIN 58.4 NG/ML (10.5-307.3)
== END ==
LOC: M PLALAB 10:12
PROVIDERS: ATTEND Family Medicine
DX: I42.6 Alcoholic cardiomyopathy (principal); I50.20 Unspecified systolic (congestive) heart failure; R79.89 Other specified abnormal findings of blood chemistry

== ENCOUNTER 2024-08-31 08:24 | Inpatient (IN) | payer BC ==
[~2024-08-31] VITALS: Ht 185.4 cm; Wt 111.4 kg
[2024-08-31 09:12] LABS: VENOUS HCO3 23.7 MMOL/L (23.0-27.0); VENOUS O2 SATURATION 72.5 % (60.0-80.0); VENOUS PARTIAL PRESSURE CO2 39.7 mmHg (38.0-50.0); VENOUS PARTIAL PRESSURE O2 41.6 mmHg (30.0-50.0); VENOUS PH 7.394 UNITS (7.330-7.430); VENOUS STANDARD HCO3 23.1 MMOL/L; VENOUS TOTAL CO2 24.9 MMOL/L (24.0-28.0)
[2024-08-31 09:17] LABS: BASO % 0.6 % (0.0-1.0); EOS # 0.1 10^3/uL (0.0-0.5); EOS % 0.8 % (0.0-3.0); HEMATOCRIT 38.4 % (42.0-52.0); HEMOGLOBIN 13.3 g/dl (13.5-17.5); LYMPH # 1.3 10^3/uL (1.5-5.0); MEAN CORPUSCULAR HEMOGLOBIN 31.6 pg (27.0-33.0); MEAN CORPUSCULAR HGB CONC 34.6 g/dl (32.0-36.5); MEAN CORPUSCULAR VOLUME 91.2 fl (80.0-96.0); MONO # 0.7 10^3/uL (0.0-0.8); NEUTROPHILS # 4.9 10^3/uL (1.5-8.5); NEUTROPHILS % 68.9 % (36.0-66.0); PLATELET COUNT, AUTOMATED 106 10^3/uL (150-450); RED BLOOD COUNT 4.21 10^6/uL (4.30-6.10); WHITE BLOOD COUNT 7.1 10^3/uL (4.0-10.0)
[2024-08-31 09:38] LABS: LIPASE 27 U/L (12-53)
[2024-08-31 09:39] LABS: ETHYL ALCOHOL (ETHANOL) 0.084 % (0.000-0.010)
[2024-08-31 09:41] LABS: THYROID STIMULATING HORMONE 3.571 uIU/ML (0.55-4.78)
[2024-08-31 09:42] LABS: FREE T4 1.48 NG/DL (0.89-1.76)
[2024-08-31 09:46] LABS: ALBUMIN 3.1 G/DL (3.2-5.2); ALKALINE PHOSPHATASE 275 U/L (40-129); ALT/SGPT 26 U/L (7.0-40); AST/SGOT 51 U/L (<34); BILIRUBIN,TOTAL 1.7 MG/DL (0.3-1.2); BLOOD UREA NITROGEN 17 MG/DL (9-23); CALCIUM LEVEL 7.9 MG/DL (8.5-10.1); CARBON DIOXIDE LEVEL 25 MMOL/L (20-31); CHLORIDE LEVEL 96 MMOL/L (98-107); CREATININE FOR GFR 1.17 MG/DL (0.70-1.30); GLOMERULAR FILTRATION RATE > 60.0 (>60); GLUCOSE, FASTING 105 MG/DL (60-100); MAGNESIUM LEVEL 1.5 MG/DL (1.8-2.4); POTASSIUM SERUM 3.5 MMOL/L (3.5-5.1); SODIUM LEVEL 133 MMOL/L (136-145); TOTAL PROTEIN 6.8 G/DL (5.7-8.2)
[2024-08-31] MEDS ORDERED: METO200T15 PO (10:16)
[2024-08-31 10:53] LABS: INR 1.12; PARTIAL THROMBOPLASTIN TIME 29.7 SECONDS (24.8-34.2); PROTHROMBIN TIME 14.7 SECONDS (12.5-14.5)
[2024-08-31] MEDS ORDERED: POTA-150 PO (11:23)
[2024-08-31] MEDS ORDERED: FARX1TAB5 PO (11:23)
[2024-08-31] MEDS ORDERED: FURO40TA2 PO (11:23)
[2024-08-31] MEDS ORDERED: MAGN400T35 PO (11:23)
[2024-08-31] MEDS ORDERED: ASPI81TA26 PO (11:23)
[2024-08-31] MEDS ORDERED: TOPR50TA PO (11:23)
[2024-08-31] MEDS ORDERED: HOME MED LIST COMPLETE! XX SCH (11:25)
[2024-08-31] MEDS ORDERED: ISOVUE-370 76% 100ML VIAL As Ordered ONE (11:32)
[2024-08-31] MEDS: FUROSEMIDE 100MG/10ML VIAL IV ONE (11:47)
[2024-08-31] MEDS: MAG SULF 1GM/100ML (MAG RUN) 1 GM in IV 1 EA IV ONE (11:48)
[2024-08-31 14:00] VITALS: BP 146/96; TEMP 97.7; O2SAT 100
[2024-08-31] MEDS: ALBUTEROL SULFATE 2.5MG/0.5ML INH NEB SOLN NEB SCH (14:26)
[2024-08-31 15:02] LABS: VENOUS BASE EXCESS 0.8 (-2.0-2.0); VENOUS O2 SATURATION 97.8 % (60.0-80.0); VENOUS PARTIAL PRESSURE O2 103.7 mmHg (30.0-50.0); VENOUS PH 7.466 UNITS (7.330-7.430); VENOUS STANDARD HCO3 25.2 MMOL/L
[2024-08-31] MEDS: FUROSEMIDE 40MG/4ML VIAL IV SCH (18:14)
[2024-08-31] MEDS: MAGNESIUM OXIDE 400MG TAB (MAG-OX) PO SCH (20:06)
[2024-08-31] MEDS: DOCUSATE SODIUM 100MG CAPSULE PO SCH (20:06)
[2024-08-31] MEDS: POTASSIUM CHLORIDE 10MEQ SR TABLET PO SCH (20:07)
[2024-08-31 20:09] VITALS: BP 130/94; TEMP 98.4
[2024-09-01] MEDS: FUROSEMIDE 40MG/4ML VIAL IV SCH (00:34)
[2024-09-01 05:00] VITALS: BP 129/95; TEMP 97.9; O2SAT 95
[2024-09-01 06:00] VITALS: BP 129/94
[2024-09-01 06:39] LABS: BASO % 0.7 % (0.0-1.0); EOS % 0.5 % (0.0-3.0); HEMOGLOBIN 12.7 g/dl (13.5-17.5); LYMPH # 1.2 10^3/uL (1.5-5.0); LYMPH % 19.9 % (24.0-44.0); MEAN CORPUSCULAR HEMOGLOBIN 31.1 pg (27.0-33.0); MEAN CORPUSCULAR HGB CONC 34.3 g/dl (32.0-36.5); MEAN CORPUSCULAR VOLUME 90.7 fl (80.0-96.0); MONO # 0.7 10^3/uL (0.0-0.8); MONO % 11.1 % (2.0-8.0); NEUTROPHILS # 3.9 10^3/uL (1.5-8.5); NEUTROPHILS % 67.3 % (36.0-66.0); PLATELET COUNT, AUTOMATED 105 10^3/uL (150-450); RED BLOOD COUNT 4.08 10^6/uL (4.30-6.10); WHITE BLOOD COUNT 5.8 10^3/uL (4.0-10.0)
[2024-09-01 06:47] LABS: BLOOD UREA NITROGEN 24 MG/DL (9-23); CALCIUM LEVEL 8.5 MG/DL (8.5-10.1); CARBON DIOXIDE LEVEL 25 MMOL/L (20-31); CHLORIDE LEVEL 98 MMOL/L (98-107); GLOMERULAR FILTRATION RATE > 60.0 (>60); GLUCOSE, FASTING 104 MG/DL (60-100); MAGNESIUM LEVEL 1.5 MG/DL (1.8-2.4); POTASSIUM SERUM 3.7 MMOL/L (3.5-5.1); SODIUM LEVEL 136 MMOL/L (136-145)
[2024-09-01] MEDS: ASPIRIN 81MG ENTERIC TABLET PO SCH (08:25)
[2024-09-01] MEDS: SPIRONOLACTONE 25 MG TAB PO SCH (08:26)
[2024-09-01] MEDS: FOLIC ACID 1MG TAB PO SCH (08:26)
[2024-09-01] MEDS: THIAMINE 100 MG TAB PO SCH (08:27)
[2024-09-01] MEDS: METOPROLOL SUCC (TopROL XL) 50MG **XL** TAB PO SCH (08:27)
[2024-09-01] MEDS: ATORVASTATIN 20 MG TAB PO SCH (08:27)
[2024-09-01] MEDS ORDERED: POTASSIUM CHLORIDE 10MEQ SR TABLET PO SCH (09:00)
[2024-09-01] MEDS ORDERED: ENOXAPARIN 40MG/0.4ML SYRINGE (J1650 PER 10MG) SC SCH (09:00)
[2024-09-01] MEDS: MAG SULF 1GM/100ML (MAG RUN) 1 GM in IV 1 EA IV SCH (09:46)
[2024-09-01 12:00] VITALS: BP 129/93; TEMP 97.9; O2SAT 96
[2024-09-01] MEDS: dexAMETHasone 20MG/5ML VIAL IV SCH (14:32)
[2024-09-01] MEDS: POTASSIUM CHLORIDE 10MEQ SR TABLET PO SCH (16:33)
[2024-09-01] MEDS: FUROSEMIDE 100MG/10ML VIAL IV SCH (16:34)
[2024-09-01] MEDS: SYMBICORT 160/4.5MCG INHALER 6GM INH SCH (19:31)
[2024-09-01 20:19] VITALS: BP 127/92; TEMP 98.1; O2SAT 90
[2024-09-01 21:00] VITALS: BP 126/92
[2024-09-02 03:43] VITALS: BP 126/92; TEMP 97.9; O2SAT 97
[2024-09-02 06:09] LABS: BASO % 0.2 % (0.0-1.0); HEMOGLOBIN 13.1 g/dl (13.5-17.5); LYMPH # 0.5 10^3/uL (1.5-5.0); LYMPH % 8.4 % (24.0-44.0); MEAN CORPUSCULAR HEMOGLOBIN 31.3 pg (27.0-33.0); MEAN CORPUSCULAR HGB CONC 33.6 g/dl (32.0-36.5); MEAN CORPUSCULAR VOLUME 93.1 fl (80.0-96.0); MONO # 0.3 10^3/uL (0.0-0.8); MONO % 6.2 % (2.0-8.0); NEUTROPHILS # 4.6 10^3/uL (1.5-8.5); NEUTROPHILS % 84.8 % (36.0-66.0); PLATELET COUNT, AUTOMATED 109 10^3/uL (150-450); RED BLOOD COUNT 4.19 10^6/uL (4.30-6.10); WHITE BLOOD COUNT 5.4 10^3/uL (4.0-10.0)
[2024-09-02 06:31] LABS: BLOOD UREA NITROGEN 29 MG/DL (9-23); CALCIUM LEVEL 9.2 MG/DL (8.5-10.1); CARBON DIOXIDE LEVEL 23 MMOL/L (20-31); CHLORIDE LEVEL 98 MMOL/L (98-107); CREATININE FOR GFR 1.27 MG/DL (0.70-1.30); GLOMERULAR FILTRATION RATE > 60.0 (>60); GLUCOSE, FASTING 157 MG/DL (60-100); POTASSIUM SERUM 4.3 MMOL/L (3.5-5.1); SODIUM LEVEL 135 MMOL/L (136-145)
[2024-09-02 08:19] LABS: MAGNESIUM LEVEL 1.8 MG/DL (1.8-2.4)
[2024-09-02 09:49] VITALS: BP 130/92
[2024-09-02] MEDS ORDERED: VENTAER INH (10:38)
[2024-09-02] MEDS ORDERED: SYMB16INH INH (10:38)
== END 2024-09-02 11:48 | disposition home or self-care (01) | DRG 194 ==
LOC: EDBD 08:24 → M ED 08:24 → EDSEX 08:24 → M ED INP 13:57 → M MSPAV 16:00
PROVIDERS: ADMIT Internal Medicine Nephrology; ATTEND Internal Medicine Nephrology
DX: I50.23 Acute on chronic systolic (congestive) heart failure (principal); D69.6 Thrombocytopenia, unspecified; I42.6 Alcoholic cardiomyopathy; I27.20 Pulmonary hypertension, unspecified; E83.42 Hypomagnesemia; K76.0 Fatty (change of) liver, not elsewhere classified; F10.10 Alcohol abuse, uncomplicated; B34.2 Coronavirus infection, unspecified; E66.9 Obesity, unspecified; F17.200 Nicotine dependence, unspecified, uncomplicated; Z79.82 Long term (current) use of aspirin; Z79.899 Other long term (current) drug therapy; Z91.119 Patient's noncompliance with dietary regimen due to unspecified reason

== ENCOUNTER → 2024-10-02 | Outpatient (REF) | payer BC, MEDICAID ==
[~2024-10-02] MED LIST changes: +ASPI81TA26 PO; +FARX1TAB5 PO; +METO200T15 PO; +POTA-150 PO; +SYMB16INH INH; +TOPR50TA PO; +VENTAER INH
== END ==
LOC: M SFHCPLAZ 05:58
PROVIDERS: ATTEND Student in an Organized Health Care Education/Training Program
DX: Z53.9 Procedure and treatment not carried out, unspecified reason (principal)

== ENCOUNTER 2025-03-11 09:06 | Inpatient (IN) | payer BC, MEDICAID ==
[~2025-03-11] VITALS: Ht 185.4 cm; Wt 112.8 kg
[2025-03-11] VITALS (17 sets, daily range): BP systolic 85–103; BP diastolic 50–66; TEMP 97–97.5; O2SAT 94–100
[2025-03-11 09:35] LABS: BASO # 0.1 10^3/uL (0.0-0.2); BASO % 1.4 % (0.0-1.0); EOS # 0.0 10^3/uL (0.0-0.5); EOS % 1.0 % (0.0-3.0); LYMPH # 0.5 10^3/uL (1.5-5.0); LYMPH % 11.8 % (24.0-44.0); MONO # 0.7 10^3/uL (0.0-0.8); MONO % 16.1 % (2.0-8.0); NEUTROPHILS # 2.9 10^3/uL (1.5-8.5); NEUTROPHILS % 68.5 % (36.0-66.0)
[2025-03-11 09:52] LABS: CK-MB VALUE MASS 2.2 NG/ML (<3.6)
[2025-03-11 09:54] LABS: CPK CREATINE PHOSPHOKINASE 109 U/L (46-171); MB/CK RELATIVE INDEX 2.01 (< OR =4)
[2025-03-11 09:58] LABS: PLATELET COUNT, AUTOMATED 62 10^3/uL (150-450)
[2025-03-11 10:04] LABS: OSMOLALITY SERUM 258 MOSM/KG (275-295)
[2025-03-11 10:08] LABS: ETHYL ALCOHOL (ETHANOL) < 0.003 % (0.000-0.010)
[2025-03-11] MEDS: NS 500 ML IV ONE (10:11)
[2025-03-11 10:23] LABS: ALT/SGPT 29 U/L (7.0-40); AST/SGOT 81 U/L (<34); CALCIUM LEVEL 9.1 MG/DL (8.5-10.1); CARBON DIOXIDE LEVEL 24 MMOL/L (20-31); CHLORIDE LEVEL 84 MMOL/L (98-107); CREATININE FOR GFR 1.25 MG/DL (0.70-1.30); GLOMERULAR FILTRATION RATE 72.8 (>60); MAGNESIUM LEVEL 1.8 MG/DL (1.8-2.4); POTASSIUM SERUM 5.5 MMOL/L (3.5-5.1); SODIUM LEVEL 116 MMOL/L (136-145)
[2025-03-11] MEDS ORDERED: SYMB16INH INH (13:19)
[2025-03-11] MEDS ORDERED: VENTAER INH (13:19)
[2025-03-11] MEDS ORDERED: TORS20TA2 PO (13:19)
[2025-03-11] MEDS ORDERED: HOME MED LIST COMPLETE! XX SCH (13:20)
[2025-03-11 14:01] LABS: INR 1.2
[2025-03-11 14:30] LABS: SODIUM,RANDOM URINE < 10 MMOL/L
[2025-03-11 14:37] LABS: KETONE, URINE AUTO RFX NEGATIVE (NEGATIVE); LEUKOCYTE ESTERASE UR AUTO RFX NEGATIVE (NEGATIVE); NITRITE, URINE AUTO RFX NEGATIVE (NEGATIVE); RBC, URINE AUTO RFX 0 /HPF (0-3); SQUAM EPITHELIAL CELL UR AURFX 0 /HPF (0-6); WBC, URINE AUTO RFX 1 /HPF (0-3)
[2025-03-11 14:46] LABS: AMPHETAMINES LEVEL URINE NEGATIVE (NEGATIVE); BARBITURATES URINE NEGATIVE (NEGATIVE); BENZODIAZEPINES URINE NEGATIVE (NEGATIVE); COCAINE METABOLITE URINE NEGATIVE (NEGATIVE); METHADONE URINE NEGATIVE (NEGATIVE); OPIATES URINE NEGATIVE (NEGATIVE)
[2025-03-11 14:47] LABS: PHENCYCLIDINE URINE NEGATIVE (NEGATIVE)
[2025-03-11 14:48] LABS: CANNABINOIDS URINE POSITIVE (NEGATIVE)
[2025-03-11] MEDS ORDERED: PILL CUTTER 1 EACH XX ONE (15:02)
[2025-03-11] MEDS: ASPIRIN 81 MG ENTERIC TABLET PO SCH (15:05)
[2025-03-11] MEDS: FUROSEMIDE 20 MG/2 ML VIAL IV ONE (15:05)
[2025-03-11] MEDS: ATORVASTATIN 20 MG TAB PO SCH (15:06)
[2025-03-11] MEDS: METOPROLOL TART 25 MG TABLET PO ONE (15:06)
[2025-03-11] MEDS: diazePAM 2 MG TAB PO ONE (15:07)
[2025-03-11 16:01] LABS: CALCIUM LEVEL 8.9 MG/DL (8.5-10.1); CARBON DIOXIDE LEVEL 22.0 MMOL/L (20-31); CHLORIDE LEVEL 87.0 MMOL/L (98-107); CREATININE FOR GFR 1.23 MG/DL (0.70-1.30); GLOMERULAR FILTRATION RATE 74.2 (>60); POTASSIUM SERUM 5.4 MMOL/L (3.5-5.1); SODIUM LEVEL 118.0 MMOL/L (136-145)
[2025-03-11] MEDS: THIAMINE 100 MG TAB PO SCH (17:49)
[2025-03-11] MEDS: MULTIVITAMINS/MINERALS THERAP 1 TAB PO SCH (17:49)
[2025-03-11] MEDS: FOLIC ACID 1 MG TAB PO SCH (17:50)
[2025-03-11 19:35] LABS: CALCIUM LEVEL 8.4 MG/DL (8.5-10.1); CARBON DIOXIDE LEVEL 23.0 MMOL/L (20-31); CHLORIDE LEVEL 88.0 MMOL/L (98-107); CREATININE FOR GFR 1.33 MG/DL (0.70-1.30); GLOMERULAR FILTRATION RATE 67.6 (>60); POTASSIUM SERUM 5.2 MMOL/L (3.5-5.1); SODIUM LEVEL 119.0 MMOL/L (136-145)
[2025-03-11] MEDS: SYMBICORT 160/4.5MCG INHALER 6GM INH SCH (19:45)
[2025-03-11] MEDS: METOPROLOL TART 25 MG TABLET PO SCH (21:00)
[2025-03-11] MEDS: diazePAM 2 MG TAB PO SCH (21:46)
[2025-03-11 23:24] LABS: CALCIUM LEVEL 8.8 MG/DL (8.5-10.1); CARBON DIOXIDE LEVEL 24.0 MMOL/L (20-31); CHLORIDE LEVEL 88.0 MMOL/L (98-107); CREATININE FOR GFR 1.39 MG/DL (0.70-1.30); GLOMERULAR FILTRATION RATE 64.1 (>60); POTASSIUM SERUM 4.9 MMOL/L (3.5-5.1); SODIUM LEVEL 119.0 MMOL/L (136-145)
[2025-03-12] VITALS (24 sets, daily range): BP systolic 88–145; BP diastolic 50–71; TEMP 97–98; O2SAT 85–100
[2025-03-12 04:11] LABS: CALCIUM LEVEL 8.7 MG/DL (8.5-10.1); CARBON DIOXIDE LEVEL 24.0 MMOL/L (20-31); CHLORIDE LEVEL 88.0 MMOL/L (98-107); CREATININE FOR GFR 1.45 MG/DL (0.70-1.30); GLOMERULAR FILTRATION RATE 60.9 (>60); POTASSIUM SERUM 4.8 MMOL/L (3.5-5.1); SODIUM LEVEL 120.0 MMOL/L (136-145)
[2025-03-12 06:41] LABS: CALCIUM LEVEL 8.5 MG/DL (8.5-10.1); CARBON DIOXIDE LEVEL 23.0 MMOL/L (20-31); CHLORIDE LEVEL 87.0 MMOL/L (98-107); CREATININE FOR GFR 1.45 MG/DL (0.70-1.30); GLOMERULAR FILTRATION RATE 60.9 (>60); POTASSIUM SERUM 4.6 MMOL/L (3.5-5.1); SODIUM LEVEL 117.0 MMOL/L (136-145)
[2025-03-12] MEDS: ENOXAPARIN 40 MG/0.4 ML SYRINGE (J1650 PER 10MG) SC SCH (08:24)
[2025-03-12 11:11] LABS: CALCIUM LEVEL 8.4 MG/DL (8.5-10.1); CARBON DIOXIDE LEVEL 23.0 MMOL/L (20-31); CHLORIDE LEVEL 87.0 MMOL/L (98-107); CREATININE FOR GFR 1.44 MG/DL (0.70-1.30); GLOMERULAR FILTRATION RATE 61.5 (>60); POTASSIUM SERUM 4.6 MMOL/L (3.5-5.1); SODIUM LEVEL 117.0 MMOL/L (136-145)
[2025-03-12] MEDS: FUROSEMIDE injection 100 MG, VIAL 2 BAG 13MM ADAPTER 1 EACH in NS 100 ML IV SCH (11:53)
[2025-03-12 15:55] LABS: CALCIUM LEVEL 8.8 MG/DL (8.5-10.1); CARBON DIOXIDE LEVEL 24.0 MMOL/L (20-31); CHLORIDE LEVEL 89.0 MMOL/L (98-107); CREATININE FOR GFR 1.52 MG/DL (0.70-1.30); GLOMERULAR FILTRATION RATE 57.6 (>60); POTASSIUM SERUM 4.4 MMOL/L (3.5-5.1); SODIUM LEVEL 122.0 MMOL/L (136-145)
[2025-03-12] MEDS ORDERED: SODIUM CHLORIDE IV SCH (18:00)
[2025-03-12] MEDS ORDERED: [UNRECOGNIZED DRUG - OTHER] IV SCH (18:00)
[2025-03-12] MEDS ORDERED: INSULIN LISPRO (NovoLOG) PER UNIT SC SCH (18:00)
[2025-03-12] MEDS ORDERED: FAT EMULSION IV 250 ML IV ONE (18:00)
[2025-03-12] MEDS ORDERED: SODIUM PHOSPHATE IV SCH (18:00)
[2025-03-12 21:51] LABS: CALCIUM LEVEL 8.2 MG/DL (8.5-10.1); CARBON DIOXIDE LEVEL 22.0 MMOL/L (20-31); CHLORIDE LEVEL 90.0 MMOL/L (98-107); CREATININE FOR GFR 1.54 MG/DL (0.70-1.30); GLOMERULAR FILTRATION RATE 56.7 (>60); POTASSIUM SERUM 4.8 MMOL/L (3.5-5.1); SODIUM LEVEL 121.0 MMOL/L (136-145)
[2025-03-13] VITALS (28 sets, daily range): BP systolic 81–165; BP diastolic 49–102; TEMP 96.7–97.9; O2SAT 93–100
[2025-03-13] MEDS: GABAPENTIN 400 MG CAP PO ONE (00:39)
[2025-03-13] MEDS: dexmedeTOMidine 200 MCG in IV 1 EA IV SCH ×2 (01:30→02:03)
[2025-03-13] MEDS ORDERED: dexmedeTOMidine 200 MCG in IV 1 EA IV SCH (01:30)
[2025-03-13 03:57] LABS: CALCIUM LEVEL 8.1 MG/DL (8.5-10.1); CARBON DIOXIDE LEVEL 23.0 MMOL/L (20-31); CHLORIDE LEVEL 92.0 MMOL/L (98-107); CREATININE FOR GFR 1.66 MG/DL (0.70-1.30); GLOMERULAR FILTRATION RATE 51.8 (>60); POTASSIUM SERUM 4.5 MMOL/L (3.5-5.1); SODIUM LEVEL 122.0 MMOL/L (136-145)
[2025-03-13] MEDS: GABAPENTIN 300 MG CAP PO SCH (09:42)
[2025-03-13 09:55] LABS: CALCIUM LEVEL 8.6 MG/DL (8.5-10.1); CARBON DIOXIDE LEVEL 24.0 MMOL/L (20-31); CHLORIDE LEVEL 92.0 MMOL/L (98-107); CREATININE FOR GFR 1.61 MG/DL (0.70-1.30); GLOMERULAR FILTRATION RATE 53.8 (>60); POTASSIUM SERUM 4.3 MMOL/L (3.5-5.1); SODIUM LEVEL 124.0 MMOL/L (136-145)
[2025-03-13 15:27] LABS: BASO # 0.0 10^3/uL (0.0-0.2); BASO % 1.1 % (0.0-1.0); EOS # 0.1 10^3/uL (0.0-0.5); EOS % 2.5 % (0.0-3.0); LYMPH # 0.7 10^3/uL (1.5-5.0); LYMPH % 20.7 % (24.0-44.0); MONO # 0.4 10^3/uL (0.0-0.8); MONO % 12.3 % (2.0-8.0); NEUTROPHILS # 2.2 10^3/uL (1.5-8.5); NEUTROPHILS % 62.6 % (36.0-66.0)
[2025-03-13 15:30] LABS: PLATELET COUNT, AUTOMATED 63 10^3/uL (150-450)
[2025-03-13 15:53] LABS: CALCIUM LEVEL 8.2 MG/DL (8.5-10.1); CARBON DIOXIDE LEVEL 24.0 MMOL/L (20-31); CHLORIDE LEVEL 93.0 MMOL/L (98-107); CREATININE FOR GFR 1.66 MG/DL (0.70-1.30); GLOMERULAR FILTRATION RATE 51.8 (>60); POTASSIUM SERUM 4.2 MMOL/L (3.5-5.1); SODIUM LEVEL 127.0 MMOL/L (136-145)
[2025-03-13 21:56] LABS: CALCIUM LEVEL 8.6 MG/DL (8.5-10.1); CARBON DIOXIDE LEVEL 25.0 MMOL/L (20-31); CHLORIDE LEVEL 94.0 MMOL/L (98-107); CREATININE FOR GFR 1.7 MG/DL (0.70-1.30); GLOMERULAR FILTRATION RATE 50.4 (>60); POTASSIUM SERUM 4.5 MMOL/L (3.5-5.1); SODIUM LEVEL 130.0 MMOL/L (136-145)
[2025-03-14] VITALS (31 sets, daily range): BP systolic 89–131; BP diastolic 55–97; TEMP 96.8–97.8; O2SAT 71–100
[2025-03-14 05:36] LABS: BASO # 0.1 10^3/uL (0.0-0.2); BASO % 1.1 % (0.0-1.0); EOS # 0.1 10^3/uL (0.0-0.5); EOS % 2.0 % (0.0-3.0); LYMPH # 0.8 10^3/uL (1.5-5.0); LYMPH % 17.5 % (24.0-44.0); MONO # 0.6 10^3/uL (0.0-0.8); MONO % 14.1 % (2.0-8.0); NEUTROPHILS # 2.9 10^3/uL (1.5-8.5); NEUTROPHILS % 64.4 % (36.0-66.0)
[2025-03-14 05:39] LABS: PLATELET COUNT, AUTOMATED 74 10^3/uL (150-450)
[2025-03-14 06:01] LABS: ALT/SGPT 21.0 U/L (7.0-40); AST/SGOT 50.0 U/L (<34); CALCIUM LEVEL 8.6 MG/DL (8.5-10.1); CARBON DIOXIDE LEVEL 25.0 MMOL/L (20-31); CHLORIDE LEVEL 96.0 MMOL/L (98-107); CREATININE FOR GFR 1.73 MG/DL (0.70-1.30); GLOMERULAR FILTRATION RATE 49.3 (>60); MAGNESIUM LEVEL 1.8 MG/DL (1.8-2.4); POTASSIUM SERUM 4.1 MMOL/L (3.5-5.1); SODIUM LEVEL 129.0 MMOL/L (136-145)
[2025-03-14] MEDS: MAG SULF 1GM/100ML (MAG RUN) 1 GM in IV 1 EA IV ONE (08:09)
[2025-03-14] MEDS: METOPROLOL SUCC. 25 MG *XL* TAB PO SCH (09:00)
[2025-03-14] MEDS: MIDODRINE 5 MG TAB PO SCH (12:00)
[2025-03-14] MEDS: NALTREXONE 50 MG TAB PO SCH (14:10)
[2025-03-14] MEDS: chlordiazePOXIDE 25 MG CAP PO SCH (14:11)
[2025-03-14] MEDS: THIAMINE INJection 500 MG in NS 100 ML IV SCH (15:13)
[2025-03-14] MEDS: LACTULOSE 20 GM/30 ML SYRUP UDC PO SCH (17:52)
[2025-03-14 19:07] LABS: CALCIUM LEVEL 9.1 MG/DL (8.5-10.1); CARBON DIOXIDE LEVEL 27.0 MMOL/L (20-31); CHLORIDE LEVEL 97.0 MMOL/L (98-107); CREATININE FOR GFR 1.56 MG/DL (0.70-1.30); GLOMERULAR FILTRATION RATE 55.8 (>60); MAGNESIUM LEVEL 1.8 MG/DL (1.8-2.4); POTASSIUM SERUM 3.7 MMOL/L (3.5-5.1); SODIUM LEVEL 132.0 MMOL/L (136-145)
[2025-03-14 19:09] LABS: VITAMIN B12 LEVEL 862.0 PG/ML (211-911)
[2025-03-14] MEDS: METOPROLOL TART 12.5 MG PER 1/2 TAB PO SCH (20:32)
[2025-03-15] VITALS (35 sets, daily range): BP systolic 85–136; BP diastolic 53–76; TEMP 97.4–98.8; O2SAT 87–99
[2025-03-15 03:27] LABS: BASO # 0.0 10^3/uL (0.0-0.2); BASO % 0.7 % (0.0-1.0); EOS # 0.1 10^3/uL (0.0-0.5); EOS % 2.5 % (0.0-3.0); LYMPH # 0.7 10^3/uL (1.5-5.0); LYMPH % 16.4 % (24.0-44.0); MONO # 0.6 10^3/uL (0.0-0.8); MONO % 13.7 % (2.0-8.0); NEUTROPHILS # 2.9 10^3/uL (1.5-8.5); NEUTROPHILS % 66.0 % (36.0-66.0)
[2025-03-15 03:29] LABS: PLATELET COUNT, AUTOMATED 86 10^3/uL (150-450)
[2025-03-15 03:46] LABS: ALT/SGPT 18.0 U/L (7.0-40); CALCIUM LEVEL 8.9 MG/DL (8.5-10.1); CARBON DIOXIDE LEVEL 26.0 MMOL/L (20-31); CHLORIDE LEVEL 100.0 MMOL/L (98-107); CREATININE FOR GFR 1.55 MG/DL (0.70-1.30); GLOMERULAR FILTRATION RATE 56.3 (>60); MAGNESIUM LEVEL 1.7 MG/DL (1.8-2.4); POTASSIUM SERUM 3.8 MMOL/L (3.5-5.1); SODIUM LEVEL 135.0 MMOL/L (136-145)
[2025-03-15] MEDS: MAG SULF 1GM/100ML (MAG RUN) 1 GM in IV 1 EA IV SCH (08:11)
[2025-03-15] MEDS: MAGNESIUM OXIDE 400 MG TAB PO SCH (08:13)
[2025-03-15] MEDS: POTASSIUM CHLORIDE 10MEQ SR TABLET PO ONE (08:13)
[2025-03-15] MEDS: DIGOXIN INJ 0.5 MG/2 ML AMP IV ONE (17:24)
[2025-03-15] MEDS: APIXABAN 5 MG TAB PO SCH (21:04)
[2025-03-15] MEDS: DIGOXIN 0.25 MG TAB PO ONE (23:40)
[2025-03-16] VITALS (19 sets, daily range): BP systolic 93–120; BP diastolic 62–76; TEMP 96.9–97.7; O2SAT 85–99
[2025-03-16 05:50] LABS: PLATELET COUNT, AUTOMATED 101 10^3/uL (150-450)
[2025-03-16 06:18] LABS: AST/SGOT 42.0 U/L (<34)
[2025-03-16 06:21] LABS: ATYPICAL LYMPH 1 % (0-5); BASOPHILS 1 % (0-1); EOSINOPHILS 2 % (0-3); LYMPHOCYTES 19 % (16-44); MONOCYTES 16 % (0-5); NEUTROPHILS 61 % (28-66)
[2025-03-16 06:22] LABS: ALT/SGPT 16.0 U/L (7.0-40); AST/SGOT 38.0 U/L (<34); CALCIUM LEVEL 8.7 MG/DL (8.5-10.1); CARBON DIOXIDE LEVEL 25.0 MMOL/L (20-31); CHLORIDE LEVEL 101.0 MMOL/L (98-107); CREATININE FOR GFR 1.59 MG/DL (0.70-1.30); GLOMERULAR FILTRATION RATE 54.6 (>60); MAGNESIUM LEVEL 1.8 MG/DL (1.8-2.4); POTASSIUM SERUM 3.8 MMOL/L (3.5-5.1); SODIUM LEVEL 136.0 MMOL/L (136-145)
[2025-03-16 06:23] LABS: PLATELET ESTIMATE DECREASED (NORMAL)
[2025-03-16] MEDS: THIAMINE 100 MG TAB PO SCH (14:28)
[2025-03-16] MEDS: TORSEMIDE 20 MG TAB PO SCH (16:41)
[2025-03-16] MEDS: SPIRONOLACTONE 25 MG TAB PO SCH (16:41)
[2025-03-17] VITALS (9 sets, daily range): BP systolic 88–119; BP diastolic 50–85; TEMP 97–98; O2SAT 92–97
[2025-03-17 06:44] LABS: BASO # 0.1 10^3/uL (0.0-0.2); BASO % 1.7 % (0.0-1.0); EOS # 0.1 10^3/uL (0.0-0.5); EOS % 3.1 % (0.0-3.0); LYMPH # 0.9 10^3/uL (1.5-5.0); LYMPH % 22.5 % (24.0-44.0); MONO # 0.8 10^3/uL (0.0-0.8); MONO % 19.4 % (2.0-8.0); NEUTROPHILS # 2.2 10^3/uL (1.5-8.5); NEUTROPHILS % 52.3 % (36.0-66.0)
[2025-03-17 07:03] LABS: PLATELET COUNT, AUTOMATED 89 10^3/uL (150-450)
[2025-03-17 07:06] LABS: ALT/SGPT 16.0 U/L (7.0-40); AST/SGOT 37.0 U/L (<34); CALCIUM LEVEL 8.7 MG/DL (8.5-10.1); CARBON DIOXIDE LEVEL 27.0 MMOL/L (20-31); CHLORIDE LEVEL 100.0 MMOL/L (98-107); CREATININE FOR GFR 1.5 MG/DL (0.70-1.30); GLOMERULAR FILTRATION RATE 58.5 (>60); POTASSIUM SERUM 3.6 MMOL/L (3.5-5.1); SODIUM LEVEL 139.0 MMOL/L (136-145)
[2025-03-17] MEDS: DIGOXIN 0.125 MG TAB PO SCH (12:06)
[2025-03-17] MEDS: chlordiazePOXIDE 25 MG CAP PO SCH (17:59)
[2025-03-17] MEDS: METOPROLOL TART 25 MG TABLET PO SCH (18:00)
[2025-03-18] VITALS (7 sets, daily range): BP systolic 94–137; BP diastolic 59–74; TEMP 97–98.3; O2SAT 92–95
[2025-03-18 06:29] LABS: BASO # 0.1 10^3/uL (0.0-0.2); BASO % 1.5 % (0.0-1.0); EOS # 0.2 10^3/uL (0.0-0.5); EOS % 3.1 % (0.0-3.0); LYMPH # 1.0 10^3/uL (1.5-5.0); LYMPH % 21.4 % (24.0-44.0); MONO # 1.0 10^3/uL (0.0-0.8); MONO % 21.0 % (2.0-8.0); NEUTROPHILS # 2.5 10^3/uL (1.5-8.5); NEUTROPHILS % 52.4 % (36.0-66.0)
[2025-03-18 06:33] LABS: PLATELET COUNT, AUTOMATED 97 10^3/uL (150-450)
[2025-03-18 07:01] LABS: ALT/SGPT 16.0 U/L (7.0-40); AST/SGOT 37.0 U/L (<34); CALCIUM LEVEL 8.6 MG/DL (8.5-10.1); CARBON DIOXIDE LEVEL 30.0 MMOL/L (20-31); CHLORIDE LEVEL 100.0 MMOL/L (98-107); CREATININE FOR GFR 1.74 MG/DL (0.70-1.30); GLOMERULAR FILTRATION RATE 49.0 (>60); POTASSIUM SERUM 3.9 MMOL/L (3.5-5.1); SODIUM LEVEL 139.0 MMOL/L (136-145)
[2025-03-18] MEDS: THIAMINE 100 MG TAB PO SCH (20:04)
[2025-03-19] VITALS (9 sets, daily range): BP systolic 83–149; BP diastolic 51–79; TEMP 96.6–99.6; O2SAT 94–100
[2025-03-19 05:39] LABS: PLATELET COUNT, AUTOMATED 107 10^3/uL (150-450)
[2025-03-19 06:03] LABS: CALCIUM LEVEL 8.9 MG/DL (8.5-10.1); CARBON DIOXIDE LEVEL 26.0 MMOL/L (20-31); CHLORIDE LEVEL 100.0 MMOL/L (98-107); CREATININE FOR GFR 1.88 MG/DL (0.70-1.30); GLOMERULAR FILTRATION RATE 44.6 (>60); MAGNESIUM LEVEL 1.8 MG/DL (1.8-2.4); POTASSIUM SERUM 3.8 MMOL/L (3.5-5.1); SODIUM LEVEL 138.0 MMOL/L (136-145)
[2025-03-19 06:09] LABS: ATYPICAL LYMPH 18 % (0-5); BASOPHILS 5 % (0-1); EOSINOPHILS 3 % (0-3); LYMPHOCYTES 22 % (16-44); MONOCYTES 7 % (0-5); NEUTROPHILS 45 % (28-66); PLATELET ESTIMATE DECREASED (NORMAL)
[2025-03-19] MEDS ORDERED: MIDAZOLAM INJ 2 MG/2 ML VIAL As Ordered ONE (17:21)
[2025-03-19] MEDS: CETACAINE SPRAY 5 GM As Ordered ONE (17:44)
[2025-03-20] VITALS (9 sets, daily range): BP systolic 109–123; BP diastolic 55–78; TEMP 96.8–98.1; O2SAT 91–95
[2025-03-20 06:05] LABS: PLATELET COUNT, AUTOMATED 102 10^3/uL (150-450)
[2025-03-20 06:44] LABS: CALCIUM LEVEL 9.0 MG/DL (8.5-10.1); CARBON DIOXIDE LEVEL 25.0 MMOL/L (20-31); CHLORIDE LEVEL 102.0 MMOL/L (98-107); CREATININE FOR GFR 2.03 MG/DL (0.70-1.30); GLOMERULAR FILTRATION RATE 40.7 (>60); MAGNESIUM LEVEL 1.8 MG/DL (1.8-2.4); POTASSIUM SERUM 3.7 MMOL/L (3.5-5.1); SODIUM LEVEL 139.0 MMOL/L (136-145)
[2025-03-20] MEDS: METOPROLOL SUCC. 50 MG *XL* TAB PO SCH (08:02)
[2025-03-20] MEDS ORDERED: ELIQ5TAB PO (09:55)
[2025-03-20] MEDS ORDERED: MAGN400T35 PO (10:09)
[2025-03-20] MEDS ORDERED: THIA100TA PO (10:09)
[2025-03-20] MEDS ORDERED: MIDO5TA PO (10:09)
[2025-03-20] MEDS ORDERED: TORS20TA2 PO (10:09)
== END 2025-03-20 21:13 | disposition home or self-care (01) | DRG 194 ==
LOC: EDBD 09:06 → M ED 09:06 → M ED INP 14:06 → M ICU 16:03 → M PCU 03-14 17:23
PROVIDERS: ADMIT Internal Medicine Pulmonary Disease; ATTEND Internal Medicine
PROC: B245ZZ4 Ultrasonography of Left Heart, Transesophageal (ICD-10-PCS; principal; 2025-03-19 17:00)
DX: I50.43 Acute on chronic combined systolic (congestive) and diastolic (congestive) heart failure (principal); N17.9 Acute kidney failure, unspecified; I42.6 Alcoholic cardiomyopathy; G93.41 Metabolic encephalopathy; D69.6 Thrombocytopenia, unspecified; E87.1 Hypo-osmolality and hyponatremia; I48.92 Unspecified atrial flutter; K76.0 Fatty (change of) liver, not elsewhere classified; K70.9 Alcoholic liver disease, unspecified; N18.9 Chronic kidney disease, unspecified; F10.20 Alcohol dependence, uncomplicated; G47.33 Obstructive sleep apnea (adult) (pediatric); I25.10 Atherosclerotic heart disease of native coronary artery without angina pectoris; D53.9 Nutritional anemia, unspecified; E66.9 Obesity, unspecified; L40.8 Other psoriasis; I89.0 Lymphedema, not elsewhere classified; Z91.148 Patient's other noncompliance with medication regimen for other reason; Z79.82 Long term (current) use of aspirin; Z79.899 Other long term (current) drug therapy

== ENCOUNTER 2025-03-25 19:42 | Inpatient (IN) | payer BC ==
[~2025-03-25] VITALS: Ht 185.4 cm; Wt 105.5 kg
[~2025-03-25 19:42] MED LIST changes: +ELIQ5TAB PO; +MIDO5TA PO; +THIA100TA PO
[2025-03-25 20:37] LABS: VENOUS BASE EXCESS 2.5 (-2.0-2.0); VENOUS HCO3 27.0 MMOL/L (23.0-27.0); VENOUS O2 SATURATION 49.0 % (60.0-80.0); VENOUS PARTIAL PRESSURE CO2 41.5 mmHg (38.0-50.0); VENOUS PARTIAL PRESSURE O2 29.3 mmHg (30.0-50.0); VENOUS PH 7.431 UNITS (7.330-7.430); VENOUS STANDARD HCO3 25.4 MMOL/L; VENOUS TOTAL CO2 28.3 MMOL/L (24.0-28.0)
[2025-03-25 20:42] LABS: BASO # 0.1 10^3/uL (0.0-0.2); BASO % 0.8 % (0.0-1.0); EOS # 0.1 10^3/uL (0.0-0.5); EOS % 1.4 % (0.0-3.0); LYMPH # 1.5 10^3/uL (1.5-5.0); LYMPH % 20.9 % (24.0-44.0); MONO # 0.7 10^3/uL (0.0-0.8); MONO % 10.0 % (2.0-8.0); NEUTROPHILS # 4.8 10^3/uL (1.5-8.5); NEUTROPHILS % 66.5 % (36.0-66.0); PLATELET COUNT, AUTOMATED 179 10^3/uL (150-450)
[2025-03-25 20:54] LABS: INR 1.22
[2025-03-25 21:07] LABS: CK-MB VALUE MASS < 1.0 NG/ML (<3.6)
[2025-03-25 21:09] LABS: ALT/SGPT 20 U/L (7.0-40); AST/SGOT 56 U/L (<34); C REACTIVE PROTEIN QUANTITATIV 1.63 MG/DL (<1.0); CALCIUM LEVEL 9.4 MG/DL (8.5-10.1); CARBON DIOXIDE LEVEL 28 MMOL/L (20-31); CHLORIDE LEVEL 98 MMOL/L (98-107); CPK CREATINE PHOSPHOKINASE 45 U/L (46-171); CREATININE FOR GFR 1.86 MG/DL (0.70-1.30); GLOMERULAR FILTRATION RATE 45.2 (>60); POTASSIUM SERUM 3.8 MMOL/L (3.5-5.1); SODIUM LEVEL 136 MMOL/L (136-145)
[2025-03-25 21:11] LABS: FREE T4 1.42 NG/DL (0.89-1.76)
[2025-03-25 22:06] LABS: CK-MB VALUE MASS < 1.0 NG/ML (<3.6)
[2025-03-25 22:07] LABS: CPK CREATINE PHOSPHOKINASE 40 U/L (46-171)
[2025-03-25 22:22] LABS: D-DIMER QUANT 1.04 ug/mL (<0.5)
[2025-03-26] VITALS (7 sets, daily range): BP systolic 110–127; BP diastolic 48–89; TEMP 97.1–97.9; O2SAT 88–100
[2025-03-26] MEDS ORDERED: HEPARIN SOD 5000 UNITS/ML 1 ML VIAL/SYRINGE IV PRN ×2 (00:35→05:15)
[2025-03-26] MEDS: HEPARIN SOD 5000 UNITS/ML 1 ML VIAL/SYRINGE IV ONE (00:54)
[2025-03-26] MEDS: HEPARIN DRIP 25,000 UNITS in IV 1 EA IV SCH ×2 (00:57→07:44)
[2025-03-26] MEDS ORDERED: ACETAMINOPHEN 325 MG TAB PO PRN (02:20)
[2025-03-26] MEDS ORDERED: ALBUTEROL SULFATE 2.5 MG/0.5 ML INH CONCENTRATE NEB SOLN NEB PRN (02:25)
[2025-03-26] MEDS: FUROSEMIDE 40 MG/4 ML VIAL IV ONE (03:11)
[2025-03-26 07:04] LABS: PLATELET COUNT, AUTOMATED 144 10^3/uL (150-450)
[2025-03-26 07:50] LABS: ALT/SGPT 17.0 U/L (7.0-40); AST/SGOT 49.0 U/L (<34); CALCIUM LEVEL 9.0 MG/DL (8.5-10.1); CARBON DIOXIDE LEVEL 28.0 MMOL/L (20-31); CHLORIDE LEVEL 100.0 MMOL/L (98-107); CREATININE FOR GFR 1.68 MG/DL (0.70-1.30); GLOMERULAR FILTRATION RATE 51.1 (>60); MAGNESIUM LEVEL 1.6 MG/DL (1.8-2.4); POTASSIUM SERUM 3.6 MMOL/L (3.5-5.1); SODIUM LEVEL 140.0 MMOL/L (136-145)
[2025-03-26] MEDS ORDERED: MIDO10TA3 PO (10:25)
[2025-03-26] MEDS ORDERED: TORS20TA2 PO (10:25)
[2025-03-26] MEDS ORDERED: THIA100T7 PO (10:25)
[2025-03-26] MEDS ORDERED: HOME MED LIST COMPLETE! XX SCH (10:30)
[2025-03-26] MEDS: ASPIRIN 81 MG CHEWABLE TABLET PO SCH (11:07)
[2025-03-26] MEDS: ATORVASTATIN 20 MG TAB PO SCH (11:07)
[2025-03-26] MEDS: METOPROLOL SUCC. 50 MG *XL* TAB PO SCH (11:09)
[2025-03-26] MEDS: MIDODRINE 5 MG TAB PO SCH (11:11)
[2025-03-26] MEDS ORDERED: PILL CUTTER 1 EACH XX PRN (11:55)
[2025-03-26] MEDS: MAG SULF 1GM/100ML (MAG RUN) 1 GM in IV 1 EA IV SCH (12:45)
[2025-03-26] MEDS: SPIRONOLACTONE 25 MG TAB PO SCH ×2 (12:50→17:00)
[2025-03-26] MEDS: DAPAGLIFLOZIN PROPANEDIOL 10 MG TABLET PO SCH (12:51)
[2025-03-26] MEDS: BUMETANIDE 1 MG/4 ML VIAL IV SCH (12:55)
[2025-03-26] MEDS: SYMBICORT 160/4.5MCG INHALER 6GM INH SCH (13:59)
[2025-03-26] MEDS ORDERED: BUMETANIDE 1 MG/4 ML VIAL IV SCH (14:00)
[2025-03-26 14:02] LABS: CALCIUM LEVEL 9.1 MG/DL (8.5-10.1); CARBON DIOXIDE LEVEL 27.0 MMOL/L (20-31); CHLORIDE LEVEL 100.0 MMOL/L (98-107); CREATININE FOR GFR 1.54 MG/DL (0.70-1.30); GLOMERULAR FILTRATION RATE 56.7 (>60); PHOSPHORUS LEVEL 3.8 MG/DL (2.5-4.9); POTASSIUM SERUM 3.7 MMOL/L (3.5-5.1); SODIUM LEVEL 139.0 MMOL/L (136-145)
[2025-03-26] MEDS: POTASSIUM CHLORIDE 10MEQ SR TABLET PO ONE (14:52)
[2025-03-26] MEDS ORDERED: APIXABAN 2.5 MG TAB PO SCH (21:00)
[2025-03-26] MEDS: APIXABAN 5 MG TAB PO SCH (22:19)
[2025-03-27 04:13] VITALS: BP 106/71; TEMP 97.2; O2SAT 96
[2025-03-27 07:11] LABS: PLATELET COUNT, AUTOMATED 169 10^3/uL (150-450)
[2025-03-27 07:31] VITALS: BP 118/66; TEMP 97; O2SAT 97
[2025-03-27 07:33] LABS: ALT/SGPT 14.0 U/L (7.0-40); AST/SGOT 41.0 U/L (<34); CALCIUM LEVEL 9.2 MG/DL (8.5-10.1); CARBON DIOXIDE LEVEL 27.0 MMOL/L (20-31); CHLORIDE LEVEL 100.0 MMOL/L (98-107); CREATININE FOR GFR 1.51 MG/DL (0.70-1.30); GLOMERULAR FILTRATION RATE 58.1 (>60); MAGNESIUM LEVEL 1.9 MG/DL (1.8-2.4); POTASSIUM SERUM 3.7 MMOL/L (3.5-5.1); SODIUM LEVEL 141.0 MMOL/L (136-145)
[2025-03-27] MEDS ORDERED: SPIR-10 PO (14:25)
[2025-03-27] MEDS ORDERED: ELIQ5TAB PO (14:25)
[2025-03-27 16:37] VITALS: BP 123/99
== END 2025-03-27 16:51 | disposition home health service (06) | DRG 194 ==
LOC: M ED 19:42 → M ED INP 03-26 02:20 → M PCU 03-26 05:08
PROVIDERS: ADMIT Student in an Organized Health Care Education/Training Program; ATTEND Student in an Organized Health Care Education/Training Program
DX: I13.0 Hypertensive heart and chronic kidney disease with heart failure and stage 1 through stage 4 chronic kidney disease, or unspecified chronic kidney disease (principal); J96.01 Acute respiratory failure with hypoxia; Z95.811 Presence of heart assist device; I27.20 Pulmonary hypertension, unspecified; D69.6 Thrombocytopenia, unspecified; I48.92 Unspecified atrial flutter; K70.0 Alcoholic fatty liver; I42.6 Alcoholic cardiomyopathy; F10.20 Alcohol dependence, uncomplicated; F17.200 Nicotine dependence, unspecified, uncomplicated; J44.9 Chronic obstructive pulmonary disease, unspecified; J98.11 Atelectasis; N18.9 Chronic kidney disease, unspecified; E66.9 Obesity, unspecified; L40.8 Other psoriasis; D53.9 Nutritional anemia, unspecified; Z79.899 Other long term (current) drug therapy; Z79.82 Long term (current) use of aspirin; Z91.148 Patient's other noncompliance with medication regimen for other reason; I50.23 Acute on chronic systolic (congestive) heart failure; I50.84 End stage heart failure; N17.9 Acute kidney failure, unspecified

== ENCOUNTER → 2025-04-02 | Outpatient (CLI) | payer BC ==
[~2025-04-02] MED LIST changes: +MIDO10TA3 PO; +THIA100T7 PO
[2025-04-02 13:59] LABS: BASO # 0.1 10^3/uL (0.0-0.2); BASO % 0.8 % (0.0-1.0); EOS # 0.1 10^3/uL (0.0-0.5); EOS % 1.6 % (0.0-3.0); LYMPH # 1.5 10^3/uL (1.5-5.0); LYMPH % 18.6 % (24.0-44.0); MONO # 1.1 10^3/uL (0.0-0.8); MONO % 13.5 % (2.0-8.0); NEUTROPHILS # 5.2 10^3/uL (1.5-8.5); NEUTROPHILS % 65.2 % (36.0-66.0); PLATELET COUNT, AUTOMATED 256 10^3/uL (150-450)
[2025-04-02 14:37] LABS: ALT/SGPT 25.0 U/L (7.0-40); AST/SGOT 61.0 U/L (<34); CALCIUM LEVEL 9.9 MG/DL (8.5-10.1); CARBON DIOXIDE LEVEL 29.0 MMOL/L (20-31); CHLORIDE LEVEL 94.0 MMOL/L (98-107); CHOLESTEROL LEVEL 103.0 MG/DL (<200); CHOLESTEROL RISK RATIO 4.68 (<5); CREATININE FOR GFR 1.76 MG/DL (0.70-1.30); FREE T4 1.6 NG/DL (0.89-1.76); GLOMERULAR FILTRATION RATE 48.3 (>60); LDL CHOLESTEROL 60.4 MG/DL (<100); MAGNESIUM LEVEL 2.2 MG/DL (1.8-2.4); NON-HDL-C 81.0 MG/DL; POTASSIUM SERUM 4.3 MMOL/L (3.5-5.1); SODIUM LEVEL 135.0 MMOL/L (136-145); TRIGLYCERIDES LEVEL 103.0 MG/DL (<150); VITAMIN B12 LEVEL 858.0 PG/ML (211-911)
[2025-04-02 15:24] LABS: ESTIMATED AVERAGE GLUCOSE 114.0 MG/DL (60-110)
== END ==
LOC: M PLALAB 11:18
DX: Z00.00 Encounter for general adult medical examination without abnormal findings (principal); I50.20 Unspecified systolic (congestive) heart failure; M79.2 Neuralgia and neuritis, unspecified

== ENCOUNTER → 2025-04-12 | Outpatient (CLI) | payer BC ==
[2025-04-12 18:37] LABS: BASO # 0.0 10^3/uL (0.0-0.2); BASO % 0.5 % (0.0-1.0); EOS # 0.1 10^3/uL (0.0-0.5); EOS % 1.0 % (0.0-3.0); LYMPH # 1.5 10^3/uL (1.5-5.0); LYMPH % 20.2 % (24.0-44.0); MONO # 0.8 10^3/uL (0.0-0.8); MONO % 10.6 % (2.0-8.0); NEUTROPHILS # 4.9 10^3/uL (1.5-8.5); NEUTROPHILS % 67.4 % (36.0-66.0); PLATELET COUNT, AUTOMATED 114 10^3/uL (150-450)
== END ==
LOC: M WUC 13:28
PROVIDERS: ATTEND Nurse Practitioner Family
DX: M79.671 Pain in right foot (principal)

== ENCOUNTER → 2025-04-18 | Outpatient (CLI) | payer BC, MEDICAID, SELFPAY ==
[2025-04-18 14:38] LABS: CALCIUM LEVEL 9.6 MG/DL (8.5-10.1); CARBON DIOXIDE LEVEL 25.0 MMOL/L (20-31); CHLORIDE LEVEL 98.0 MMOL/L (98-107); CREATININE FOR GFR 1.73 MG/DL (0.70-1.30); GLOMERULAR FILTRATION RATE 49.3 (>60); POTASSIUM SERUM 4.1 MMOL/L (3.5-5.1); SODIUM LEVEL 137.0 MMOL/L (136-145)
== END ==
LOC: M PLALAB 11:45
PROVIDERS: ATTEND Internal Medicine Cardiovascular Disease
DX: I50.22 Chronic systolic (congestive) heart failure (principal); I42.0 Dilated cardiomyopathy

== ENCOUNTER → 2025-05-22 | Outpatient (REF) | payer BC, MEDICAID | LOC: M SFHCPLAZ 12:23 | PROVIDERS: ATTEND Family Medicine | DX: Z53.9 Procedure and treatment not carried out, unspecified reason (principal) ==